=== PATIENT | male | born 1960 | race Caucasian/White ===

== ENCOUNTER 2017-04-18 13:24 | Emergency (ER) | payer MEDICAID ==
[2017-04-18 13:35] VITALS: RESP 18; TEMP 98.4
--- NOTE | 2017-04-18 14:50 | EDPHY ---
H & P Stated Complaint: trouble eating, wants pain medication, wants housing Time Seen by Provider: 04/18/17 14:26 HPI/ROS: CHIEF COMPLAINT: Difficulty eating HISTORY OF PRESENT ILLNESS: The patient is a 56-year-old homeless alcoholic man with hepatitis C who is typically seen in [place]. He states that he was at an business services assistant live in [facility] when he got in an argument with another patient and charged with assault. He was kicked out again to halfway for 2 weeks. After halfway he was taken to the hospital admitted for C diff. He states that since that time food has tasted gland and he does not have an appetite. After getting out of the hospital on March 19 he states that his awning hanger was trying to get him back into another assisted living center but told him yesterday they would not be able to. He states that the caser shoe parts told him to take a cab to [place]. He denies fevers. He denies pain. He does have significant ascites as well as large abdominal incisional hernia and lower extremity edema. He denies shortness of breath. REVIEW OF SYSTEMS: Constitutional: denies: chills, fever, recent illness, recent injury EENTM: denies: blurred vision, double vision, nose congestion Respiratory: denies: cough, shortness of breath Cardiac: denies: chest pain, irregular heart rate, lightheadedness, palpitations Gastrointestinal/Abdominal: denies: abdominal pain, diarrhea, nausea, vomiting, blood streaked stools Genitourinary: denies: dysuria, frequency, hematuria, pain Musculoskeletal: denies: joint pain, muscle pain Skin: denies: lesions, rash, jaundice, bruising Neurological: denies: headache, numbness, paresthesia, tingling, dizziness, weakness Hematologic/Lymphatic: denies: blood clots, easy bleeding, easy bruising Immunologic/allergic: denies: HIV/AIDS, transplant EXAM: GENERAL: Well-appearing, well-nourished and in no acute distress. HEAD: Atraumatic, normocephalic. EYES: Pupils equal round and reactive to light, extraocular movements intact, sclera anicteric, conjunctiva are normal. ENT: TMs normal, nares patent, oropharynx clear without exudates. Moist mucous membranes. NECK: Normal range of motion, supple without lymphadenopathy or JVD. LUNGS: Breath sounds clear to auscultation bilaterally and equal. No wheezes rales or rhonchi. HEART: Regular rate and rhythm without murmurs, rubs or gallops. ABDOMEN: Distended, ascites, large nontender incisional hernia BACK: No CVA tenderness, no spinal tenderness, step-offs or deformities EXTREMITIES: Lower extremity edema NEUROLOGICAL: Cranial nerves II through XII grossly intact. Normal speech, normal gait. 5/5 strength, normal movement in all extremities, normal sensation PSYCH: Normal mood, normal affect. SKIN: Warm, dry, normal turgor, no visible rashes or lesions. Source: Patient Exam Limitations: No limitations - Personal History Current Tetanus/Diphtheria Vaccine: Unsure Current Tetanus Diphtheria and Acellular Pertussis (TDAP): Unsure - Medical/Surgical History Hx Asthma: No Hx Chronic Respiratory Disease: No Hx Diabetes: No Hx Cardiac Disease: No Hx Renal Disease: No Hx Cirrhosis: No Hx Alcoholism: No Hx HIV/AIDS: No Hx Splenectomy or Spleen Trauma: No Other PMH: Alcoholism, hepatitis-C, nephrectomy, chronic back pain, trouble eating. - Social History Smoking Status: Light smoker Constitutional: Initial Vital Signs Temperature (C) 36.9 C 04/18/17 13:33 Heart Rate 120 H 04/18/17 13:33 Respiratory Rate 18 04/18/17 13:33 Blood Pressure 115/92 H 04/18/17 13:33 O2 Sat (%) 98 04/18/17 13:33 O2 Delivery Mode Room Air Allergies/Adverse Reactions: No Known Allergies Allergy (Verified 04/18/17 13:36) Medical Decision Making ED Course/Re-evaluation: The patient has symptoms of cirrhosis. He does not have medical care here [facility]. I will initiate lab work. He may benefit from paracentesis. No sign of spontaneous bacterial peritonitis. No sign of pulmonary edema. 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 4:30 p.m. the patient is sleeping comfortably. He is not in any distress. He remains slightly tachycardic. He states he is not withdrawing his last drink was in February. I will treat him with some IV fluids and obtain an EKG. I discussed this case with Dr. ogden. We both agree that the patient does not require acute inpatient hospitalization and that his symptoms are more appropriately managed in the outpatient setting. Case management is involved. We will try to arrange follow-up for him at the primary is office as well as with Gastroenterology and possibly suggest paracentesis by IR. 6:00 p.m. the patient is resting comfortably. His tachycardia resolved with hydration. He still has borderline tachycardia but this is his baseline. Case management has been working on his case for a few hours now. The verdict has ultimately but to put him in a cab back to [place]. His case management team there will resume their search for placement. His doctor's and follow-up will be scheduled there. Differential Diagnosis: Partial list of the Differential diagnosis considered include but were not limited to; ascites, cirrhosis, depression, malingering and although unlikely based on the history and physical exam, I also considered spontaneous bacterial peritonitis, hyperbilirubinemia, hepatic encephalopathy, edema, withdrawal. I discussed these differential diagnoses and the plan with the patient as well as the usual and expected course. The patient understands that the diagnosis is provisional and that in medicine we are not always correct and that further workup is often warranted. Usual and customary warnings were given. All of the patient's questions were answered. The patient was instructed to return to the emergency department should the symptoms at all worsen or return, otherwise to followup with the physician as we discussed. - Data Points Laboratory Results: Laboratory Results 04/18/17 15:00 04/18/17 15:00 04/18/17 04/18/17 04/18/17 15:00 15:00 15:00 WBC 5.18 10^3/uL 10^3/uL (3.80-9.50) RBC 2.79 10^6/uL L 10^6/uL (4.40-6.38) Hgb 10.0 g/dL L g/dL (13.7-17.5) Hct 28.8 % L % (40.0-51.0) MCV 103.2 fL H fL (81.5-99.8) MCH 35.8 pg H pg (27.9-34.1) MCHC 34.7 g/dL g/dL (32.4-36.7) RDW 31.4 % H % (11.5-15.2) Plt Count 268 10^3/uL 10^3/uL (150-400) MPV 8.7 fL fL (8.7-11.7) Neut % (Auto) 43.4 % % (39.3-74.2) Lymph % (Auto) 40.0 % % (15.0-45.0) [place] % (Auto) 14.3 % H % (4.5-13.0) Eos % (Auto) 0.2 % L % (0.6-7.6) Baso % (Auto) 0.2 % L % (0.3-1.7) Nucleat RBC Rel Count 0.0 % % (0.0-0.2) Absolute Neuts (auto) 2.25 10^3/uL 10^3/uL (1.70-6.50) Absolute Lymphs (auto) 2.07 10^3/uL 10^3/uL (1.00-3.00) Absolute Monos (auto) 0.74 10^3/uL 10^3/uL (0.30-0.80) Absolute Eos (auto) 0.01 10^3/uL L 10^3/uL (0.03-0.40) Absolute Basos (auto) 0.01 10^3/uL L 10^3/uL (0.02-0.10) Absolute Nucleated RBC 0.00 10^3/uL 10^3/uL (0-0.01) Immature Gran % 1.9 % H % (0.0-1.1) Immature Gran # 0.10 10^3/uL 10^3/uL (0.00-0.10) Platelet Estimate ADEQUATE (ADEQ) Polychromasia 1+ H Hypochromasia 1+ H Microcytic Cells 1+ H Spherocytes 1+ H Target Cells 1+ H Oval Macrocytes 1+ H Acanthocytes (Spur) 1+ H PT 19.9 SEC H SEC (12.0-15.0) INR 1.68 H (0.83-1.16) APTT 34.1 SEC SEC (23.0-38.0) Sodium 139 mEq/L mEq/L (135-145) Potassium 3.9 mEq/L mEq/L (3.5-5.2) Chloride 101 mEq/L mEq/L (97-110) Carbon Dioxide 28 mEq/l mEq/l (22-31) Anion Gap 10 mEq/L mEq/L (8-16) BUN 9 mg/dL mg/dL (7-23) Creatinine 0.8 mg/dL mg/dL (0.7-1.3) Estimated GFR > 60 Glucose 98 mg/dL mg/dL (70-100) Calcium 7.9 mg/dL L mg/dL (8.5-10.4) Total Bilirubin 1.5 mg/dL H mg/dL (0.1-1.4) Conjugated Bilirubin 0.8 mg/dL H mg/dL (0.0-0.5) Unconjugated Bilirubin 0.7 mg/dL mg/dL (0.0-1.1) AST 38 IU/L IU/L (17-59) ALT 39 IU/L IU/L (21-72) Alkaline Phosphatase 159 IU/L H IU/L (38-126) Total Protein 6.6 g/dL g/dL (6.3-8.2) Albumin 2.4 g/dL L g/dL (3.5-5.0) Lipase 29 IU/L IU/L (23-300) Medications Given: Discontinued Medications Sodium Chloride (Ns) 1,000 mls @ 0 mls/hr IV EDNOW ONE; Wide Open PRN Reason: Protocol Stop: 04/18/17 16:31 Last Admin: 04/18/17 16:36 Dose: 1,000 mls Departure - Departure Disposition: Home, Routine, Self-Care Clinical Impression: Cirrhosis Qualifiers: Hepatic cirrhosis type: unspecified hepatic cirrhosis Ascites presence: with ascites Qualified Code(s): K74.60 - Unspecified cirrhosis of liver Ascites Qualifiers: Ascites type: due to alcoholic cirrhosis Qualified Code(s): K70.31 - Alcoholic cirrhosis of liver with ascites Condition: Fair Instructions: Cirrhosis (ED), Ascites (ED) Referrals: NONE *PRIMARY CARE P,. [Primary Care Provider] - As per Instructions [facility],. [Clinic] - As per Instructions
[2017-04-18 15:11] LABS: PLATELET COUNT 268 10^3/uL (150-400)
[2017-04-18 15:17] LABS: INR 1.68 (0.83-1.16); PROTIME(PATIENT) 19.9 SEC (12.0-15.0)
[2017-04-18] MEDS ORDERED: NS 1,000 ML IV ONE (16:30)
--- NOTE | 2017-04-18 16:46 | CPEKG ---
Heart Rate: 111 RR Interval: 541 P-R Interval: 144 QRSD Interval: 72 QT Interval: 332 QTC Interval: 451 P [place]: 71 QRS [place]: 79 T Wave [place]: -31 EKG Severity - BORDERLINE ECG - EKG Impression: SINUS TACHYCARDIA WITH IRREGULAR RATE 67-115 EKG Impression: BORDERLINE T ABNORMALITIES, LATERAL LEADS Electronically Signed By: Eric Abraham 18-Apr-2017 16:50:03
[2017-04-18 18:41] VITALS: BP 119/77; PULSE 99; O2SAT 93
--- NOTE | 2017-04-18 19:32 | ASMTCMCOM ---
CM Note CM Note Notes: Pt presented to the ED for trouble eating/keeping food down. Pt had arrived to [place] earlier today after taking a cab from [facility] where he has lived for more than 5 years. Patient states his "field nurse case manager told me to take a cab to [place]." Patient states he was receiving case management and [facility] services. Spoke with patient's field nurse case manager at [facility], Nikki Kaufman ([phone]) and she said they have been providing a motel for the patient for the last couple weeks while pt's case finishing machine adjuster, Kristina Peterson ([phone]) through [facility] looks for LTC placement. Nikki says they are no longer able to provide emergency [facility] (motel); & that they have reached their max and that the patient was told "to look at any and all other options" and that he will have to figure it out himself. Patient states he was told all of this last night and then told to take a cab to [place]. Nikki denies that she told patient to take a cab to [place]. Patient said he arranged for a Medicaid cab but then "the local driver took every hermelindo from my debit account." Spoke with Kristina Peterson at [facility] LTC placement services and she says they have been looking for a LTC Medicaid LEvel 2 bed for the patient for the past 3 weeks with no success, either due to no beds available or facilities are not willing to accept patient due to his past behaviors and arrest/warrant records. Patient has a history of personality disorder, schizoaffective d/o and other behavioral incidents that render him a difficult placement for LTC. We discussed options in the [place] area. Provided Kristina with information for [facility], [place], [facility] ([place]) and [facility] ([place] Spoke with Delia at [facility] and she says they do have LTC Medicaid Level 2 beds available and would be willing to review a referral. Kristina says she spoke with her OBRA coordinator and it sounds like the patient could be [facility] but would eventually need the facility to re-do all the PASSR and ULTC paperwork [facility] that [facility]. Kristina says she will pursue these options. Kristina also says she and [facility] case management have a Care Conference to discuss pt's situation tomorrow or . Patient ready for discharge. After much discussion with Kristina Washington, and CM Spray Operator Sia Isidro, it was determined that the best discharge plan would be for patient to return to [facility] so Kristina can follow up with him tomorrow. Patient provided a cab to [facility] in [facility] ([phone]); spoke with Martha at the [facility] and she confirmed that patient is allowed there (he had a suspension from lunch services that was lifted a couple of days ago). Patient just needs to be able to make his own bed, and pass an alcohol breathalyzer. Pt states he has not drank alcohol since 02/11/18 when he was kicked out of his Assisted Living at [place] in [place]. Patient has difficulty standing up but is able to ambulate well with a walker, and can make his own bed. Pt is happy to hear [facility] agreed to accept him and is agreeable to this plan. Left a voicemail with Kristina notifying her that patient was provided a cab to [facility]. Patient provided Kristina's # and aware she will be looking to follow up tomorrow. CM available for further assistance if needed. Date Signed: 04/18/2017 07:32 PM Electronically Signed By:Cathryn Huddleston RN
--- NOTE | 2017-04-18 19:35 | ASDISCHSUM ---
Discharge Information Plan Status:Homeless/Group Home Medically Cleared to Leave: Discharge Date:04/18/2017 06:40 PM CM D/C Disposition:Streets (Homeless) ADT D/C Disposition:Home, Routine, Self-Care Projected Discharge Date:04/18/2017 06:40 PM Transportation at D/C:Cab Voucher Discharge Delay Reason: Follow-Up Date:04/18/2017 06:40 PM Discharge Slot: Final Diagnosis: Placement Information Patient Contact Information Contact Name:SONAL Relationship: Address: Home Phone: Work Phone: City: Alternate Phone: State/Zip Code: Email: Financial Information Financial Class: Primary Plan Desc:MEDICAID HEALTH FIRST RAG BALER Primary Plan Number:[id number] Secondary Plan Desc: Secondary Plan Number: Assessment Information [facility] CM Progress Note CM Note CM Note Notes: Pt presented to the ED for trouble eating/keeping food down. Pt had arrived to [place] earlier today after taking a cab from [facility] where he has lived for more than 5 years. Patient states his "manager case management told me to take a cab to [place]." Patient states he was receiving case management and emergency intermediate through [facility] services. Spoke with patient's manager case management at [facility], Nikki Kaufman ([phone]) and she said they have been providing a motel for the patient for the last couple weeks while pt's manager case management, Kristina Peterson ([phone]) through [facility] looks for LTC placement. Nikki says they are no longer able to provide emergency intermediate (motel); & that they have reached their max and that the patient was told "to look at any and all other options" and that he will have to figure it out himself. Patient states he was told all of this last night and then told to take a cab to [place]. Nikki denies that she told patient to take a cab to [place]. Patient said he arranged for a Medicaid cab but then "the clamp truck driver took every hermelindo from my debit account." Spoke with Kristina Peterson at [facility] and she says they have been looking for a LTC Medicaid LEvel 2 bed for the patient for the past 3 weeks with no success, either due to no beds available or facilities are not willing to accept patient due to his past behaviors and arrest/warrant records. Patient has a history of personality disorder, schizoaffective d/o and other behavioral incidents that render him a difficult placement for LTC. We discussed options in the [place] area. Provided Kristina with information for [facility], [facility], [facility] ([place]) and [facility] ([place] Spoke with Delia at [facility] and she says they do have LTC Medicaid Level 2 beds available and would be willing to review a referral. Kristina says she spoke with her OBRA coordinator and it sounds like the patient could be placed in LTC [facility] a [facility] but would eventually need the facility to re-do all the PASSR and ULTC paperwork for that county. Kristina says she will pursue these options. Kristina also says she and [facility] case management have a Care Conference to discuss pt's situation tomorrow or . Patient ready for discharge. After much discussion with Kristina Washington, and CM Aligner Barrel And Receiver Sia Isidro, it was determined that the best discharge plan would be for patient to return to [facility] so Kristina can follow up with him tomorrow. Patient provided a cab to [facility] in [facility] ([phone]); spoke with Martha at the intermediate and she confirmed that patient is allowed there (he had a suspension from lunch services that was lifted a couple of days ago). Patient just needs to be able to make his own bed, and pass an alcohol breathalyzer. Pt states he has not drank alcohol since 02/11/18 when he was kicked out of his Assisted Living at [place] in [facility]. Patient has difficulty standing up but is able to ambulate well with a walker, and can make his own bed. Pt is happy to hear [facility] agreed to accept him and is agreeable to this plan. Left a voicemail with Kristina notifying her that patient was provided a cab to [email or web address]. Patient provided Kristina's # and aware she will be looking to follow up tomorrow. CM available for further assistance if needed. Date Signed: 04/18/2017 07:32 PM Electronically Signed By:Cathryn Huddleston RN Intervention Information Intervention Type:Post Acute Provider Date of Service:04/18/2017 07:33 PM Communication Patient Type:Emergency Room Staff Member:DANIELE Huddleston, Cathryn Hours:1.5 Discipline:Director Of Revenue Cycle Management Severity: Comment:
== END 2017-04-18 18:40 | disposition home or self-care (01) ==
DX: K70.31 Alcoholic cirrhosis of liver with ascites (principal); F17.200 Nicotine dependence, unspecified, uncomplicated; E86.9 Volume depletion, unspecified

== ENCOUNTER 2017-05-02 10:23 | Inpatient (IN) | payer MEDICAID ==
--- NOTE | 2017-05-02 10:27 | EDPHY ---
HPI/HX/ROS/PE/MDM Narrative: CHIEF COMPLAINT: Legs are "useless" HISTORY OF PRESENT ILLNESS: The patient is a homeless 56 y/o male with a complex history complaining of weakness in his legs. He has chronic back pain, hypertension, hepatitis C, asthma, liver failure, and abdominal wall hernia. He was admitted to [facility] recently, discharged 6 days ago, for hypoxemia, respiratory distress, and was discharged after a paracentesis. He went to the [facility]. On Monday he fell while going to [facility]. He wasn 't found for a couple hours. He denies loss of consciousness or other trauma. Monday he noticed weakness in his legs. He denies pain, fever, or any other associated symptoms. He denies recent alcohol abuse and would like a test showing he doesn't have TB. REVIEW OF SYSTEMS: Aside from elements discussed in the HPI, a comprehensive 10-point review of systems was reviewed and is negative. PAST MEDICAL HISTORY: Chronic back pain, hypertension, hepatitis C, asthma, liver failure, spigelian hernia, alcohol abuse, nephrectomy SOCIAL HISTORY: Homeless, alcohol abuse (last drink February), smoker VITAL SIGNS: Reviewed by me GENERAL: Unkempt, obstreperous. HEENT: Atraumatic. Eyes: No icterus, no injection. Mouth: slightly dry mucous membranes. No erythema or lesions. Neck: supple with no adenopathy. LUNGS: Breath sounds diminished bilaterally, no wheezes, rhonchi or rales. CARDIAC: Tachycardic, no rubs, murmurs or gallops. ABDOMEN: Abdomen protuberant. Large paramedian hernia, nontender. Positive fluid wave. BACK: No CVA tenderness. EXTREMITIES: 2+ to 3+ pitting edema to the knees. No trauma. Range of motion is normal throughout. NEURO: Alert and oriented, grossly nonfocal. SKIN: Warm and dry, no rash. Multiple excoriations from scabies. PSYCHIATRIC: Normal mentation, no agitation. ED Course: The patient is well known to the ED case management staff and presents with leg weakness. He denies pain or any other symptoms. He has diminished breath sounds , and is tachycardic. Patient had extensive evaluation by case management several weeks ago. Evidently, he is a long-time resident in [place] who was recently transferred to the [place] area for somewhat unclear reasons. He has recently been admitted to [facility] and then to [facility]. Patient does require assisted living type of care facility or long-term care facility but has been quite difficult to place. Plan for labs, chest X-ray, and EKG. Patient's laboratory evaluation demonstrates no significant acute abnormalities. I ordered the patient a dose of spironolactone which he declined. 1:19 PM- I have spoken to case management regarding this patient. He is in a difficult position. Please see the case managment notes; patient is homeless and uses a walker. He has not been compliant with his spironolactone and is in need of diuresis. At this point I feel the safest disposition is to admit him to the hospital. 12-LEAD EKG: Please see the full report in [facility]. My interpretation: Sinus tachycardia MDM: Differential diagnosis of the patient's weakness was considered including but not limited to electrolyte abnormality, anemia, cardiac ischemia, CVA, spinal cord abnormality, and infectious causes. - Data Points Imaging Results: Imaging Impressions Chest X-Ray 05/02/17 10:50 Impression: 1. Hypoventilatory chest with interstitial prominence that could be related to mild fluid overload or bronchitis, with right upper lobe atelectasis without definite evidence of pneumonia. 2. Age-indeterminate mild compression fracture at L1, new since 2006. 3. Additional findings as above. Findings discussed with Giuliana Thayer MD, on 05/02/2017 at 12:35. Laboratory Results: Laboratory Results 05/02/17 10:56 05/02/17 10:56 05/02/17 05/02/17 05/02/17 13:49 10:56 10:56 WBC RBC Hgb Hct MCV MCH MCHC RDW Plt Count MPV Neut % (Auto) Lymph % (Auto) [place] % (Auto) Eos % (Auto) Baso % (Auto) Nucleat RBC Rel Count Absolute Neuts (auto) Absolute Lymphs (auto) Absolute Monos (auto) Absolute Eos (auto) Absolute Basos (auto) Absolute Nucleated RBC Immature Gran % Immature Gran # PT Pending INR Pending Sodium 135 mEq/L mEq/L (135-145) Potassium 4.5 mEq/L mEq/L (3.5-5.2) Chloride 102 mEq/L mEq/L (97-110) Carbon Dioxide 25 mEq/l mEq/l (22-31) Anion Gap 8 mEq/L mEq/L (8-16) BUN 14 mg/dL mg/dL (7-23) Creatinine 0.6 mg/dL L mg/dL (0.7-1.3) Estimated GFR > 60 Glucose 100 mg/dL mg/dL (70-100) Calcium 8.9 mg/dL mg/dL (8.5-10.4) Total Bilirubin 1.1 mg/dL mg/dL (0.1-1.4) Conjugated Bilirubin 0.7 mg/dL H mg/dL (0.0-0.5) Unconjugated Bilirubin 0.4 mg/dL mg/dL (0.0-1.1) AST 47 IU/L IU/L (17-59) ALT 47 IU/L IU/L (21-72) Alkaline Phosphatase 135 IU/L H IU/L (38-126) Troponin I < 0.012 ng/mL ng/mL (0.000-0.034) Total Protein 6.3 g/dL g/dL (6.3-8.2) Albumin 2.7 g/dL L g/dL (3.5-5.0) Lipase 211 IU/L IU/L (23-300) 05/02/17 10:56 WBC 5.41 10^3/uL 10^3/uL (3.80-9.50) RBC 2.65 10^6/uL L 10^6/uL (4.40-6.38) Hgb 9.7 g/dL L g/dL (13.7-17.5) Hct 28.0 % L % (40.0-51.0) MCV 105.7 fL H fL (81.5-99.8) MCH 36.6 pg H pg (27.9-34.1) MCHC 34.6 g/dL g/dL (32.4-36.7) RDW TNP Plt Count 198 10^3/uL 10^3/uL (150-400) MPV 9.4 fL fL (8.7-11.7) Neut % (Auto) 59.6 % % (39.3-74.2) Lymph % (Auto) 20.0 % % (15.0-45.0) [place] % (Auto) 15.9 % H % (4.5-13.0) Eos % (Auto) 0.9 % % (0.6-7.6) Baso % (Auto) 0.6 % % (0.3-1.7) Nucleat RBC Rel Count 0.4 % H % (0.0-0.2) Absolute Neuts (auto) 3.23 10^3/uL 10^3/uL (1.70-6.50) Absolute Lymphs (auto) 1.08 10^3/uL 10^3/uL (1.00-3.00) Absolute Monos (auto) 0.86 10^3/uL H 10^3/uL (0.30-0.80) Absolute Eos (auto) 0.05 10^3/uL 10^3/uL (0.03-0.40) Absolute Basos (auto) 0.03 10^3/uL 10^3/uL (0.02-0.10) Absolute Nucleated RBC 0.02 10^3/uL H 10^3/uL (0-0.01) Immature Gran % 3.0 % H % (0.0-1.1) Immature Gran # 0.16 10^3/uL H 10^3/uL (0.00-0.10) PT INR Sodium Potassium Chloride Carbon Dioxide Anion Gap BUN Creatinine Estimated GFR Glucose Calcium Total Bilirubin Conjugated Bilirubin Unconjugated Bilirubin AST ALT Alkaline Phosphatase Troponin I Total Protein Albumin Lipase Medications Given: Discontinued Medications Gabapentin (Neurontin) 200 mg PO EDNOW ONE Stop: 05/02/17 11:26 Last Admin: 05/02/17 11:34 Dose: 200 mg Sodium Chloride (Ns) 1,000 mls @ 0 mls/hr IV EDNOW ONE; Wide Open PRN Reason: Protocol Stop: 05/02/17 10:51 Last Admin: 05/02/17 10:55 Dose: 1,000 mls Spironolactone (Aldactone) 25 mg PO EDNOW ONE Stop: 05/02/17 12:33 Last Admin: 05/02/17 12:40 Dose: Not Given General Initial Vital Signs: Initial Vital Signs Temperature (C) 36.9 C 05/02/17 10:27 Heart Rate 110 H 05/02/17 10:27 Respiratory Rate 18 05/02/17 10:27 Blood Pressure 110/80 05/02/17 10:27 O2 Sat (%) 99 05/02/17 10:27 O2 Delivery Mode Room Air Allergies/Adverse Reactions: No Known Allergies Allergy (Verified 04/18/17 13:36) Home Medications: Medication Instructions Recorded Gabapentin [Neurontin 300 MG (*)] 300 mg PO TID 05/02/17 Omeprazole 40 mg PO DAILY 05/02/17 Spironolactone [Aldactone 25 MG 25 mg PO DAILY #30 tab 05/02/17 (*)] Departure - Departure Disposition: Home, Routine, Self-Care Clinical Impression: Generalized weakness Hepatitis C Qualifiers: Viral hepatitis chronicity: chronic Hepatic coma status: without hepatic coma Qualified Code(s): B18.2 - Chronic viral hepatitis C Ascites Qualifiers: Ascites type: due to alcoholic hepatitis Qualified Code(s): K70.11 - Alcoholic hepatitis with ascites Liver failure Qualifiers: Liver failure chronicity: chronic Hepatic coma status: without hepatic coma Qualified Code(s): K72.10 - Chronic hepatic failure without coma Condition: Fair Report Scribed for: Giuliana Thayer Report Scribed by: Linda Cunningham Date of Report: 05/02/17 Time of Report: 10:26 Physician Review and Approval Statement: Portions of this note were transcribed by a medical assistant prn. I personally performed a history, physical exam, medical decision making, and confirmed accuracy of information the transcribed note.
[2017-05-02] MEDS ORDERED: NS 1,000 ML IV ONE (10:50)
--- NOTE | 2017-05-02 11:04 | CPEKG ---
Heart Rate: 115 RR Interval: 522 P-R Interval: 117 QRSD Interval: 96 QT Interval: 332 QTC Interval: 460 P [place]: 75 QRS [place]: 88 T Wave [place]: 71 EKG Severity - OTHERWISE NORMAL ECG - EKG Impression: SINUS TACHYCARDIA EKG Impression: artifact Electronically Signed By: Zach Odonnell 04-May-2017 07:19:19
[2017-05-02 11:22] LABS: PLATELET COUNT 198 10^3/uL (150-400)
[2017-05-02] MEDS ORDERED: GABAPENTIN 100 MG CAP PO ONE (11:25)
[2017-05-02] MEDS ORDERED: SPIRONOLACTONE 25 MG TAB PO ONE (12:32)
[2017-05-02] MEDS ORDERED: ONDANSETRON 4 MG/2 ML VIAL IVP PRN (14:52)
[2017-05-02] MEDS ORDERED: ONDANSETRON DISINTEGRATING 4 MG TAB PO PRN (14:52)
[2017-05-02] MEDS ORDERED: ACETAMINOPHEN 325 MG TAB PO PRN (14:52)
[2017-05-02] MEDS ORDERED: NICOTINE POLACRILEX 2 MG GUM B PRN (14:52)
[2017-05-02 14:56] LABS: INR 1.45 (0.83-1.16); PROTIME(PATIENT) 17.8 SEC (12.0-15.0)
[2017-05-02] MEDS ORDERED: TUBERCULIN (PPD) 5 TU/0.1 ML SYRINGE ID ONE (14:59)
--- NOTE | 2017-05-02 15:02 | PDGENHP ---
History and Physical - Chief Complaint Acute weakness - History of Present Illness Primary care provider: None HPI: 56-year-old male presenting with acute weakness located in his bilateral lower extremities characterized as inability to get off of the toilet seat, with associated recent mechanical fall resulting in the patient being down for a couple hours before he was able to receive assistance. The onset of his current symptoms was on the morning of this presentation, when the patient was at the local [facility] receiving a free lunch, and he was unable to stand up from a toilet seat. The duration was persistent thereafter, the patient reports that he continues to experience this weakness while he is lying in the emergency department bed. He does report some associated chronic bilateral lower extremity edema as well as sore throat, but he is unable to express when the patient began experiencing a sore throat or whether it is associated with any recent shortness of breath. He reports that he intermittently has nonbloody diarrhea, but he is unable to quantify his number of bowel movements. He reports that he is not on diuretics because he does not like to urinate on himself, and he is homeless so finding a bathroom can be challenging. The patient otherwise denies any fevers chills nausea vomiting or cough. Of note, the patient presented to [facility] on 04/18/2017 with reports of low oral intake and the complaint of homelessness in the for continuity. He had been brought by taxi from [address] [place] [address] [facility]. Patient did not have an indication for hospitalization at that time and he was discharged from the emergency department. He subsequently went to the [facility] in [place], and was triaged to [facility], where he received care, and they were unable to secure long- term care placement. After the patient was discharged, he was admitted at a [facility], where he had a 6 day hospitalization and reported abdominal paracentesis. He was discharged 4 days ago. History Information - Allergies/Home Medication List Allergies/Adverse Reactions: No Known Allergies Allergy (Verified 04/18/17 13:36) I have personally reviewed and updated: family history, medical history, social history, surgical history - Past Medical History Additional medical history: Cirrhosis and end-stage liver disease in the setting of hepatitis C virus and chronic alcoholism. Reported personality disorder and schizoaffective disorder. Hypertension. Chronic lower back pain - Surgical History Additional surgical history: Large abdominal surgery with kidney removal, unclear indication, resulting ventral hernia - Family History Additional family history: No venous thromboembolism, no 1st degree relatives with malignancy - Social History Smoking Status: Heavy smoker Alcohol Use: Sober (Since February 2017) Drug Use: None Additional social history: Homeless, patient is well established in [place] , he has a welfare case worker in that locale Review of Systems Review of Systems: ROS: 10pt was reviewed & negative except for what was stated in HPI & below Cardiac: Reports: edema (Bilateral lower extremity) Gastrointestinal: Reports: abdominal distention (Ascites), diarrhea Neurological: Reports: weakness Physical Exam Physical Exam: Temp Pulse Resp BP Pulse Ox 36.9 C 108 H 18 95/67 L 98 05/02/17 10:27 05/02/17 12:41 05/02/17 12:41 05/02/17 12:41 05/02/17 12:41 Constitutional: no apparent distress, not in pain, chronically ill appearing, unkempt, No uncomfortable Eyes: PERRL, anicteric sclera, EOMI Ears, Nose, Mouth, Throat: moist mucous membranes, hearing normal, ears appear normal, no oral mucosal ulcers Cardiovascular: tachycardia, edema (1+ bilateral lower extremities), No systolic murmur, No irregularly irregular Respiratory: no respiratory distress, no rales or rhonchi, clear to auscultation Gastrointestinal: normoactive bowel sounds, ascites, distension (Moderate with moderate size ventral hernia, reducible, minimal tenderness over the right inferior aspect), No guarding Skin: other (Scattered scratches on his bilateral lower extremities without any confluent erythema, the patient does have blanchable erythema along the distal toes on the left lower extremity without any necrosis) Neurologic: AAOx3, sensation intact bilaterally, weakness (Motor strength is 4/ 5 in the bilateral lower extremities, 5/5 grubber strength) Psychiatric: not anxious, flat affect, poor insight, other (Lethargic but arousable), No agitated Lab Data & Imaging Review 05/02/17 10:56 05/02/17 10:56 WBC 5.41 10^3/uL (3.80-9.50) 05/02/17 10:56 RBC 2.65 10^6/uL (4.40-6.38) L 05/02/17 10:56 Hgb 9.7 g/dL (13.7-17.5) L 05/02/17 10:56 Hct 28.0 % (40.0-51.0) L 05/02/17 10:56 MCV 105.7 fL (81.5-99.8) H 05/02/17 10:56 MCH 36.6 pg (27.9-34.1) H 05/02/17 10:56 MCHC 34.6 g/dL (32.4-36.7) 05/02/17 10:56 RDW TNP 05/02/17 10:56 Plt Count 198 10^3/uL (150-400) 05/02/17 10:56 MPV 9.4 fL (8.7-11.7) 05/02/17 10:56 Neut % (Auto) 59.6 % (39.3-74.2) 05/02/17 10:56 Lymph % (Auto) 20.0 % (15.0-45.0) 05/02/17 10:56 [place] % (Auto) 15.9 % (4.5-13.0) H 05/02/17 10:56 Eos % (Auto) 0.9 % (0.6-7.6) 05/02/17 10:56 Baso % (Auto) 0.6 % (0.3-1.7) 05/02/17 10:56 Nucleat RBC Rel Count 0.4 % (0.0-0.2) H 05/02/17 10:56 Absolute Neuts (auto) 3.23 10^3/uL (1.70-6.50) 05/02/17 10:56 Absolute Lymphs (auto) 1.08 10^3/uL (1.00-3.00) 05/02/17 10:56 Absolute Monos (auto) 0.86 10^3/uL (0.30-0.80) H 05/02/17 10:56 Absolute Eos (auto) 0.05 10^3/uL (0.03-0.40) 05/02/17 10:56 Absolute Basos (auto) 0.03 10^3/uL (0.02-0.10) 05/02/17 10:56 Absolute Nucleated RBC 0.02 10^3/uL (0-0.01) H 05/02/17 10:56 Immature Gran % 3.0 % (0.0-1.1) H 05/02/17 10:56 Immature Gran # 0.16 10^3/uL (0.00-0.10) H 05/02/17 10:56 PT 17.8 SEC (12.0-15.0) H 05/02/17 13:49 INR 1.45 (0.83-1.16) H 05/02/17 13:49 Sodium 135 mEq/L (135-145) 05/02/17 10:56 Potassium 4.5 mEq/L (3.5-5.2) 05/02/17 10:56 Chloride 102 mEq/L (97-110) 05/02/17 10:56 Carbon Dioxide 25 mEq/l (22-31) 05/02/17 10:56 Anion Gap 8 mEq/L (8-16) 05/02/17 10:56 BUN 14 mg/dL (7-23) 05/02/17 10:56 Creatinine 0.6 mg/dL (0.7-1.3) L 05/02/17 10:56 Estimated GFR > 60 05/02/17 10:56 Glucose 100 mg/dL (70-100) 05/02/17 10:56 Calcium 8.9 mg/dL (8.5-10.4) 05/02/17 10:56 Total Bilirubin 1.1 mg/dL (0.1-1.4) 05/02/17 10:56 Conjugated Bilirubin 0.7 mg/dL (0.0-0.5) H 05/02/17 10:56 Unconjugated Bilirubin 0.4 mg/dL (0.0-1.1) 05/02/17 10:56 AST 47 IU/L (17-59) 05/02/17 10:56 ALT 47 IU/L (21-72) 05/02/17 10:56 Alkaline Phosphatase 135 IU/L (38-126) H 05/02/17 10:56 Troponin I < 0.012 ng/mL (0.000-0.034) 05/02/17 10:56 Total Protein 6.3 g/dL (6.3-8.2) 05/02/17 10:56 Albumin 2.7 g/dL (3.5-5.0) L 05/02/17 10:56 Lipase 211 IU/L (23-300) 05/02/17 10:56 Visualized and Interpreted Chest x-ray results: Yes Chest X-Ray results: other (Interstitial infiltrates, right upper lobe atelectasis) Visualized and Interpreted EKG results: Yes EKG Interpretation: Positive for: other (Sinus tachycardia) Assessment & Plan Assessment: 56-year-old male presenting with acute bilateral lower extremity paresis as well as edema in the setting of cirrhosis and end-stage liver disease Plan: 1. Paresis. Acute, new problem this provider, further workup indicated. Bilateral lower extremities, either secondary to untreated edematous lower extremities verses viral syndrome versus PE -get D-dimer -get respiratory viral panel, check procalcitonin given his risk of spontaneous bacterial peritonitis -treat lower extremity edema after the above have been fully evaluated -work with physical and occupational therapy to gauge whether he would benefit from correction facility with rehab services -get U tox, alcohol level 2. End-stage liver disease with cirrhosis. Chronic, secondary to a combination of hepatitis C virus as well as chronic alcoholism, current AST and ALT both within normal limits, bilirubin level marginally elevated, platelets normal, visible ascites on exam -order outside records from [facility] to determine the extent of recent services rendered -recommend initiating oral diuretics including Lasix and Aldactone given the patient appears to have 3rd spacing and both lower extremity edema and ascites, he may be more amenable to receiving diuretics when he is in a correction facility given that he will have the challenge of locating a restroom -the patient may be appropriate for long-term care, but this should most likely be preceded by an attempt to rehabilitate him a correction facility -discussed with Dr. 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 Schizoaffective disorder. Chronic, patient is currently not medicated, the patient reports he does not want to be medicated -she does not currently appear to be decompensated although it is to be determined whether the patient can adequately care for self -get cog eval -hold on psych eval until we have obtained the aforementioned information 4. Anemia. Most likely secondary to chronic inflammatory disease as well as end -stage liver disease, continue monitor Diet. Regular Prophylaxis. High risk patient, Lovenox 40 Code. Full per patient, [facility] [place] [facility]. Anticipated discharge uncertain this time, anticipated length stay is greater than 48 hr for reasonable medical necessity including acute paresis rendering patient unsafe to ambulate safely in the setting of possibly undiagnosed infection requiring further workup in the setting of high risk comorbid end-stage liver disease with cirrhosis.
[2017-05-02 16:19] LABS: HIV TYPE 1 AND 2 NEGATIVE (NEGATIVE)
[2017-05-02] MEDS: NICOTINE 21 MG/24 HR PATCH TD SCH (16:48)
[2017-05-02] MEDS ORDERED: IBUPROFEN 600 MG TAB PO PRN (18:04)
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
[2017-05-02] MEDS ORDERED: GABAPENTIN 300 MG CAP PO SCH (21:00)
[2017-05-02] MEDS: GABAPENTIN 300 MG CAP PO SCH (22:16)
[2017-05-03 05:01] LABS: INR 1.66 (0.83-1.16); PROTIME(PATIENT) 19.7 SEC (12.0-15.0)
[2017-05-03 05:42] LABS: PLATELET COUNT 208 10^3/uL (150-400)
[2017-05-03] MEDS: GABAPENTIN 300 MG CAP PO SCH ×3 (08:20→22:05)
[2017-05-03] MEDS: PANTOPRAZOLE SODIUM 40 MG TAB PO SCH (08:20)
[2017-05-03] MEDS: NICOTINE 21 MG/24 HR PATCH TD SCH (08:21)
[2017-05-03] MEDS ORDERED: IOPAMIDOL (ISOVUE 370) 100 ML BTL IV ONE (08:58)
[2017-05-03] MEDS ORDERED: ENOXAPARIN 40 MG/0.4 ML SYR SC SCH ×3 (09:00→21:00)
[2017-05-03] MEDS ORDERED: NON-FORMULARY NEW DRUG (Omeprazole [Omeprazole] 40 MG) PO SCH (09:00)
[2017-05-03] MEDS ORDERED: ENOXAPARIN 30 MG/0.3 ML SYR SC ONE (11:40)
[2017-05-03] MEDS ORDERED: FUROSEMIDE 40 MG/4 ML VIAL IVP ONE (12:00)
--- NOTE | 2017-05-03 14:13 | PDMN ---
Medical Necessity Medical necessity: Pt meets IP criteria per MD; est los >2 mn for eval/tx of acute BLE paresis & edema rendering pt unsafe to ambulate & possible undiagnosed infection in the setting of cirrhosis & end stage liver disease; admit for further workup/monitoring, med management, therapies & dc planning; hx htn, schizoaffective disorder requiring cog eval, alcoholism; per H&P & order 05/02/17.
[2017-05-03] MEDS: METHOCARBAMOL 750 MG TAB PO PRN ×2 (14:15→22:08)
[2017-05-03] MEDS ORDERED: WARFARIN SODIUM 4 MG TAB PO SCH (16:00)
--- NOTE | 2017-05-03 18:08 | HOSPPROG ---
Hospitalist Progress Note Assessment/Plan: Assessment: 56-year-old male presenting with acute bilateral lower extremity paresis as well as edema in the setting of cirrhosis and end-stage liver disease c/b acute subsegmental PE Plan: 1. Paresis. Acute, multifactorial, 2/2 ESLD + PEs + back pain/thoracic fractures + chronic debility -cont to work w/ PT/OT -will likely benefit from SNF at discharge, then possibly LTC 2. End-stage liver disease with cirrhosis. Chronic, secondary to a combination of hepatitis C virus as well as chronic alcoholism, most recent therapeutic paracentesis w/in past week at [facility] -counseled patient that diuretics are the only method of reducing edema in legs (he asked if we could, "put a needle in them"), but he is resistant to outpatient diuretics b/c he does not want to have polyuria, as this is particularly challenging when homeless w/ poor mobility -agreeable to placing condom-cath and starting PO lasix 40mg bid, rec adding aldactone after we gauge whether he can tolerate -rec therapeutic para prior to DC after establishing reasonable PO diuretic regimen 3. Schizoaffective disorder. Chronic, patient is currently not medicated, the patient reports he does not want to be medicated -cognitively more engaging today, does not appear gravely disabled at this time -patient has extensive hx of attempts at placement by his case liner in [facility]; our case mgmt dept working on options 4. Anemia. Most likely secondary to chronic inflammatory disease as well as end -stage liver disease, declining today and, in setting of weakness, will transfuse if < 8 -give 1u PRBC now, 40mg IV lasix after -monitor daily Hgb, no e/o active bleed 5. Subsegmental pulmonary embolism. Acute, POA, new problem to this provider, further w/u indicated. Elevated dimer and sinus tachycardia (on EKG, personally interpreted), will initiate tx -prefer coumadin given underlying coagulopathy from ESLD and ability to base dosing on INR -start 4mg now, w/ lovenox 70 bid bridging -daily INR -get LE US to eval clot burden, likely cause 6. Thoracic compression fractures. Unclear chronicity, patient reports long hx of back pain w/ hx of continuous opiate dependency (was on fentanyl patch until 02/26, and ms contin prior to that) -given patient's inability to effectively recall where he has had prior diagnostic imaging, will get thoracic MRI now to gauge degree of injury which will dictate recs -get brace -place lidoderm patch -PRN robaxin/tylenol -cautious use of reintroducing opiates, as I suspect patient will become dependent yet again -heat pad -get Vit D level 7. Rib fractures. Unknown chronicity, pulm hygiene Diet. Regular Prophylaxis. High risk patient, lovenox bridge Code. Full per patient, Clair Finch in [place] is his MDPOA Disposition. Anticipated discharge uncertain this time, remains clinically unresolved, medically complex w/ high risk worsening morbidity. Subjective: ongoing back pain, requesting for something stronger than tylenol Objective: Vital Signs Temp Pulse Resp BP Pulse Ox 36.8 C 100 18 113/78 96 05/03/17 17:33 05/03/17 17:33 05/03/17 17:33 05/03/17 17:33 05/03/17 17:33 Microbiology 05/02/17 17:00 Respiratory Panel (PCR) - Final Nasal, Sinus - Swab No Organism Detected Laboratory Results 05/03/17 04:17 05/03/17 04:17 05/02/17 05/03/17 05/04/17 05:59 05:59 05:59 Intake Total 630 300 Output Total 150 300 Balance 480 0 PT 19.7 SEC (12.0-15.0) H 05/03/17 04:17 INR 1.66 (0.83-1.16) H 05/03/17 04:17 - Physical Exam Constitutional: no apparent distress, chronically ill appearing, uncomfortable, unkempt, No not in pain (moderate) Cardiovascular: tachycardia, edema (1+ bilat LE), No systolic murmur, No irregularly irregular Respiratory: reduced air movement (bilat bases), No expiratory wheeze, No inspiratory crackles, No bronchial breath sounds Gastrointestinal: normoactive bowel sounds, ascites, distension (moderate w/ ventral hernia), No tenderness, No guarding Skin: other (scratches bilat LE) Neurologic: AAOx3, sensation intact bilaterally, No weakness (motor 5/5 bilat LE ) Psychiatric: interacting appropriately, not anxious, not encephalopathic, thought process linear ICD10 Worksheet Patient Problems: Problems Problem Status Onset Generalized weakness Acute Hepatitis C Acute Ascites Acute Liver failure Acute
[2017-05-03] MEDS: ENOXAPARIN 80 MG/0.8 ML SYR SC SCH (22:05)
[2017-05-03] MEDS: LIDOCAINE 4%/MENTHOL 1% PATCH TD SCH (22:06)
[2017-05-03] MEDS: PATCH REMOVAL 1 EA PATCH TD SCH (22:06)
[2017-05-04 05:44] LABS: INR 1.57 (0.83-1.16); PROTIME(PATIENT) 18.9 SEC (12.0-15.0)
[2017-05-04] MEDS: METHOCARBAMOL 750 MG TAB PO PRN ×3 (08:18→22:33)
[2017-05-04] MEDS: GABAPENTIN 300 MG CAP PO SCH ×3 (08:18→20:01)
[2017-05-04] MEDS: FUROSEMIDE 40 MG TAB PO SCH ×2 (08:18→16:48)
[2017-05-04] MEDS: PANTOPRAZOLE SODIUM 40 MG TAB PO SCH (08:18)
[2017-05-04] MEDS: NICOTINE 21 MG/24 HR PATCH TD SCH (08:19)
[2017-05-04] MEDS: LIDOCAINE 4%/MENTHOL 1% PATCH TD SCH (08:20)
[2017-05-04] MEDS: ENOXAPARIN 80 MG/0.8 ML SYR SC SCH ×2 (08:20→20:02)
[2017-05-04] MEDS ORDERED: MAGNESIUM SULF 2 GM/WATER 50 ML IV ONE (12:13)
--- NOTE | 2017-05-04 12:20 | HOSPPROG ---
Hospitalist Progress Note Assessment/Plan: 56-year-old male presenting with acute bilateral lower extremity paresis as well as edema in the setting of cirrhosis and end-stage liver disease c/b acute subsegmental PE Plan: 1. Paresis. Acute, multifactorial, 2/2 ESLD + PEs + back pain/thoracic fractures + chronic debility -cont to work w/ PT/OT -will likely benefit from SNF at discharge, then possibly LTC 2. End-stage liver disease with cirrhosis. Chronic, secondary to a combination of hepatitis C virus as well as chronic alcoholism, most recent therapeutic paracentesis w/in past week at [facility] -counseled patient that diuretics are the only method of reducing edema in legs (he asked if we could, "put a needle in them"), but he is resistant to outpatient diuretics b/c he does not want to have polyuria, as this is particularly challenging when homeless w/ poor mobility -Has tolerated Lasix 40mg PO BID well, will cont. Hold off on Aldactone for now. 3. Schizoaffective disorder. Chronic, patient is currently not medicated, the patient reports he does not want to be medicated -cognitively more engaging today, does not appear gravely disabled at this time -patient has extensive hx of attempts at placement by his case finisher in [facility]; our case mgmt dept working on options 4. Anemia. Most likely secondary to chronic inflammatory disease as well as end -stage liver disease, declining today and, in setting of weakness, will transfuse if < 8 -s/p 1 unit PRBC on 05/03 -monitor daily Hgb, no e/o active bleed 5. Subsegmental pulmonary embolism. Acute, POA, new problem to this provider, further w/u indicated. Elevated dimer and sinus tachycardia (on EKG, personally interpreted), will initiate tx -prefer coumadin given underlying coagulopathy from ESLD and ability to base dosing on INR -Lovenox bridge, Warfarin per Pharm -Bilateral LE non occlusive Femoral vein DVT. No indication for IVC filter 6. Thoracic compression fractures. Unclear chronicity, patient reports long hx of back pain w/ hx of continuous opiate dependency (was on fentanyl patch until 02/26, and ms contin prior to that) -MRI c/w chronic fracture. no additional intervention planned -get brace -place lidoderm patch -PRN robaxin/tylenol -cautious use of reintroducing opiates, as I suspect patient will become dependent yet again -heat pad -get Vit D level 7. Rib fractures. Unknown chronicity, pulm hygiene 9. vitamin D deficiency -will replace Diet. Regular Prophylaxis. High risk patient, lovenox bridge Code. Full per patient, Clair Finch in [place] is his MDPOA Disposition. Anticipated discharge uncertain this time, remains clinically unresolved, medically complex w/ high risk worsening morbidity. Plan: -Per above -No changes to diuretics -Will work with PT today, goal is to walk -Cont Lovenox/Coumadin per Pharmacy -Decrease Tylenol dose due to liver disease Subjective: pain is well controlled. Wants to work with PT Objective: Vital Signs Temp Pulse Resp BP Pulse Ox 36.7 C 115 H 16 94/77 L 93 05/04/17 11:41 05/04/17 11:41 05/04/17 11:41 05/04/17 11:41 05/04/17 11:41 Laboratory Results 05/03/17 04:17 05/04/17 04:38 05/03/17 05/04/17 05/05/17 05:59 05:59 05:59 Intake Total 630 1200 Output Total 150 2300 Balance 480 -1100 PT 18.9 SEC (12.0-15.0) H 05/04/17 04:38 INR 1.57 (0.83-1.16) H 05/04/17 04:38 - Physical Exam Constitutional: no apparent distress, appears nourished Eyes: PERRL, EOMI Ears, Nose, Mouth, Throat: moist mucous membranes, hearing normal Cardiovascular: regular rate and rhythym, No edema Respiratory: no respiratory distress, clear to auscultation Gastrointestinal: normoactive bowel sounds, distension (mild) Genitourinary: no bladder fullness Skin: warm Musculoskeletal: generalized weakness Neurologic: AAOx3 Psychiatric: interacting appropriately, not anxious, not encephalopathic Lymph, Heme, Immunologic: No petechiae ICD10 Worksheet Patient Problems: Problems Problem Status Onset Ascites Acute Generalized weakness Acute Hepatitis C Acute Liver failure Acute
[2017-05-04] MEDS: CHOLECALCIFEROL VIT D3 2,000 UNITS TAB/CAP PO SCH (13:28)
[2017-05-04] MEDS ORDERED: WARFARIN SODIUM 5 MG TAB PO ONE (16:00)
--- NOTE | 2017-05-04 16:10 | ASMTCMCOM ---
CM Note CM Note Notes: 05/04/2017 Case Management Note Met w/pt to discuss d/c poc. PT is recommending SNF. Pt is agreeable to 30 day stay. Completed [facility]TC 100 application and notified [employer] of need for Nursing Home Medicaid ida. Notified [facility] of [facility]TC 100 application. [place] protective services case worker to assess within 2 business days and then [facility] protective services case worker has an additional 2 days to complete the report and notify [facility] protective services case worker of status of application. Faxed referrals to all [facility] in [facility]. Case Management d/c poc: to SNF pending acceptance and completion of [facility]TC 100 process. Pt requested Case Management help in contacting [facility] for info on pt belongings misplaced prior to admission to [facility]. Case Management provided the phone number for [facility] and encouraged pt contact [facility] directly with any questions. Case Management to follow. Date Signed: 05/04/2017 04:10 PM Electronically Signed By:Brenda Bello RN
[2017-05-04] MEDS: PATCH REMOVAL 1 EA PATCH TD SCH (20:02)
[2017-05-05] MEDS: oxyCODONE IR 5 MG TAB PO PRN ×3 (03:14→21:18)
[2017-05-05 05:35] LABS: PLATELET COUNT 182 10^3/uL (150-400)
[2017-05-05 06:03] LABS: INR 1.54 (0.83-1.16); PROTIME(PATIENT) 18.6 SEC (12.0-15.0)
[2017-05-05] MEDS: FUROSEMIDE 40 MG TAB PO SCH ×2 (09:55→16:36)
[2017-05-05] MEDS: CHOLECALCIFEROL VIT D3 2,000 UNITS TAB/CAP PO SCH (09:56)
[2017-05-05] MEDS: GABAPENTIN 300 MG CAP PO SCH ×3 (09:58→21:19)
[2017-05-05] MEDS: PANTOPRAZOLE SODIUM 40 MG TAB PO SCH (09:58)
[2017-05-05] MEDS: LIDOCAINE 4%/MENTHOL 1% PATCH TD SCH (09:59)
[2017-05-05] MEDS: NICOTINE 21 MG/24 HR PATCH TD SCH (10:00)
[2017-05-05] MEDS: ENOXAPARIN 80 MG/0.8 ML SYR SC SCH ×2 (10:03→21:23)
[2017-05-05] MEDS: METHOCARBAMOL 750 MG TAB PO PRN (10:13)
--- NOTE | 2017-05-05 10:42 | ASMTCMCOM ---
CM Note CM Note Notes: 05/05/2017 CM Referrals sent. Most still pending, disposition will depend upon acceptance to [facility]. Awaiting responses. CM to follow 05/04/2017 Case Management Note Met w/pt to discuss d/c poc. PT is recommending SNF. Pt is agreeable to 30 day stay. Completed [facility]TC 100 application and notified [employer] of need for [facility] Medicaid ida. Notified [facility] of [facility]TC 100 application. [facility] human services case manager to assess within 2 business days and then [facility] human services case manager has an additional 2 days to complete the report and notify [facility] human services case manager of status of application. Faxed referrals to all [facility] in [facility]. Case Management d/c poc: to SNF pending acceptance and completion of [facility]TC 100 process. Pt requested Case Management help in contacting [facility] for info on pt belongings misplaced prior to admission to [facility]. Case Management provided the phone number for [facility] and encouraged pt contact [facility] directly with any questions. Case Management to follow. Date Signed: 05/05/2017 10:41 AM Electronically Signed By:Lynne Chen RN
[2017-05-05] MEDS ORDERED: WARFARIN SODIUM 5 MG TAB PO ONE (16:45)
--- NOTE | 2017-05-05 16:51 | HOSPPROG ---
Hospitalist Progress Note Assessment/Plan: 56-year-old male presenting with acute bilateral lower extremity paresis as well as edema in the setting of cirrhosis and end-stage liver disease c/b acute subsegmental PE Plan: 1. Paresis. Acute, multifactorial, 2/2 ESLD + PEs + back pain/thoracic fractures + chronic debility -cont to work w/ PT/OT -will likely benefit from SNF at discharge, then possibly LTC 2. End-stage liver disease with cirrhosis. Chronic, secondary to a combination of hepatitis C virus as well as chronic alcoholism, most recent therapeutic paracentesis w/in past week at [facility] -counseled patient that diuretics are the only method of reducing edema in legs (he asked if we could, "put a needle in them"), but he is resistant to outpatient diuretics b/c he does not want to have polyuria, as this is particularly challenging when homeless w/ poor mobility 3. Schizoaffective disorder. Chronic, patient is currently not medicated, the patient reports he does not want to be medicated -cognitively more engaging today, does not appear gravely disabled at this time -patient has extensive hx of attempts at placement by his outsole caser in [facility]; our case mgmt dept working on options 4. Anemia. Most likely secondary to chronic inflammatory disease as well as end -stage liver disease, declining today and, in setting of weakness, will transfuse if < 8 -s/p 1 unit PRBC on 05/03 -monitor daily Hgb, no e/o active bleed 5. Subsegmental pulmonary embolism. Acute, POA, new problem to this provider, further w/u indicated. Elevated dimer and sinus tachycardia (on EKG, personally interpreted), will initiate tx -prefer coumadin given underlying coagulopathy from ESLD and ability to base dosing on INR -Lovenox bridge, Warfarin per Pharm -Bilateral LE non occlusive Femoral vein DVT. No indication for IVC filter 6. Thoracic compression fractures. Unclear chronicity, patient reports long hx of back pain w/ hx of continuous opiate dependency (was on fentanyl patch until 02/26, and ms contin prior to that) -MRI c/w chronic fracture. no additional intervention planned -get brace -place lidoderm patch -PRN robaxin/tylenol -cautious use of reintroducing opiates, as I suspect patient will become dependent yet again -heat pad -get Vit D level 7. Rib fractures. Unknown chronicity, pulm hygiene 9. vitamin D deficiency -will replace Diet. Regular Prophylaxis. High risk patient, lovenox bridge Code. Full per patient, Clair Finch in [place] is his MDPOA Disposition. Anticipated discharge uncertain this time, remains clinically unresolved, medically complex w/ high risk worsening morbidity. Plan: -give Lasix today. Starting tomorrow add Aldactone -Cont condom cath -cont AC, will ask pharmacy to dose -will need placement Subjective: abd more distended. no pain. breathing well. Objective: Vital Signs Temp Pulse Resp BP Pulse Ox 37.1 C 112 H 17 93/58 L 94 05/05/17 16:00 05/05/17 16:00 05/05/17 16:00 05/05/17 16:00 05/05/17 16:00 Laboratory Results 05/05/17 04:32 05/05/17 04:32 05/04/17 05/05/17 05/06/17 05:59 05:59 05:59 Intake Total 1200 Output Total 2300 2600 Balance -1100 -2600 PT 18.6 SEC (12.0-15.0) H 05/05/17 04:32 INR 1.54 (0.83-1.16) H 05/05/17 04:32 - Physical Exam Constitutional: no apparent distress Eyes: PERRL, EOMI Ears, Nose, Mouth, Throat: moist mucous membranes, hearing normal Cardiovascular: regular rate and rhythym Respiratory: no respiratory distress Gastrointestinal: distension Genitourinary: no bladder fullness Skin: warm Neurologic: AAOx3 Psychiatric: interacting appropriately, not anxious, not encephalopathic Lymph, Heme, Immunologic: No petechiae ICD10 Worksheet Patient Problems: Problems Problem Status Onset Ascites Acute Generalized weakness Acute Hepatitis C Acute Liver failure Acute
[2017-05-05] MEDS ORDERED: SPIRONOLACTONE 50 MG TAB PO SCH (21:00)
[2017-05-05] MEDS ORDERED: SPIRONOLACTONE 25 MG TAB PO SCH (21:00)
[2017-05-06] MEDS: PATCH REMOVAL 1 EA PATCH TD SCH ×2 (01:44→22:28)
[2017-05-06 05:09] LABS: INR 1.76 (0.83-1.16); PROTIME(PATIENT) 20.6 SEC (12.0-15.0)
[2017-05-06] MEDS: oxyCODONE IR 5 MG TAB PO PRN ×4 (06:14→21:15)
[2017-05-06] MEDS: ENOXAPARIN 80 MG/0.8 ML SYR SC SCH ×2 (09:08→21:15)
[2017-05-06] MEDS: NICOTINE 21 MG/24 HR PATCH TD SCH (09:08)
[2017-05-06] MEDS: LIDOCAINE 4%/MENTHOL 1% PATCH TD SCH (09:08)
[2017-05-06] MEDS: GABAPENTIN 300 MG CAP PO SCH ×3 (09:09→21:15)
[2017-05-06] MEDS: CHOLECALCIFEROL VIT D3 2,000 UNITS TAB/CAP PO SCH (09:09)
[2017-05-06] MEDS: PANTOPRAZOLE SODIUM 40 MG TAB PO SCH (09:09)
[2017-05-06] MEDS: SPIRONOLACTONE 25 MG TAB PO SCH ×2 (09:09→21:15)
[2017-05-06] MEDS: FUROSEMIDE 40 MG TAB PO SCH (09:09)
--- NOTE | 2017-05-06 11:22 | ASMTCMCOM ---
CM Note CM Note Notes: Made f/u calls to some of the referrals to inquire status, denied by several. Spoke with Yesenia at who will evaluate patient. CM to follow. Date Signed: 05/05/2017 02:28 PM Electronically Signed By:Lynne Chen RN
--- NOTE | 2017-05-06 12:52 | HOSPPROG ---
Hospitalist Progress Note Assessment/Plan: 56-year-old male presenting with acute bilateral lower extremity paresis as well as edema in the setting of cirrhosis and end-stage liver disease c/b acute subsegmental PE Plan: 1. Paresis. Acute, multifactorial, 2/2 ESLD + PEs + back pain/thoracic fractures + chronic debility -cont to work w/ PT/OT -will likely benefit from SNF at discharge, then possibly LTC 2. End-stage liver disease with cirrhosis. Chronic, secondary to a combination of hepatitis C virus as well as chronic alcoholism, most recent therapeutic paracentesis w/in past week at [facility] -counseled patient that diuretics are the only method of reducing edema in legs (he asked if we could, "put a needle in them"), but he is resistant to outpatient diuretics b/c he does not want to have polyuria, as this is particularly challenging when homeless w/ poor mobility 3. Schizoaffective disorder. Chronic, patient is currently not medicated, the patient reports he does not want to be medicated -cognitively more engaging today, does not appear gravely disabled at this time -patient has extensive hx of attempts at placement by his binder caser in [facility]; our case mgmt dept working on options 4. Anemia. Most likely secondary to chronic inflammatory disease as well as end -stage liver disease, declining today and, in setting of weakness, will transfuse if < 8 -s/p 1 unit PRBC on 05/03 -monitor daily Hgb, no e/o active bleed 5. Subsegmental pulmonary embolism. Acute, POA, new problem to this provider, further w/u indicated. Elevated dimer and sinus tachycardia (on EKG, personally interpreted), will initiate tx -prefer coumadin given underlying coagulopathy from ESLD and ability to base dosing on INR -Lovenox bridge, Warfarin per Pharm -Bilateral LE non occlusive Femoral vein DVT. No indication for IVC filter 6. Thoracic compression fractures. Unclear chronicity, patient reports long hx of back pain w/ hx of continuous opiate dependency (was on fentanyl patch until 02/26, and ms contin prior to that) -MRI c/w chronic fracture. no additional intervention planned -get brace -place lidoderm patch -PRN robaxin/tylenol -cautious use of reintroducing opiates, as I suspect patient will become dependent yet again -heat pad -get Vit D level 7. Rib fractures. Unknown chronicity, pulm hygiene 9. vitamin D deficiency -will replace Diet. Regular Prophylaxis. High risk patient, lovenox bridge Code. Full per patient, Clair Finch in [place] is his MDPOA Disposition. Anticipated discharge uncertain this time, remains clinically unresolved, medically complex w/ high risk worsening morbidity. Plan: -cont Lasix/Aldactone -d/c condom cath -cont AC, pharmacy dosing coumadin, bridge still needed -will need placement, awaiting, clinically ready soon Subjective: good urine output. Belly is not as distended as yesterday. no cp or SOB Objective: Vital Signs Temp Pulse Resp BP Pulse Ox 36.8 C 111 H 16 103/59 L 95 05/06/17 08:00 05/06/17 08:00 05/06/17 08:00 05/06/17 08:00 05/06/17 08:00 Laboratory Results 05/05/17 04:32 05/06/17 04:24 05/05/17 05/06/17 05/07/17 05:59 05:59 05:59 Intake Total 1200 Output Total 2600 2550 Balance -2600 -1350 PT 20.6 SEC (12.0-15.0) H 05/06/17 04:24 INR 1.76 (0.83-1.16) H 05/06/17 04:24 - Physical Exam Constitutional: no apparent distress Eyes: PERRL Ears, Nose, Mouth, Throat: moist mucous membranes, hearing normal Cardiovascular: regular rate and rhythym, No edema Respiratory: no respiratory distress Gastrointestinal: distension Genitourinary: no bladder fullness Skin: warm Musculoskeletal: generalized weakness Neurologic: AAOx3 Psychiatric: interacting appropriately, not anxious, not encephalopathic Lymph, Heme, Immunologic: No petechiae ICD10 Worksheet Patient Problems: Problems Problem Status Onset Ascites Acute Generalized weakness Acute Hepatitis C Acute Liver failure Acute
[2017-05-06] MEDS: ACETAMINOPHEN 325 MG TAB PO PRN (15:06)
[2017-05-06] MEDS ORDERED: WARFARIN SODIUM 5 MG TAB PO ONE (16:00)
[2017-05-07] MEDS: METHOCARBAMOL 750 MG TAB PO PRN ×2 (03:29→16:38)
[2017-05-07] MEDS: ACETAMINOPHEN 325 MG TAB PO PRN ×2 (03:29→16:37)
[2017-05-07] MEDS: oxyCODONE IR 5 MG TAB PO PRN ×3 (03:30→20:34)
[2017-05-07 05:25] LABS: INR 1.98 (0.83-1.16); PROTIME(PATIENT) 22.6 SEC (12.0-15.0)
[2017-05-07] MEDS: PANTOPRAZOLE SODIUM 40 MG TAB PO SCH (08:48)
[2017-05-07] MEDS: GABAPENTIN 300 MG CAP PO SCH ×3 (08:48→20:35)
[2017-05-07] MEDS: ENOXAPARIN 80 MG/0.8 ML SYR SC SCH ×2 (08:49→20:35)
[2017-05-07] MEDS: CHOLECALCIFEROL VIT D3 2,000 UNITS TAB/CAP PO SCH (08:49)
[2017-05-07] MEDS: FUROSEMIDE 40 MG TAB PO SCH (08:49)
[2017-05-07] MEDS: SPIRONOLACTONE 25 MG TAB PO SCH ×2 (08:49→20:34)
[2017-05-07] MEDS: NICOTINE 21 MG/24 HR PATCH TD SCH (08:50)
[2017-05-07] MEDS: LIDOCAINE 4%/MENTHOL 1% PATCH TD SCH (08:50)
--- NOTE | 2017-05-07 12:43 | HOSPPROG ---
Hospitalist Progress Note Assessment/Plan: 56-year-old male presenting with acute bilateral lower extremity paresis as well as edema in the setting of cirrhosis and end-stage liver disease c/b acute subsegmental PE Plan: 1. Paresis. Acute, multifactorial, 2/2 ESLD + PEs + back pain/thoracic fractures + chronic debility -cont to work w/ PT/OT -will likely benefit from SNF at discharge, then possibly LTC 2. End-stage liver disease with cirrhosis. Chronic, secondary to a combination of hepatitis C virus as well as chronic alcoholism, most recent therapeutic paracentesis w/in past week at [facility] 3. Schizoaffective disorder. Chronic, patient is currently not medicated, the patient reports he does not want to be medicated -cognitively more engaging today, does not appear gravely disabled at this time -patient has extensive hx of attempts at placement by his case work aide in [facility]; our case mgmt dept working on options 4. Anemia. Most likely secondary to chronic inflammatory disease as well as end -stage liver disease, declining today and, in setting of weakness, will transfuse if < 8 -s/p 1 unit PRBC on 05/03 - no e/o active bleed 5. Subsegmental pulmonary embolism. Acute, POA, new problem to this provider, further w/u indicated. Elevated dimer and sinus tachycardia (on EKG, personally interpreted), will initiate tx -prefer coumadin given underlying coagulopathy from ESLD and ability to base dosing on INR -Lovenox bridge, Warfarin per Pharm -Bilateral LE non occlusive Femoral vein DVT. No indication for IVC filter 6. Thoracic compression fractures. Unclear chronicity, patient reports long hx of back pain w/ hx of continuous opiate dependency (was on fentanyl patch until 02/26, and ms hayden prior to that) -MRI c/w chronic fracture. no additional intervention planned -get brace -place lidoderm patch -PRN robaxin/tylenol -cautious use of reintroducing opiates, as I suspect patient will become dependent yet again -heat pad -get Vit D level 7. Rib fractures. Unknown chronicity, pulm hygiene 9. vitamin D deficiency -will replace Diet. Regular Prophylaxis. High risk patient, lovenox bridge Code. Full per patient, Clair Finch in [place] is his [facility] Disposition. Anticipated discharge uncertain this time, remains clinically unresolved, medically complex w/ high risk worsening morbidity. Plan: -Increase Lasix -Cont Aldactone -Doing well w/o the condom cath -Con AC. Can stop Lovenox tomorrow -Pending placement -Medically stable Subjective: additional distention to his abdomen. otherwise cont to improve from a strength perspective Objective: Vital Signs Temp Pulse Resp BP Pulse Ox 36.8 C 96 18 102/74 93 05/07/17 07:39 05/07/17 07:39 05/07/17 07:39 05/07/17 07:39 05/07/17 07:39 Laboratory Results 05/05/17 04:32 05/06/17 04:24 05/06/17 05/07/17 05/08/17 05:59 05:59 05:59 Intake Total 1200 480 Output Total 2550 1225 600 Balance -1350 -1225 -120 PT 22.6 SEC (12.0-15.0) H 05/07/17 04:30 INR 1.98 (0.83-1.16) H 05/07/17 04:30 - Physical Exam Constitutional: no apparent distress Eyes: PERRL, EOMI Ears, Nose, Mouth, Throat: moist mucous membranes, hearing normal Cardiovascular: No edema Respiratory: no respiratory distress, no rales or rhonchi Gastrointestinal: distension Skin: warm Neurologic: AAOx3 Psychiatric: interacting appropriately, not anxious, not encephalopathic Lymph, Heme, Immunologic: No petechiae ICD10 Worksheet Patient Problems: Problems Problem Status Onset Ascites Acute Generalized weakness Acute Hepatitis C Acute Liver failure Acute
--- NOTE | 2017-05-07 15:42 | ASMTCMCOM ---
CM Note CM Note Notes: No replies from referrals today. Still not medically cleared for discharge at this point. CM to follow. Plan SNF when medically stable and bed available. CM to follow Date Signed: 05/07/2017 03:41 PM Electronically Signed By:Lynne Chen RN
[2017-05-07] MEDS ORDERED: WARFARIN SODIUM 5 MG TAB PO ONE (16:00)
[2017-05-07] MEDS: FUROSEMIDE 20 MG TAB PO SCH (18:52)
[2017-05-07] MEDS: PATCH REMOVAL 1 EA PATCH TD SCH (20:35)
[2017-05-08] MEDS: oxyCODONE IR 5 MG TAB PO PRN ×4 (03:20→23:35)
[2017-05-08 05:08] LABS: INR 2.44 (0.83-1.16); PROTIME(PATIENT) 26.5 SEC (12.0-15.0)
[2017-05-08 05:22] LABS: PLATELET COUNT 229 10^3/uL (150-400)
[2017-05-08] MEDS: ACETAMINOPHEN 325 MG TAB PO PRN ×2 (08:32→20:19)
[2017-05-08] MEDS: CHOLECALCIFEROL VIT D3 2,000 UNITS TAB/CAP PO SCH (08:33)
[2017-05-08] MEDS: GABAPENTIN 300 MG CAP PO SCH ×3 (08:34→20:20)
[2017-05-08] MEDS: FUROSEMIDE 40 MG TAB PO SCH (08:34)
[2017-05-08] MEDS: SPIRONOLACTONE 25 MG TAB PO SCH ×2 (08:34→20:19)
[2017-05-08] MEDS: FUROSEMIDE 20 MG TAB PO SCH (08:34)
[2017-05-08] MEDS: PANTOPRAZOLE SODIUM 40 MG TAB PO SCH (08:34)
[2017-05-08] MEDS: NICOTINE 21 MG/24 HR PATCH TD SCH (08:35)
[2017-05-08] MEDS: LIDOCAINE 4%/MENTHOL 1% PATCH TD SCH (08:35)
--- NOTE | 2017-05-08 13:59 | HOSPPROG ---
Hospitalist Progress Note Assessment/Plan: 56-year-old male presenting with acute bilateral lower extremity paresis as well as edema in the setting of cirrhosis and end-stage liver disease c/b acute subsegmental PE. First encounter, chart reviewed. Plan: 1. Paresis. Acute, multifactorial, 2/2 ESLD + PEs + back pain/thoracic fractures + chronic debility -cont to work w/ PT/OT -will likely benefit from SNF at discharge, then possibly LTC 2. End-stage liver disease with cirrhosis. Chronic, secondary to a combination of hepatitis C virus as well as chronic alcoholism, most recent therapeutic paracentesis w/in past week at [facility] 3. Schizoaffective disorder. Chronic, patient is currently not medicated, the patient reports he does not want to be medicated -does not appear gravely disabled at this time -patient has extensive hx of attempts at placement by his bilingual patient support caseworker in [facility]; our case mgmt dept working on options 4. Anemia. Most likely secondary to chronic inflammatory disease as well as end-stage liver disease, declining today and, in setting of weakness, will transfuse if < 8 -s/p 1 unit PRBC on 05/03 - no e/o active bleed 5. Subsegmental pulmonary embolism. Acute, Elevated dimer and sinus tachycardia will initiate tx -prefer coumadin given underlying coagulopathy from ESLD and ability to base dosing on INR -Lovenox bridge, Warfarin per Pharm -Bilateral LE non occlusive Femoral vein DVT. No indication for IVC filter 6. Thoracic compression fractures. Unclear chronicity, patient reports long hx of back pain w/ hx of continuous opiate dependency (was on fentanyl patch until 02/26, and ms contin prior to that) -MRI c/w chronic fracture. no additional intervention planned -get brace -place lidoderm patch -PRN robaxin/tylenol -cautious use of reintroducing opiates, as I suspect patient will become dependent yet again -heat pad -low Vit D level 7. Rib fractures. Unknown chronicity, pulm hygiene 9. vitamin D deficiency -will replace Diet. Regular Prophylaxis. High risk patient, lovenox bridge Code. Full per patient, Clair Finch in [place] is his MDPOA Disposition. Anticipated discharge uncertain this time, remains clinically unresolved, medically complex w/ high risk worsening morbidity. -Cont lasix -Cont Aldactone -Doing well w/o the condom cath -Con AC, stop Lovenox today -Pending placement -Medically stable Subjective: Very tired today. Back to bed. No specific issues. Objective: Vital Signs Temp Pulse Resp BP Pulse Ox 36.8 C 100 16 114/76 90 L 05/08/17 07:27 05/08/17 07:27 05/08/17 07:27 05/08/17 07:27 05/08/17 07:27 Laboratory Results 05/08/17 04:19 05/08/17 04:19 05/07/17 05/08/17 05/09/17 05:59 05:59 05:59 Intake Total 1080 150 Output Total 1225 3300 1300 Balance -1225 -2220 -1150 PT 26.5 SEC (12.0-15.0) H 05/08/17 04:19 INR 2.44 (0.83-1.16) H 05/08/17 04:19 - Physical Exam Constitutional: chronically ill appearing, uncomfortable, cachectic Eyes: PERRL, anicteric sclera, EOMI Ears, Nose, Mouth, Throat: moist mucous membranes, hearing normal, ears appear normal Cardiovascular: tachycardia, No regular rate and rhythym, No JVD, No edema Respiratory: no respiratory distress, no rales or rhonchi, reduced air movement Gastrointestinal: normoactive bowel sounds, tenderness, No ascites Skin: warm, normal color, No erythema Musculoskeletal: normal joint ROM, no joint effusions, generalized weakness Neurologic: AAOx3 Psychiatric: not anxious, not encephalopathic, poor insight, poor judgement ICD10 Worksheet Patient Problems: Problems Problem Status Onset Generalized weakness Acute Hepatitis C Acute Ascites Acute Liver failure Acute
--- NOTE | 2017-05-08 14:15 | WOCRNPDOC ---
WOCRN Advanced Assessment Note - Skin Integrity Problem, Advanced Assess Coccyx Pressure Injury Dressing Type: Allevyn Life Dressing Description: Clean/Dry, Intact Exudate Amount: Scant Exudate Color: Brown Exudate Characteristic(s): Serosanguinous Integumentary Issue Intervention: Visualized Under Dressing Blanca Wound Tissue: Erythema, Non-blanching, Denuded Blanca Wound Swelling: None Wound Bed Color: Red Wound Bed Constitution: Red/[place] - Non Granular Tissue Wound Edges: Attached Site Measurement - Head-to-Toe Length X Width X Depth (cm): 0.3x0.2x0.1 (stage 2 ), non-blanching stage 1 surrounding the wound 5x1, entire area of erythema 8x1 Pressure Injury Stage: Stage 2 Pressure Injury Present on Admit: Yes Skin Integrity Problem Comment: Linear area of erythema from coccyx to superior sacrum, various stages of blanching and non-blanching erythema with 2 small partial thickness openings. Offloading measures in place, including mattress pump and TAPS. Wound care will round again next week. Teresita RN in room.
--- NOTE | 2017-05-08 14:54 | ASMTCMCOM ---
JARETH Note CM Note Notes: Spoke with Sima at [facility] [phone]. She is working on pt's ULTC 100/PASRR. Also spoke with pt who is willing to commit to a 30 day Medicaid SNF stay. He is interested in returning to [place] to pursue housing and school in the future. Most SNF referrals have denied pt - sent a few more out today with a focus on [place]. CM will continue to follow for his d/c plan. Date Signed: 05/08/2017 02:53 PM Electronically Signed By:JAMIA Boyce
[2017-05-08] MEDS ORDERED: WARFARIN SODIUM 3 MG TAB PO ONE (16:00)
[2017-05-08] MEDS: PATCH REMOVAL 1 EA PATCH TD SCH (20:20)
[2017-05-09 05:07] LABS: INR 2.49 (0.83-1.16); PROTIME(PATIENT) 26.9 SEC (12.0-15.0)
[2017-05-09] MEDS: oxyCODONE IR 5 MG TAB PO PRN ×4 (06:30→22:03)
[2017-05-09] MEDS: CHOLECALCIFEROL VIT D3 2,000 UNITS TAB/CAP PO SCH (08:23)
[2017-05-09] MEDS: SPIRONOLACTONE 25 MG TAB PO SCH ×2 (08:23→22:03)
[2017-05-09] MEDS: GABAPENTIN 300 MG CAP PO SCH ×3 (08:23→22:03)
[2017-05-09] MEDS: LIDOCAINE 4%/MENTHOL 1% PATCH TD SCH (08:24)
[2017-05-09] MEDS: PANTOPRAZOLE SODIUM 40 MG TAB PO SCH (08:24)
[2017-05-09] MEDS: FUROSEMIDE 40 MG TAB PO SCH (08:24)
[2017-05-09] MEDS: FUROSEMIDE 20 MG TAB PO SCH (08:24)
[2017-05-09] MEDS: NICOTINE 21 MG/24 HR PATCH TD SCH (08:24)
[2017-05-09] MEDS: ACETAMINOPHEN 325 MG TAB PO PRN ×2 (13:06→22:04)
--- NOTE | 2017-05-09 13:12 | HOSPPROG ---
Hospitalist Progress Note Assessment/Plan: 56-year-old male presenting with acute bilateral lower extremity paresis as well as edema in the setting of cirrhosis and end-stage liver disease c/b acute subsegmental PE. First encounter, chart reviewed. *. Paresis with significant weakness Acute, multifactorial, 2/2 ESLD + PEs + back pain/thoracic fractures + chronic debility -cont to work w/ PT/OT -will likely benefit from SNF at discharge, then possibly LTC *. End-stage liver disease with cirrhosis. -Chronic, secondary to a combination of hepatitis C virus as well as chronic alcoholism, -had a therapeutic paracentesis at [facility] -on Aldactone and Lasix *Hyponatremia -repeat labs in a.m. *. Schizoaffective disorder. -Chronic, patient is currently not medicated, the patient reports he does not want to be medicated -calm and cooperative -patient has extensive hx of attempts at placement by his immigration case worker in [facility]; our case mgmt dept working on options *. Anemia, macrocytic -multifactorial -ESLD, chronic inflammatory disease, alcohol use -s/p 1 unit PRBC on 05/03 -recheck labs in a.m. *. Subsegmental pulmonary embolism, reviewed CTA (small volume) -on Coumadin given underlying coagulopathy from ESLD and ability to base dosing on INR -Lovenox bridge completed, INR is >2 x 2 days -Bilateral LE non occlusive Femoral vein DVT. No indication for IVC filter *. Thoracic compression fractures (noted in CTA) -not c/o back pain -unclear if he has a brace (will ask PT) -avoid opiates with hx of dependency -prn Robaxin/ Tylenol -MRI c/w chronic fracture. no additional intervention planned *. Rib fractures. Unknown chronicity, pulm hygiene *. vitamin D deficiency -replacement Code. [facility] [place] [facility] Anticipated discharge uncertain this time. Will need a SNF. Subjective: Sander said he's weak and can't walk. No c/o pain. Objective: Vital Signs Temp Pulse Resp BP Pulse Ox 36.6 C 78 16 124/83 H 95 05/09/17 08:00 05/09/17 08:00 05/09/17 08:00 05/09/17 08:00 05/09/17 08:00 Laboratory Results 05/08/17 04:19 05/08/17 04:19 05/08/17 05/09/17 05/10/17 05:59 05:59 05:59 Intake Total 1080 1650 240 Output Total 3300 3200 1550 Balance -2220 -1550 -1310 PT 26.9 SEC (12.0-15.0) H 05/09/17 04:40 INR 2.49 (0.83-1.16) H 05/09/17 04:40 - Physical Exam Constitutional: not in pain, chronically ill appearing Eyes: PERRL Ears, Nose, Mouth, Throat: hearing normal Cardiovascular: regular rate and rhythym Respiratory: no respiratory distress Gastrointestinal: normoactive bowel sounds, ascites Skin: warm, No normal color (pale) Psychiatric: interacting appropriately, poor insight, poor judgement, poor memory ICD10 Worksheet Patient Problems: Problems Problem Status Onset Ascites Acute Generalized weakness Acute Hepatitis C Acute Liver failure Acute
--- NOTE | 2017-05-09 16:29 | ASMTCMCOM ---
CM Note CM Note Notes: Left a message in admissions with [facility]. They responded to referral as interested but needing more information. Awaiting return call. Made several calls to facilities in [place] including [facility] and [facility]. Left messages to call us back on complex care line [phone]. CM will continue to search for placement for d/c. Date Signed: 05/09/2017 04:29 PM Electronically Signed By:Yvonne Nelson LCSW
[2017-05-09] MEDS ORDERED: WARFARIN SODIUM 4 MG TAB PO ONE (16:30)
[2017-05-09] MEDS ORDERED: NS 250 ML IV ONE (17:00)
[2017-05-09] MEDS: METHOCARBAMOL 750 MG TAB PO PRN (22:04)
[2017-05-09] MEDS: PATCH REMOVAL 1 EA PATCH TD SCH (22:09)
[2017-05-10] MEDS: oxyCODONE IR 5 MG TAB PO PRN ×3 (03:20→18:39)
[2017-05-10 05:25] LABS: INR 2.54 (0.83-1.16); PROTIME(PATIENT) 27.3 SEC (12.0-15.0)
[2017-05-10 05:33] LABS: PLATELET COUNT 210 10^3/uL (150-400)
[2017-05-10] MEDS: ACETAMINOPHEN 325 MG TAB PO PRN (06:43)
[2017-05-10] MEDS: CHOLECALCIFEROL VIT D3 2,000 UNITS TAB/CAP PO SCH (09:24)
[2017-05-10] MEDS: NICOTINE 21 MG/24 HR PATCH TD SCH (09:24)
[2017-05-10] MEDS: LIDOCAINE 4%/MENTHOL 1% PATCH TD SCH (09:24)
[2017-05-10] MEDS: PANTOPRAZOLE SODIUM 40 MG TAB PO SCH (09:26)
[2017-05-10] MEDS: SPIRONOLACTONE 25 MG TAB PO SCH ×2 (09:26→21:26)
[2017-05-10] MEDS: FUROSEMIDE 20 MG TAB PO SCH (09:26)
[2017-05-10] MEDS: FUROSEMIDE 40 MG TAB PO SCH (09:26)
[2017-05-10] MEDS: GABAPENTIN 300 MG CAP PO SCH ×3 (09:27→21:25)
--- NOTE | 2017-05-10 14:58 | HOSPPROG ---
Hospitalist Progress Note Assessment/Plan: 56-year-old male presenting with acute bilateral lower extremity paresis as well as edema in the setting of cirrhosis and end-stage liver disease c/b acute subsegmental PE. *. Paresis with significant weakness Acute, multifactorial, 2/2 ESLD + PEs + back pain/thoracic fractures + chronic debility -cont to work w/ PT/OT -will likely benefit from SNF at discharge, then possibly LTC *. End-stage liver disease with cirrhosis. -Chronic, secondary to a combination of hepatitis C virus as well as chronic alcoholism, -had a therapeutic paracentesis at [facility] -on Aldactone and Lasix -reviewed LFT's , stable *tachycardia -intermittent -checked hgb, hct yesterday and today, overall stable *Hyponatremia -Na is 132 *. Schizoaffective disorder. -Chronic, patient is currently not medicated, the patient reports he does not want to be medicated -calm and cooperative -patient has extensive hx of attempts at placement by his family caseworker in [facility]; our case mgmt dept working on options *. Anemia, macrocytic -multifactorial -ESLD, chronic inflammatory disease, alcohol use -s/p 1 unit PRBC on 05/03 *. Subsegmental pulmonary embolism, reviewed CTA (small volume) -on Coumadin given underlying coagulopathy from ESLD and ability to base dosing on INR -Lovenox bridge completed, INR is therapeutic -Bilateral LE non occlusive Femoral vein DVT. No indication for IVC filter *. Thoracic compression fractures (noted in CTA) -brace -avoid opiates with hx of dependency -MRI c/w chronic fracture. no additional intervention planned -patient requesting more narcotics, trial of Voltaren cream, cont Robaxin and Tylenol, and prn oxy *. Rib fractures. Unknown chronicity, pulm hygiene *. vitamin D deficiency -replacement Code. Full. Clair Finch in [place] is his MDPOA Disposition. Anticipated discharge uncertain this time. Will need a SNF. Subjective: Sander said his back is hurting and requesting his oxy dose be increased. Objective: Vital Signs Temp Pulse Resp BP Pulse Ox 36.8 C 96 18 110/72 94 05/10/17 07:24 05/10/17 07:24 05/10/17 07:24 05/10/17 07:24 05/10/17 07:24 Laboratory Results 05/10/17 04:33 05/10/17 04:33 05/09/17 05/10/17 05/11/17 05:59 05:59 05:59 Intake Total 1650 490 630 Output Total 3200 1850 1400 Balance -1550 -1360 -770 PT 27.3 SEC (12.0-15.0) H 05/10/17 04:33 INR 2.54 (0.83-1.16) H 05/10/17 04:33 - Physical Exam Constitutional: chronically ill appearing, uncomfortable Eyes: PERRL Ears, Nose, Mouth, Throat: hearing normal Cardiovascular: regular rate and rhythym, tachycardia Respiratory: no respiratory distress, reduced air movement Skin: warm Musculoskeletal: generalized weakness Psychiatric: interacting appropriately, poor insight, poor memory ICD10 Worksheet Patient Problems: Problems Problem Status Onset Ascites Acute Generalized weakness Acute Hepatitis C Acute Liver failure Acute
[2017-05-10] MEDS ORDERED: WARFARIN SODIUM 4 MG TAB PO SCH (16:00)
--- NOTE | 2017-05-10 16:38 | ASMTCMCOM ---
CM Note CM Note Notes: Denisha ([phone]) with [facility] completed on-site assessment with pt today for Level ll PASRR which was triggered. Level l PASRR is in chart. Date Signed: 05/10/2017 04:38 PM Electronically Signed By:JAMIA Levin
[2017-05-10] MEDS: MELATONIN 3 MG TAB PO SCH (21:26)
[2017-05-10] MEDS: DICLOFENAC SODIUM 1% 100 GM GEL TP SCH (21:29)
[2017-05-11] MEDS: oxyCODONE IR 5 MG TAB PO PRN ×5 (03:25→20:30)
[2017-05-11 04:37] LABS: INR 2.75 (0.83-1.16)
[2017-05-11] MEDS: DICLOFENAC SODIUM 1% 100 GM GEL TP SCH ×4 (06:44→23:56)
[2017-05-11] MEDS: SPIRONOLACTONE 25 MG TAB PO SCH ×2 (09:52→20:26)
[2017-05-11] MEDS: CHOLECALCIFEROL VIT D3 2,000 UNITS TAB/CAP PO SCH (09:52)
[2017-05-11] MEDS: GABAPENTIN 300 MG CAP PO SCH ×3 (09:52→20:26)
[2017-05-11] MEDS: FUROSEMIDE 20 MG TAB PO SCH (09:52)
[2017-05-11] MEDS: NICOTINE 21 MG/24 HR PATCH TD SCH (09:53)
[2017-05-11] MEDS: FUROSEMIDE 40 MG TAB PO SCH (09:53)
[2017-05-11] MEDS: PANTOPRAZOLE SODIUM 40 MG TAB PO SCH (09:53)
--- NOTE | 2017-05-11 15:15 | ASMTCMCOM ---
CM Note CM Note Notes: Pts case discussed in morning rounds. CM spoke w/ Denisha (P#:[phone]) at [facility]. Denisha submitted her recommendations to the critical access hospital and CM will wait to hear back. Additional referrals made to [facility] and [facility]. CM left a msg w/ both facilities and requested a call back. Denisha is diagnosing him with Major Depressive Disorder and ETOH with a rule out of personality disorder. Denisha is recommending that pt is put on an anti-depressant and have something for sleep. CM communicated this to Dr. Shah. JARETH spoke w/ manager urology regarding this case. CM to follow. Plan: TBD Date Signed: 05/11/2017 03:14 PM Electronically Signed By:DIGNA Espinosa
--- NOTE | 2017-05-11 15:45 | HOSPPROG ---
Hospitalist Progress Note Assessment/Plan: 56-year-old male presenting with acute bilateral lower extremity paresis as well as edema in the setting of cirrhosis and end-stage liver disease c/b acute subsegmental PE. Paresis with significant weakness Acute, multifactorial, 2/2 ESLD + PEs + back pain/thoracic fractures + chronic debility cont to work w/ PT/OT will likely benefit from SNF at discharge, then possibly LTC End-stage liver disease with cirrhosis. Chronic, secondary to a combination of hepatitis C virus as well as chronic alcoholism, had a therapeutic paracentesis at [facility] on Aldactone and Lasix reviewed LFT's , stable tachycardia intermittent checked hgb, hct yesterday and today, overall stable Hyponatremia Na is 132 Schizoaffective disorder. Chronic, patient is currently not medicated, the patient reports he does not want to be medicated calm and cooperative patient has extensive hx of attempts at placement by his family service caseworker in [facility]; our case mgmt dept working on options do not think starting antidepressant is appropriate without plan for psych follow up Anemia, macrocytic multifactorial ESLD, chronic inflammatory disease, alcohol use s/p 1 unit PRBC on 05/03 Subsegmental pulmonary embolism, reviewed CTA (small volume) on Coumadin given underlying coagulopathy from ESLD and ability to base dosing on INR Lovenox bridge completed, INR is therapeutic Bilateral LE non occlusive Femoral vein DVT. No indication for IVC filter Thoracic compression fractures (noted in CTA) brace avoid opiates with hx of dependency MRI c/w chronic fracture. no additional intervention planned patient requesting more narcotics, trial of Voltaren cream, cont Robaxin and Tylenol, and prn oxy Rib fractures. Unknown chronicity, pulm hygiene vitamin D deficiency replacement Code. Full. Clair Finch in [place] is his MDPOA Disposition. . Will need a SNF. Subjective: no complaints. [facility] rec antidepressant Objective: Vital Signs Temp Pulse Resp BP Pulse Ox 37.5 C 104 H 22 H 99/64 L 91 L 05/11/17 08:00 05/11/17 08:00 05/11/17 08:00 05/11/17 08:00 05/11/17 08:00 Laboratory Results 05/10/17 04:33 05/10/17 04:33 05/10/17 05/11/17 05/12/17 05:59 05:59 05:59 Intake Total 490 1980 400 Output Total 7926 0664 975 Balance -5255 -570 -575 PT 29.0 SEC (12.0-15.0) H 05/11/17 03:08 INR 2.75 (0.83-1.16) H 05/11/17 03:08 - Physical Exam Constitutional: appears nourished, unkempt Eyes: PERRL, anicteric sclera Ears, Nose, Mouth, Throat: moist mucous membranes, hearing normal Cardiovascular: regular rate and rhythym, no murmur, rub, or gallop Respiratory: no respiratory distress, no rales or rhonchi Gastrointestinal: normoactive bowel sounds, soft, non-tender abdomen Genitourinary: No fuentes in urethra Skin: warm, normal color Musculoskeletal: full muscle strength Neurologic: AAOx3 Psychiatric: interacting appropriately Lymph, Heme, Immunologic: no cervical LAD ICD10 Worksheet Patient Problems: Problems Problem Status Onset Ascites Acute Generalized weakness Acute Hepatitis C Acute Liver failure Acute
[2017-05-11] MEDS: WARFARIN SODIUM 4 MG TAB PO SCH (16:15)
[2017-05-11] MEDS: MELATONIN 3 MG TAB PO SCH (20:26)
[2017-05-11] MEDS: METHOCARBAMOL 750 MG TAB PO PRN (20:27)
[2017-05-12] MEDS: oxyCODONE IR 5 MG TAB PO PRN ×5 (03:17→22:10)
[2017-05-12 04:35] LABS: INR 2.7 (0.83-1.16); PROTIME(PATIENT) 28.6 SEC (12.0-15.0)
[2017-05-12] MEDS: FUROSEMIDE 40 MG TAB PO SCH (09:30)
[2017-05-12] MEDS: SPIRONOLACTONE 25 MG TAB PO SCH ×2 (09:31→20:15)
[2017-05-12] MEDS: CHOLECALCIFEROL VIT D3 2,000 UNITS TAB/CAP PO SCH (09:32)
[2017-05-12] MEDS: GABAPENTIN 300 MG CAP PO SCH ×3 (09:32→20:15)
[2017-05-12] MEDS: PANTOPRAZOLE SODIUM 40 MG TAB PO SCH (09:33)
[2017-05-12] MEDS: NICOTINE 21 MG/24 HR PATCH TD SCH (09:34)
[2017-05-12] MEDS: DICLOFENAC SODIUM 1% 100 GM GEL TP SCH ×4 (10:19→22:12)
--- NOTE | 2017-05-12 15:28 | HOSPPROG ---
Hospitalist Progress Note Assessment/Plan: 56-year-old male presenting with acute bilateral lower extremity paresis as well as edema in the setting of cirrhosis and end-stage liver disease c/b acute subsegmental PE. Paresis with significant weakness Acute, multifactorial, 2/2 ESLD + PEs + back pain/thoracic fractures + chronic debility cont to work w/ PT/OT will likely benefit from SNF at discharge, then possibly LTC End-stage liver disease with cirrhosis. Chronic, secondary to a combination of hepatitis C virus as well as chronic alcoholism, had a therapeutic paracentesis at [facility] on Aldactone and Lasix reviewed LFT's , stable tachycardia intermittent checked hgb, hct yesterday and today, overall stable Hyponatremia Na is 132 Schizoaffective disorder. Chronic, patient is currently not medicated, the patient reports he does not want to be medicated calm and cooperative patient has extensive hx of attempts at placement by his case management specialist in [facility]; our case mgmt dept working on options do not think starting antidepressant is appropriate without plan for psych follow up Anemia, macrocytic multifactorial ESLD, chronic inflammatory disease, alcohol use s/p 1 unit PRBC on 05/03 Subsegmental pulmonary embolism, reviewed CTA (small volume) on Coumadin given underlying coagulopathy from ESLD and ability to base dosing on INR Lovenox bridge completed, INR is therapeutic Bilateral LE non occlusive Femoral vein DVT. No indication for IVC filter Thoracic compression fractures (noted in CTA) brace avoid opiates with hx of dependency MRI c/w chronic fracture. no additional intervention planned patient requesting more narcotics, trial of Voltaren cream, cont Robaxin and Tylenol, and prn oxy Rib fractures. Unknown chronicity, pulm hygiene vitamin D deficiency replacement Code. Full. Clair Finch in [place] is his MDPOA Disposition. . Will need a SNF. Subjective: no complaints Objective: Vital Signs Temp Pulse Resp BP Pulse Ox 36.8 C 104 H 15 100/83 H 93 05/12/17 15:13 05/12/17 15:13 05/12/17 15:13 05/12/17 15:13 05/12/17 15:13 Laboratory Results 05/10/17 04:33 05/10/17 04:33 05/11/17 05/12/17 05/13/17 05:59 05:59 05:59 Intake Total 1980 650 Output Total 2550 1750 650 Balance -570 -1100 -650 PT 28.6 SEC (12.0-15.0) H 05/12/17 03:07 INR 2.70 (0.83-1.16) H 05/12/17 03:07 - Physical Exam Constitutional: no apparent distress, appears nourished Eyes: PERRL, anicteric sclera Ears, Nose, Mouth, Throat: moist mucous membranes, hearing normal Cardiovascular: regular rate and rhythym, no murmur, rub, or gallop Respiratory: no respiratory distress, no rales or rhonchi Gastrointestinal: normoactive bowel sounds, soft, non-tender abdomen Genitourinary: no bladder fullness, No fuentes in urethra Skin: warm, normal color Musculoskeletal: full muscle strength Neurologic: AAOx3 ICD10 Worksheet Patient Problems: Problems Problem Status Onset Ascites Acute Generalized weakness Acute Hepatitis C Acute Liver failure Acute
[2017-05-12] MEDS: WARFARIN SODIUM 4 MG TAB PO SCH (16:11)
--- NOTE | 2017-05-12 16:33 | ASMTCMCOM ---
CM Note CM Note Notes: CM spoke w/ Sheila (P#: [phone]) at [facility] and provided updates. Eiseanv would like updates if/when pt is being [facility]. CM left a msg for Josephine, June Yanez and Simi. CM will continue to look for placement. Still awaiting approval for 30 day Medicaid stay. CM to follow. Plan: SNF Date Signed: 05/12/2017 04:32 PM Electronically Signed By:DIGNA Espinosa
[2017-05-12] MEDS: MELATONIN 3 MG TAB PO SCH (20:16)
[2017-05-13] MEDS: oxyCODONE IR 5 MG TAB PO PRN ×5 (03:11→20:34)
[2017-05-13] MEDS: DICLOFENAC SODIUM 1% 100 GM GEL TP SCH ×4 (04:28→22:52)
[2017-05-13 04:49] LABS: INR 2.52 (0.83-1.16); PROTIME(PATIENT) 27.1 SEC (12.0-15.0)
[2017-05-13] MEDS: FUROSEMIDE 40 MG TAB PO SCH (09:37)
[2017-05-13] MEDS: SPIRONOLACTONE 25 MG TAB PO SCH ×2 (09:37→20:34)
[2017-05-13] MEDS: CHOLECALCIFEROL VIT D3 2,000 UNITS TAB/CAP PO SCH (09:37)
[2017-05-13] MEDS: GABAPENTIN 300 MG CAP PO SCH ×3 (09:38→20:34)
[2017-05-13] MEDS: PANTOPRAZOLE SODIUM 40 MG TAB PO SCH (09:38)
[2017-05-13] MEDS: NICOTINE 21 MG/24 HR PATCH TD SCH (09:42)
[2017-05-13] MEDS: WARFARIN SODIUM 4 MG TAB PO SCH (15:29)
--- NOTE | 2017-05-13 16:09 | HOSPPROG ---
Hospitalist Progress Note Assessment/Plan: * PE/DVT -therapeutic on warfarin * Etoh/hep C cirrhosis -Aldactone/Lasix -recent paracentesis as [facility] * Schizoaffective disorder * Thoracic compression fracture - old -brace * Weakness -await SNF placement Subjective: NO complaints. Objective: Vital Signs Temp Pulse Resp BP Pulse Ox 36.6 C 98 12 94/74 L 91 L 05/13/17 15:14 05/13/17 15:14 05/13/17 15:14 05/13/17 15:14 05/13/17 15:14 Laboratory Results 05/10/17 04:33 05/10/17 04:33 05/12/17 05/13/17 05/14/17 05:59 05:59 05:59 Intake Total 650 1220 Output Total 1750 1850 Balance -1100 -630 PT 27.1 SEC (12.0-15.0) H 05/13/17 03:20 INR 2.52 (0.83-1.16) H 05/13/17 03:20 CXR viewed, my personal interpretation is - negative Thoracic MRI - old compression fractures - Physical Exam Constitutional: no apparent distress, appears nourished, not in pain Cardiovascular: regular rate and rhythym, no murmur, rub, or gallop Respiratory: no respiratory distress, no rales or rhonchi, clear to auscultation Gastrointestinal: normoactive bowel sounds, soft, non-tender abdomen, no palpable masses Skin: no rashes or abrasions, no fluctuance, no induration Neurologic: AAOx3, sensation intact bilaterally Psychiatric: interacting appropriately, not anxious, not encephalopathic, thought process linear ICD10 Worksheet Patient Problems: Problems Problem Status Onset Ascites Acute Generalized weakness Acute Hepatitis C Acute Liver failure Acute
[2017-05-13] MEDS: ACETAMINOPHEN 325 MG TAB PO PRN (19:24)
[2017-05-13] MEDS: MELATONIN 3 MG TAB PO SCH (20:37)
[2017-05-14] MEDS: oxyCODONE IR 5 MG TAB PO PRN ×5 (01:43→19:37)
[2017-05-14 04:33] LABS: PLATELET COUNT 370 10^3/uL (150-400)
[2017-05-14 04:42] LABS: INR 2.74 (0.83-1.16); PROTIME(PATIENT) 28.9 SEC (12.0-15.0)
[2017-05-14] MEDS: DICLOFENAC SODIUM 1% 100 GM GEL TP SCH ×4 (05:17→21:45)
[2017-05-14] MEDS: SPIRONOLACTONE 25 MG TAB PO SCH ×2 (09:42→21:44)
[2017-05-14] MEDS: GABAPENTIN 300 MG CAP PO SCH ×3 (09:43→21:44)
[2017-05-14] MEDS: FUROSEMIDE 40 MG TAB PO SCH (09:43)
[2017-05-14] MEDS: PANTOPRAZOLE SODIUM 40 MG TAB PO SCH (09:43)
[2017-05-14] MEDS: CHOLECALCIFEROL VIT D3 2,000 UNITS TAB/CAP PO SCH (09:43)
[2017-05-14] MEDS: NICOTINE 21 MG/24 HR PATCH TD SCH (09:51)
--- NOTE | 2017-05-14 14:52 | HOSPPROG ---
Hospitalist Progress Note Assessment/Plan: * PE/DVT -therapeutic on warfarin * Etoh/hep C cirrhosis -Aldactone/Lasix -recent paracentesis as [facility] * Schizoaffective disorder * Thoracic compression fracture - old -brace * Weakness -await SNF placement Subjective: no new complaints. Objective: Vital Signs Temp Pulse Resp BP Pulse Ox 36.7 C 95 16 92/61 L 90 L 05/14/17 08:00 05/14/17 08:00 05/14/17 08:00 05/14/17 08:00 05/14/17 08:00 Laboratory Results 05/14/17 03:23 05/14/17 03:23 05/13/17 05/14/17 05/15/17 05:59 05:59 05:59 Intake Total 1220 1420 Output Total 1850 1350 Balance -630 70 PT 28.9 SEC (12.0-15.0) H 05/14/17 03:23 INR 2.74 (0.83-1.16) H 05/14/17 03:23 - Physical Exam Constitutional: no apparent distress, appears nourished, not in pain Cardiovascular: regular rate and rhythym, no murmur, rub, or gallop Respiratory: no respiratory distress, no rales or rhonchi, clear to auscultation Gastrointestinal: normoactive bowel sounds, soft, non-tender abdomen, no palpable masses Skin: no rashes or abrasions, no fluctuance, no induration Neurologic: AAOx3, sensation intact bilaterally Psychiatric: anxious, agitated, poor insight, poor judgement ICD10 Worksheet Patient Problems: Problems Problem Status Onset Ascites Acute Generalized weakness Acute Hepatitis C Acute Liver failure Acute
[2017-05-14] MEDS: WARFARIN SODIUM 4 MG TAB PO SCH (15:00)
[2017-05-14] MEDS: MELATONIN 3 MG TAB PO SCH (21:44)
[2017-05-15] MEDS: oxyCODONE IR 5 MG TAB PO PRN ×5 (00:03→20:39)
[2017-05-15 05:04] LABS: INR 2.79 (0.83-1.16); PROTIME(PATIENT) 29.3 SEC (12.0-15.0)
[2017-05-15] MEDS: DICLOFENAC SODIUM 1% 100 GM GEL TP SCH ×4 (06:04→23:36)
[2017-05-15] MEDS: SPIRONOLACTONE 25 MG TAB PO SCH ×2 (08:31→20:38)
[2017-05-15] MEDS: GABAPENTIN 300 MG CAP PO SCH ×3 (08:31→20:39)
[2017-05-15] MEDS: PANTOPRAZOLE SODIUM 40 MG TAB PO SCH (08:32)
[2017-05-15] MEDS: CHOLECALCIFEROL VIT D3 2,000 UNITS TAB/CAP PO SCH (08:32)
[2017-05-15] MEDS: FUROSEMIDE 40 MG TAB PO SCH (08:33)
[2017-05-15] MEDS: NICOTINE 21 MG/24 HR PATCH TD SCH (08:34)
[2017-05-15] MEDS: ACETAMINOPHEN 325 MG TAB PO PRN (08:36)
--- NOTE | 2017-05-15 12:33 | ASMTCMCOM ---
CM Note CM Note Notes: Confirmed with Cathryn Chin, patient's Level II PASRR has been submitted to the state. We are currently awaiting their approval. Presently we do not have any acceptances for patient due to his Medicaid pending, his disability pending and his past history with ETOH. Emailed the state at to determine where the Pasrr is in their approval process. CM will follow. Date Signed: 05/15/2017 12:33 PM Electronically Signed By:Yvonne Nelson LCSW
[2017-05-15] MEDS: WARFARIN SODIUM 4 MG TAB PO SCH (16:03)
--- NOTE | 2017-05-15 16:49 | ASMTCMCOM ---
CM Note CM Note Notes: Met with patient today about where we are in the process with the d/c plan. Patient was informed we are waiting for state approval while we are sending out referrals. Patient was asking for us to call [facility] again to locate his leather jacket, shoes with special arches, and his wallet. Patient has been given their number but states noone is calling him back. Encouraged him to ask for a person who was a counselor there or a staff member. Simona from patient rep services called to say patient has been calling administration and complaining and he is escalating. Part of the meeting was to give patient more information and help him understand the d/c process. Patient appeared calm by the end of our discussion and made comments during our conversation about the great care he was getting. Informed patient I would check in with him tomorrow with any updates. CM will follow. Date Signed: 05/15/2017 04:49 PM Electronically Signed By:Yvonne Nelson LCSW
--- NOTE | 2017-05-15 18:12 | HOSPPROG ---
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 Lying bed all day, not getting OOB, not wearing brace when he does, taking oxycodone around the clock, watching TV comfortably Objective: Vital Signs Temp Pulse Resp BP Pulse Ox 36.8 C 99 18 95/67 L 93 05/15/17 15:44 05/15/17 15:44 05/15/17 15:44 05/15/17 15:44 05/15/17 15:44 Laboratory Results 05/14/17 03:23 05/14/17 03:23 05/14/17 05/15/17 05/16/17 05:59 05:59 05:59 Intake Total 1420 1070 500 Output Total 1350 1975 300 Balance 70 -905 200 PT 29.3 SEC (12.0-15.0) H 05/15/17 04:19 INR 2.79 (0.83-1.16) H 05/15/17 04:19 - Physical Exam Constitutional: no apparent distress, appears nourished, not in pain Cardiovascular: regular rate and rhythym, no murmur, rub, or gallop Respiratory: no respiratory distress, no rales or rhonchi, clear to auscultation Gastrointestinal: normoactive bowel sounds, soft, non-tender abdomen, no palpable masses Skin: no rashes or abrasions, no fluctuance, no induration Neurologic: AAOx3, sensation intact bilaterally ICD10 Worksheet Patient Problems: Problems Problem Status Onset Ascites Acute Generalized weakness Acute Hepatitis C Acute Liver failure Acute
[2017-05-15] MEDS: LIDOCAINE 4%/MENTHOL 1% PATCH TD SCH (18:22)
[2017-05-15] MEDS: MELATONIN 3 MG TAB PO SCH (20:38)
[2017-05-15] MEDS: ACETAMINOPHEN 500 MG TAB PO PRN (23:20)
[2017-05-15] MEDS: PATCH REMOVAL 1 EA PATCH TD SCH (23:38)
[2017-05-16] MEDS: DICLOFENAC SODIUM 1% 100 GM GEL TP SCH ×4 (05:24→21:45)
[2017-05-16 05:52] LABS: INR 3.13 (0.83-1.16)
[2017-05-16] MEDS: oxyCODONE IR 5 MG TAB PO PRN ×3 (06:06→18:41)
[2017-05-16] MEDS: LIDOCAINE 4%/MENTHOL 1% PATCH TD SCH (08:28)
[2017-05-16] MEDS: FUROSEMIDE 40 MG TAB PO SCH (08:29)
[2017-05-16] MEDS: PANTOPRAZOLE SODIUM 40 MG TAB PO SCH (08:29)
[2017-05-16] MEDS: CHOLECALCIFEROL VIT D3 2,000 UNITS TAB/CAP PO SCH (08:30)
[2017-05-16] MEDS: GABAPENTIN 300 MG CAP PO SCH ×3 (08:31→21:39)
[2017-05-16] MEDS: SPIRONOLACTONE 25 MG TAB PO SCH ×2 (08:31→21:39)
--- NOTE | 2017-05-16 08:41 | HOSPPROG ---
Hospitalist Progress Note Assessment/Plan: 56-year-old male presenting with acute bilateral lower extremity paresis as well as edema in the setting of cirrhosis and end-stage liver disease c/b acute subsegmental PE. * PE/DVT -therapeutic on warfarin * Etoh/hep C cirrhosis -Aldactone/Lasix -recent paracentesis as avista * Schizoaffective disorder * Thoracic compression fracture - old -brace for comfort - given chronic fracture I don't think essential * Chronic back pain with previous narcotic dependency -was off narcs on presentation -d/w patient - given chronic nature of his pain shelter narcotics not indicated -wean narcotics to off, will decrease the frequency * Weakness -PT/OT -attempting SNF - so far no success -increase ambulation schedule here, he was ambulating w OT and doing well *. Paresis with significant weakness -ambulating today well with assist Code. [facility] [place] [facility]. Anticipated discharge uncertain this time. Will need a SNF. Subjective: Sander has no c/o pain, more motivated to get OOB. Objective: Vital Signs Temp Pulse Resp BP Pulse Ox 36.8 C 87 16 112/74 91 L 05/16/17 07:49 05/16/17 07:49 05/16/17 07:49 05/16/17 07:49 05/16/17 07:49 Laboratory Results 05/14/17 03:23 05/14/17 03:23 05/15/17 05/16/17 05/17/17 05:59 05:59 05:59 Intake Total 1070 650 Output Total 1975 800 Balance -905 -150 PT 32.0 SEC (12.0-15.0) H 05/16/17 05:14 INR 3.13 (0.83-1.16) H 05/16/17 05:14 - Physical Exam Constitutional: chronically ill appearing Eyes: PERRL Ears, Nose, Mouth, Throat: hearing normal Cardiovascular: regular rate and rhythym Respiratory: no respiratory distress Skin: warm Musculoskeletal: generalized weakness Neurologic: AAOx3 Psychiatric: interacting appropriately ICD10 Worksheet Patient Problems: Problems Problem Status Onset Generalized weakness Acute Hepatitis C Acute Ascites Acute Liver failure Acute
[2017-05-16] MEDS: ACETAMINOPHEN 500 MG TAB PO PRN ×2 (10:00→21:40)
[2017-05-16] MEDS: NICOTINE 21 MG/24 HR PATCH TD SCH (10:05)
--- NOTE | 2017-05-16 11:48 | ASMTCMCOM ---
CM Note CM Note Notes: The state responded to my email and told me patient's PASRR is on hold but did not elaborate. I have requested more information and am awaiting their reply. CM will follow. Date Signed: 05/16/2017 11:48 AM Electronically Signed By:Yvonne Nelson LCSW
[2017-05-16] MEDS ORDERED: WARFARIN SODIUM 3 MG TAB PO ONE (16:00)
--- NOTE | 2017-05-16 16:21 | ASMTCMCOM ---
CM Note CM Note Notes: The state did approve patient's PASRR but we need to notify them when we have found an accepting facility. Deepti called [facility] regarding patient's jacket, wallet and special shoes with arches. They have not called her back so Deepti will continue to call back. Informed patient of our efforts regarding his personal belongings and gave him an update on the SNF search.CM will follow. Date Signed: 05/16/2017 04:21 PM Electronically Signed By:Yvonne Nelson LCSW
--- NOTE | 2017-05-16 17:30 | ASMTCMCOM ---
CM Note CM Note Notes: Patient has improved and is ambulating with the assist of his cane. Patient may no longer be eligible for SNF placement. 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 D/C plan is changing and it makes sense to get patient back to [facility] where he is already getting some services. CM will follow. Date Signed: 05/16/2017 05:29 PM Electronically Signed By:Yvonne Nelson LCSW
[2017-05-16] MEDS: MELATONIN 3 MG TAB PO SCH (21:40)
[2017-05-16] MEDS: PATCH REMOVAL 1 EA PATCH TD SCH (22:31)
[2017-05-17] MEDS: oxyCODONE IR 5 MG TAB PO PRN ×3 (05:57→18:44)
[2017-05-17] MEDS: DICLOFENAC SODIUM 1% 100 GM GEL TP SCH ×4 (05:58→20:25)
[2017-05-17 06:10] LABS: INR 3.01 (0.83-1.16); PROTIME(PATIENT) 31.1 SEC (12.0-15.0)
[2017-05-17] MEDS: NICOTINE 21 MG/24 HR PATCH TD SCH ×2 (08:33→13:29)
[2017-05-17] MEDS: SPIRONOLACTONE 25 MG TAB PO SCH ×2 (08:34→20:36)
[2017-05-17] MEDS: PANTOPRAZOLE SODIUM 40 MG TAB PO SCH (08:34)
[2017-05-17] MEDS: FUROSEMIDE 40 MG TAB PO SCH (08:34)
[2017-05-17] MEDS: GABAPENTIN 300 MG CAP PO SCH ×4 (08:34→20:36)
[2017-05-17] MEDS: CHOLECALCIFEROL VIT D3 2,000 UNITS TAB/CAP PO SCH (08:35)
[2017-05-17] MEDS: LIDOCAINE 4%/MENTHOL 1% PATCH TD SCH (08:35)
[2017-05-17] MEDS: traMADol 50 MG TAB PO PRN ×3 (09:20→22:19)
--- NOTE | 2017-05-17 10:11 | HOSPPROG ---
Hospitalist Progress Note Assessment/Plan: 56-year-old male presenting with acute bilateral lower extremity paresis as well as edema in the setting of cirrhosis and end-stage liver disease c/b acute subsegmental PE. * PE/DVT -therapeutic on warfarin * Etoh/hep C cirrhosis -Aldactone/Lasix -recent paracentesis as avista * Schizoaffective disorder * Thoracic compression fracture - old -brace for comfort - given chronic fracture I don't think essential * Chronic back pain with previous narcotic dependency -was off narcs on presentation -d/w patient - given chronic nature of his pain senior living narcotics not indicated -wean narcotics to off, will decrease the frequency * Weakness -PT/OT -attempting SNF - so far no success -increase ambulation schedule here, he was ambulating w OT and doing well *. Paresis with significant weakness -ambulating today well with assist Code. Full. Clair Finch in [place] is his [facility] Disposition. Patient states he will never return to [facility], wants to stay in the [place] area/ update CM on this. Subjective: Sander has no c/o pain. Objective: Vital Signs Temp Pulse Resp BP Pulse Ox 36.3 C 98 18 102/75 93 05/17/17 08:00 05/17/17 08:00 05/17/17 08:00 05/17/17 08:00 05/17/17 08:00 Laboratory Results 05/14/17 03:23 05/14/17 03:23 05/16/17 05/17/17 05/18/17 05:59 05:59 05:59 Intake Total 650 150 Output Total 800 1200 Balance -150 -1050 PT 31.1 SEC (12.0-15.0) H 05/17/17 05:40 INR 3.01 (0.83-1.16) H 05/17/17 05:40 - Physical Exam Constitutional: chronically ill appearing, unkempt Eyes: PERRL Ears, Nose, Mouth, Throat: hearing normal Cardiovascular: regular rate and rhythym Respiratory: no respiratory distress Skin: warm Musculoskeletal: generalized weakness Neurologic: AAOx3 Psychiatric: interacting appropriately ICD10 Worksheet Patient Problems: Problems Problem Status Onset Ascites Acute Generalized weakness Acute Hepatitis C Acute Liver failure Acute
[2017-05-17] MEDS ORDERED: WARFARIN SODIUM 2 MG TAB PO ONE (16:00)
[2017-05-17] MEDS: MELATONIN 3 MG TAB PO SCH (20:36)
[2017-05-17] MEDS: PATCH REMOVAL 1 EA PATCH TD SCH (22:08)
[2017-05-18] MEDS: oxyCODONE IR 5 MG TAB PO PRN ×4 (00:36→20:16)
[2017-05-18 05:47] LABS: INR 2.84 (0.83-1.16); PROTIME(PATIENT) 29.7 SEC (12.0-15.0)
[2017-05-18] MEDS: DICLOFENAC SODIUM 1% 100 GM GEL TP SCH ×4 (06:56→20:03)
[2017-05-18] MEDS: FUROSEMIDE 40 MG TAB PO SCH (09:04)
[2017-05-18] MEDS: GABAPENTIN 300 MG CAP PO SCH ×4 (09:04→20:16)
[2017-05-18] MEDS: SPIRONOLACTONE 25 MG TAB PO SCH ×2 (09:05→20:16)
[2017-05-18] MEDS: CHOLECALCIFEROL VIT D3 2,000 UNITS TAB/CAP PO SCH (09:05)
[2017-05-18] MEDS: PANTOPRAZOLE SODIUM 40 MG TAB PO SCH (09:06)
[2017-05-18] MEDS: NICOTINE 21 MG/24 HR PATCH TD SCH (09:07)
[2017-05-18] MEDS: LIDOCAINE 4%/MENTHOL 1% PATCH TD SCH (09:07)
--- NOTE | 2017-05-18 09:34 | HOSPPROG ---
Hospitalist Progress Note Assessment/Plan: 56-year-old male presenting with acute bilateral lower extremity paresis as well as edema in the setting of cirrhosis and end-stage liver disease c/b acute subsegmental PE. * PE/DVT -therapeutic on warfarin * Etoh/hep C cirrhosis -Aldactone/Lasix -recent paracentesis as avista * Schizoaffective disorder * Thoracic compression fracture - old -brace for comfort - given chronic fracture I don't think essential * Chronic back pain with previous narcotic dependency -was off narcs on presentation -d/w patient - given chronic nature of his pain longterm narcotics not indicated -wean narcotics to off, will decrease the frequency (he's tolerating this well)/will cut dose in half * Weakness -PT/OT -attempting SNF - so far no success -increase ambulation schedule here, he was ambulating w OT and doing well *. Paresis with significant weakness -ambulating today well with assist -reviewed PT's notes; recommendation is a SNF Code. Full. Clair Finch in [place] [facility]. Patient states he will never return to [facility], wants to stay in the [place] area/ update CM on this. Subjective: Scout is feeling well, no complaints. Objective: Vital Signs Temp Pulse Resp BP Pulse Ox 36.7 C 92 18 98/79 L 91 L 05/18/17 08:00 05/18/17 08:00 05/18/17 08:00 05/18/17 08:00 05/18/17 08:00 Laboratory Results 05/14/17 03:23 05/14/17 03:23 05/17/17 05/18/17 05/19/17 05:59 05:59 05:59 Intake Total 150 2327 Output Total 1200 1350 Balance -1050 977 PT 29.7 SEC (12.0-15.0) H 05/18/17 04:28 INR 2.84 (0.83-1.16) H 05/18/17 04:28 - Physical Exam Constitutional: not in pain, chronically ill appearing, unkempt Eyes: PERRL Ears, Nose, Mouth, Throat: hearing normal Respiratory: no respiratory distress Gastrointestinal: normoactive bowel sounds Skin: warm Musculoskeletal: generalized weakness Neurologic: AAOx3 Psychiatric: interacting appropriately ICD10 Worksheet Patient Problems: Problems Problem Status Onset Ascites Acute Generalized weakness Acute Hepatitis C Acute Liver failure Acute
[2017-05-18] MEDS ORDERED: WARFARIN SODIUM 4 MG TAB PO ONE (16:00)
[2017-05-18] MEDS: traMADol 50 MG TAB PO PRN (16:51)
--- NOTE | 2017-05-18 17:21 | ASMTCMCOM ---
CM Note CM Note Notes: Today SWer spent some time re-calling SNFs that had previously declined Pt. Left msg for Ry at [facility], sent new referral to Yesenia with [facility], and called Lakeisha at the [facility]. Yesenia and Lakeisha agreed to review Pt. Ry did not call back. Hospitalist not comfortable with d/c to fpc system at this time due Pt's PEs and cumadin need. Antonia Gonzalez from [facility] states she still awaits Level II PASRR completion from Cathryn Peralta. Antonia to follow up. PT and OT still recommending SNF. SW/CM to follow. Date Signed: 05/18/2017 05:20 PM Electronically Signed By:Cathryn Durant LCSW
[2017-05-18] MEDS: MELATONIN 3 MG TAB PO SCH (20:17)
[2017-05-18] MEDS: PATCH REMOVAL 1 EA PATCH TD SCH (21:08)
[2017-05-19] MEDS: ACETAMINOPHEN 500 MG TAB PO PRN ×2 (00:30→11:40)
[2017-05-19 05:28] LABS: INR 2.39 (0.83-1.16); PROTIME(PATIENT) 26.1 SEC (12.0-15.0)
[2017-05-19] MEDS: DICLOFENAC SODIUM 1% 100 GM GEL TP SCH ×4 (06:17→20:02)
[2017-05-19] MEDS: oxyCODONE IR 5 MG TAB PO PRN ×3 (07:46→23:59)
[2017-05-19] MEDS: SPIRONOLACTONE 25 MG TAB PO SCH ×2 (09:54→20:00)
[2017-05-19] MEDS: PANTOPRAZOLE SODIUM 40 MG TAB PO SCH (09:55)
[2017-05-19] MEDS: FUROSEMIDE 40 MG TAB PO SCH (09:55)
[2017-05-19] MEDS: NICOTINE 21 MG/24 HR PATCH TD SCH (09:56)
[2017-05-19] MEDS: CHOLECALCIFEROL VIT D3 2,000 UNITS TAB/CAP PO SCH (09:56)
[2017-05-19] MEDS: LIDOCAINE 4%/MENTHOL 1% PATCH TD SCH (09:56)
[2017-05-19] MEDS: GABAPENTIN 300 MG CAP PO SCH ×3 (09:56→20:00)
[2017-05-19] MEDS: traMADol 50 MG TAB PO PRN ×2 (11:40→20:00)
--- NOTE | 2017-05-19 15:43 | HOSPPROG ---
Hospitalist Progress Note Assessment/Plan: 56-year-old male presenting with acute bilateral lower extremity paresis as well as edema in the setting of cirrhosis and end-stage liver disease c/b acute subsegmental PE. * PE/DVT -therapeutic on warfarin * Etoh/hep C cirrhosis -Aldactone/Lasix -recent paracentesis as avista * Schizoaffective disorder * Thoracic compression fracture - old -brace for comfort - given chronic fracture I don't think essential * Chronic back pain with previous narcotic dependency -was off narcs on presentation -d/w patient - given chronic nature of his pain retirement narcotics not indicated -wean narcotics to off, will decrease the frequency (he's tolerating this well) * Weakness -PT/OT -attempting SNF - so far no success -increase ambulation schedule here, he was ambulating w OT and doing well *. Paresis with significant weakness -ambulating today well with assist -reviewed PT's notes; recommendation is a SNF Code. Full. Clair Fin[facility] in [place] [facility] pending, case management actively trying to find placement/ talked w Scout about the difficulty of finding him a place to stay. He is aware and concerned about being on the street. Subjective: Sander is upset that we have weaned the narcotics. Pain is overall well managed and he is able to get OOB better. Objective: Vital Signs Temp Pulse Resp BP Pulse Ox 36.9 C 100 18 112/74 93 05/19/17 15:00 05/19/17 15:00 05/19/17 15:00 05/19/17 15:00 05/19/17 15:00 Laboratory Results 05/14/17 03:23 05/14/17 03:23 05/18/17 05/19/17 05/20/17 05:59 05:59 05:59 Intake Total 2327 575 Output Total 1350 1325 450 Balance 977 -750 -450 PT 26.1 SEC (12.0-15.0) H 05/19/17 04:15 INR 2.39 (0.83-1.16) H 05/19/17 04:15 - Physical Exam Constitutional: chronically ill appearing Eyes: PERRL Ears, Nose, Mouth, Throat: hearing normal Respiratory: no respiratory distress Gastrointestinal: normoactive bowel sounds Skin: warm Musculoskeletal: generalized weakness Neurologic: AAOx3 Psychiatric: interacting appropriately ICD10 Worksheet Patient Problems: Problems Problem Status Onset Ascites Acute Generalized weakness Acute Hepatitis C Acute Liver failure Acute
[2017-05-19] MEDS ORDERED: WARFARIN SODIUM 2 MG TAB PO ONE (16:00)
[2017-05-19] MEDS: MELATONIN 3 MG TAB PO SCH (20:00)
[2017-05-19] MEDS: PATCH REMOVAL 1 EA PATCH TD SCH (20:02)
[2017-05-20] MEDS: ACETAMINOPHEN 500 MG TAB PO PRN ×2 (04:12→22:40)
[2017-05-20 05:24] LABS: PLATELET COUNT 496 10^3/uL (150-400)
[2017-05-20 05:39] LABS: INR 2.63 (0.83-1.16)
[2017-05-20] MEDS: DICLOFENAC SODIUM 1% 100 GM GEL TP SCH ×4 (05:50→21:36)
--- NOTE | 2017-05-20 09:18 | ASMTCMCOM ---
CM Note CM Note Notes: This is per the last note from the [facility] CM: SNFs have been recalled, that have previously declined. CM left message for Ry at , sent new referral to Yesenia with [facility], and called Lakeisha at the [facility]. Yesenia and Lakeisha agreed to review and Ry has not called back. Hospitalist not comfortablewith dc to fpc at this time due to pt's PE's and need for coumadin. Antonia Gonzalez from [facility] states she still awaits level II PASRR completion from Antonia Guo to follow up. PT/OT still recommending SNF, SW to follow. DC Plan: SNF Date Signed: 05/20/2017 09:17 AM Electronically Signed By:Cynthia Samaniego RN
[2017-05-20] MEDS: LIDOCAINE 4%/MENTHOL 1% PATCH TD SCH (10:03)
[2017-05-20] MEDS: NICOTINE 21 MG/24 HR PATCH TD SCH (10:03)
[2017-05-20] MEDS: CHOLECALCIFEROL VIT D3 2,000 UNITS TAB/CAP PO SCH (10:03)
[2017-05-20] MEDS: SPIRONOLACTONE 25 MG TAB PO SCH ×2 (10:04→21:33)
[2017-05-20] MEDS: FUROSEMIDE 40 MG TAB PO SCH (10:04)
[2017-05-20] MEDS: PANTOPRAZOLE SODIUM 40 MG TAB PO SCH (10:04)
[2017-05-20] MEDS: oxyCODONE IR 5 MG TAB PO PRN ×2 (10:04→18:15)
[2017-05-20] MEDS: GABAPENTIN 300 MG CAP PO SCH ×4 (10:04→21:34)
--- NOTE | 2017-05-20 14:54 | HOSPPROG ---
Hospitalist Progress Note Assessment/Plan: 56-year-old male presenting with acute bilateral lower extremity paresis as well as edema in the setting of cirrhosis and end-stage liver disease c/b acute subsegmental PE. * PE/DVT -therapeutic on warfarin * Etoh/hep C cirrhosis -Aldactone/Lasix -recent paracentesis as avista * Schizoaffective disorder * Thoracic compression fracture - old -brace for comfort - given chronic fracture I don't think essential * Chronic back pain with previous narcotic dependency -was off narcs on presentation -d/w patient - given chronic nature of his pain detention narcotics not indicated -wean narcotics to off, will decrease the frequency (he's tolerating this well) * Weakness -PT/OT -attempting SNF - so far no success -increase ambulation schedule here, he was ambulating w OT and doing well *. Paresis with significant weakness -ambulating today well with assist -reviewed PT's notes; recommendation is a SNF Code. Full. Clair Finch in [place] [facility]. pending, case management actively trying to find placement. No changes from the above. Patient is hoping for placement. Subjective: Scout has no complaints except for some back pain when getting OOB. Objective: Vital Signs Temp Pulse Resp BP Pulse Ox 36.6 C 98 16 104/84 H 93 05/20/17 07:38 05/20/17 07:38 05/20/17 07:38 05/20/17 07:38 05/20/17 07:38 Laboratory Results 05/20/17 04:19 05/20/17 04:19 05/19/17 05/20/17 05/21/17 05:59 05:59 06:59 Intake Total 575 800 Output Total 1325 1650 Balance -750 -850 PT 28.0 SEC (12.0-15.0) H 05/20/17 04:19 INR 2.63 (0.83-1.16) H 05/20/17 04:19 - Physical Exam Constitutional: no apparent distress, chronically ill appearing Eyes: PERRL Ears, Nose, Mouth, Throat: hearing normal Respiratory: no respiratory distress Skin: warm Musculoskeletal: generalized weakness Neurologic: AAOx3 Psychiatric: interacting appropriately ICD10 Worksheet Patient Problems: Problems Problem Status Onset Ascites Acute Generalized weakness Acute Hepatitis C Acute Liver failure Acute
[2017-05-20] MEDS: traMADol 50 MG TAB PO PRN (15:36)
[2017-05-20] MEDS ORDERED: WARFARIN SODIUM 3 MG TAB PO SCH (16:00)
[2017-05-20] MEDS: MELATONIN 3 MG TAB PO SCH (21:34)
[2017-05-20] MEDS: PATCH REMOVAL 1 EA PATCH TD SCH (21:34)
[2017-05-21 04:57] LABS: INR 2.46 (0.83-1.16); PROTIME(PATIENT) 26.6 SEC (12.0-15.0)
[2017-05-21] MEDS: DICLOFENAC SODIUM 1% 100 GM GEL TP SCH ×4 (06:36→21:28)
[2017-05-21] MEDS: oxyCODONE IR 5 MG TAB PO PRN ×3 (07:16→22:27)
[2017-05-21] MEDS: NICOTINE 21 MG/24 HR PATCH TD SCH (08:21)
[2017-05-21] MEDS: LIDOCAINE 4%/MENTHOL 1% PATCH TD SCH (08:22)
[2017-05-21] MEDS: CHOLECALCIFEROL VIT D3 2,000 UNITS TAB/CAP PO SCH (08:25)
[2017-05-21] MEDS: SPIRONOLACTONE 25 MG TAB PO SCH ×2 (08:25→21:33)
[2017-05-21] MEDS: GABAPENTIN 300 MG CAP PO SCH ×3 (08:25→21:33)
[2017-05-21] MEDS: FUROSEMIDE 40 MG TAB PO SCH (08:27)
[2017-05-21] MEDS: PANTOPRAZOLE SODIUM 40 MG TAB PO SCH (08:27)
--- NOTE | 2017-05-21 11:33 | HOSPPROG ---
Hospitalist Progress Note Assessment/Plan: 56-year-old male presenting with acute bilateral lower extremity paresis as well as edema in the setting of cirrhosis and end-stage liver disease c/b acute subsegmental PE. * PE/DVT -therapeutic on warfarin * Etoh/hep C cirrhosis -Aldactone/Lasix -recent paracentesis as avista * Schizoaffective disorder * Thoracic compression fracture - old -brace for comfort - given chronic fracture I don't think essential * Chronic back pain with previous narcotic dependency -was off narcs on presentation -d/w patient - given chronic nature of his pain fdc narcotics not indicated -wean narcotics to off, will decrease the frequency (he's tolerating this well) * Weakness -PT/OT -attempting SNF - so far no success -increase ambulation schedule here, he was ambulating w OT and doing well *. Paresis with significant weakness -ambulating today well with assist -reviewed PT's notes; recommendation is a SNF Code. Full. [facility] [place] [facility]. pending, case management actively trying to find placement. No changes from the above. Patient is hoping for placement. Subjective: Sander has no complaints. Objective: Vital Signs Temp Pulse Resp BP Pulse Ox 36.8 C 101 H 14 113/85 H 92 05/21/17 07:39 05/21/17 07:39 05/21/17 07:39 05/21/17 07:39 05/21/17 07:39 Laboratory Results 05/20/17 04:19 05/20/17 04:19 05/20/17 05/21/17 05/22/17 04:59 05:59 05:59 Intake Total Output Total 50 Balance -50 PT 26.6 SEC (12.0-15.0) H 05/21/17 04:16 INR 2.46 (0.83-1.16) H 05/21/17 04:16 - Physical Exam Constitutional: not in pain, chronically ill appearing Eyes: PERRL Ears, Nose, Mouth, Throat: hearing normal Respiratory: no respiratory distress Skin: warm Musculoskeletal: generalized weakness Neurologic: AAOx3 Psychiatric: interacting appropriately ICD10 Worksheet Patient Problems: Problems Problem Status Onset Ascites Acute Generalized weakness Acute Hepatitis C Acute Liver failure Acute
[2017-05-21] MEDS: traMADol 50 MG TAB PO PRN ×2 (13:12→20:42)
[2017-05-21] MEDS ORDERED: WARFARIN SODIUM 3 MG TAB PO SCH (16:00)
[2017-05-21] MEDS: MELATONIN 3 MG TAB PO SCH (21:33)
[2017-05-21] MEDS: PATCH REMOVAL 1 EA PATCH TD SCH (21:34)
[2017-05-22] MEDS: oxyCODONE IR 5 MG TAB PO PRN ×3 (04:38→14:52)
[2017-05-22] MEDS: DICLOFENAC SODIUM 1% 100 GM GEL TP SCH ×5 (05:25→20:37)
[2017-05-22 05:57] LABS: INR 2.31 (0.83-1.16); PROTIME(PATIENT) 25.4 SEC (12.0-15.0)
[2017-05-22] MEDS: LIDOCAINE 4%/MENTHOL 1% PATCH TD SCH (08:55)
[2017-05-22] MEDS: PANTOPRAZOLE SODIUM 40 MG TAB PO SCH (08:55)
[2017-05-22] MEDS: NICOTINE 21 MG/24 HR PATCH TD SCH (08:55)
[2017-05-22] MEDS: CHOLECALCIFEROL VIT D3 2,000 UNITS TAB/CAP PO SCH (08:55)
[2017-05-22] MEDS: SPIRONOLACTONE 25 MG TAB PO SCH ×2 (08:55→20:34)
[2017-05-22] MEDS: GABAPENTIN 300 MG CAP PO SCH ×3 (08:56→20:33)
[2017-05-22] MEDS: FUROSEMIDE 40 MG TAB PO SCH (08:56)
--- NOTE | 2017-05-22 11:47 | HOSPPROG ---
Hospitalist Progress Note Assessment/Plan: 56-year-old male presenting with acute bilateral lower extremity paresis as well as edema in the setting of cirrhosis and end-stage liver disease c/b acute subsegmental PE. * PE/DVT -therapeutic on warfarin * Etoh/hep C cirrhosis -Aldactone/Lasix -recent paracentesis at [facility] * Schizoaffective disorder * Thoracic compression fracture - old -brace for comfort - given chronic fracture I don't think essential * Chronic back pain with previous narcotic dependency -was off narcs on presentation -given chronic nature of his pain intermediate narcotics not indicated -wean narcotics to off, still on oxy 5mg q6 * Weakness -PT/OT -attempting SNF - so far no success -increase ambulation schedule here, he was ambulating w OT and doing well *. Paresis with significant weakness -ambulating today well with assist -reviewed PT's notes; recommendation is a SNF Code. Full. Clair Fin[facility] in [place] [facility]. pending, case management actively trying to find placement. No changes from the above. Patient is hoping for placement. D/W CM and patient. Subjective: Feeling well. Having pain when walking. No other issues. Objective: Vital Signs Temp Pulse Resp BP Pulse Ox 36.9 C 108 H 16 107/73 92 05/22/17 07:46 05/22/17 07:46 05/22/17 07:46 05/22/17 07:46 05/22/17 07:46 Laboratory Results 05/20/17 04:19 05/20/17 04:19 05/21/17 05/22/17 05/23/17 05:59 05:59 05:59 Intake Total 1400 Output Total 1500 250 Balance -100 -250 PT 25.4 SEC (12.0-15.0) H 05/22/17 04:47 INR 2.31 (0.83-1.16) H 05/22/17 04:47 - Physical Exam Constitutional: appears nourished, not in pain, chronically ill appearing Eyes: PERRL, anicteric sclera, EOMI Ears, Nose, Mouth, Throat: moist mucous membranes, hearing normal, ears appear normal Cardiovascular: No JVD, No tachycardia, No edema Respiratory: no respiratory distress, no rales or rhonchi, reduced air movement Gastrointestinal: normoactive bowel sounds, No tenderness, No ascites Skin: warm, normal color, No mottled Musculoskeletal: normal joint ROM, no joint effusions, pain with ROM, generalized weakness Neurologic: AAOx3 Psychiatric: interacting appropriately, not anxious, not encephalopathic, thought process linear ICD10 Worksheet Patient Problems: Problems Problem Status Onset Generalized weakness Acute Hepatitis C Acute Ascites Acute Liver failure Acute
[2017-05-22] MEDS: traMADol 50 MG TAB PO PRN ×2 (12:11→20:34)
--- NOTE | 2017-05-22 14:13 | ASMTCMCOM ---
CM Note CM Note Notes: Spoke with Ry at [facility] early today and he states [facility] cannot take patient. They are at their quota with patients who have psych diagnosis. Spoke with Misty Reyna and they also have said no they cannot accomodate this patient's needs. Yesenia said she would call us back if she thinks of a sister facility that might consider patient. Left a message for Lakeisha with [facility] also early this morning and she has not called back. CM will follow. Date Signed: 05/22/2017 02:12 PM Electronically Signed By:Yvonne Nelson LCSW
[2017-05-22] MEDS ORDERED: WARFARIN SODIUM 4 MG TAB PO SCH (16:00)
[2017-05-22] MEDS: MELATONIN 3 MG TAB PO SCH (20:33)
[2017-05-22] MEDS: PATCH REMOVAL 1 EA PATCH TD SCH (20:37)
[2017-05-23] MEDS: oxyCODONE IR 5 MG TAB PO PRN ×2 (01:47→07:28)
[2017-05-23] MEDS: DICLOFENAC SODIUM 1% 100 GM GEL TP SCH ×2 (05:11→12:24)
[2017-05-23] MEDS: LIDOCAINE 4%/MENTHOL 1% PATCH TD SCH (09:28)
[2017-05-23] MEDS: NICOTINE 21 MG/24 HR PATCH TD SCH (09:29)
[2017-05-23] MEDS: FUROSEMIDE 40 MG TAB PO SCH (09:29)
[2017-05-23] MEDS: CHOLECALCIFEROL VIT D3 2,000 UNITS TAB/CAP PO SCH (09:29)
[2017-05-23] MEDS: SPIRONOLACTONE 25 MG TAB PO SCH (09:30)
[2017-05-23] MEDS: GABAPENTIN 300 MG CAP PO SCH (09:30)
[2017-05-23] MEDS: PANTOPRAZOLE SODIUM 40 MG TAB PO SCH (09:30)
[2017-05-23] MEDS: traMADol 50 MG TAB PO PRN (11:14)
[2017-05-23] MEDS ORDERED: oxyCODONE IR 5 MG TAB PO PRN (11:30)
--- NOTE | 2017-05-23 11:50 | ASMTCMCOM ---
CM Note CM Note Notes: Spoke with Tommy with [facility] and asked him to reconsider patient. Sent updated referral to Tommy per his request and he will get back to us. Dena with [facility] is also assisting with this case. She called to say she looked into patient's Medicaid and it has been suspended because he did not complete paperwork he was given in February. Apparently it ended the last day of April. However, she is going to check into LTC Medicaid status. I shared the email correspondence [facility] with her regarding his LTC Medicaid pending until we got an accepting facility. Dena is going to pursue getting answers about patient's Medicaid status. CM will follow. Date Signed: 05/23/2017 11:49 AM Electronically Signed By:Yvonne Nelson LCSW
--- NOTE | 2017-05-23 12:55 | HOSPPROG ---
Hospitalist Progress Note Assessment/Plan: 56-year-old male presenting with acute bilateral lower extremity paresis as well as edema in the setting of cirrhosis and end-stage liver disease c/b acute subsegmental PE. * PE/DVT -therapeutic on warfarin * Etoh/hep C cirrhosis -Aldactone/Lasix -[facility]acentesis [facility] * Schizoaffective disorder * Thoracic compression fracture - old -brace for comfort - given chronic fracture I don't think essential * Chronic back pain with previous narcotic dependency -was off narcs on presentation -given chronic nature of his pain detention narcotics not indicated -wean narcotics to off, still on oxy 5mg q6 * Weakness -PT/OT -attempting SNF - so far no success -increase ambulation schedule here, he was ambulating w OT and doing well *. Paresis with significant weakness -ambulating today well with assist -reviewed PT's notes; recommendation is a SNF Code. Full. Clair Finch in [place] [facility]. pending, case management actively trying to find placement. No changes from the above. Patient is hoping for placement. D/W CM and patient. Subjective: Feels fine. No issues. Objective: Vital Signs Temp Pulse Resp BP Pulse Ox 36.6 C 97 16 120/84 H 94 05/23/17 07:34 05/23/17 07:34 05/23/17 07:34 05/23/17 07:34 05/23/17 07:34 Laboratory Results 05/20/17 04:19 05/20/17 04:19 05/22/17 05/23/17 05/24/17 05:59 05:59 05:59 Intake Total 1400 500 Output Total 1500 450 Balance -100 50 PT 25.4 SEC (12.0-15.0) H 05/22/17 04:47 INR 2.31 (0.83-1.16) H 05/22/17 04:47 - Physical Exam Constitutional: appears nourished, chronically ill appearing Eyes: PERRL, anicteric sclera Ears, Nose, Mouth, Throat: moist mucous membranes, hearing normal Cardiovascular: No JVD, No edema Respiratory: no respiratory distress, reduced air movement Gastrointestinal: No tenderness, No ascites Skin: warm, normal color Musculoskeletal: joint tenderness, generalized weakness Neurologic: AAOx3 Psychiatric: not anxious, not encephalopathic, poor insight ICD10 Worksheet Patient Problems: Problems Problem Status Onset Generalized weakness Acute Hepatitis C Acute Ascites Acute Liver failure Acute
[2017-05-23 14:48] VITALS: BP 98/75; PULSE 103; RESP 18; TEMP 98.9; O2SAT 93
[2017-05-23] MEDS ORDERED: WARFARIN SODIUM 3 MG TAB PO SCH (16:00)
--- NOTE | 2017-05-23 16:14 | ASMTCMCOM ---
CM Note CM Note Notes: Dena did confirm patient has let his Medicaid lapse. Joanne was contacted and will apply in patient's behalf for emergency Medicaid. We will not restart the LTM process at this point. Patient will be [facility]. He has been provided clothes, a bus pass, medications, and we made a follow up appointment for patient with Dr. Wall, [facility] on 05-26-17 at 12:45 PM. Dena Nettles, JEAN PIERREN, RN with [facility] is going to follow up with patient through [facility] and assist with getting his Medicaid reinstated. She will also follow to provide him with services he might need through her program. Patient chose to stay in [place] and did not want to return to [facility]. CM available if further needs arise. Date Signed: 05/23/2017 04:14 PM Electronically Signed By:Yvonne Nelson LCSW
--- NOTE | 2017-05-23 16:28 | ASMTCMCOM ---
CM Note CM Note Notes: Patient will [facility] tax[facility] to [facility]. Patient requested a bus pass and we gave that to him as well. CM available if further needs arise. Date Signed: 05/23/2017 04:27 PM Electronically Signed By:Yvonne Nelson LCSW
--- NOTE | 2017-05-23 17:52 | GDS ---
[f rep st] DISCHARGE SUMMARY DISCHARGE DIAGNOSES: 1. Pulmonary embolism/deep venous thrombosis. 2. Hepatitis C cirrhosis. 3. History of alcohol abuse. 4. Schizoaffective disorder. 5. Thoracic compression fracture. 6. Chronic back pain. 7. Weakness. HOSPITAL COURSE: The patient is a 56-year-old gentleman presents to the emergency room with complain ts of bilateral lower extremity weakness. He was evaluated and diagnosed with: 1. DVT/PE. He has been initiated on Coumadin. He is therapeutic on his Coumadin dosing. He will c ontinue this in the outpatient setting with followup INR with Dr. Mary Wall on 05/26/2017, at 12:4 5; the appointment has been arranged for him prior to disposition. 2. History of hepatitis C, cirrhosis, as well as chronic alcohol use. Prescriptions for aldactone a nd Lasix have been provided to the patient at the time of disposition. He has required therapeutic p aracentesis in the past and may require this again in the future, especially if he is noncompliant wi th his medication regimen. 3. Schizoaffective disorder. This is stable at the time of disposition. 4. Thoracic compression fracture. This is old. The patient is not being discharged on any narcotic pain medication. A brace has been provided for him. 5. Weakness. This is improving. The patient worked with physical therapy as well as occupational t herapy during this hospital course. Rehabilitation was recommended, however, facility was unable to be located due to the patient's history and complications. We have arranged as much outpatient follo wup as possible. Please refer to Case Management note. 6. Disposition. The patient will be discharged from the hospital to facility chosen by Case Managebhumi ent. Please refer to Case Management notes. He has also been arranged for a followup with Tip mary RN in the outpatient setting to assist with reinstating his Medicaid. Prescriptions have been provided for the patient at the time of disposition; they will be filled by Case Management and the pharmacy, and he will have medications in hand prior to disposition. Lengthy discharge plan has been arranged for the patient at the time of disposition. DISCHARGE MEDICATIONS: Please refer to EMR form. The patient has been provided prescriptions for Ne urontin, tramadol, Coumadin, spironolactone, Lasix. FOLLOWUP: Again, will be with Dr. Mary Wall for INR evaluation on 05/26/2017, at 12:45. I have spent greater than 35 minutes in the care, coordination, and management of this patient's disp osition. /[id number]/MODL
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
--- NOTE | 2017-05-26 16:33 | PQFORM ---
PHYSICIAN QUERY FORM Needs Your Response This query form is being sent to you to assure this patient record is coded properly. Please respond to the question below: RETIREMENT PLAN COUNSELOR QUESTION: Dear BE Hull, In reviewing this patients medical record, it is noted in the Wound Care Assessment Note dated 05/08 that the patient had the diagnosis of Coccyx pressure injury stage 2 not present on admission. After study, should the diagnosis of "Coccyx pressure injury stage 2 not present on admission" be included in the Discharge Summary? ___x__ Yes No Unable to determine Other more appropriate diagnosis Thank you Khalida Solomon, [facility] HIM/Coding Dept. [phone] INSTRUCTIONS FOR RESPONSE: Answer question by clicking on the "Edit Document" button. Move cursor to area below the stars. When complete, hit "Save." Click on the "Sign" button, then click "Sign" again. Type in your PIN and hit "Enter." MTDD
--- NOTE | 2017-06-08 10:00 | ASMTLACE ---
ANIKAE Length of stay for Answers: 14 days or more current admission Acuity / Level of Answers: Yes Care: Did the patient have an inpatient admission? Comorbidities - select Answers: History of falls all that apply Moderate or severe liver or renal disease Opioid dependence / Chronic pain Peripheral vascular disease # of Emergency department Answers: 1-2 visits in the last 6 months Social determinants Answers: History of substance abuse (ETOH, street drugs, prescription drugs, etc.) Homelessness (street, custodial) Mental health diagnosis (anxiety, depression, pers onality disorders, etc.) Lack of community resources and/or lack of social support (no pcp, lives alone, transportation, markos d) Score: 36 Date Signed: 06/08/2017 09:59 AM Electronically Signed By:Santa Carrera RN
== END 2017-05-23 18:36 | disposition home or self-care (01) | DRG 91 ==
LOC: EDUNIT# → OBSVTOIN 14:57 → F1N 15:05 → F3N 05-04 18:35 → F2W 05-10 17:55 → F3E 05-14 17:17
PROVIDERS: ADMIT Internal Medicine; ATTEND Internal Medicine
PROC: 30233N1 Transfusion of Nonautologous Red Blood Cells into Peripheral Vein, Percutaneous Approach (ICD-10-PCS; principal; 2017-05-03)
DX: G83.9 Paralytic syndrome, unspecified (principal); I26.99 Other pulmonary embolism without acute cor pulmonale; M84.48XA Pathological fracture, other site, initial encounter for fracture; L89.152 Pressure ulcer of sacral region, stage 2; K74.60 Unspecified cirrhosis of liver; B18.2 Chronic viral hepatitis C; F25.9 Schizoaffective disorder, unspecified; G89.29 Other chronic pain; F10.20 Alcohol dependence, uncomplicated; D63.8 Anemia in other chronic diseases classified elsewhere; E55.9 Vitamin D deficiency, unspecified; Z59.0 Homelessness
CPT/HCPCS: 80307; 92523-GN; 97116-GP; 97162-GP; 97166-GO; 97530-GO; 97530-GP; 97535-GO; G0480; J1650; J1940; J3475; P9016; Q9967

== ENCOUNTER 2017-05-25 16:44 | Emergency (ER) | payer MEDICAID ==
--- NOTE | 2017-05-25 17:03 | EDPHY ---
H & P Stated Complaint: weakness, SI - Personal History Current Tetanus/Diphtheria Vaccine: Unsure Current Tetanus Diphtheria and Acellular Pertussis (TDAP): Unsure - Medical/Surgical History Hx Asthma: No Hx Chronic Respiratory Disease: No Hx Diabetes: No Hx Cardiac Disease: No Hx Renal Disease: No Hx Cirrhosis: No Hx Alcoholism: Yes Hx HIV/AIDS: No Hx Splenectomy or Spleen Trauma: No Other PMH: Alcoholism, hepatitis-C, nephrectomy, chronic back pain, trouble eating. - Social History Smoking Status: Heavy smoker Time Seen by Provider: 05/25/17 17:03 Constitutional: Initial Vital Signs Temperature (C) 36.3 C 05/25/17 16:53 Heart Rate 123 H 05/25/17 16:53 Respiratory Rate 18 05/25/17 16:53 Blood Pressure 164/119 H 05/25/17 16:53 O2 Sat (%) 95 05/25/17 16:53 O2 Delivery Mode Room Air O2 (L/minute) 95 Allergies/Adverse Reactions: No Known Allergies Allergy (Verified 05/25/17 16:53) Home Medications: Medication Instructions Recorded Omeprazole 40 mg PO DAILY 05/02/17 Acetaminophen [Tylenol ES 500 mg 500 mg PO Q6 PRN tab 05/23/17 (*)] Cholecalciferol Vit D3 [Vitamin D3 5,000 units PO DAILY each 05/23/17 2000 units tab (OTC)] Furosemide [Lasix 40 MG (*)] 60 mg PO DAILY #60 tab 05/23/17 Gabapentin [Neurontin 300 MG (*)] 300 mg PO DAILY #14 cap 05/23/17 Gabapentin [Neurontin 300 MG (*)] 300 mg PO DAILY16 #14 cap 05/23/17 Gabapentin [Neurontin 300 MG (*)] 600 mg PO HS #20 cap 05/23/17 Spironolactone [Aldactone 25 MG 50 mg PO BID #20 tab 05/23/17 (*)] Warfarin Sodium [Coumadin 3MG (*)] 3 mg PO SuTuThSa@1600 #20 tab 05/23/17 Warfarin Sodium [Coumadin 4MG (*)] 4 mg PO MoWeFr@1600 #12 tab 05/23/17 traMADol [Ultram 50 mg (*)] 50 mg PO Q6HRS PRN #10 tab 05/23/17 Medical Decision Making ED Course/Re-evaluation: CHIEF COMPLAINT: Suicidal and homeless and not eating well HISTORY OF PRESENT ILLNESS: 56-year-old gentleman with a significant psychiatric history. He was recently admitted psychiatrically and then discharged on Monday. [place] on [address] and he states that he can eat can 't drink and now he feels suicidal. He denies any plan he denies any suicide attempts. He has not had any in the past according to him. He is not especially forthcoming with information REVIEW OF SYSTEMS: A 10 point review of systems was performed and is negative with the exception of the elements mentioned in the history of present illness. PHYSICAL EXAM: General Appearance: Disheveled, smelly, worn clothes, dirty, Alert, and nontoxic appearing. Head: Atraumatic without scalp tenderness or obvious injury Eyes: Pupils equal, round, reactive to light and accommodation, EOMI, no trauma , no injection. Ears: Clear bilaterally, no perforation, normal landmarks Nose: Atraumatic, no rhinorrhea, clear. Throat: There is no erythema or exudates, no lesions, normal tonsils, mucus membranes moist. Neck: Supple, 2+ carotid upstroke, nontender, no lymphadenopathy. Respiratory: No retractions, no distress, no wheezes, and no accessory muscle use. Lungs are clear to auscultation bilaterally. Cardiovascular: Regular rate and rhythm, no murmurs, rubs, or gallops. Bilateral carotid, radial, dorsalis pedis, and posterior tibial pulses intact. Good capillary refill all extremities. Gastrointestinal: Abdomen is soft, nontender, non-distended, no masses, no rebound, no guarding, no peritoneal signs. Musculoskeletal: Normal active ROM of all extremities, atraumatic. Neurological: Alert, appropriate, and interactive. The patient has normal DTRs and non-focal cranial nerves, motor, sensory, and cerebellar exam. Skin: No rashes, good turgor, no nodules on palpation. Past medical history: Psychiatric disease, liver disease, hepatitis-C Past surgical history: Noncontributory Family history: Noncontributory Social history: Single, homeless, not employed, does not abuse tobacco drugs or alcohol DIFFERENTIAL DIAGNOSIS: The differential diagnosis for the patient's depression included but was not limited to functional and major depression, situational depression, medication side effect, drugs, and alcohol abuse. MEDICAL DECISION MAKING: Patient is in no acute distress and is hemodynamically stable. We are awaiting psychiatric team's evaluation. Patient has known history of psychiatric disorders and is here for evaluation. Medical screening has been performed. I spoke with the psychiatric team. This patient does not meet admission from a psychiatric standpoint. He states that his suicidality would not be present if he had a place to live in stay and heat etc. This patient has had numerous attempts to get placed. I have reviewed many of his notes from case management. We will keep him here overnight since it is not safe to discharge him to the street. He has pulmonary emboli, liver disease, and he is on Coumadin. He is also not eating drinking appropriately. This patient might have a better opportunity for placement because his Medicaid may have been re- initiated. He needs case management assessment in the morning we will keep him here this evening. (Shaan Andrew) 7 a.m.-I assumed care of this patient at shift change. He presented with suicidal ideation and has been cleared by EPS for outpatient treatment of depression. Concern for malingering behavior. He spent the night here in order to see case management this morning. 11am-this patient was seen by case management. He complains of ongoing suicidal ideation and states that he will jump in front of a train if we discharge him home. EPS was consulted to re-evaluate the patient. 3pm-signed over to Dr. Moore at shift change. benito pending. (Nina Roland) 1500: Patient is signed out to me at change of shift. Patient is awaiting placement. 2300: The patient is signed out to Dr. Moore at change of shift. Patient is stable. Patient is awaiting placement. (Sharon Zamora) 2305: Patient was signed over at 11:00 p.m. Shift change to Dr. Jones. Patient pending inpatient psychiatric hospitalization. He is now on M1 hold. Suicidal. They are doing a bed search. 0615AM: 05/28/17: No acute events overnight. Patient has been sleeping. Patient pending inpatient psychiatric hospitalization. Restarted on Coumadin. 0637: 05/29/17: Patient has been sleeping. No events overnight. Patient be re- evaluated this morning. Still pending placement. Signed over at 7:00 a.m. Shift change to Dr. Jones (Joaquim Moore) Other Provider: Patient signed out to me by Kamran, signed out to Robert at 2300 with plan for case management to see in AM. (Isidoro Guzman) 05/25/17 2300 care assumed by me from Dr. Guzman pending case management evaluation in the morning. 05/26/17 0700 patient signed out to Dr. Roland pending case management evaluation. Patient has been sleeping overnight. No issues during my care. 05/26/17 2300 care assumed by me from Dr. Moore pending placement. 05/27/17 0700 patient signed out to Dr. Parsons pending placement. No issues during my care this patient overnight. (Joao Jones) I assumed care of this patient at [address] Jones. Evaluation by me shows the patient to be sleeping and resting comfortable. Mental health is looking for placement. Patient has remained stable throughout my shift. Looking for placement. Care to Dr. Thayer at 3:00 p.m. (Clay Parsons) I assumed care of this patient at 3:[address] Clay Parsons. It is noted that the patient takes warfarin and has not been given his home medications during his time in the emergency department. INR was ordered. Is 1.88, subtherapeutic. Patient takes 3 mg of warfarin 4 times a week and 4 mg of warfarin 3 times a week. I asked pharmacy did perform a med reconciliation. Patient will be started on his typical home medications. Patient was given 5 mg of warfarin this evening. He will resume his typical dose is tomorrow afternoon. Repeat INR should be drawn sometime tomorrow. Patient was seen again by [facility] approximately 5:00 p.m.. Psychiatry on- call does not recommend dropping the patient's hold as he continues to remain suicidal. We continue to search for placement. Patient's care was assumed by Dr. Joaquim Moore at midnight. (Giuliana Thayer) - Data Points Laboratory Results: Laboratory Results 05/25/17 17:16 05/25/17 17:16 Medications Given: Discontinued Medications Acetaminophen (Tylenol) 1,000 mg PO EDNOW ONE Stop: 05/26/17 20:01 Last Admin: 05/26/17 20:00 Dose: 1,000 mg Acetaminophen (Tylenol) 1,000 mg PO EDNOW ONE Stop: 05/27/17 09:22 Last Admin: 05/27/17 09:42 Dose: 1,000 mg Acetaminophen (Tylenol) 1,000 mg PO EDNOW ONE Stop: 05/27/17 22:10 Last Admin: 05/27/17 22:11 Dose: 1,000 mg Acetaminophen (Tylenol) 1,000 mg PO EDNOW ONE Stop: 05/28/17 22:01 Last Admin: 05/28/17 12:45 Dose: 1,000 mg Gabapentin (Neurontin) 600 mg PO EDNOW ONE Stop: 05/27/17 23:53 Last Admin: 05/28/17 00:01 Dose: 600 mg Gabapentin (Neurontin) 300 mg PO EDNOW ONE Stop: 05/28/17 06:58 Last Admin: 05/28/17 07:10 Dose: 300 mg Gabapentin (Neurontin) 600 mg PO EDNOW ONE Stop: 05/28/17 22:16 Last Admin: 05/28/17 22:41 Dose: 600 mg Sodium Chloride (Ns) 1,000 mls @ 0 mls/hr IV EDNOW ONE; Wide Open PRN Reason: Protocol Stop: 05/27/17 15:16 Last Admin: 05/27/17 15:22 Dose: Not Given Miscellaneous Medication (Icy Hot Lidocaine/Menthol 4%/1% Patch) 1 patch TD EDNOW ONE Stop: 05/28/17 22:01 Last Admin: 05/28/17 14:00 Dose: 1 patch Pantoprazole Sodium (Protonix) 40 mg PO EDNOW ONE Stop: 05/27/17 23:55 Last Admin: 05/28/17 00:02 Dose: 40 mg Warfarin Sodium (Warfarin Pharmacy To Dose) 1 each MISC EDNOW ONE PRN Reason: Protocol Stop: 05/27/17 23:40 Last Admin: 05/28/17 00:04 Dose: 1 each Warfarin Sodium (Coumadin) 5 mg PO EDNOW ONE Stop: 05/27/17 23:52 Last Admin: 05/28/17 00:02 Dose: 5 mg Warfarin Sodium (Coumadin) 5 mg PO EDNOW ONE Stop: 05/28/17 06:17 Last Admin: 05/28/17 06:57 Dose: 5 mg Warfarin Sodium (Coumadin) 5 mg PO EDNOW ONE Stop: 05/28/17 22:16 Last Admin: 05/28/17 22:41 Dose: 5 mg Departure - Departure Clinical Impression: Suicidal ideation Condition: Good Instructions: Suicide Prevention for Adults (ED) Additional Instructions: Follow-up with mental health as suggested. Referrals: [facility] [Clinic] - As per Instructions
[2017-05-25 18:21] LABS: PLATELET COUNT 519 10^3/uL (150-400)
[2017-05-26] MEDS ORDERED: ACETAMINOPHEN 500 MG TAB ONE (19:33)
[2017-05-26] MEDS ORDERED: ACETAMINOPHEN 500 MG TAB PO ONE (20:00)
[2017-05-27] MEDS ORDERED: ACETAMINOPHEN 500 MG TAB PO ONE ×2 (09:21→22:09)
--- NOTE | 2017-05-27 14:10 | ASMTCMCOM ---
CM Note CM Note Notes: Patient has been in the ER over 40 hours and is currently on an M1 hold awaiting EPS evaluation. Chart reviewed and discussed with AIDEN Britton with [facility]. Patient was just discharged from this facility after a 21 day stay (please see CM notes re details related to d/c planning). [facility]17 with a follow up appointment scheduled with Dr. Whelan at 12:45 PM on 05/26/17. had also provided patient with a bus pass, MAPPED medications, and clothing at the time of D/C. Patient presented to this ER again on 05/25/17. I have called [facility] case management and spoke with Trey Ambrocio who will LM re patient's ER return with CM. Currently there are not any CM's available. I received a call back from Dickson ([facility]) at 1400. Dickson confirms that patient is enrolled in the program and is welcome to return to the [facility] alf location upon discharge from the hospital. I discussed details of CM efforts to provide patient with resources prior to discharge on 05/23/17 with Dickson and we will continue to work with [facility] in attempt to coordinate resources for this patient. Reba WOLFE updated and will discuss further with EPS Date Signed: 05/27/2017 02:09 PM Electronically Signed By:Julianne Smith RN
[2017-05-27] MEDS ORDERED: NS 1,000 ML IV ONE (15:15)
[2017-05-27 18:29] LABS: INR 1.88 (0.83-1.16); PROTIME(PATIENT) 21.7 SEC (12.0-15.0)
[2017-05-27] MEDS ORDERED: WARFARIN SODIUM 5 MG TAB PO ONE (23:51)
[2017-05-27] MEDS ORDERED: GABAPENTIN 300 MG CAP PO ONE (23:52)
[2017-05-27] MEDS ORDERED: PANTOPRAZOLE SODIUM 40 MG TAB PO ONE (23:54)
[2017-05-28 05:25] LABS: INR 1.78 (0.83-1.16); PROTIME(PATIENT) 20.8 SEC (12.0-15.0)
[2017-05-28] MEDS ORDERED: WARFARIN SODIUM 5 MG TAB PO ONE ×2 (06:16→22:15)
[2017-05-28] MEDS ORDERED: GABAPENTIN 300 MG CAP PO ONE (06:57)
[2017-05-28] MEDS ORDERED: ACETAMINOPHEN 500 MG TAB ONE (12:01)
[2017-05-28] MEDS ORDERED: LIDOCAINE 4%/MENTHOL 1% PATCH TD ONE ×2 (14:44→22:00)
[2017-05-28] MEDS ORDERED: ACETAMINOPHEN 500 MG TAB PO ONE (22:00)
[2017-05-28] MEDS ORDERED: GABAPENTIN 100 MG CAP PO ONE (22:15)
[2017-05-29 09:59] VITALS: RESP 16
[2017-05-29] MEDS ORDERED: WARFARIN SODIUM 4 MG TAB PO SCH (16:00)
[2017-05-29] MEDS ORDERED: FUROSEMIDE 20 MG TAB ONE (16:48)
[2017-05-29] MEDS ORDERED: FUROSEMIDE 40 MG TAB ONE (16:48)
[2017-05-29] MEDS ORDERED: GABAPENTIN 300 MG CAP ONE (16:48)
[2017-05-29] MEDS: FUROSEMIDE 40 MG TAB PO SCH ×2 (16:52→16:54)
[2017-05-29] MEDS: GABAPENTIN 300 MG CAP PO SCH ×2 (16:53→16:54)
[2017-05-29 18:07] VITALS: O2SAT 97
[2017-05-29 18:09] VITALS: BP 116/87; PULSE 97; TEMP 98.4
--- NOTE | 2017-05-29 20:09 | ASMTCMCOM ---
CM Note CM Note Notes: Requested to assist patient with safe discharge option after pt has been medically cleared for discharge and doesn't meet admission criteria for either medical or psychiatric inpatient hospitalization. Pt denies SI/HI and ED MD Dr Jones dropped M1 hold. IMPORTANT Please read Behavioral Health RN Cynthia Rubio's extensive consult notes from 05/29/17 (it can be found under Notes section). *Also, for additional background information and previous care plans, please refer to past CM Progress Notes under Reports during patient's previous admission 05/02/17-05/23/17 and also his ED visit 04/18/17. After spending the entire day extensively discussing and developing a safe discharge plan for the patient, it was determined that patient will be sent via cab to [facility] to stay in one of [facility] reserved beds tonight and to follow up with [facility] at the [facility] tomorrow for another possible respite re-evaluation. Pt is agreeable to this plan. This CM had spoken with Lucy Jaquez and Marcy at [facility] and they didn't have respite beds available tonight but recommended patient follow up tomorrow. Marcy also requested additional notes from this ED visit that document patient's ability to perform ADLs independently and documentation from our Behavioral Health RN and Dr Hunt be faxed to their center at [phone]. This CM faxed Cynthia Rubio's note, ED RN notes, and this CM note. Even though patient has completed Coordinated Entry and is referred into the [facility] (his manager case management is Dickson), he is allowed to stay at [facility] reserved beds at the care home. Spoke with April at [facility] and reserved one of the [facility] beds for patient; April was provided pts name and ; April confirmed patient would be allowed to stay there tonight. This CM arranged for a cab and assisted with getting patient into cab. This CM called and confirmed patient made it to the care home and was accepted into the care home for tonight. Patient also strongly recommended to follow up with [facility], we discussed the specific location at the [facility] where [facility] and [facility] ([facility] is located together. Patient states he plans on following up at the [facility]. This CM was going to contact RN manager managed care at the [facility] ([facility]), Arminda ([phone]) but it was after hours. This CM was also going to contact [facility] RN with [facility] but it was after hours ([phone]). Please consider contacting them re: ensuring patient follow up at [facility]'s [facility] for his medical conditions and medication refills. Pt also provided various homeless resources such as community table dinners, other free meal or food bank options, [facility], Social Security office, etc. Patient provided a bus pass to use in the morning in order to get to [facility] and follow up re:respite eval. Pt provided [facility] address, contact info., and understands that it is still not a guarantee he will be eligible for respite. Patient aware he may be referred to the [facility] care home and we discussed that it "doesn't mean its the end of the world," per patient. Patient also provided location and contact information for [facility] Navigation Center ([phone]) and strongly recommended to still maintain follow-up with his manager case management Dickson ([facility] Case Mgmt/Insurance Specialist # [phone]); even if he is provided respite through [facility]. We discussed that [facility] and [facility] can possible coordinate further care, services, resources for him. Pt states he needs to get to [facility] in order to obtain his wallet, ID, other clothing, etc. and that he also needs to get to the Social Security office in [place]. We discussed that potentially [facility] case mgmt or P can assist him with completing these tasks, such as by providing bus passes to get the locations. This CM was able to have patient sign a Release of Information for [facility]. This CM received records from [facility] and provided them to Cynthia Rubio who is collecting other ROIs and records from patient's past hospitalizations ([facility], [facility]), residence ([facility] in [place]), [facility] Medicaid, etc. Cynthia Rubio states she will then compile and develop a recommended care plan for the patient if he returns to the ED for SI related to homelessness, which will be reviewed by veneer taper Abbe Mauro RN. CM available for further assistance if needed. Date Signed: 05/29/2017 08:09 PM Electronically Signed By:Cathryn Huddleston RN
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
[2017-05-29] MEDS ORDERED: SPIRONOLACTONE 25 MG TAB PO SCH (21:00)
[2017-05-29] MEDS ORDERED: PATCH REMOVAL 1 EA PATCH TD SCH (21:00)
[2017-05-29] MEDS ORDERED: GABAPENTIN 300 MG CAP PO SCH (21:00)
[2017-05-30] MEDS ORDERED: CHOLECALCIFEROL VIT D3 2,000 UNITS TAB/CAP PO SCH (09:00)
[2017-05-30] MEDS ORDERED: WARFARIN SODIUM 3 MG TAB PO SCH (16:00)
== END 2017-05-29 18:24 | disposition home or self-care (01) ==
LOC: UNDOADMIN 05-28 16:43
DX: R45.851 Suicidal ideations (principal); F17.200 Nicotine dependence, unspecified, uncomplicated; Z79.01 Long term (current) use of anticoagulants
CPT/HCPCS: 80305; G0480

== ENCOUNTER 2017-06-12 14:02 | Emergency (ER) | payer MEDICAID ==
[2017-06-12] MEDS ORDERED: ACETAMINOPHEN 325 MG TAB PO ONE (14:49)
[2017-06-12] MEDS ORDERED: LIDOCAINE 4%/MENTHOL 1% PATCH TD ONE (14:54)
--- NOTE | 2017-06-12 14:57 | EDPHY ---
H & P Time Seen by Provider: 06/12/17 14:30 HPI/ROS: CHIEF COMPLAINT: Low back pain HISTORY OF PRESENT ILLNESS: 56-year-old male with chronic LBP presents with low back pain. Worsened LBP recently, without clear aggravating factor. The pain is moderate and increases with ambulation and position change. Having difficulty walking. No associated sx and no recent trauma. He denies numbness or weakness in his legs. No bowel or bladder problems. He is not taking medication for the back pain. REVIEW OF SYSTEMS: Constitutional: No fever, no chills Eyes: No visual changes ENT: No sore throat Respiratory: No cough, no shortness of breath Cardiac: No chest pain Gastrointestinal: No nausea, no vomiting, no abdominal pain Genitourinary: No hematuria, no dysuria Musculoskeletal: No leg pain or swelling Skin: No rash Neurological: No headache, no numbness, no weakness Psychiatric: No depression Past Medical/Surgical History: Back pain Social History: Homeless Denies alcohol use Smoking Status: Heavy smoker Physical Exam: General Appearance: Alert, cooperative Eyes: Pupils equal and round, no conjunctival pallor or injection ENT, Mouth: Mucous membranes moist Neck: Normal inspection Respiratory: Lungs are clear to auscultation Cardiovascular: Regular rate and rhythm Gastrointestinal: Abdomen is soft and nontender Back: Normal inspection, tenderness over the upper lumbar paraspinous musculature Neurological: A&O, motor 5/5, sensory intact to light touch Skin: Warm and dry, no rash Extremities: 1+ pedal edema Psychiatric: Mood and affect normal Constitutional: Initial Vital Signs Temperature (C) 36.9 C 06/12/17 14:04 Heart Rate 107 H 06/12/17 14:04 Respiratory Rate 18 06/12/17 14:04 Blood Pressure 111/71 06/12/17 14:04 O2 Sat (%) 93 06/12/17 14:04 O2 Delivery Mode Room Air Allergies/Adverse Reactions: No Known Allergies Allergy (Verified 06/13/17 18:16) Home Medications: Medication Instructions Recorded Warfarin Sodium [Coumadin 3MG (*)] 3 mg PO SuTuThSa@1600 #20 tab 05/23/17 Warfarin Sodium [Coumadin 4MG (*)] 4 mg PO MoWeFr@1600 #12 tab 05/23/17 Gabapentin [Neurontin 300 MG (*)] 600 mg PO QID PRN 06/13/17 Medical Decision Making ED Course/Re-evaluation: This pt presents with LBP. He is moving without apparent pain on the gurney. Tylenol and lidocaine patch given. Pt able to walk with a steady gait. Imaging not indicated in this pt. After my initial assessment, it became clear that he was actually looking for a place to stay. The foster care case manager was involved in his care and he was transported to a safe place. - Data Points Medications Given: Discontinued Medications Acetaminophen (Tylenol) 650 mg PO EDNOW ONE Stop: 06/12/17 14:50 Last Admin: 06/12/17 15:01 Dose: 650 mg Gabapentin (Neurontin) 300 mg PO EDNOW ONE Stop: 06/12/17 16:16 Last Admin: 06/12/17 16:30 Dose: 300 mg Miscellaneous Medication (Icy Hot Lidocaine/Menthol 4%/1% Patch) 1 patch TD EDNOW ONE Stop: 06/12/17 14:55 Last Admin: 06/12/17 15:02 Dose: 1 patch Departure - Departure Disposition: Home, Routine, Self-Care Clinical Impression: Back pain Qualifiers: Back pain location: low back pain Chronicity: chronic Back pain laterality: bilateral Sciatica presence: without sciatica Qualified Code(s): M54.5 - Low back pain; G89.29 - Other chronic pain; G89.29 - Other chronic pain Condition: Good Instructions: Low Back Strain (ED) Additional Instructions: The [facility] has walk-in appointments for the homeless at the following days/locations. No appointment is needed. Monday 8-10 am @ [facility] 11 AM-1 PM @ [facility] Monday 8-10:30 AM @ [facility] Monday 8-10 AM @ [facility] 2-4 PM @ [facility] Monday 8-10 AM @ [facility] Referrals: Ray Blount MD [Medical Doctor] - 2-3 days without fail
[2017-06-12] MEDS ORDERED: GABAPENTIN 300 MG CAP PO ONE (16:15)
[2017-06-12 16:31] VITALS: BP 102/74
--- NOTE | 2017-06-12 19:05 | ASMTCMCOM ---
CM Note CM Note Notes: Pt presented to the ED for chronic back pain. Spoke with patient and he states he has been staying at the [facility] and that his case assembler there is Basil, not Dickson, but that "he ain't done much, nobody has. And I don't have time." We discussed that it is his best option for alf and to remain current in their system in order to get into transitional housing,etc. This CM called [facility] Case Mgmt front desk team member ([phone]) and left a voicemail but have not heard back. Asked if patient ever followed up with [facility] or [facility]. Pt stated he has an appt tomorrow. This CM called [facility] ([phone]), spoke with Delia Tovar who says patient has an app[facility] tomorrow at 9a.m. with an RN. Pt was seen by an MD at the [facility] on 06/06/17 and prescribed Zyprexa, Tramadol (21 tabs, enough to last 1 week), and Warfarin. Pt's normal Gabapentin Rxn is listed as inactive on their list. Delia Tovar will make a note that patient was here today for chronic pain and received Tylenol, Gabapentin and a Lidocaine patch. Pt was medically cleared, able to ambulate with his 4-point cane, and was discharged. Per ED RN patient left and refused the information [facility]. CM available for further assistance. CM to follow up with [facility], [facility] and [facility] tomorrow. Please review previous CM Assessments under Reports and Cynthia Rubio, Behavioral Health RN's Note from 05/29/17 visit Date Signed: 06/12/2017 07:05 PM Electronically Signed By:Cathryn Huddleston RN
--- NOTE | 2017-06-12 19:06 | ASDISCHSUM ---
Discharge Information Plan Status:Homeless/Long Term Medically Cleared to Leave: Discharge Date:06/12/2017 04:36 PM D/C Disposition:Streets (Homeless) ADT D/C Disposition:Home, Routine, Self-Care Projected Discharge Date:06/12/2017 04:36 PM Transportation at D/C:None or Unknown Discharge Delay Reason: Follow-Up Date:06/12/2017 04:36 PM Discharge Slot: Final Diagnosis: Placement Information Patient Contact Information Contact Name:KENDRICKAlexis Relationship: Address: Home Phone: Work Phone: City: Alternate Phone: State/Zip Code: Email: Financial Information Financial Class:Medicaid Primary Plan Desc:MEDICAID HEALTH FIRST PSYCHIATRIC LPN Primary Plan Number:[id number] Secondary Plan Desc: Secondary Plan Number: Assessment Information [facility] Progress Note CM Note CM Note Notes: Pt presented to the ED for chronic back pain. Spoke with patient and he states he has been staying at the [facility] and that his correctional case manager there is Basil, not Dickson, but that "he ain't done much, nobody has. And I don't have time." We discussed that it is his best option for fdc and to remain current in their system in order to get into transitional housing,etc. This CM called [facility] Case Mgmt assistant front end manager ([phone]) and left a voicemail but have not heard back. Asked if patient ever followed up with [facility] or [facility]. Pt stated he has an appt tomorrow. This CM called [facility] ([phone]), spoke with Delia Tovar who says patient has an appt at their [facility] the [facility] tomorrow at 9a.m. with an RN. Pt was seen by an MD at the [facility] on 06/06/17 and prescribed Zyprexa, Tramadol (21 tabs, enough to last 1 week), and Warfarin. Pt's normal Gabapentin Rxn is listed as inactive on their list. Delia Tovar will make a note that patient was here today for chronic pain and received Tylenol, Gabapentin and a Lidocaine patch. Pt was medically cleared, able to ambulate with his 4-point cane, and was discharged. Per ED RN patient left and refused the information regarding the location of [facility]dc through [facility]. CM available for further assistance. CM to follow up with [facility], [facility] and [facility] tomorrow. Please review previous CM Assessments under Reports and Cynthia Rubio, Behavioral Health RN's Note from 05/29/17 visit Date Signed: 06/12/2017 07:05 PM Electronically Signed By:Cathryn Huddleston RN Intervention Information Intervention Type:Health Clinic Date of Service:06/12/2017 07:05 PM Patient Type:Emergency Room Staff Member:DANIELE Huddleston, Cathryn Hours:0.5 Discipline:Claims Customer Service Representative Severity: Comment:
[2017-06-12] MEDS ORDERED: PATCH REMOVAL 1 EA PATCH TD SCH (21:00)
== END 2017-06-12 16:36 | disposition home or self-care (01) ==
LOC: EDUNIT#
DX: M54.5 Low back pain (principal); G89.29 Other chronic pain; F17.200 Nicotine dependence, unspecified, uncomplicated; Z79.01 Long term (current) use of anticoagulants; Z59.0 Homelessness

== ENCOUNTER 2017-06-13 16:16 | Inpatient (IN) | payer MEDICAID ==
[2017-06-13] MEDS ORDERED: NS 1,000 ML IV ONE ×2 (16:27)
[2017-06-13] MEDS ORDERED: PANTOPRAZOLE SODIUM 40 MG VIAL IVP ONE (16:27)
[2017-06-13] MEDS ORDERED: ONDANSETRON 4 MG/2 ML VIAL IVP ONE (16:27)
--- NOTE | 2017-06-13 16:30 | EDPHY ---
H & P Time Seen by Provider: 06/13/17 16:20 HPI/ROS: CHIEF COMPLAINT: Vomiting blood HISTORY OF PRESENT ILLNESS: History from patient and EMS as well as discharge summary dated 05/23/2017 personally reviewed. History of pulmonary embolism and DVT on warfarin, last dose on Monday. Also has a history of cirrhosis from hepatitis-C and last alcohol was March 04 of last year. He was brought in by EMS after copious vomiting blood at the [facility]. Patient says he has nausea. He has some abdominal and back pain. Nausea is severe and he does not have chest pain shortness of breath or lightheadedness. Did not pass out. Symptoms not better worse with anything. REVIEW OF SYSTEMS: Eye: no change in vision ENT: no sore throat Cardiac: no chest pain or syncope Pulmonary: no cough or SOB Abdomen: HPI Musculoskeletal: Chronic back pain worse today Skin: no rash Neuro: no headache Constitutional: no fever : no urinary symptoms A comprehensive 10 point review of systems is otherwise negative aside from elements mentioned in the history of present illness. PAST MEDICAL HISTORY: Includes PE and DVT on warfarin, hepatitis-C, cirrhosis, last alcohol March 04 of last year, schizoaffective, thoracic compression fracture and chronic back pain. Abdominal surgery with nephrectomy. Social history: Last alcohol in February of last year. General Appearance: Alert and conversant, cooperative. Eyes: No scleral icterus. ENT, Mouth: Patient does have dry blood in his oropharynx. Respiratory: Normal respiratory effort, breath sounds equal, lungs are clear to auscultation. Cardiovascular: Regular rate and rhythm. Tachycardic. Gastrointestinal: Abdomen is soft and non tender. Healed midline incision. Neurological: Alert, face symmetric, normal motor and sensory in extremities. Skin: Warm and dry, no rashes. Musculoskeletal: No peripheral edema. Psychiatric: Not agitated. Emergency Department course/MDM: IV Protonix, 4 mg IV Zofran, octreotide drip. Type and screen. 2nd IV and normal saline 2 L. 1713: INR 1.67, FFP ordered. HR 140's after 2l IV NS. 2nd hematocrit 27, down from 40. PRBC ordered. At this time the patient vomited another L of blood and we have started the mass transfusion protocol with starting a unit of packed red blood cells in the emergency department. IV TXA. Gastroenterology Dr. Woods consulted. Dr. Nunez hospitalist saw the patient in the ED. Smoking Status: Heavy smoker Constitutional: Initial Vital Signs Temperature (C) 36.8 C 06/13/17 17:16 Heart Rate 148 H 06/13/17 17:16 Respiratory Rate 18 06/13/17 17:16 Blood Pressure 106/72 06/13/17 17:16 O2 Sat (%) 95 06/13/17 17:16 O2 Delivery Mode Nasal Cannula O2 (L/minute) 2 Allergies/Adverse Reactions: No Known Allergies Allergy (Verified 06/13/17 18:16) Home Medications: Medication Instructions Recorded Warfarin Sodium [Coumadin 3MG (*)] 3 mg PO SuTuThSa@1600 #20 tab 05/23/17 Warfarin Sodium [Coumadin 4MG (*)] 4 mg PO MoWeFr@1600 #12 tab 05/23/17 Gabapentin [Neurontin 300 MG (*)] 600 mg PO QID PRN 06/13/17 Medical Decision Making Consult/Admit Bed Type: Mayra 0632, Chuck 1552 Critical Care Time: Critical care time spent by me, Dr. Maradiaga, exclusively with the care of this patient was 60 minutes, exclusive of PA or [employer] time and exclusive of separate procedures. The organ system at risk was GI and hematologic and I ordered IV ppi, packed red blood cells, TXA, fresh frozen plasma, consultation with GI and hospitalist, IV fluids, antiemetics and ICU admission to stabilize the patient and prevent worsening of the patient's condition. - Data Points Laboratory Results: Laboratory Results 06/13/17 16:17 06/13/17 16:17 06/13/17 06/13/17 06/13/17 17:15 16:34 16:30 WBC RBC Hgb POC Hgb 9.2 gm/dL L gm/dL 13.6 gm/dL L gm/dL (13.7-17.5) (13.7-17.5) Hct POC Hct 27 % L % 40 % % (40-51) (40-51) MCV MCH MCHC RDW Plt Count MPV Neut % (Auto) Lymph % (Auto) [place] % (Auto) Eos % (Auto) Baso % (Auto) Nucleat RBC Rel Count Absolute Neuts (auto) Absolute Lymphs (auto) Absolute Monos (auto) Absolute Eos (auto) Absolute Basos (auto) Absolute Nucleated RBC Immature Gran % Immature Gran # PT INR APTT POC Sodium 144 mEq/L mEq/L 140 mEq/L mEq/L (135-145) (135-145) Sodium POC Potassium 2.8 mEq/L L mEq/L 3.2 mEq/L L mEq/L (3.3-5.0) (3.3-5.0) Potassium POC Chloride 104 mEq/L mEq/L 95 mEq/L L mEq/L (97-110) (97-110) Chloride Carbon Dioxide Anion Gap POC BUN 14 mg/dL mg/dL 18 mg/dL mg/dL (7-23) (7-23) BUN Creatinine POC Creatinine 0.6 mg/dL L mg/dL 0.8 mg/dL mg/dL (0.7-1.3) (0.7-1.3) Estimated GFR Glucose POC Glucose 95 mg/dL mg/dL 123 mg/dL H mg/dL (70-100) (70-100) Calcium Total Bilirubin Conjugated Bilirubin Unconjugated Bilirubin AST ALT Alkaline Phosphatase Total Protein Albumin Patient ABO/Rh O POSITIVE Antibody Screen NEGATIVE Crossmatch IS Only See Detail Platelet Orders Status READY 06/13/17 06/13/17 06/13/17 16:17 16:17 16:17 WBC 10.05 10^3/uL H 10^3/uL (3.80-9.50) RBC 4.05 10^6/uL L 10^6/uL (4.40-6.38) Hgb 14.1 g/dL g/dL (13.7-17.5) POC Hgb Hct 41.9 % % (40.0-51.0) POC Hct MCV 103.5 fL H fL (81.5-99.8) MCH 34.8 pg H pg (27.9-34.1) MCHC 33.7 g/dL g/dL (32.4-36.7) RDW 17.8 % H % (11.5-15.2) Plt Count 354 10^3/uL 10^3/uL (150-400) MPV 8.8 fL fL (8.7-11.7) Neut % (Auto) 75.1 % H % (39.3-74.2) Lymph % (Auto) 14.3 % L % (15.0-45.0) [place] % (Auto) 9.8 % % (4.5-13.0) Eos % (Auto) 0.0 % L % (0.6-7.6) Baso % (Auto) 0.3 % % (0.3-1.7) Nucleat RBC Rel Count 0.0 % % (0.0-0.2) Absolute Neuts (auto) 7.55 10^3/uL H 10^3/uL (1.70-6.50) Absolute Lymphs (auto) 1.44 10^3/uL 10^3/uL (1.00-3.00) Absolute Monos (auto) 0.98 10^3/uL H 10^3/uL (0.30-0.80) Absolute Eos (auto) 0.00 10^3/uL L 10^3/uL (0.03-0.40) Absolute Basos (auto) 0.03 10^3/uL 10^3/uL (0.02-0.10) Absolute Nucleated RBC 0.00 10^3/uL 10^3/uL (0-0.01) Immature Gran % 0.5 % % (0.0-1.1) Immature Gran # 0.05 10^3/uL 10^3/uL (0.00-0.10) PT 19.8 SEC H SEC (12.0-15.0) INR 1.67 H (0.83-1.16) APTT 32.6 SEC SEC (23.0-38.0) POC Sodium Sodium 139 mEq/L mEq/L (135-145) POC Potassium Potassium 4.0 mEq/L mEq/L (3.5-5.2) POC Chloride Chloride 92 mEq/L L mEq/L (97-110) Carbon Dioxide 33 mEq/l H mEq/l (22-31) Anion Gap 14 mEq/L mEq/L (8-16) POC BUN BUN 20 mg/dL mg/dL (7-23) Creatinine 0.9 mg/dL mg/dL (0.7-1.3) POC Creatinine Estimated GFR > 60 Glucose 121 mg/dL H mg/dL (70-100) POC Glucose Calcium 9.9 mg/dL mg/dL (8.5-10.4) Total Bilirubin 1.2 mg/dL mg/dL (0.1-1.4) Conjugated Bilirubin 0.7 mg/dL H mg/dL (0.0-0.5) Unconjugated Bilirubin 0.5 mg/dL mg/dL (0.0-1.1) AST 36 IU/L IU/L (17-59) ALT 44 IU/L IU/L (21-72) Alkaline Phosphatase 112 IU/L IU/L (38-126) Total Protein 7.4 g/dL g/dL (6.3-8.2) Albumin 3.4 g/dL L g/dL (3.5-5.0) Patient ABO/Rh Antibody Screen Crossmatch IS Only Platelet Orders Status Medications Given: Tranexamic Acid 1,000 mg/ (Sodium Chloride) 510 mls @ 63.75 mls/hr IV ONCE ONE Stop: 06/14/17 01:24 Last Admin: 06/13/17 18:58 Dose: 510 mls Sodium Chloride (Ns) 1,000 mls @ 125 mls/hr IV CONT LAKSHMI Stop: 12/10/17 17:44 Last Admin: 06/13/17 19:07 Dose: 1,000 mls Ceftriaxone Sodium/Dextrose (Rocephin 1 Gm (Premix)) 50 mls @ 100 mls/hr IV DAILY LAKSHMI PRN Reason: Protocol Stop: 07/13/17 18:29 Last Admin: 06/13/17 18:58 Dose: 50 mls Discontinued Medications Epinephrine HCl (Epinephrine) 1.5 mg SUBMUCOSAL .STK-MED ONE Stop: 06/13/17 20:31 Last Admin: 06/13/17 20:30 Dose: 1.5 mg Sodium Chloride (Ns) 1,000 mls @ 0 mls/hr IV EDNOW ONE; Wide Open PRN Reason: Protocol Stop: 06/13/17 16:28 Last Admin: 06/13/17 16:48 Dose: 1,000 mls Sodium Chloride (Ns) 1,000 mls @ 0 mls/hr IV EDNOW ONE; Wide Open PRN Reason: Protocol Stop: 06/13/17 16:28 Last Admin: 06/13/17 16:52 Dose: 1,000 mls Octreotide Acetate 500 mcg/ (Sodium Chloride) 51 mls @ 5 mls/hr IV CONT LAKSHMI Stop: 12/10/17 16:29 Last Admin: 06/13/17 19:27 Dose: 51 mls Tranexamic Acid 1,000 mg/ (Sodium Chloride) 110 mls @ 660 mls/hr IV ONCE ONE Stop: 06/13/17 17:34 Last Admin: 06/13/17 18:57 Dose: 110 mls Phytonadione 5 mg/ Sodium (Chloride) 50.5 mls @ 200 mls/hr IV ONCE ONE Stop: 06/13/17 18:12 Last Admin: 06/13/17 18:58 Dose: 50.5 mls Ondansetron HCl (Zofran) 4 mg IVP EDNOW ONE Stop: 06/13/17 16:28 Last Admin: 06/13/17 16:50 Dose: 4 mg Pantoprazole Sodium (Protonix) 80 mg IVP EDNOW ONE Stop: 06/13/17 16:28 Last Admin: 06/13/17 16:49 Dose: 80 mg Point of Care Test Results: 06/13/17 06/13/17 16:34 17:15 POC Sodium 140 144 POC Potassium 3.2 L 2.8 L POC Chloride 95 L 104 POC BUN 18 14 POC Creatinine 0.8 0.6 L POC Glucose 123 H 95 Departure - Departure Disposition: [facility] Inpatient Acute Clinical Impression: Upper GI bleeding Condition: Critical
[2017-06-13 16:33] LABS: PLATELET COUNT 354 10^3/uL (150-400)
[2017-06-13] MEDS: OCTREOTIDE ACETATE 500 MCG in NS 50 ML IV SCH ×2 (17:00→19:27)
--- NOTE | 2017-06-13 17:04 | CPEKG ---
Heart Rate: 144 RR Interval: 417 P-R Interval: 184 QRSD Interval: 78 QT Interval: 288 QTC Interval: 446 P [place]: 80 QRS [place]: 89 T Wave [place]: -40 EKG Severity - ABNORMAL ECG - EKG Impression: SINUS TACHYCARDIA EKG Impression: MULTIFORM VENTRICULAR PREMATURE COMPLEXES Electronically Signed By: Refugio Maradiaga 13-Jun-2017 18:08:04
[2017-06-13 17:10] LABS: INR 1.67 (0.83-1.16); PROTIME(PATIENT) 19.8 SEC (12.0-15.0)
[2017-06-13] MEDS ORDERED: TRANEXAMIC ACID 1,000 MG in NS 500 ML IV ONE (17:25)
[2017-06-13] MEDS ORDERED: TRANEXAMIC ACID 1,000 MG in NS 100 ML IV ONE (17:25)
[2017-06-13] MEDS ORDERED: ONDANSETRON 4 MG/2 ML VIAL IVP PRN (17:32)
[2017-06-13] MEDS ORDERED: PHYTONADIONE IV ONE (17:57)
[2017-06-13] MEDS ORDERED: NS IV ONE (17:57)
[2017-06-13 17:59] LABS: PLATELET COUNT 231 10^3/uL (150-400)
[2017-06-13] MEDS ORDERED: EPINEPHrine 1 MG/10 ML SYR IVP ONE ×2 (18:32→20:20)
--- NOTE | 2017-06-13 18:36 | ASMTCMCOM ---
CM Note CM Note Notes: Pt presented to the ED via EMS for vomiting blood. Pt admitted for upper GI bleed. Pt was at his appointment at [facility] with DANIELE Hilliard [employer] In[employer] ([phone]), when he started vomiting copious amounts of blood. Pt was seen in the ED yesterday 06/12/17 for chronic back pain but was medically stable and discharged to follow up with [facility]. Spoke with patient and he states he had been taking the Warfarin up until Monday. He states he had ran out of his Tramadol that PC had prescribed him on 06/06/17 and so he took some of his friend's Ibuprofen for his chronic back pain. Pt also states he stopped taking the prescribed Zyprexa that PC provided. Pt is still current with the [facility] and his case monitor is Basil. This CM had called [employer] front end software developer ([phone]) yesterday afternoon and left a voicemail but still have not heard back. Pt states he has also been seen at [facility] and when asked if they have been exploring housing options with him he said, "I guess." Exact DC needs unknown, CM to follow. Please refer to previous CM Assessment Report 05/29/17 for additional background information Date Signed: 06/13/2017 06:36 PM Electronically Signed By:Cathryn Huddleston RN
[2017-06-13 18:37] LABS: INR 2.15 (0.83-1.16)
--- NOTE | 2017-06-13 18:58 | GHP ---
[f rep st] HISTORY AND PHYSICAL DATE OF ADMISSION: 06/13/2017 CHIEF COMPLAINT: Hematemesis. HISTORY OF PRESENT ILLNESS: The patient is a 56-year-old male with a history of alcohol abuse, hepatitis C, cirrhosis with ascites, and schizoaffective disorder who presents to the emergency department with active hematemesis. He was recently admitted to the hospital in April of 2017 and found to have bilateral DVT and small-volume subsegmental pulmonary embolism. He was anticoagulated and discharged to the street on Coumadin. He states he has been intermittently compliant with his Coumadin. His INR on presentation is 1.67. His last drink of alcohol was February of 2017. This afternoon he developed nausea and mild epigastric discomfort. He then began vomiting bright red blood. Upon arrival to the emergency department, he had 2 emesis bags full of bright red blood and he went on to vomit into an emesis basin approximately another unit of blood. Over the course of 90 minutes in the emergency department, he dropped his hemoglobin from 14 on arrival to 9.4. Massive transfusion protocol was initiated. He is receiving packed red blood cells, fresh frozen plasma, tranexamic acid, as well as IV octreotide and Protonix. He was tachycardic on arrival to the 140s, though his heart rate has improved to the one-teens. He has had no hypotension. He denies hematochezia or melenic stool. He states he has not had a bowel movement for several days, but he thinks his last bowel movement was normal. He denies fevers or chills. He denies worsening abdominal distention. He has a history of ascites and has been prescribed Lasix and spironolactone. He has required paracentesis in the past. He denies chest pain or shortness of breath. Gastroenterology is consulted from the emergency department. The patient will be transferred to the intensive care unit, and then go to the endoscopy suite for intubation and upper endoscopy per GI. PAST MEDICAL HISTORY: 1. History of alcohol abuse. Last drink February 2017. 2. Hepatitis C. 3. End-stage liver disease. 4. Cirrhosis with ascites. 5. Schizoaffective disorder. 6. Hypertension. 7. Chronic low back pain. 8. Bilateral DVT and small-volume subsegmental PE, anticoagulated on Coumadin. PAST SURGICAL HISTORY: History of abdominal surgery with nephrectomy for unclear reasons. FAMILY HISTORY: Reviewed and noncontributory. SOCIAL HISTORY: Patient is homeless. He has previously been established in [place]. He is a heavy smoker. He continues to state he has been sober since February 2017. He denies drug use. REVIEW OF SYSTEMS: A 10-point review of systems was performed and is negative as per HPI. OBJECTIVE: VITAL SIGNS: Temperature is 36.7, blood pressure 111/89, heart rate 119, respiratory rate 16. He is 100% oxygen on 3 L by nasal cannula. GENERAL: The patient is awake, alert, and oriented, in no acute distress. HEENT: Head is atraumatic, normocephalic. Pupils equal, round, and reactive to light. Extraocular movements intact. Oropharynx is clear. He has dried blood around his mouth. NECK: Supple. There is no JVD. HEART: Regular rate and rhythm. LUNGS: Clear to auscultation bilaterally. ABDOMEN: Soft. Mild distention. No significant tenderness to palpation. No fluid wave. His exam is not consistent with tense ascites. EXTREMITIES: Without cyanosis, clubbing , or edema. NEUROLOGIC: Grossly nonfocal. LABORATORY DATA: CBC reveals a normal white blood cell count. Hemoglobin has dropped from 14.1 to 9.4. Platelets were 354 on arrival, currently 231. INR is 1.67. ABG is pending. Complete metabolic panel shows normal sodium, potassium 4.0, chloride 92, CO2 33 , BUN 20, creatinine 0.9, blood glucose is 121. LFTs are normal, with a slightly elevated conjugated bilirubin of 0.7, total bilirubin 1.2. Albumin is 3.4. Serum alcohol level is pending. EKG performed in the emergency department shows sinus tachycardia with PVCs. ASSESSMENT AND PLAN: The patient is a 56-year-old male with history of alcohol abuse, hepatitis C, and end-stage liver disease with cirrhosis and ascites, who presents to the emergency department with active hematemesis. 1. Upper gastrointestinal bleed. Active hematemesis and alcohol / cirrhosis history is concerning for a potential variceal bleed. He has dropped his hemoglobin from 14 to 9.4, and has vomited several liters of blood in the emergency department. Massive transfusion protocol is initiated. He is receiving packed red blood cells, fresh frozen plasma, Vitamin K and tranexamic acid. Will initiate octreotide drip and continue intravenous Protonix. In addition, will give intravenous ceftriaxone and draw blood cultures due to his increased risk of bacteremia in the setting of an upper gastrointestinal bleed with cirrhosis and ascites. He will be admitted to the ICU. I discussed the case with Dr. Woods, gastroenterology, who is coming to the hospital as this patient will require emergent endoscopy as well as intubation, given his active hematemesis. Will continue to trend his H and H with ongoing blood transfusions as indicated. 2. Bilateral deep venous thromboses and pulmonary embolism. His pulmonary embolism is small-volume subsegmental. This was diagnosed in April 2017. We are obviously reversing his Coumadin at this time due to his life- threatening upper gastrointestinal bleed. Full attention will be directed to his active bleeding at this time. However, I will order bilateral lower extremity ultrasound to reassess the status of his bilateral deep venous thromboses. If these are persistent and he now has a contraindication for anticoagulation, would plan for IVC filter placement in am if he is stable from bleeding standpoint. Patient will remain nothing by mouth. 3. Cirrhosis with history of ascites secondary to alcohol and hepatitis C. His LFTs are normal today. His abdominal exam is not concerning for spontaneous bacterial peritonitis. However, given his active bleeding, I am covering him with ceftriaxone and blood cultures were drawn. Will hold his Lasix and spironolactone due to his active bleeding issues, and these can be resumed as clinically indicated. 4. Schizoaffective disorder. 5. Chronic compression fractures. 6. Deep venous thrombosis prophylaxis. Pharmacologic treatment is contraindicated. Will place sequential compression devices. CODE STATUS: Patient is full code. DISPOSITION: Patient is admitted to inpatient status in the intensive care unit. He will require greater than 48 hours hospitalization for ongoing management of his life-threatening upper GI bleed. 45 minutes of critical care time was spent on this admission. /[id number]/MODL MTDD
[2017-06-13] MEDS: NS 1,000 ML IV SCH (19:07)
[2017-06-13] MEDS ORDERED: METOCLOPRAMIDE 10 MG/2 ML VIAL IVP ONE (19:40)
[2017-06-13] MEDS ORDERED: PROPOFOL 200 MG/20 ML VIAL ONE (19:50)
[2017-06-13] MEDS ORDERED: PHENYLEPHRINE HCL 100 MCG/ML SYR ONE (19:53)
[2017-06-13] MEDS ORDERED: ROCURONIUM 50 MG/5 ML VIAL ONE (19:53)
[2017-06-13] MEDS ORDERED: MIDAZOLAM 2 MG/2 ML VIAL ONE ×3 (20:09→23:54)
--- NOTE | 2017-06-13 20:13 | PDANEPAE ---
ANE Past Medical History - Cardiovascular History Hx Hypertension: Yes - Pulmonary History Hx Oxygen in Use at Home: No Hx Sleep Apnea: Yes - Endocrine History Hx Diabetes: No - Neurological & Psychiatric Hx Hx Neurological and Psychiatric Disorders: Yes ANE Review of Systems Review of Systems: ANE Patient History - Allergies Allergies/Adverse Reactions: No Known Allergies Allergy (Verified 06/13/17 18:16) - Home Medications Home Medications: Gabapentin [Neurontin 300 MG (*)] 600 mg PO QID PRN 06/13/17 [Last Taken ] - Smoking Hx Smoking Status: Heavy smoker ANE Labs/Vital Signs - Labs Result Diagrams: 06/13/17 17:47 06/13/17 16:17 - Vital Signs Blood Pressure: 109/78 Heart Rate: 112 Respiratory Rate: 19 O2 Sat (%): 100 Height: 167.64 cm Weight: 63.503 kg ANE Physical Exam - Airway Mallampati Score: Class 2 Mouth exam: dentures, arriola - ASA Status ASA Status: III, E ANE Anesthesia Plan Anesthesia Plan: general endotracheal anesthesia Urgent/Emergent Case: Owen oliver completed preop but documented later for safe timely pt care
[2017-06-13] MEDS ORDERED: fentaNYL 100 MCG/2 ML INJ ONE ×2 (20:30→23:05)
[2017-06-13] MEDS ORDERED: PANTOPRAZOLE SODIUM 40 MG VIAL IVP SCH (21:00)
--- NOTE | 2017-06-13 21:15 | GIREPORT ---
[facility] Surgical Services - Endoscopy Department Patient Name: Sander Orantes Procedure Date: 06/13/2017 6:55 PM Patient Type: Inpatient Attending MD/ ER Physician: Devan Hawley Procedure: Upper GI endoscopy Indications: Hematemesis Providers: Nahum Woods MD Medicines: General Anesthesia Complications: No immediate complications. Description of Procedure: After obtaining informed consent, the endoscope was passed under direct vision. Throughout the procedure, the patient's blood pressure, pulse, and oxygen saturations were monitored continuously. The Endoscope was intro duced through the mouth, and advanced to the third part of duodenum. The Endo scope was introduced through the and advanced to the. The upper GI endoscopy was technically difficult and complex due to excessive bleeding. The patien t tolerated the procedure. Findings: LA Grade C (one or more mucosal breaks continuous between tops of 2 or more mucosal folds, less than 75% circumference) esophagitis with no bleedin g was found in the lower third of the esophagus. Diffuse inflammation characterized by erythema, friability and granular ity was found in the stomach. One spurting cratered duodenal ulcer with adherent clot was found in th e duodenal bulb. The lesion was 19 mm in largest dimension. Area was unsuccessfully injected with 19 mL of a 1:10,000 solution of epinephrin e for hemostasis. Coagulation for hemostasis using heater probe was unsuccess ful. For hemostasis, three hemostatic clips were successful and two hemostat ic clips were unsuccessfully placed. Still bleeding albeit less. Estimated blood loss: 250 mL. The exam was otherwise without abnormality. Estimated Blood Loss: Estimated blood loss: 250 mL. Post Op Diagnosis: - LA Grade C reflux esophagitis. Rule out Ramachandran's esophagus. - Gastritis. - One spurting duodenal ulcer with adherent clot. Treatment not success ful. Treatment not successful. Treated with a heater probe. Clips were place d. - The examination was otherwise normal. - No specimens collected. Recommendation: - Refer to an interventional radiologist today. The IR team is on their way in - Give Protonix (pantoprazole): 8 mg/hr IV - Two more units PRBC - One more unit FFP - Return patient to ICU for ongoing care. - Thank you for allowing me to help in your patient's care. Do not hesi kerns to call with any questions. Attending Participation: I personally performed the entire procedure. Chuck Sidhu M.D Nahum Woods MD 06/13/2017 9:14:55 PM This report has been signed electronicallyMathew MD Chuck Number of Addenda: 0 Note Initiated On: 06/13/2017 6:55 PM [email or web address]
[2017-06-13] MEDS ORDERED: NALOXONE HCL 0.4 MG/ML INJ IVP PRN (21:34)
[2017-06-13] MEDS ORDERED: PHENYLEPHRINE HCL 100 MCG/ML SYR IVP PRN (21:34)
[2017-06-13] MEDS ORDERED: fentaNYL 100 MCG/2 ML INJ IVP PRN (21:34)
[2017-06-13] MEDS ORDERED: epHEDrine SULFATE 10 MG/ML SYR IVP PRN (21:34)
[2017-06-13] MEDS ORDERED: NS 500 ML IV PRN (21:34)
--- NOTE | 2017-06-13 21:39 | POSTANESTH ---
Post Anesthetic Evaluation Cardiovascular Status: Similar to Pre-Op Cond, Tx Hyper/Hypo-tension Respiratory Status: Requires Airway Assist Level of Consciousness/Mental Status: Unconscious Pain Control: Adequate, Prn Tx Ordered Nausea/Vomiting Control: Adequate, Prn Tx Ordered (Patient returned to ICU intubated on monitors. He will require IR for treatment later tonight. Plave on vent TV600, R10, AqY333%.) Complications Possibly Related to Anesthesia: None Noted
--- NOTE | 2017-06-13 21:42 | SOAPPROG ---
[facility] Progress Note Assessment/Plan: Assessment:Plan: full consult dictated urgent EGD with large DU s/p epi 20cc, clipx3 and bicap 10 urdu probe and still oozing/bleeding called IR to perform angiography and embolization 06/13/17 21:37 Objective: Vital Signs Temp Pulse Resp BP Pulse Ox 38 C 112 H 19 109/78 100 06/13/17 19:00 06/13/17 20:13 06/13/17 20:13 06/13/17 20:13 06/13/17 20:13 Laboratory Results 06/13/17 17:47 06/12/17 06/13/17 06/14/17 05:59 05:59 05:59 Intake Total 2843 Output Total 500 Balance 2343 PT 24.0 SEC (12.0-15.0) H 06/13/17 17:47 INR 2.15 (0.83-1.16) H 06/13/17 17:47 ICD10 Worksheet Patient Problems: Problems Problem Status Onset Upper GI bleeding Acute Ascites Acute Generalized weakness Acute Hepatitis C Acute Liver failure Acute Suicidal ideation Acute
--- NOTE | 2017-06-13 22:49 | GCON ---
[f rep st] CONSULTATION DATE OF CONSULTATION: 06/13/2017 REFERRING PHYSICIAN: Josie Nunez MD REASON FOR CONSULTATION: Hematemesis, massive upper GI bleed. CHIEF COMPLAINT: Hematemesis, massive upper GI bleed. HISTORY OF PRESENT ILLNESS: The patient is a 56-year-old male, with a history of alcohol abuse, hepatitis C, who was cirrhosis and ascites and schizoaffective disorder, who was recently admitted to [facility] in April and found to have bilateral DVT and small volume pulmonary emboli. He was placed on Coumadin and discharged. He states that he is intermittently compliant with his Coumadin. He is homeless and he is living at a number of different churches. He said he acutely developed nausea and epigastric discomfort this afternoon and then began vomiting. By my history, he says he was vomiting first and then had blood. By another history, he says he just vomited blood. He was noted to have significant emesis in the ambulance , as well as in the emergency room. He underwent massive transfusion protocol, where he received packed red blood cells as well as fresh frozen plasma and tranexamic acid, as well as IV octreotide and Protonix. He was admitted to the intensive care unit and I am called to help and evaluate his upper GI bleed. PAST MEDICAL/SURGICAL HISTORY: 1. Hepatitis C. 2. History of alcohol abuse. He states his last drink was in February of last year. 3. He has cirrhosis with ascites and portal hypertension. There is no known varices. 4. He has a schizoaffective disorder. 5. Hypertension. 6. Chronic low back pain. 7. Recent bilateral DVT and small-volume subsegmental PE. 8. He has a history of nephrectomy, says it was atrophied and causing pain and his symptoms improved after it was removed. FAMILY HISTORY: He states no colon cancer, colon polyps to his knowledge. SOCIAL HISTORY: He is homeless. He is an alcoholic who has been sober since February 2017. He smokes as many cigarettes as he can, recently limited to about 5 a day. MEDICATIONS: In hospital include: 1. Ceftriaxone. 2. Octreotide drip. 3. Protonix was given 40 mg IV twice daily. 4. Tranexamic acid 60.75 mL an hour. Out of the hospital, he was using Coumadin and Neurontin, unclear how compliant he was. ALLERGIES: No known drug allergies. REVIEW OF SYSTEMS: A complete review of systems was performed and was negative other than the HPI. Pertinent negatives include no chest pain, palpitations, cough, shortness of breath. PHYSICAL EXAM: GENERAL: Chronically ill-appearing male, lying in his ICU bed comfortably, somewhat disheveled. VITAL SIGNS: Blood pressure 109/78, pulse 112, respirations 19. He is 100% on 1 L nasal cannula. Temperature 38 degrees Celsius. EYES: Anicteric. PERRL, EOMI. MOUTH: No lesions. NECK: Supple. Full range of motion. No JVD. BACK: No spine tenderness, although he has low back pain. No CVA tenderness. LUNGS: Clear to auscultation. CARDIAC: S1, S2. I do not appreciate any murmurs, rubs, or gallops. ABDOMEN: Bowel sounds normal in pitch and frequency. Abdomen soft with epigastric tenderness. No rebound. No guarding. I do not appreciate any hepatomegaly. EXTREMITIES: No cyanosis, clubbing, or edema. NEUROLOGIC: Cranial nerves intact, nonfocal. SKIN: No rashes. LABORATORY DATA: On admission, sodium 139, potassium 4.0, chloride 92, bicarb 33, BUN 20, creatinine 0.9, glucose 129. Calcium 9.9, total bilirubin 1.2. AST 36, ALT 44, alkaline phosphatase 112. Hemoglobin at admission was 14.1. It quickly decreased to 9.2 and repeat was 9.4. At 5:47, hemoglobin 9.4, hematocrit 20.2, WBC 8.12, platelet count 231. ProTime was 19.8 on admission with an INR 1.67. ETOH is pending. ASSESSMENT: 1. Massive upper gastrointestinal bleed in patient with known cirrhosis but no known varices, who has portal hypertension with ascites, although his platelet count is well over 200 which would make it less likely to have varices. 2. Posthemorrhagic anemia. 3. Alcohol abuse. 4. Cirrhosis. 5. Ascites. 6. Anticoagulation for pulmonary emboli. RECOMMENDATIONS: 1. Urgent EGD for evaluation of massive upper GI bleed. 2. Hemoglobin and hematocrit, transfuse as appropriate pending results of EGD. 3. Agree with ceftriaxone given cirrhosis and ascites and upper GI bleed. This should be continued for at least 3 if not 5-7 days. 4. Consider abdominal ultrasound for evaluation of ascites. I do not appreciate any fluid wave on exam. If he has significant ascites, consideration for diuretics, although he is homeless and this may not be a reasonable therapy. 5. Schizoaffective disorder, as per hospitalist, on chronic compression factors , as per hospitalist. 6. Given the patient's multiple medical issues, massive upper GI bleed with hematemesis noted in the ambulance, as well as in the emergency room, I will ask Anesthesia to be present probable for intubation to make the procedure safer. Thank you for allowing me to participate in the patient's healthcare. Do not hesitate to call me with any questions. /[id number]/MODL MTDD
[2017-06-13] MEDS: PANTOPRAZOLE SODIUM 40 MG VIAL IVP SCH (23:41)
[2017-06-14] MEDS ORDERED: MIDAZOLAM 2 MG/2 ML VIAL IVP PRN (00:24)
[2017-06-14] MEDS ORDERED: FLUMAZENIL 0.5 MG/5 ML MDV IVP PRN (00:24)
[2017-06-14] MEDS ORDERED: NALOXONE HCL 0.4 MG/ML INJ IVP PRN (00:24)
[2017-06-14] MEDS ORDERED: fentaNYL 100 MCG/2 ML INJ IVP PRN (00:24)
[2017-06-14] MEDS ORDERED: MEPERIDINE 25 MG/ML SYR IVP PRN (00:24)
[2017-06-14] MEDS ORDERED: NS 1,000 ML IV SCH (00:30)
--- NOTE | 2017-06-14 00:40 | PDRADPN ---
Radiology Procedure Note Date of Procedure: 06/14/17 Radiologist: Eve Galvez Anesthesia: IV Sedation Pre-op Diagnosis: UGIB Post-op Diagnosis: SAME Indication: CLIPPED, BUT STILL BLEEDING Procedure: VISCERAL ANGIOGRAM Finding(s): NO ACTIVE BLEEDING; NO ABNORMAL VESSELS/PSEUDOANEURYSM/TRUNCATION. CLIP IN VICINITY OF MAIN GDA. AFTER DISCUSSION WITH DR. VELARDE, DECIDED TO NOT COIL GDA AT THIS POINT, WHICH RIGHT NOW IS OF UNKNOWN BENEFIT, AND WOULD BLOCK FUTURE ACCESS IF PATIENT REBLEEDS. Inf/Abcess present in the surg proc area at time of surgery?: No Complications: NONE
[2017-06-14] MEDS ORDERED: fentanYL/NACL/100 ML BAG IV ONE (01:32)
[2017-06-14] MEDS ORDERED: PROPOFOL/EMULSION 1,000 MG/100 ML BOTTLE IV ONE (01:33)
[2017-06-14] MEDS: OCTREOTIDE ACETATE 500 MCG in NS 50 ML IV SCH ×3 (02:14→22:26)
[2017-06-14] MEDS ORDERED: PROPOFOL/EMULSION 100 ML IV SCH (04:54)
[2017-06-14] MEDS ORDERED: fentaNYL/NACL 100 ML IV SCH (04:54)
[2017-06-14 06:28] LABS: INR 1.47 (0.83-1.16)
[2017-06-14] MEDS: PANTOPRAZOLE SODIUM 40 MG VIAL IVP SCH ×4 (08:05→21:41)
[2017-06-14] MEDS ORDERED: PROTOCOL POTASSIUM 1 DOSE MISC PRN (08:49)
[2017-06-14] MEDS ORDERED: POTASSIUM Cl (KCl) 100 ML IV SCH (09:59)
--- NOTE | 2017-06-14 10:44 | PDMN ---
Medical Necessity Medical necessity: est los>2mn for UGIB w/active hematemesis of several liters in ED, w/concern for variceal bleed r/t etoh/cirrhosis hx; admit to ICU for massive transfusion protocol, octreotide gtt, and IV PPI, IV abx, intubation, and emergent endoscopy; comorbid hep C, ESLD, cirrhosis w/ascites, htn, recent dx bilat DVT/PE; per order and H&P 06/13/17
[2017-06-14] MEDS: POTASSIUM Cl (KCl) 10 MEQ in NS 100 ML IV SCH ×2 (11:02→12:10)
--- NOTE | 2017-06-14 11:18 | SOAPPROG ---
[facility] Progress Note Assessment/Plan: Assessment:Plan: full consult dictated urgent EGD with large DU s/p epi 20cc, clipx3 and bicap 10 belarusian probe and still oozing/bleeding called IR to perform angiography and embolization 06/13/17 21:37 06/14/17 11:16 1) DU - s/p BICAP, EPI and clips and IR didn't see any active bleeding, seems to have stopped at lest for now. IV PPI, check h pylori ab 2) anemia - secondary to large DU, now stable s/p transfusion 3) DVT/PE - hold anticoagulation for now, compression stockings. consider repeat EGD to assess ulcer healing and risk stratify for re-anticoagulation if needed. 4) esophagitis - will need jail PPI and repeat EGD at some point to bx, prob bailey's 5) pulm - prob extubation today as per ICU MD 6) ID - ceftriaxone on board 7) ascites - hx of , unclear if present now, when more stable abdo sonogram to evaluate will follow Subjective: cc- UGI bleed pt intubated and sedated no more overt blood loss Objective: Vital Signs Temp Pulse Resp BP Pulse Ox 36.5 C 88 17 104/77 100 06/14/17 07:38 06/14/17 10:00 06/14/17 10:00 06/14/17 10:00 06/14/17 10:00 Laboratory Results 06/14/17 10:04 06/14/17 06:00 06/13/17 06/14/17 06/15/17 05:59 05:59 05:59 Intake Total 5611 Output Total 1300 Balance 4311 PT 18.0 SEC (12.0-15.0) H 06/14/17 06:00 INR 1.47 (0.83-1.16) H 06/14/17 06:00 intubated sedated clear anteriorly S1S2 +BS, soft epi tenderness Laboratory Tests 06/13/17 06/13/17 06/13/17 16:17 17:47 22:20 Hgb 9.4 L 8.7 L Hct 28.2 L D 25.8 L BUN 20 Creatinine 0.9 06/14/17 06/14/17 06/14/17 04:00 06:00 06:00 Hgb 8.9 L 9.4 L Hct 25.9 L 28.0 L BUN 17 Creatinine 0.7 06/14/17 10:04 Hgb 9.9 L Hct 29.0 L BUN Creatinine ICD10 Worksheet Patient Problems: Problems Problem Status Onset Upper GI bleeding Acute Ascites Acute Generalized weakness Acute Hepatitis C Acute Liver failure Acute Suicidal ideation Acute
[2017-06-14] MEDS ORDERED: PROTOCOL K PHOSPHATE 1 DOSE IV PRN (12:26)
[2017-06-14] MEDS ORDERED: PROTOCOL MAGNESIUM 1 DOSE IV PRN (12:26)
[2017-06-14] MEDS ORDERED: MAGNESIUM SULF 1 GM/DEXTROSE 100 ML IV ONE (13:03)
[2017-06-14] MEDS: POTASSIUM Cl (KCl) 10 MEQ in D5W 50 ML IV SCH ×2 (13:17→13:35)
--- NOTE | 2017-06-14 13:34 | HOSPPROG ---
Hospitalist Progress Note Assessment/Plan: #Acute duodenal ulcer -s/p 3 clips and epi. Concern for persistent oozing. Dr. Galvez did angiogram; no active bleeding -transfused 2 units RBCs, platelets and FFP -IV PPI, Ceftriaxone #Acute blood loss anemia: due to above #Acute hypoxemic resp failure: intubated for airway protection. May extubate today #h/o DVT/PE: repeat U/S yesterday shows unchanged BL common femoral DVTs from 2017. Hold anticoagulation #Compensated cirrhosis #Hepatitis C: not current treatment candidate #Hypokalemia: replete #Diet: NPO #DVT ppx: no AC with acute bleed. SCDs #Disp: cont inpatient admission for serial H/H, Octreotide Subjective: intubated Objective: Vital Signs Temp Pulse Resp BP Pulse Ox 36.9 C 97 15 117/70 100 06/14/17 12:00 06/14/17 12:00 06/14/17 12:00 06/14/17 12:00 06/14/17 12:00 Laboratory Results 06/14/17 10:04 06/14/17 06:00 06/13/17 06/14/17 06/15/17 05:59 05:59 05:59 Intake Total 5611 Output Total 1300 Balance 4311 PT 18.0 SEC (12.0-15.0) H 06/14/17 06:00 INR 1.47 (0.83-1.16) H 06/14/17 06:00 - Time Spent With Patient Time Spent with Patient: greater than 35 minutes Time Spent with Patient: Greater than 35 minutes spent on this patients care, greater than 50% of time spent counseling, educating, and coordinating care regarding the above mentioned plan. ICD10 Worksheet Patient Problems: Problems Problem Status Onset Generalized weakness Acute Hepatitis C Acute Ascites Acute Liver failure Acute Suicidal ideation Acute Upper GI bleeding Acute
[2017-06-14] MEDS: POTASSIUM Cl (KCl) 10 MEQ in D5W 100 ML IV SCH ×3 (13:35→15:21)
--- NOTE | 2017-06-14 13:38 | GCON ---
[f rep st] CONSULTATION PULMONARY CRITICAL CARE CONSULTATION DATE OF CONSULTATION: 06/14/2017 REASON FOR CONSULTATION: Massive GI bleed, acute respiratory failure. HISTORY: The patient is a 56-year-old gentleman with a history of chronic alcoholism, cirrhosis, hep atitis C, tobacco abuse, etc. He presented to the emergency department yesterday vomiting bright red blood. Hematocrit on admission was 43, but dropped acutely to as low as 25. The mass transfusion p rotocol was activated. He received 2 units of packed red blood cells, 2 units of platelets, and 3 un its of fresh frozen plasma. He was taken urgently to the endoscopy laboratory by Gastroenterology. A large bleeding duodenal ulcer was found. This was clipped in several places, and epinephrine was i njected locally. He was subsequently sent to Interventional Radiology for the possibility of needing further blood pressure control by embolization. However, this was not required. He was intubated f or the procedure, returned to the ICU on the ventilator, and has been on this overnight. He does hav e a history of ongoing tobacco abuse and likely has a component of COPD. He has other medical proble ms as outlined below. This morning in the intensive care unit, he is awake and alert but is somnolent secondary to sedative s. He has had periods of apnea on CPAP but is now tolerating CPAP as sedation has been weaned. He h as no significant secretions. He is on 40%. PAST MEDICAL HISTORY: Remarkable for DVT and pulmonary embolism. He is off anticoagulation secondar y to his homeless lifestyle. He does not follow up with physicians. He has been on gabapentin in past as well. He has a history of heavy alcohol abuse in the past but has not drunk since February 2017 by report. There was a history of cirrhosis, hepatitis C, ascites, schizoaffective disorder, s ystemic hypertension, chronic low back pain, and nephrectomy. DRUG ALLERGIES: No known drug allergies. SOCIAL HISTORY: The patient is homeless. He smokes cigarettes, is no longer drinking. Drug use is denied. FAMILY HISTORY: Noncontributory. REVIEW OF SYSTEMS: Unobtainable at this time. PHYSICAL EXAMINATION: GENERAL: Thin gentleman who is arousable and responsive, on the ventilator. He appears comfortable. He will respond appropriately to questions. VITAL SIGNS: Blood pressure is 104/77, heart rate 88 with sinus rhythm on the monitor. Respiratory rate on the ventilator is 17. O n CPAP on 40%, saturations are 100%. He is afebrile. HEENT: Remarkable for the oral endotracheal t ube being in place. There is no NG tube or OG tube. Pupils are equal. LUNGS: Clear anteriorly. B reath sounds are diminished at the bases. There are no rhonchi, no rales, and no significant wheezes . Expiratory phase is possibly mildly prolonged. HEART: Regular in rate and rhythm, with a soft sy stolic murmur, no gallop. ABDOMEN: Soft, nontender. No masses are appreciated. Liver edge is palp able. GENITOURINARY: A Gruber catheter is in place. There is good urine output. However, input is greater than output by about 4 L since admission. EXTREMITIES: Remarkable for trace plus edema. NE UROLOGIC: Examination is grossly nonfocal. He moves all extremities equally. Cognition appears to be intact. IMAGING: X-ray shows some vague interstitial infiltrates, possibly related to volume. Lines and tub es are in good position. There are no focal infiltrates or evidence of pneumonia. LABORATORY: Arterial blood gas on CPAP shows a pH of 7.42, pCO2 of 45, and pO2 of 78. White blood c ell count is 6800, hematocrit 29 and stable. Platelets are 251,000. INR is 1.47. Sodium is 141, po tassium 3.1, BUN 17 with a creatinine of 0.7. Glucose 106, calcium 7.7, bilirubin 1.7. AST and ALT are normal. Albumin is 2.4. Blood alcohol on admission was negative. ASSESSMENT: 1. Acute large upper gastrointestinal bleed secondary to a duodenal ulcer. Status post endoscopic c ontrol. He has no evidence of ongoing active bleeding currently, and hematocrit is stable. If he re bleeds, he would require interventional radiology assessment and possible embolization. Gastroentero logy is following. He is on an octreotide drip and is receiving PPIs. Hematocrit is being followed. 2. Acute respiratory failure secondary to his large volume gastrointestinal bleed, and this is assoc iated with some volume overload related to initial aggressive fluid and blood product resuscitation. He likely has a component of underlying chronic obstructive pulmonary disease. He is doing well on the ventilator, without evidence of pneumonia or aspiration. CPAP weans are being tolerated. He rochelle l be extubated and follow closely. Bronchodilator therapy will be initiated post extubation. A sput um culture will be obtained prior to pulling the tube. 3. History of cirrhosis, previous alcohol abuse, hepatitis C, etc. 4. Acute blood loss anemia. Hematocrit 29. Being followed q.6 hours for now. 5. Gastrointestinal prophylaxis, on pantoprazole. 6. Deep venous thrombosis prophylaxis. None currently secondary to his bleed, other than SCDs. 7. History of deep venous thrombosis and small volume pulmonary embolism. He has been off anticoagu lation. A venous Doppler lower extremity bilateral ultrasound has been obtained. There is evidence of chronic, but not acute, clot bilaterally. Anticoagulation is currently contraindicated. 8. Metabolic. Hypokalemia. Replacement protocols will be ordered. RECOMMENDATIONS: The patient will be kept in the intensive care unit following his extubation this m sol. H and H will be followed. Potassium will be replaced. Intravenous fluids will be decreased . Further plans and recommendations will be made based on his progress over the next 12-24 hours. /[id number]/MODL
--- NOTE | 2017-06-14 15:27 | ASMTCMCOM ---
CM Note CM Note Notes: Patient is intubated and was transfused 2 units RBC's, platelets, and FFP. OT/PT/COIL TAPER have been ordered. Patient's d/c plan will be difficult since he was with us in May and was turned down by numerous SNF facilities (35-40) due to several reasons including he had let his Medicaid lapse. Spoke to Basil, patient's disease case manager with [facility].([phone]) Basil states patient does not qualify for many of their programs as they are work based and patient has too many health problems to participate. Replaced By [facility] states patient is more appropriate for the fdc, however, he is aware he was "kicked out" and doesn't know if this is temporary or permanent. Patient can apply directly with [facility] for section 8 vouchers. He can also sign up with [facility] for assistance. Basil confirmed he has gone over these options with patient but Mr. Orantes has not followed through. They have computers available for people to assist with this.Likely the patient will have to be d/c'ed again to outpatient support services. Replaced By [facility] states patient is aware of the 12:00 -2:00 time slot for completing applications and getting guidance but he has yet to show up for this. Replaced By [facility] states they will check with the [facility] to see if and when the patient might be able to return there.CM will follow. Date Signed: 06/14/2017 03:26 PM Electronically Signed By:Yvonne Nelson LCSW
[2017-06-14] MEDS: IPRATROPIUM/ALBUTEROL 3 ML DEYVIAL IH SCH ×2 (16:25→20:27)
[2017-06-15] MEDS: IPRATROPIUM/ALBUTEROL 3 ML DEYVIAL IH SCH ×4 (05:55→20:26)
[2017-06-15] MEDS: NS 1,000 ML IV SCH (05:57)
[2017-06-15] MEDS: PANTOPRAZOLE SODIUM 40 MG VIAL IVP SCH ×2 (06:01→11:38)
[2017-06-15 06:35] LABS: PLATELET COUNT 231 10^3/uL (150-400)
[2017-06-15] MEDS: OCTREOTIDE ACETATE 500 MCG in NS 50 ML IV SCH (06:44)
[2017-06-15] MEDS ORDERED: POTASSIUM CL 10 MEQ TAB PO ONE (08:05)
--- NOTE | 2017-06-15 08:22 | HOSPPROG ---
Hospitalist Progress Note Assessment/Plan: #Acute duodenal ulcer -s/p 3 clips and epi. Concern for persistent oozing. Dr. Galvez did angiogram; no active bleeding -transfused 2 units RBCs, platelets and FFP -IV PPI, Ceftriaxone, Octreotide #Acute blood loss anemia: due to above. Repeat H/H this evening #Acute hypoxemic resp failure: edema on CXR today. Will gently diurese once BP stable #h/o DVT/PE: repeat U/S yesterday shows unchanged BL common femoral DVTs from 2017. Hold anticoagulation #Compensated cirrhosis: not on diuretics outpatient #Deconditioning: PT. Has not been accepted to many SNFs in past due to medical noncompliance, etc. CM assisting. Inpatient rehab consult #Hepatitis C: not current treatment candidate #Constipation: bowel regimen #Hypokalemia: replete #Diet: clears #DVT ppx: no AC with acute bleed. SCDs #Disp: cont inpatient admission for serial H/H, Octreotide Subjective: "weak" Objective: Vital Signs Temp Pulse Resp BP Pulse Ox 37.3 C 104 H 20 102/66 94 06/15/17 00:00 06/15/17 06:00 06/15/17 06:00 06/15/17 06:00 06/15/17 06:00 Microbiology 06/14/17 11:39 - Final Sputum, Induced/Suctioned Laboratory Results 06/15/17 06:20 06/15/17 06:20 06/14/17 06/15/17 06/16/17 05:59 05:59 05:59 Intake Total 5611 3110 Output Total 1300 650 Balance 4311 2460 PT 18.0 SEC (12.0-15.0) H 06/14/17 06:00 INR 1.47 (0.83-1.16) H 06/14/17 06:00 - Physical Exam Constitutional: unkempt, cachectic Eyes: other (dried blood on lips) Ears, Nose, Mouth, Throat: moist mucous membranes Cardiovascular: regular rate and rhythym, no murmur, rub, or gallop, No edema Respiratory: other (few crackles at bases) Gastrointestinal: normoactive bowel sounds Genitourinary: no bladder fullness Skin: warm Musculoskeletal: generalized weakness Neurologic: AAOx3, CN II-XII Intact Psychiatric: interacting appropriately ICD10 Worksheet Patient Problems: Problems Problem Status Onset Upper GI bleeding Acute Ascites Acute Generalized weakness Acute Hepatitis C Acute Liver failure Acute Suicidal ideation Acute
[2017-06-15] MEDS ORDERED: LACTULOSE 20 GM/30 ML UDCUP PO PRN (12:31)
[2017-06-15] MEDS ORDERED: MAGNESIUM HYDROXIDE 30 ML UDCUP PO PRN (12:31)
[2017-06-15] MEDS ORDERED: BISACODYL 10 MG SUPP PR PRN (12:31)
[2017-06-15] MEDS ORDERED: POLYETHYLENE GLYCOL 3350 17 GM PKT PO PRN (12:31)
--- NOTE | 2017-06-15 13:07 | SOAPPROG ---
[facility] Progress Note Assessment/Plan: Assessment:Plan: full consult dictated urgent EGD with large DU s/p epi 20cc, clipx3 and bicap 10 kinyarwanda probe and still oozing/bleeding called IR to perform angiography and embolization 06/13/17 21:37 06/14/17 11:16 1) DU - s/p BICAP, EPI and clips and IR didn't see any active bleeding, seems to have stopped at lest for now. IV PPI, check h pylori ab 2) anemia - secondary to large DU, now stable s/p transfusion 3) DVT/PE - hold anticoagulation for now, compression stockings. consider repeat EGD to assess ulcer healing and risk stratify for re-anticoagulation if needed. 4) esophagitis - will need [facility] PPI and repeat EGD at some point to bx, prob Ramachandran's 5) pulm - prob extubation today as per ICU MD 6) ID - ceftriaxone on board 7) ascites - hx of , unclear if present now, when more stable abdo sonogram to evaluate will follow 06/15/17 13:03 as above 1) DU - seems that endoscopic therapy has prevented rebleeding. will change to PO PPI BID, stop Octreotide 2) anemia - from large DU bleed, stable s/p PRBC, HB/HCT stable BUN/Cr ratio decreasing c/w no more UGI blood loss 3) DVT/PE - off anticoagulation for now. 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, reassess at repeat egd 5) ID - ceftriaxone for prophylaxis 6) ascites - will order portable sonogram of abdo will follow Subjective: cc- massive UGI bleed form large DU s/p endoscopic tx with EPI, bicap and clips pt says feels OK, wants to go back to bed no c/o n/v or melena Objective: Vital Signs Temp Pulse Resp BP Pulse Ox 37.1 C 98 18 99/67 L 93 06/15/17 08:00 06/15/17 10:05 06/15/17 10:00 06/15/17 10:05 06/15/17 10:05 Microbiology 06/14/17 11:39 - Final Sputum, Induced/Suctioned Laboratory Results 06/15/17 06:20 06/15/17 06:20 06/14/17 06/15/17 06/16/17 05:59 05:59 05:59 Intake Total 5611 3110 Output Total 1300 650 Balance 4311 2460 PT 18.0 SEC (12.0-15.0) H 06/14/17 06:00 INR 1.47 (0.83-1.16) H 06/14/17 06:00 A+Ox3 CTA S1S2 +BS, soft mild epi tenderness no r/g Laboratory Tests 06/13/17 06/13/17 06/14/17 16:17 22:20 04:00 Hgb 8.7 L 8.9 L PT INR BUN 20 06/14/17 06/14/17 06/14/17 06:00 06:00 06:00 Hgb 9.4 L PT 18.0 H INR 1.47 H BUN 17 06/14/17 06/14/17 06/15/17 10:04 16:40 06:20 Hgb 9.9 L 9.6 L PT INR BUN 14 06/15/17 06:20 Hgb 9.3 L PT INR BUN ICD10 Worksheet Patient Problems: Problems Problem Status Onset Upper GI bleeding Acute Ascites Acute Generalized weakness Acute Hepatitis C Acute Liver failure Acute Suicidal ideation Acute
[2017-06-15] MEDS ORDERED: FUROSEMIDE 20 MG TAB PO SCH ×2 (14:45→15:00)
--- NOTE | 2017-06-15 16:42 | PDINTPN ---
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 Controlled endoscopically. No evidence of further bleeding at this time. Hematocrit stable at approximately 28. On twice daily pantoprazole. Off octreotide. Acute blood-loss anemia secondary to the above. Volume overload/congestive heart failure. Primarily by x-ray. Clinically seems to be doing fairly well. Diuresis indicated as significant volume was initially given with the mass transfusion protocol. Will give Lasix.. COPD, without evidence of exacerbation. History of DVT, small volume pulmonary embolism in the past. Off anticoagulation secondary to 1. On SCDs. Metabolic: Hypokalemic, hypomagnesemic. On replacement protocols. Homelessness, history of medical noncompliance. Disposition issues will be difficult and were discussed. Plan: Continue care in the intensive care unit as step-down status. Follow laboratory, hemoglobin and hematocrit. Lasix diuresis. Chest x-ray will be followed. Continue current medications. Began to mobilize. Advanced diet as tolerated. Began to look towards discharge and needs at that time. Based on his behaviors in the past he apparently will likely not be a candidate for either inpatient rehabilitation or SNF? 30 min of clinic time spent directly with the patient. Discussed with hospitalist, nursing, GI, geriatric social work professor, and the ICU multi disciplinary team. Subjective: Doing okay. No further bloody emesis. Some nausea. Denies shortness of breath. Objective: Vital Signs Temp Pulse Resp BP Pulse Ox 37.1 C 91 18 113/76 95 06/15/17 08:00 06/15/17 16:00 06/15/17 16:00 06/15/17 16:00 06/15/17 16:00 Microbiology 06/14/17 11:39 - Final Sputum, Induced/Suctioned Laboratory Results 06/15/17 06:20 06/15/17 06:20 06/14/17 06/15/17 06/16/17 05:59 05:59 05:59 Intake Total 5611 3110 Output Total 1300 650 Balance 4311 2460 PT 18.0 SEC (12.0-15.0) H 06/14/17 06:00 INR 1.47 (0.83-1.16) H 06/14/17 06:00 Laboratory Tests 06/15/17 06:20 Calcium 7.7 L Phosphorus 2.3 L Magnesium 1.9 AST 19 ALT 29 Albumin 2.2 L CXR: Marked increased pulmonary edema pattern, effusions. Abdominal ultrasound: Trace ascites Physical Exam - Physical Exam General Appearance: no apparent distress, thin, other (Sleeping, arousable) EENT: PERRL/EOMI, other (Nasal cannula 2 L, 95%) Neck: normal inspection (No obvious JVD) Respiratory: lungs clear (Anteriorly), decreased breath sounds (At bases), rales (Some rales at bases), No rhonchi, No wheezing Cardiac/Chest: regular rate, rhythm (High 90s) Abdomen: soft, No normal bowel sounds (Decreased, present), No non-tender ( Mildly tender diffusely) Male Genitalia: other (Catheter in place, decreased urine output.) Skin: warm/dry, pallor Extremities: pedal edema (Trace +) Neuro/Psych: no motor/sensory deficits (Moves all extremities, but globally weak ), No cognition abnormalities (Appears intact, at baseline) ICD10 Worksheet Patient Problems: Problems Problem Status Onset Generalized weakness Acute Hepatitis C Acute Ascites Acute Liver failure Acute Suicidal ideation Acute Upper GI bleeding Acute
[2017-06-15] MEDS ORDERED: FUROSEMIDE 40 MG/4 ML VIAL IVP ONE (17:02)
[2017-06-15] MEDS: PANTOPRAZOLE SODIUM 40 MG TAB PO SCH (20:29)
[2017-06-15] MEDS: CLARITHROMYCIN 500 MG TAB PO SCH (20:29)
[2017-06-15] MEDS: SENNOSIDES/DOCUSATE SODIUM TAB PO SCH (20:36)
[2017-06-16] MEDS: IPRATROPIUM/ALBUTEROL 3 ML DEYVIAL IH SCH (06:04)
[2017-06-16] MEDS ORDERED: MAGNESIUM SULF 1 GM/DEXTROSE 100 ML IV ONE (08:33)
[2017-06-16] MEDS ORDERED: IPRATROPIUM/ALBUTEROL 3 ML DEYVIAL IH PRN (09:26)
--- NOTE | 2017-06-16 09:36 | HOSPPROG ---
Hospitalist Progress Note Assessment/Plan: #Acute duodenal ulcer -s/p 3 clips and epi. No active bleeding on subsequent angio -Protonix BID #Acute blood loss anemia: due to above. H/H stable #H pylori: triple-therapy x 2 weeks (Day 2) #Acute hypoxemic resp failure: edema on x-ray. Cont Lasix #h/o DVT/PE: repeat U/S shows unchanged BL common femoral DVTs from 04/2017. Hold anticoagulation. #Compensated cirrhosis: not on diuretics outpatient #Deconditioning: PT. Has not been accepted to many SNFs in past due to medical noncompliance, etc. CM assisting. Inpatient rehab consult #Hepatitis C: not current treatment candidate #Constipation: bowel regimen #Hypokalemia: replete #Diet: clears #DVT ppx: no AC with acute bleed. SCDs #Disp: cont inpatient admission for serial H/H, Octreotide Subjective: no abd pain Objective: Vital Signs Temp Pulse Resp BP Pulse Ox 37.5 C 104 H 18 132/89 H 97 06/16/17 08:25 06/16/17 08:25 06/16/17 08:25 06/16/17 08:25 06/16/17 08:25 Microbiology 06/14/17 11:39 - Final Sputum, Induced/Suctioned Laboratory Results 06/16/17 05:24 06/16/17 05:24 06/15/17 06/16/17 06/17/17 05:59 05:59 05:59 Intake Total 3110 1348 Output Total 650 1235 Balance 2460 113 PT 18.0 SEC (12.0-15.0) H 06/14/17 06:00 INR 1.47 (0.83-1.16) H 06/14/17 06:00 - Time Spent With Patient Time Spent with Patient: greater than 35 minutes Time Spent with Patient: Greater than 35 minutes spent on this patients care, greater than 50% of time spent counseling, educating, and coordinating care regarding the above mentioned plan. - Physical Exam Constitutional: unkempt Eyes: PERRL Ears, Nose, Mouth, Throat: dry mucous membranes Cardiovascular: regular rate and rhythym, no murmur, rub, or gallop, No edema Respiratory: other (decreased breath sounds) Gastrointestinal: normoactive bowel sounds Genitourinary: no bladder fullness Skin: warm Musculoskeletal: full muscle strength Neurologic: AAOx3, CN II-XII Intact Psychiatric: interacting appropriately, flat affect ICD10 Worksheet Patient Problems: Problems Problem Status Onset Upper GI bleeding Acute Ascites Acute Back pain Acute Generalized weakness Acute Hepatitis C Acute Liver failure Acute Suicidal ideation Acute
[2017-06-16] MEDS: CLARITHROMYCIN 500 MG TAB PO SCH ×2 (10:27→22:17)
[2017-06-16] MEDS: PANTOPRAZOLE SODIUM 40 MG TAB PO SCH ×2 (10:27→22:17)
[2017-06-16] MEDS: SENNOSIDES/DOCUSATE SODIUM TAB PO SCH ×2 (10:28→20:28)
[2017-06-16] MEDS: FUROSEMIDE 20 MG/2 ML VIAL IVP SCH (11:25)
[2017-06-16] MEDS ORDERED: traMADol 50 MG TAB PO PRN (13:49)
--- NOTE | 2017-06-16 14:05 | PDINTPN ---
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 Controlled endoscopically. No evidence of further bleeding at this time. Hematocrit stable at approximately 29. On twice daily pantoprazole. Off octreotide. H pylori positive. On dual therapy. Acute blood-loss anemia secondary to the above. Volume overload/congestive heart failure. Primarily by x-ray. Clinically doing well. Diuresis indicated as significant volume was initially given with the mass transfusion protocol. On Lasix. COPD, without evidence of exacerbation. History of DVT, small volume pulmonary embolism in the past. Off anticoagulation secondary to 1. On SCDs. Metabolic: Hypokalemic, hypomagnesemic. On replacement protocols. Homelessness, history of medical noncompliance. Disposition issues will be difficult and were discussed. Plan: Continue care. Can transfer to a medical-surgical bed. Follow laboratory, hemoglobin and hematocrit. Continue Lasix diuresis. Chest x-ray will be followed intermittently. Continue PPI therapy and antibiotics for H pylori. Began to mobilize. Advanced diet as tolerated. Began to look towards discharge and needs at that time. Based on his behaviors in the past he apparently will likely not be a candidate for either inpatient rehabilitation or SNF? 25 min of CC time spent directly with the patient. Discussed with hospitalist, nursing, and the ICU multi disciplinary team. Subjective: Less abdominal pain, some still present. Denies shortness of breath, cough or mucus. Denies chest pain. Objective: Vital Signs Temp Pulse Resp BP Pulse Ox 36.9 C 102 H 18 147/89 H 87 L 06/16/17 13:59 06/16/17 13:59 06/16/17 13:59 06/16/17 13:59 06/16/17 13:59 Microbiology 06/14/17 11:39 - Final Sputum, Induced/Suctioned Sputum Culture - Final Laboratory Results 06/16/17 05:24 06/16/17 05:24 06/15/17 06/16/17 06/17/17 05:59 05:59 05:59 Intake Total 3110 1348 450 Output Total 650 1235 275 Balance 2460 113 175 PT 18.0 SEC (12.0-15.0) H 06/14/17 06:00 INR 1.47 (0.83-1.16) H 06/14/17 06:00 Laboratory Tests 06/15/17 06:20 H. pylori IgG Antibody POSITIVE H CXR: Bilateral infiltrates and effusions persist, consistent with volume overload/pulmonary edema. Physical Exam - Physical Exam General Appearance: thin, other (Sleeping, arousable, responsive) EENT: PERRL/EOMI, other (Nasal cannula in place at 2 L) Neck: normal inspection (No obvious JVD) Respiratory: lungs clear (Anteriorly), decreased breath sounds (. Dullness at bases. Few rales present above), rales (Few rales at bases to mid lower lungs, not impressive), No rhonchi (No consolidation), No wheezing Cardiac/Chest: regular rate, rhythm, systolic murmur (Soft, distant heart tones) Abdomen: soft, No normal bowel sounds (Decreased, present), No non-tender (Mild tenderness present) Skin: warm/dry, pallor Extremities: pedal edema (Trace) Neuro/Psych: no motor/sensory deficits (Moves all extremities equally), No cognition abnormalities ICD10 Worksheet Patient Problems: Problems Problem Status Onset Ascites Acute Back pain Acute Generalized weakness Acute Hepatitis C Acute Liver failure Acute Suicidal ideation Acute Upper GI bleeding Acute
--- NOTE | 2017-06-16 16:34 | ASMTCMCOM ---
CM Note CM Note Notes: Pt. is a 56-year-old disabled man who is homeless with multiple admissions to [facility]. Most recent d/c was to the [facility] in May,. Pt admitted due to vomiting blood. Has an acute duodenal ulcer. Pt. is deconditioned. PT and OT are recommending SNF, but haven't worked w/ Pt. recently due to Pt's refusal. Pt. moved from ICU to 3E floor this afternoon. RN on 3E today states that Pt. "seems depressed" - as evidenced by his pulling the shades closed and not engaging with staff. Pt. w/ hx. of Schizoaffective disorder. Please consider [facility] or [facility] referral if necessary. Today Mary Ann was able to confirm with Dena Nettles at the [facility] that Pt's Medicaid is now active - Medicaid #[id number]. Dena let Mary Ann know that her colleague Kari Alvarez is a social work case manager who works for the [facility] as a behavioral health specialist and may be able to help with creative mental health placement for Pt. - such as the [facility] mental health step down unit. CM should also apply on behalf of Pt. for [facility] program in [place]. Pt. likely to face barriers to LTC Medicaid admission, but ULTC 100 could be done as well. CM to follow for d/c POC. Date Signed: 06/16/2017 04:33 PM Electronically Signed By:Cathryn Durant LCSW
--- NOTE | 2017-06-16 16:52 | SOAPPROG ---
AARON Progress Note Assessment/Plan: Assessment:Plan: 1) DU - seems that endoscopic therapy has prevented rebleeding. will change to PO PPI BID, stop Octreotide 2) anemia - from large DU bleed, stable s/p PRBC, HB/HCT stable BUN/Cr ratio decreasing c/w no more UGI blood loss 3) DVT/PE - off anticoagulation for now. will consider repeat EGD in near future to risk stratify for anticoagulation 4) esophagitis - terminal makeup operator PPI, reassess at repeat egd 5) ID - ceftriaxone for prophylaxis 6) ascites - will order portable sonogram of abdo will follow 06/16/17 16:48 1) DU - no recurrent bleeding, PPI BID for 2 weeks, then daily fdc 2) anemia - stable 3) DVT/PE - he requires anticoagulation but cannot really take as he is homeless. IF you are going to restart we could consider EGD to risk stratify, but the further out he is form bleed then less likely he will bleed, and one can argue EGD not needed 4) esophagitis - I think prob Ramachandran's but even if not he needs fdc PPI for significant reflux 5) ID - off ceftriaxone and on h pylori abx 6) ascites - very little notes on sonogram, I would rec low sodium diet but no diuretics 7) pulm - fluid overload as per hospitalists I will sing off for now. If GI help needed over weekend contact Dr. Aniyah Dill to take over inpt service starting at 5pm today Subjective: cc- large bleed from DU pt feeling ok, wants the curtains closed no c/o CP, n/v overt blood loss Objective: Vital Signs Temp Pulse Resp BP Pulse Ox 36.9 C 102 H 18 147/89 H 87 L 06/16/17 13:59 06/16/17 13:59 06/16/17 13:59 06/16/17 13:59 06/16/17 13:59 Microbiology 06/14/17 11:39 - Final Sputum, Induced/Suctioned Sputum Culture - Final Laboratory Results 06/16/17 05:24 06/16/17 05:24 06/15/17 06/16/17 06/17/17 05:59 05:59 05:59 Intake Total 3110 1348 450 Output Total 650 1235 275 Balance 2460 113 175 PT 18.0 SEC (12.0-15.0) H 06/14/17 06:00 INR 1.47 (0.83-1.16) H 06/14/17 06:00 A+O S1S2 +BS, soft, epi tenderness no r/g decreased breath sounds ICD10 Worksheet Patient Problems: Problems Problem Status Onset Upper GI bleeding Acute Ascites Acute Back pain Acute Generalized weakness Acute Hepatitis C Acute Liver failure Acute Suicidal ideation Acute
[2017-06-16] MEDS: ACETAMINOPHEN 325 MG TAB PO PRN ×2 (17:14→22:17)
[2017-06-16] MEDS: POTASSIUM Cl (KCl) 10 MEQ in NS 100 ML IV SCH ×2 (20:21→22:17)
[2017-06-17] MEDS: ACETAMINOPHEN 325 MG TAB PO PRN (11:26)
[2017-06-17] MEDS: PANTOPRAZOLE SODIUM 40 MG TAB PO SCH ×2 (11:26→21:13)
[2017-06-17] MEDS: FUROSEMIDE 20 MG/2 ML VIAL IVP SCH (11:27)
[2017-06-17] MEDS: CLARITHROMYCIN 500 MG TAB PO SCH ×2 (13:07→21:13)
[2017-06-17] MEDS: SENNOSIDES/DOCUSATE SODIUM TAB PO SCH ×2 (13:09→21:15)
--- NOTE | 2017-06-17 14:47 | HOSPPROG ---
Hospitalist Progress Note Assessment/Plan: #Acute duodenal ulcer -s/p 3 clips and epi. No active bleeding on subsequent angio -Protonix BID #Acute blood loss anemia: due to above. H/H stable #H pylori: triple-therapy x 2 weeks (Day 3) #Schizoaffective d/o: CM working with his case packer and sealer for Mental step down unit #Acute hypoxemic resp failure: edema on x-ray. Improved. Change to oral Lasix #h/o DVT/PE: repeat U/S shows unchanged BL common femoral DVTs from 04/2017. Will need to restart AC once further out from bleed #Compensated cirrhosis: not on diuretics outpatient #Chronic pain: APAP. Will not start opioids #Deconditioning: PT. Has not been accepted to many SNFs in past due to medical noncompliance, etc. CM assisting. Inpatient rehab consult #Hepatitis C: not current treatment candidate #Constipation: bowel regimen #Hypokalemia: resolved #Diet: clears #DVT ppx: no AC with acute bleed. SCDs #Disp: cont inpatient admission for serial H/H, case management assisting with [place] [facility] program Subjective: no abd pain Objective: Vital Signs Temp Pulse Resp BP Pulse Ox 37.1 C 85 16 133/89 H 100 06/17/17 07:47 06/17/17 07:47 06/17/17 07:47 06/17/17 07:47 06/17/17 07:47 Microbiology 06/14/17 11:39 - Final Sputum, Induced/Suctioned Sputum Culture - Final Laboratory Results 06/17/17 04:52 06/17/17 04:52 06/16/17 06/17/17 06/18/17 05:59 05:59 05:59 Intake Total 1348 800 Output Total 1235 675 Balance 113 125 PT 18.0 SEC (12.0-15.0) H 06/14/17 06:00 INR 1.47 (0.83-1.16) H 06/14/17 06:00 - Physical Exam Constitutional: unkempt Eyes: PERRL Ears, Nose, Mouth, Throat: moist mucous membranes Cardiovascular: regular rate and rhythym Respiratory: no respiratory distress Gastrointestinal: normoactive bowel sounds, other (mild epigastric TTP) Genitourinary: no bladder fullness, No fuentes in urethra Skin: warm Musculoskeletal: full muscle strength Neurologic: CN II-XII Intact Psychiatric: depressed, flat affect, No suicidal ideation ICD10 Worksheet Patient Problems: Problems Problem Status Onset Upper GI bleeding Acute Ascites Acute Back pain Acute Generalized weakness Acute Hepatitis C Acute Liver failure Acute Suicidal ideation Acute
--- NOTE | 2017-06-17 16:06 | ASMTCMCOM ---
CM Note CM Note Notes: Today SWer coordinated w/ hospitalist. Will plan to pursue options listed in yesterday's SW note for d/c planning beginning on Monday. Also, hospitlist has entered an Inpatient Rehab consult order. Note: RN mentioned to Mary Ann today that Pt. told her "I'm not suicidal until someone says I'm being discharged". Please follow Pt's mental health stability and call [facility] should we need an urgent assessment. Date Signed: 06/17/2017 04:05 PM Electronically Signed By:Cathryn Durant LCSW
[2017-06-17] MEDS: ACETAMINOPHEN 500 MG TAB PO PRN (19:33)
[2017-06-17] MEDS ORDERED: POTASSIUM CL 10 MEQ TAB PO ONE (20:58)
[2017-06-18] MEDS: ACETAMINOPHEN 500 MG TAB PO PRN ×2 (05:10→17:00)
[2017-06-18] MEDS: CLARITHROMYCIN 500 MG TAB PO SCH ×2 (10:30→20:53)
[2017-06-18] MEDS: PANTOPRAZOLE SODIUM 40 MG TAB PO SCH ×2 (10:31→20:53)
[2017-06-18] MEDS: FUROSEMIDE 20 MG TAB PO SCH (10:31)
[2017-06-18] MEDS: SENNOSIDES/DOCUSATE SODIUM TAB PO SCH ×2 (10:35→21:24)
--- NOTE | 2017-06-18 13:13 | HOSPPROG ---
Hospitalist Progress Note Assessment/Plan: #Acute duodenal ulcer -s/p 3 clips and epi. No active bleeding on subsequent angio -Protonix BID #Acute blood loss anemia: due to above. H/H stable #H pylori: triple-therapy x 2 weeks (Day 06/24) #Schizoaffective d/o: CM working with his behavioral health case manager for Mental step down unit #Acute hypoxemic resp failure: due IV resuscitation. Stop diuretics #h/o DVT/PE: repeat U/S shows unchanged BL common femoral DVTs from 04/2017. Will need to restart AC once further out from bleed #Compensated cirrhosis: not on diuretics outpatient #Chronic pain: APAP. Will not start opioids #Deconditioning: PT. Has not been accepted to many SNFs in past due to medical noncompliance, etc. CM assisting. #Hepatitis C: not current treatment candidate #Constipation: bowel regimen #Hypokalemia: resolved #Diet: clears #DVT ppx: no AC with acute bleed. SCDs #Disp: cont inpatient admission for serial H/H, case management assisting with [place] [facility] program vs Mental Health Step-down unit Subjective: stomach upset after drinking smoothie. Stools still black Objective: Vital Signs Temp Pulse Resp BP Pulse Ox 36.9 C 87 16 127/88 H 97 06/18/17 07:45 06/18/17 07:45 06/18/17 07:45 06/18/17 07:45 06/18/17 07:45 Laboratory Results 06/17/17 04:52 06/18/17 07:56 06/17/17 06/18/17 06/19/17 05:59 05:59 05:59 Intake Total 800 750 Output Total 675 2100 300 Balance 125 -1350 -300 PT 18.0 SEC (12.0-15.0) H 06/14/17 06:00 INR 1.47 (0.83-1.16) H 06/14/17 06:00 - Physical Exam Constitutional: chronically ill appearing, unkempt Ears, Nose, Mouth, Throat: poor dentition Cardiovascular: regular rate and rhythym Respiratory: no respiratory distress Gastrointestinal: normoactive bowel sounds, tenderness (mild epigastric TTP ) Genitourinary: no bladder fullness Skin: warm Musculoskeletal: full muscle strength Neurologic: AAOx3, CN II-XII Intact Psychiatric: depressed, flat affect ICD10 Worksheet Patient Problems: Problems Problem Status Onset Upper GI bleeding Acute Ascites Acute Back pain Acute Generalized weakness Acute Hepatitis C Acute Liver failure Acute Suicidal ideation Acute
[2017-06-18] MEDS ORDERED: POTASSIUM CL 10 MEQ TAB PO ONE (19:26)
[2017-06-18] MEDS ORDERED: HYOSCYAMINE SULFATE 0.125 MG TAB PO ONE (22:00)
[2017-06-18] MEDS ORDERED: MAG HYDROX/AL HYDROX/SIMETH 30 ML UDCUP PO ONE (22:00)
[2017-06-18] MEDS ORDERED: LIDOCAINE 2% VISCOUS 15 ML UDCUP PO ONE (22:00)
[2017-06-19] MEDS: ACETAMINOPHEN 500 MG TAB PO PRN ×3 (00:25→18:52)
[2017-06-19] MEDS ORDERED: POTASSIUM CL 10 MEQ TAB PO ONE (07:25)
[2017-06-19] MEDS: CLARITHROMYCIN 500 MG TAB PO SCH ×2 (10:13→21:50)
[2017-06-19] MEDS: PANTOPRAZOLE SODIUM 40 MG TAB PO SCH ×2 (10:14→21:50)
[2017-06-19] MEDS: FUROSEMIDE 20 MG TAB PO SCH (10:14)
--- NOTE | 2017-06-19 10:30 | HOSPPROG ---
Hospitalist Progress Note Assessment/Plan: 56 yo M w cirrhosis and duodenal ulcer Acute duodenal ulcer s/p 3 clips and epi. No active bleeding on subsequent angio Protonix BID Acute blood loss anemia: due to above. H/H stable repeat today H pylori: triple-therapy x 2 weeks (Day 5) Schizoaffective d/o: CM working with his special education case manager for Mental step down unit Acute hypoxemic resp failure: due IV resuscitation. Stop diuretics on RA h/o DVT/PE: repeat U/S shows unchanged BL common femoral DVTs from 04/2017. Will need to restart AC once further out from bleed Compensated cirrhosis: not on diuretics outpatient lactulose Chronic pain: APAP. Will not start opioids Deconditioning: PT. Has not been accepted to many SNFs in past due to medical noncompliance, etc. CM assisting. Hepatitis C: not current treatment candidate Constipation: bowel regimen Hypokalemia: resolved Diet: clears DVT ppx: no AC with acute bleed. SCDs Disp: cont inpatient admission for serial H/H, [facility] Subjective: per pt, episode of vomiting this AM Objective: Vital Signs Temp Pulse Resp BP Pulse Ox 37.3 C 93 16 140/90 H 92 06/19/17 08:00 06/19/17 08:00 06/19/17 08:00 06/19/17 08:00 06/19/17 08:00 Laboratory Results 06/17/17 04:52 06/19/17 04:58 06/18/17 06/19/17 06/20/17 05:59 05:59 05:59 Intake Total 750 1840 Output Total 2100 1900 Balance -1350 -60 PT 18.0 SEC (12.0-15.0) H 06/14/17 06:00 INR 1.47 (0.83-1.16) H 06/14/17 06:00 - Physical Exam Constitutional: no apparent distress, appears nourished Eyes: PERRL, anicteric sclera Ears, Nose, Mouth, Throat: moist mucous membranes, hearing normal Cardiovascular: regular rate and rhythym, no murmur, rub, or gallop Respiratory: no respiratory distress, no rales or rhonchi Gastrointestinal: normoactive bowel sounds, soft, non-tender abdomen, no palpable masses, tenderness Genitourinary: no bladder fullness, No fuentes in urethra Skin: warm, normal color Musculoskeletal: full muscle strength, no muscle tenderness Neurologic: AAOx3 Psychiatric: interacting appropriately ICD10 Worksheet Patient Problems: Problems Problem Status Onset Upper GI bleeding Acute Ascites Acute Back pain Acute Generalized weakness Acute Hepatitis C Acute Liver failure Acute Suicidal ideation Acute
[2017-06-19] MEDS: SENNOSIDES/DOCUSATE SODIUM TAB PO SCH ×2 (11:55→22:00)
--- NOTE | 2017-06-19 16:40 | ASMTCMCOM ---
CM Note CM Note Notes: Spoke with PT who states patient is not willing to work with them at this time because he is in too much pain with his hips and spine. PT did say patient is using a quad cane to get around and his mobility is compromised. Patient is here for a GI bleed and the issues with hips and back are chronic. Patient's options are limited for any kind of rehab program. Pt is going to assess patient for wheelchair tomorrow to see if this is an option for help with mobility. Plan to meet with Dena tomorrow from [facility] to see what resources she has for a mental health placement. CM will follow. Date Signed: 06/19/2017 04:39 PM Electronically Signed By:Yvonne Nelson LCSW
[2017-06-20] MEDS: ACETAMINOPHEN 500 MG TAB PO PRN ×3 (03:14→19:42)
[2017-06-20] MEDS: SENNOSIDES/DOCUSATE SODIUM TAB PO SCH ×2 (10:37→20:06)
[2017-06-20] MEDS: PANTOPRAZOLE SODIUM 40 MG TAB PO SCH ×2 (10:37→19:58)
[2017-06-20] MEDS: CLARITHROMYCIN 500 MG TAB PO SCH ×2 (10:38→19:58)
--- NOTE | 2017-06-20 14:55 | HOSPPROG ---
Hospitalist Progress Note Assessment/Plan: 56 yo M w cirrhosis and duodenal ulcer Acute duodenal ulcer s/p 3 clips and epi. No active bleeding on subsequent angio Protonix BID Acute blood loss anemia: due to above. H/H stable has been relatively stable follow weekly H pylori: triple-therapy x 2 weeks (Day 07/24) Schizoaffective d/o: CM working with his foster care case manager for Mental step down unit Acute hypoxemic resp failure: due IV resuscitation. Stop diuretics on RA h/o DVT/PE: repeat U/S shows unchanged BL common femoral DVTs from 04/2017. clots have been stable and nonocclusive in this patient w cirrhosis, I recommend no further treatment of this DVT unless new sx Compensated cirrhosis: not on diuretics outpatient lactulose Chronic pain: APAP. Will not start opioids Deconditioning: PT. Has not been accepted to many SNFs in past due to medical noncompliance, etc. CM assisting. Hepatitis C: not current treatment candidate Constipation: bowel regimen Hypokalemia: resolved Diet: clears DVT ppx: no AC with acute bleed. SCDs Disp: cont inpatient admission for serial H/H, case management assisting with [place] Res[facility] program vs Mental Health Step-down unit Subjective: disposition plan in progress Objective: Vital Signs Temp Pulse Resp BP Pulse Ox 36.9 C 90 20 137/83 H 96 06/20/17 14:45 06/20/17 14:45 06/20/17 14:45 06/20/17 14:45 06/20/17 14:45 Laboratory Results 06/20/17 04:57 06/20/17 04:57 06/19/17 06/20/17 06/21/17 05:59 05:59 05:59 Intake Total 1840 1050 Output Total 1900 900 Balance -60 150 PT 18.0 SEC (12.0-15.0) H 06/14/17 06:00 INR 1.47 (0.83-1.16) H 06/14/17 06:00 - Physical Exam Constitutional: no apparent distress, appears nourished Eyes: PERRL, anicteric sclera Ears, Nose, Mouth, Throat: moist mucous membranes, hearing normal Cardiovascular: regular rate and rhythym, no murmur, rub, or gallop Respiratory: no respiratory distress, no rales or rhonchi Gastrointestinal: normoactive bowel sounds, soft, non-tender abdomen Genitourinary: no bladder fullness, No fuentes in urethra Skin: warm, normal color Musculoskeletal: full muscle strength Neurologic: AAOx3 ICD10 Worksheet Patient Problems: Problems Problem Status Onset Upper GI bleeding Acute Ascites Acute Back pain Acute Generalized weakness Acute Hepatitis C Acute Liver failure Acute Suicidal ideation Acute
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
[2017-06-21] MEDS: ACETAMINOPHEN 500 MG TAB PO PRN ×2 (04:30→12:40)
[2017-06-21] MEDS: CLARITHROMYCIN 500 MG TAB PO SCH ×2 (08:36→20:56)
[2017-06-21] MEDS: PANTOPRAZOLE SODIUM 40 MG TAB PO SCH ×2 (08:36→20:56)
--- NOTE | 2017-06-21 11:32 | HOSPPROG ---
Hospitalist Progress Note Assessment/Plan: 56 yo M w cirrhosis and duodenal ulcer Acute duodenal ulcer s/p 3 clips and epi. No active bleeding on subsequent angio Protonix BID Acute blood loss anemia: due to above. H/H stable has been relatively stable follow weekly H pylori: triple-therapy x 2 weeks (Day 09/23) Schizoaffective d/o: CM working with his vocational case manager for Mental step down unit Acute hypoxemic resp failure: due IV resuscitation. Stop diuretics on RA h/o DVT/PE: repeat U/S shows unchanged BL common femoral DVTs from 04/2017. clots have been stable and nonocclusive in this patient w cirrhosis, I recommend no further treatment of this DVT unless new sx Compensated cirrhosis: not on diuretics outpatient lactulose Chronic pain: APAP. Will not start opioids Deconditioning: PT. Has not been accepted to many SNFs in past due to medical noncompliance, etc. CM assisting. Hepatitis C: not current treatment candidate Constipation: bowel regimen Hypokalemia: resolved Diet: clears DVT ppx: no AC with acute bleed. SCDs Disp: cont inpatient admission for serial H/H, case management assisting with [facility] vs Mental Health Step-down unit Subjective: asking for neurontin Objective: Vital Signs Temp Pulse Resp BP Pulse Ox 36.8 C 92 16 132/94 H 95 06/20/17 23:14 06/20/17 23:14 06/20/17 23:14 06/20/17 23:14 06/20/17 23:14 Laboratory Results 06/20/17 04:57 06/20/17 04:57 06/20/17 06/21/17 06/22/17 05:59 05:59 05:59 Intake Total 1050 900 Output Total 900 653 Balance 150 247 PT 18.0 SEC (12.0-15.0) H 06/14/17 06:00 INR 1.47 (0.83-1.16) H 06/14/17 06:00 - Physical Exam Constitutional: no apparent distress, appears nourished, chronically ill appearing Eyes: PERRL, anicteric sclera Ears, Nose, Mouth, Throat: moist mucous membranes, hearing normal Cardiovascular: regular rate and rhythym, no murmur, rub, or gallop Respiratory: no respiratory distress, no rales or rhonchi Gastrointestinal: normoactive bowel sounds, soft, non-tender abdomen Genitourinary: no bladder fullness, No fuentes in urethra Skin: warm, normal color Musculoskeletal: full muscle strength Neurologic: AAOx3 Psychiatric: interacting appropriately Lymph, Heme, Immunologic: no cervical LAD ICD10 Worksheet Patient Problems: Problems Problem Status Onset Upper GI bleeding Acute Ascites Acute Back pain Acute Generalized weakness Acute Hepatitis C Acute Liver failure Acute Suicidal ideation Acute
[2017-06-21] MEDS: SENNOSIDES/DOCUSATE SODIUM TAB PO SCH ×2 (12:36→22:16)
[2017-06-21] MEDS: GABAPENTIN 300 MG CAP PO PRN ×2 (14:42→22:54)
--- NOTE | 2017-06-21 17:10 | ASMTCMCOM ---
CM Note CM Note Notes: Today Her[place]thr called many resources in the community for assistance in trying to place Pt. First, while patient is eligible to go to a mental health Crisis Stabilization Unit (CSU) per Anne at [facility], patient informed SWer today that he does not want to go to a mental health medication stabilization unit. Last possible placement possibility that will not take months that Pt. is willing to try is [facility]'s respite program. Herberthr called many people at [facility] and could not reach anyone with the [facility] respite program. Given numerous bad phone numbers by main line staff and CIS staff at [facility]. Called DANIELE Hilliard in the [facility] clinic who sees Pt. for his care. Arminda was able to find out that the soonest Pt. could get into [facility]'s respite program would be Monday06/24/17. Arminda and Mary Ann could not figure out how to bridge the days between a d/c this evening to the [facility] bed and entering [facility] on 06/24. Discussed with CM Sponge Buffer. PLAN: Tomorrow will try to make the plan happen for d/c to [facility] bed with plans to enter the [facility] respite program on 06/24. Note: Bedside RN states that Pt. making vague comments about suicidality based on what his d/c plan is. No imminent suicidality at this time. Date Signed: 06/21/2017 05:09 PM Electronically Signed By:Cathryn Durant LCSW
[2017-06-22] MEDS: ACETAMINOPHEN 500 MG TAB PO PRN ×2 (01:31→09:37)
[2017-06-22] MEDS: GABAPENTIN 300 MG CAP PO PRN ×3 (05:04→16:25)
[2017-06-22 07:50] VITALS: BP 134/85
[2017-06-22] MEDS: PANTOPRAZOLE SODIUM 40 MG TAB PO SCH (09:38)
[2017-06-22] MEDS: CLARITHROMYCIN 500 MG TAB PO SCH (09:39)
[2017-06-22] MEDS: SENNOSIDES/DOCUSATE SODIUM TAB PO SCH (09:44)
--- NOTE | 2017-06-22 14:36 | HOSPPROG ---
Hospitalist Progress Note Assessment/Plan: 56 yo M w cirrhosis and duodenal ulcer Acute duodenal ulcer s/p 3 clips and epi. No active bleeding on subsequent angio Protonix BID Acute blood loss anemia: due to above. H/H stable has been relatively stable follow weekly H pylori: triple-therapy x 2 weeks (Day 11/24) Schizoaffective d/o: CM working with his counseling case manager for Mental step down unit Acute hypoxemic resp failure: due IV resuscitation. Stop diuretics on RA h/o DVT/PE: repeat U/S shows unchanged BL common femoral DVTs from 04/2017. clots have been stable and nonocclusive in this patient w cirrhosis, I recommend no further treatment of this DVT unless new sx Compensated cirrhosis: not on diuretics outpatient lactulose Chronic pain: APAP. Will not start opioids Deconditioning: PT. Has not been accepted to many SNFs in past due to medical noncompliance, etc. CM assisting. Hepatitis C: not current treatment candidate Constipation: bowel regimen Hypokalemia: resolved Diet: clears DVT ppx: no AC with acute bleed. SCDs Disp: dc today > 30 minutes see dc summary Subjective: heroic effort from case management has failed to reveal a placement option beyond secured bed at [facility] Objective: Vital Signs Temp Pulse Resp BP Pulse Ox 37.1 C 101 H 20 134/85 H 92 06/21/17 22:22 06/22/17 07:49 06/22/17 07:49 06/22/17 07:49 06/22/17 07:49 Laboratory Results 06/20/17 04:57 06/20/17 04:57 06/21/17 06/22/17 06/23/17 05:59 05:59 05:59 Intake Total 900 500 Output Total 653 1150 400 Balance 247 -650 -400 PT 18.0 SEC (12.0-15.0) H 06/14/17 06:00 INR 1.47 (0.83-1.16) H 06/14/17 06:00 - Physical Exam Constitutional: no apparent distress, appears nourished Eyes: PERRL, anicteric sclera Ears, Nose, Mouth, Throat: moist mucous membranes, hearing normal Cardiovascular: regular rate and rhythym, no murmur, rub, or gallop Respiratory: no respiratory distress, no rales or rhonchi Gastrointestinal: normoactive bowel sounds Genitourinary: no bladder fullness, No fuentes in urethra Skin: warm, normal color Musculoskeletal: full muscle strength, no muscle tenderness Neurologic: AAOx3 ICD10 Worksheet Patient Problems: Problems Problem Status Onset Upper GI bleeding Acute Ascites Acute Back pain Acute Generalized weakness Acute Hepatitis C Acute Liver failure Acute Suicidal ideation Acute
--- NOTE | 2017-06-22 16:58 | GDS ---
[f rep st] DISCHARGE SUMMARY DISCHARGE DIAGNOSES: 1. Upper gastrointestinal bleed secondary to duodenal ulcer with active bleeding. 2. History of alcohol abuse with last drink apparently February 2017. 3. Hepatitis C. 4. Enteritis, liver disease and cirrhosis with ascites. 5. Schizoaffective disorder. 6. Chronic homelessness. HOSPITAL COURSE: Please see admission history and physical by Dr. Josie Nunez. Patient presented with hematemesis. He underwent EGD which demonstrated an ulcer. Local control was not possible but by the time he went to IR, there was no evidence of extravasation. He was positive for H pylori and was treated. The patient's hospital stay was prolonged by his homelessness. Apparently, he has had issues at [facility] in the past, and so none of them were able to accept him. Case Management and Discharge Planning put in a heroic effort trying to find placement, but unfortuna tely, nothing was able to be secured beyond 3 secure days at [facility], which was obta ined today. His discharge medications include Neurontin, clarithromycin, Augmentin, and proton pump inhibitor. T he patient had no evidence of ongoing bleeding. The patient has a history of a nonocclusive DVT on some prior admissions. Ultrasound showed that it was unchanged. Given his recent bleed and poor outpatient followup, he was felt to be unsafe for ant icoagulation. The initial timing of the DVT is unclear. /[id number]/MODL
--- NOTE | 2017-06-22 19:19 | ASMTCMCOM ---
CM Note CM Note Notes: Today Pt. d/c'ed to the [facility] bed. Transported in a cab voucher. SWer could not verify that [facility] would have a respite bed available for Pt. Not able to speak with any [facility] respite staff. As a result, made a plan with CM Talent Development Coordinator and Pt. to try to make progress for Pt. , RN, PT, and SWer met w/ Pt. in the room to confirm his d/c plan. Pt. amenable. 1) Pt. to d/c to [facility] bed - left a message for [facility] that Pt. would be coming and that he would be staying several nights with CM Talent Development Coordinator calling to reserve bed each night. Pt. will have a [facility] bed for night, Monday night, Monday night, and Monday night. 2) During this time, Pt. will attempt to go to [facility]'s Crisis Intake at [address] [place] [address] in [place] on Friday 06/23 and Monday 06/26 to try to get into the [facility] respite program. The [facility] respite program could help Pt. recuperate for two weeks or so. Cab vouchers given for transport. 3) Pt. has an appointment with Monty at [facility] for Monday 06/26 at 10:00 to begin the reinstatement process of his SSI benefit. With his active income benefit he will be eligible for more housing programs. 4) Pt. has an appointment with his PCP Harriet Martinez at the [facility] at [address] on Wednesday 07/05 at 9:05 am. Pt. given cab vouchers for transport to the above appointments - both to the appt. and the return. Pt. given some clothing donations. Pt. got d/c medications from [employer] delivered to his room. Pt. declined donated zach cane due to the awkwardness of using it. Date Signed: 06/22/2017 07:19 PM Electronically Signed By:Cathryn Durant LCSW
== END 2017-06-22 16:48 | disposition home or self-care (01) | DRG 241 ==
LOC: EDBD → EDUNIT# → F2N 18:36 → F3E 06-16 13:50
PROVIDERS: ADMIT Hospitalist; ATTEND Hospitalist
PROC: 30233R1 Transfusion of Nonautologous Platelets into Peripheral Vein, Percutaneous Approach (ICD-10-PCS; 2017-06-13)
PROC: 30233N1 Transfusion of Nonautologous Red Blood Cells into Peripheral Vein, Percutaneous Approach (ICD-10-PCS; 2017-06-13)
PROC: 30233L1 Transfusion of Nonautologous Fresh Plasma into Peripheral Vein, Percutaneous Approach (ICD-10-PCS; 2017-06-13)
PROC: 0W3P8ZZ Control Bleeding in Gastrointestinal Tract, Via Natural or Artificial Opening Endoscopic (ICD-10-PCS; principal; 2017-06-13 19:30)
PROC: 5A1935Z Respiratory Ventilation, Less than 24 Consecutive Hours (ICD-10-PCS; principal; 2017-06-13 19:30)
DX: K26.4 Chronic or unspecified duodenal ulcer with hemorrhage (principal); K74.60 Unspecified cirrhosis of liver; F25.9 Schizoaffective disorder, unspecified; D62 Acute posthemorrhagic anemia; B19.20 Unspecified viral hepatitis C without hepatic coma; K52.9 Noninfective gastroenteritis and colitis, unspecified; B96.81 Helicobacter pylori [H. pylori] as the cause of diseases classified elsewhere; K59.00 Constipation, unspecified; G89.29 Other chronic pain; Z59.0 Homelessness; Z86.711 Personal history of pulmonary embolism; Z86.718 Personal history of other venous thrombosis and embolism; Z72.0 Tobacco use
CPT/HCPCS: 82947-QW; 92610-GN; 96374; 97116-GP; 97162-GP; 97166-GO; 97530-GO; 97530-GP; 97535-GO; C1769; G0480; J0171; J0696; J1940; J2250; J2270; J2354; J2370; J2405; J2704; J3010; J3430; J3475; J3480; P9016; P9017; P9035

== ENCOUNTER 2017-06-24 08:57 | Emergency (ER) | payer MEDICAID ==
--- NOTE | 2017-06-24 09:17 | EDPHY ---
H & P Smoking Status: Heavy smoker Time Seen by Provider: 06/24/17 09:16 HPI/ROS: CHIEF COMPLAINT: "I am always in a lot of pain" HISTORY OF PRESENT ILLNESS: This 56-year-old man has schizoaffective disorder and chronic pain and was last admitted earlier in June for hematemesis. He presents today stating that he is in chronic pain and wants pain medication for his low back. He also says he has suicidal ideation but no plan and no recent action including no overdose or self injury. REVIEW OF SYSTEMS: Eye: no change in vision ENT: no sore throat Cardiac: no chest pain shortness of breath Pulmonary: No hemoptysis Abdomen: No vomiting or abdominal pain, no melena. Musculoskeletal: Chronic back pain, unchanged Skin: no rash Neuro: no headache the or weakness or numbness in extremities Constitutional: no fever : no urinary symptoms A comprehensive 10 point review of systems is otherwise negative aside from elements mentioned in the history of present illness. PAST MEDICAL HISTORY: History and physical dated 06/13/2017 personally reviewed includes alcoholism, hepatitis-C, cirrhosis, schizoaffective disorder, hypertension, chronic low back pain, venous thromboembolism. History of a nephrectomy. Social history: Last alcohol in February 2017 General Appearance: Alert and conversant, cooperative. Eyes: No scleral icterus. ENT, Mouth: Normal mucous membranes. Respiratory: Normal respiratory effort, breath sounds equal, lungs are clear to auscultation. Cardiovascular: Regular rate and rhythm. Gastrointestinal: Abdomen is soft and non tender. Neurological: Alert, face symmetric, normal motor and sensory in extremities. Ambulatory with a cane. Specifically has normal motor and sensory in both lower extremities, no clonus. Skin: Warm and dry, no rashes. Musculoskeletal: No peripheral edema. Psychiatric: Patient says he is suicidal but says he will not hurt himself. He says he did not overdose. Emergency Department course/MDM: Patient presents with demand for pain medication for a chronically painful condition, he will be referred for that. He does not have signs or symptoms of recurrent hematemesis. He has suicidal ideation without a plan will be evaluated by [facility]. 1442: Oral Tylenol 650 mg, pain medication requested by mental health morgue attendant. 1515: signed out to Naa with [facility] evaluation in progress. (Refugio Maradiaga) Constitutional: Initial Vital Signs Temperature (C) 36.8 C 06/24/17 09:06 Heart Rate 121 H 06/24/17 09:06 Respiratory Rate 16 06/24/17 09:06 Blood Pressure 116/85 H 06/24/17 09:06 O2 Sat (%) 92 06/24/17 09:06 O2 Delivery Mode Room Air Allergies/Adverse Reactions: No Known Allergies Allergy (Verified 06/24/17 09:04) Home Medications: Medication Instructions Recorded Amoxicillin Trihydrate [Amoxil] 1,000 mg PO BID #10 cap 06/22/17 Clarithromycin [Biaxin (*)] 500 mg PO BID #10 tab 06/22/17 Gabapentin [Neurontin 300 MG (*)] 600 mg PO QID PRN #120 cap 06/22/17 Pantoprazole Sodium [Protonix 40mg 40 mg PO BID #60 tab 06/22/17 (*)] Medical Decision Making ED Course/Re-evaluation: I took over care of this patient at 3:00 p.m.. This patient is currently being evaluated by [facility]. The patient has a history of schizoaffective disorder. Expected disposition is discharged to home. The patient currently is not on a psychiatric hold. 4:40 p.m., the patient has been evaluated by [facility]. They are very familiar with him. They have been working with him for some time now. They feel he is appropriate for discharge and does not warrant inpatient treatment. They provided him with necessary follow-up and resources. He feels comfortable being discharged from the emergency department. Customary return to emergency department precautions reviewed with him. He was discharged in good condition. (Mini Rodriguez) - Data Points Laboratory Results: Laboratory Results 06/24/17 09:30 06/24/17 09:30 06/24/17 06/24/17 06/24/17 11:30 09:30 09:30 WBC 7.77 10^3/uL 10^3/uL (3.80-9.50) RBC 3.40 10^6/uL L 10^6/uL (4.40-6.38) Hgb 11.5 g/dL L g/dL (13.7-17.5) Hct 34.8 % L % (40.0-51.0) MCV 102.4 fL H fL (81.5-99.8) MCH 33.8 pg pg (27.9-34.1) MCHC 33.0 g/dL g/dL (32.4-36.7) RDW 17.7 % H % (11.5-15.2) Plt Count 324 10^3/uL 10^3/uL (150-400) MPV 8.4 fL L fL (8.7-11.7) Neut % (Auto) 69.2 % % (39.3-74.2) Lymph % (Auto) 19.8 % % (15.0-45.0) [place] % (Auto) 7.3 % % (4.5-13.0) Eos % (Auto) 0.5 % L % (0.6-7.6) Baso % (Auto) 0.8 % % (0.3-1.7) Nucleat RBC Rel Count 0.0 % % (0.0-0.2) Absolute Neuts (auto) 5.37 10^3/uL 10^3/uL (1.70-6.50) Absolute Lymphs (auto) 1.54 10^3/uL 10^3/uL (1.00-3.00) Absolute Monos (auto) 0.57 10^3/uL 10^3/uL (0.30-0.80) Absolute Eos (auto) 0.04 10^3/uL 10^3/uL (0.03-0.40) Absolute Basos (auto) 0.06 10^3/uL 10^3/uL (0.02-0.10) Absolute Nucleated RBC 0.00 10^3/uL 10^3/uL (0-0.01) Immature Gran % 2.4 % H % (0.0-1.1) Immature Gran # 0.19 10^3/uL H 10^3/uL (0.00-0.10) Turbidity TNP Sodium 141 mEq/L mEq/L (135-145) Potassium 4.3 mEq/L mEq/L (3.5-5.2) Chloride 104 mEq/L mEq/L (97-110) Carbon Dioxide 26 mEq/l mEq/l (22-31) Anion Gap 11 mEq/L mEq/L (8-16) BUN 14 mg/dL mg/dL (7-23) Creatinine 0.7 mg/dL mg/dL (0.7-1.3) Estimated GFR > 60 Glucose 116 mg/dL H mg/dL (70-100) Calcium 9.4 mg/dL mg/dL (8.5-10.4) Icterus Index TNP Specimen Hemolysis TNP Salicylates < 1.0 mg/dL L mg/dL (2.0-20.0) Urine Opiates Screen NEGATIVE (NEGATIVE) Acetaminophen < 10 mcg/mL L mcg/mL (10-30) Urine Barbiturates NEGATIVE (NEGATIVE) Ur Phencyclidine Scrn NEGATIVE (NEGATIVE) Ur Amphetamine Screen NEGATIVE (NEGATIVE) U Benzodiazepines Scrn NEGATIVE (NEGATIVE) Urine Cocaine Screen NEGATIVE (NEGATIVE) U Marijuana (THC) Screen NEGATIVE (NEGATIVE) Ethyl Alcohol < 10 mg/dL mg/dL (0-10) Medications Given: Discontinued Medications Acetaminophen (Tylenol) 650 mg PO EDNOW ONE Stop: 06/24/17 14:42 Last Admin: 06/24/17 14:51 Dose: 650 mg Ibuprofen (Motrin) 600 mg PO EDNOW ONE Stop: 06/24/17 14:42 Last Admin: 06/24/17 14:53 Dose: Not Given Departure - Departure Disposition: Home, Routine, Self-Care Clinical Impression: Back pain Qualifiers: Back pain location: low back pain Chronicity: chronic Back pain laterality: bilateral Sciatica presence: without sciatica Qualified Code(s): M54.5 - Low back pain Schizoaffective disorder Qualifiers: Schizoaffective disorder type: unspecified Qualified Code(s): F25.9 - Schizoaffective disorder, unspecified Condition: Good Instructions: Schizoaffective Disorder (ED), Chronic Back Pain (ED) Additional Instructions: Read and follow provided instructions. Follow-up with your primary care physician early next week as well as [facility] for re-evaluation and further management. Take your medication as prescribed. Return to the emergency department for worsening symptoms or other serious concerns. Referrals: [facility],. [Clinic] - As per Instructions [facility] [[facility] - As per Instructions
[2017-06-24 09:39] LABS: PLATELET COUNT 324 10^3/uL (150-400)
[2017-06-24] MEDS ORDERED: ACETAMINOPHEN 325 MG TAB PO ONE (14:41)
[2017-06-24] MEDS ORDERED: IBUPROFEN 600 MG TAB PO ONE (14:41)
[2017-06-24 17:09] VITALS: BP 117/77
--- NOTE | 2017-06-24 17:40 | ASDISCHSUM ---
Discharge Information Plan Status:Homeless/Nursing Home Medically Cleared to Leave:06/24/2017 Discharge Date:06/24/2017 05:10 PM CM D/C Disposition:Streets (Homeless) ADT D/C Disposition:Home, Routine, Self-Care Projected Discharge Date:06/24/2017 05:10 PM Transportation at D/C:Bus Ticket Discharge Delay Reason: Follow-Up Date:06/24/2017 05:10 PM Discharge Slot:2 - 12:01 pm - 18:00 pm Final Diagnosis:Back pain Placement Information Patient Contact Information Contact Name:TATIANAROLAND Relationship: Address: Home Phone: Work Phone: City: Alternate Phone: State/Zip Code: Email: Financial Information Financial Class:Medicaid Primary Plan Desc:MEDICAID HEALTH FIRST BODY TRIMMER UPHOLSTERER Primary Plan Number:[id number] Secondary Plan Desc: Secondary Plan Number: Assessment Information [facility] CM Progress Note CM Note CM Note Notes: Asked to see pt by Dr. Maradiaga regarding homelessness and plan for discharge. Met with Lai, [facility] cafe worker here to see pt for evaluation of suicidal ideation. Per Lai, pt continues to have malingering thoughts of suicide related to his homelessness and pain. Lai attempted to place pt with [facility] ([facility]) respite program without success. Pt does not qualify for program, given his current difficulty ambulating, his inability to do stairs and his lack of desire to reintegrate back into the community (by working to improve his current situation). Per Lai, the current respite program is located on the second floor/story of the building. "There is no handicap access and there is not staff to assist the pt up and down the stairs." "There is also not staff to help the pt with his ADLs." "The pt has previously stayed at [facility] and it was unsuccessful." Per Lai, the pt does not qualify for mental health inpt hospitalization at this time, as his suicide thoughts are chronic in nature. Reviewed chart and CM notes regarding plan of care following discharge from the hospital on 06/22/17. Pt had a care conference prior to discharge - several points were outlined with the pt regarding the follow up plan. The pt was to stay about the [facility] 06/22- 06/25, in the hospital's respite bed. The pt reports staying at the Nursing Home . He says he fell out of bed in the middle of the night and the staff had to help him get up. On 06/23 when he returned to the Nursing Home, he was told he needed a current TB card and was turned away. He was provided a bus pass by the Nursing Home and was sent to the [facility] (where he is open and current for services). The pt presented to the Emergency Department today after being turned away at the [facility] respite program (where he was told there were no beds available). Calls placed to Sia Isidro, Watch Assembly Instructor of and Santa Carrera, Director of . Updates provided. Both in agreement pt should return to [facility] tonight and through the weekend. The pt should follow up with [facility] or the Nursing Home on Monday06/26/17 for a TB screening. Santa to contact [facility] management and the director of content and programming this weekend. CM will continue to look at resources for pt on Monday. Update provided to pt. Pt angry about having to stay at [facility] and refusing to follow up with [facility] on Monday. Pt demanding a walker and placement in a superintendent marine oil terminal care facility. Limitations explained, pt did not verbalize understanding. Bus pass provided. Discharge instructions and follow up appointment information provided (see below). CM available for any further issues or concerns. Pt has an appointment with Monty at [facility] for Monday 06/26 at 10:00 to begin the reinstatement process of his SSI benefit. With his active income benefit he will be eligible for more housing programs. Pt has an appointment with his PCP Harriet Martinez at the [facility] at [address] on Wednesday 07/05 at 9:05 am. Date Signed: 06/24/2017 05:36 PM Electronically Signed By:Romi Lee RN Intervention Information Intervention Type:Bus Pass Date of Service:06/24/2017 05:07 PM Patient Type:Emergency Room Staff Member:DANIELE Lee Taylor Hours:0.25 Discipline: Severity: Comment:Pt provided a bus pass [facility] transfer to [facility]. Intervention Type:Community Resources Date of Service:06/24/2017 05:07 PM Patient Type:Emergency Room Staff Member:DANIELE Lee Taylor Hours:0.25 Discipline: Severity: Comment:See CM note. Pt scheduled for several appointments next week for follow up. Intervention Type:Crisis Intervention Date of Service:06/24/2017 05:08 PM Patient Type:Emergency Room Staff Member:DANIELE Lee Taylor Hours:2.5 Discipline: Severity: Comment:[facility] and CM consulted to determine best discharge plan for pt.
== END 2017-06-24 17:10 | disposition home or self-care (01) ==
DX: M54.5 Low back pain (principal); F25.9 Schizoaffective disorder, unspecified; I10 Essential (primary) hypertension; F17.200 Nicotine dependence, unspecified, uncomplicated
CPT/HCPCS: 80305; G0480

== ENCOUNTER 2017-06-29 08:00 | Emergency (ER) | payer MEDICAID ==
[2017-06-29 08:15] VITALS: BP 125/85
[2017-06-29 09:02] LABS: PLATELET COUNT 391 10^3/uL (150-400)
--- NOTE | 2017-06-29 09:42 | EDPHY ---
H & P Stated Complaint: SUICIDAL IDEATION Time Seen by Provider: 06/29/17 09:14 HPI/ROS: CHIEF COMPLAINT: "Let me sleep" HISTORY OF PRESENT ILLNESS: 56-year-old male with history significant for hepatitis-C, schizoaffective disorder, chronic pain, chronic homelessness, took a names from the [facility] senior care complaining of suicidal ideation. When I interview him he states that he would like to sleep and that his plan for suicide is to jump in front of traffic. He denies attempted self-injurious behavior. The PRIMARY CARE PROVIDER: REVIEW OF SYSTEMS: A ten point review of systems was performed and is negative with the exception of the items mentioned in the HPI PAST MEDICAL & SURGICAL HISTORY: Schizoaffective disorder, hepatitis-C, cirrhosis, history of alcohol abuse, upper GI bleed, anemia SOCIAL HISTORY:Denies acute alcohol use. Homeless. PHYSICAL EXAM (Prior to examination, patient consented to physical exam, hands were washed and my usual and customary physical exam procedures followed) 1) GENERAL: Sleeping, easily woken, curses at me when I turn on the lights, alert and oriented. Appears to be in no acute distress. 2) HEAD: Normocephalic, atraumatic 3) HEENT: Pupils equal, round, reactive to light bilaterally. Sclera anicteric. 4) NECK: Full range of motion, no meningeal signs. 5) LUNGS: Clear auscultation bilaterally, no wheezes, no rhonchi, no retractions. 6) HEART: Regular rate and rhythm, no murmur, no heave, no gallop. 7) ABDOMEN: No guarding, no rebound, no focal tenderness, negative McBurney's, negative Leyva's, negative Rovsing's, negative peritoneal sign, 8) MUSCULOSKELETAL: No peripheral edema or discoloration. 9) BACK: No visual or palpable abnormality. 10) SKIN: No rash, no petechiae. 11) Psychiatric: Patient is oriented X 3, there is no agitation. DIFFERENTIAL DIAGNOSIS: In no particular order including but limited to malingering, suicidal ideation, homicidal ideation, depression - Medical/Surgical History Hx Asthma: No Hx Chronic Respiratory Disease: No Hx Diabetes: No Hx Cardiac Disease: No Hx Renal Disease: No Hx Cirrhosis: No Hx Alcoholism: Yes Hx HIV/AIDS: No Hx Splenectomy or Spleen Trauma: No Other PMH: Alcoholism, hepatitis-C, nephrectomy, chronic back pain, trouble eating. - Social History Smoking Status: Heavy smoker Constitutional: Initial Vital Signs Temperature (C) 37 C 06/29/17 08:12 Heart Rate 105 H 06/29/17 08:12 Respiratory Rate 16 06/29/17 08:12 Blood Pressure 125/85 H 06/29/17 08:12 O2 Sat (%) 96 06/29/17 08:12 O2 Delivery Mode Room Air Allergies/Adverse Reactions: No Known Allergies Allergy (Verified 06/24/17 09:04) Home Medications: Medication Instructions Recorded Amoxicillin Trihydrate [Amoxil] 1,000 mg PO BID #10 cap 06/22/17 Clarithromycin [Biaxin (*)] 500 mg PO BID #10 tab 06/22/17 Gabapentin [Neurontin 300 MG (*)] 600 mg PO QID PRN #120 cap 06/22/17 Pantoprazole Sodium [Protonix 40mg 40 mg PO BID #60 tab 06/22/17 (*)] Medical Decision Making ED Course/Re-evaluation: 9:41 a.m.: This patient was in the emergency department 4 days ago for similar complaints. Reviewed the ER records and the case management reports including consultation at [facility] at that time. Patient is in the ER voluntarily at this time and requests to sleep. He does endorse suicidal ideation. Will consult with mental health retail greeter and re-evaluate. Malingering behavior considered in this patient. Care of patient under supervision of secondary supervising physician Dr Rodriguez . 4:06 p.m.: Patient was seen by mental health retail greeter. At this time I was informed by mental health retail greeter that the patient has not meet criteria for an M1 hold. Suspect malingering behavior. He has been given resources in the community for follow-up. seed sales manager has arranged for a rolling walker. - Data Points Laboratory Results: Laboratory Results 06/29/17 08:50 06/29/17 08:50 06/29/17 06/29/17 06/29/17 12:10 08:50 08:50 WBC 5.12 10^3/uL 10^3/uL (3.80-9.50) RBC 3.11 10^6/uL L 10^6/uL (4.40-6.38) Hgb 10.6 g/dL L g/dL (13.7-17.5) Hct 31.3 % L % (40.0-51.0) MCV 100.6 fL H fL (81.5-99.8) MCH 34.1 pg pg (27.9-34.1) MCHC 33.9 g/dL g/dL (32.4-36.7) RDW 17.7 % H % (11.5-15.2) Plt Count 391 10^3/uL 10^3/uL (150-400) MPV 8.1 fL L fL (8.7-11.7) Neut % (Auto) 66.7 % % (39.3-74.2) Lymph % (Auto) 22.5 % % (15.0-45.0) Jennings % (Auto) 7.2 % % (4.5-13.0) Eos % (Auto) 1.2 % % (0.6-7.6) Baso % (Auto) 1.0 % % (0.3-1.7) Nucleat RBC Rel Count 0.0 % % (0.0-0.2) Absolute Neuts (auto) 3.42 10^3/uL 10^3/uL (1.70-6.50) Absolute Lymphs (auto) 1.15 10^3/uL 10^3/uL (1.00-3.00) Absolute Monos (auto) 0.37 10^3/uL 10^3/uL (0.30-0.80) Absolute Eos (auto) 0.06 10^3/uL 10^3/uL (0.03-0.40) Absolute Basos (auto) 0.05 10^3/uL 10^3/uL (0.02-0.10) Absolute Nucleated RBC 0.00 10^3/uL 10^3/uL (0-0.01) Immature Gran % 1.4 % H % (0.0-1.1) Immature Gran # 0.07 10^3/uL 10^3/uL (0.00-0.10) Sodium 138 mEq/L mEq/L (135-145) Potassium 4.0 mEq/L mEq/L (3.5-5.2) Chloride 107 mEq/L mEq/L (97-110) Carbon Dioxide 19 mEq/l L mEq/l (22-31) Anion Gap 12 mEq/L mEq/L (8-16) BUN 11 mg/dL mg/dL (7-23) Creatinine 0.6 mg/dL L mg/dL (0.7-1.3) Estimated GFR > 60 Glucose 76 mg/dL mg/dL (70-100) Calcium 8.4 mg/dL L mg/dL (8.5-10.4) Urine Opiates Screen NEGATIVE (NEGATIVE) Urine Barbiturates NEGATIVE (NEGATIVE) Ur Phencyclidine Scrn NEGATIVE (NEGATIVE) Ur Amphetamine Screen NEGATIVE (NEGATIVE) U Benzodiazepines Scrn NEGATIVE (NEGATIVE) Urine Cocaine Screen NEGATIVE (NEGATIVE) U Marijuana (THC) Screen NON-NEGATIVE H (NEGATIVE) Ethyl Alcohol < 10 mg/dL mg/dL (0-10) Departure - Departure Disposition: Home, Routine, Self-Care Clinical Impression: Depression Qualifiers: Depression Type: other depression Qualified Code(s): F32.89 - Other specified depressive episodes Condition: Good Instructions: Depression (ED) [facility]errals: [facility] [Clinic] - 1 day without fail
--- NOTE | 2017-06-29 18:31 | ASMTCMCOM ---
CM Note CM Note Notes: Pt presented to the Emergency Department with pain and suicidal ideation secondary to homelessness and pain. Pt well know to [facility]. See prior CM notes. Spoke with Nafisa RN, Santa Carrera, Director of CM and Sia Isidro, [employer] Developer of regarding discharge plan. Pt to return to [facility]. Pt provided with new shoes, socks, pants, and underwear. Pt also provided breakfast, lunch and dinner. During pt's prior visit on Monday06/24/17, pt requested a front wheel walker due to difficulty with ambulation. CM obtained a front wheel walker with seat and storage compartment for pt. Met with pt to discuss current situation. Pt states he did not follow up with Monty at the [facility] on Monday06/26/17 at 10:00 as previously arranged by CM. Pt also denies going to the [facility] or the [facility] for a TB screening as previously suggested. Pt states he doesn't "give a damn about the [facility] and won't go back." The pt says he will take care of the the SSI information with his counselor at the [facility]. Reminded pt of his appointment with his PCP, Harriet Martinez at the [facility] on [address], this coming week Monday07/05/17 at 9:05. Pt states he is aware and is planning to go. Spoke with La, administrator social welfare with [facility] (P). La contracted with pt on a plan for the next few days: Attend the [facility] for dinner this evening at [facility] - [address] [facility] Go to [facility] and [address] Pt to talk to case mgr and April Rosales at [facility] in the morning Monday06/30/17 Follow up appointment at [facility] Monday07/05/17 at 9:05 am Enroll for services with [facility] to get a psychiatrist Pt to get SSDI reinstated so that he has funding for housing. Pt to follow up according to a Safety Crisis Coping Plan - in an emergency, call 521. Call P for help or support at anytime . Call [facility] Line . Go to [facility] Crisis Walk-In clinic at anytime. Pt provided with cab vouchers for [facility] and [facility]. CM available for any further issues or concerns. Date Signed: 06/29/2017 06:30 PM Electronically Signed By:Romi Lee RN
== END 2017-06-29 17:33 | disposition home or self-care (01) ==
LOC: EDUNIT#
DX: F32.89 Other specified depressive episodes (principal); F17.200 Nicotine dependence, unspecified, uncomplicated
CPT/HCPCS: 80305; G0480

== ENCOUNTER 2017-07-03 10:33 | Inpatient (IN) | payer MEDICAID ==
[2017-07-03] MEDS ORDERED: ONDANSETRON 4 MG/2 ML VIAL IVP ONE (10:37)
[2017-07-03] MEDS ORDERED: NS 1,000 ML IV ONE ×3 (10:37→12:35)
--- NOTE | 2017-07-03 10:37 | EDPHY ---
H & P - Medical/Surgical History Hx Asthma: No Hx Chronic Respiratory Disease: No Hx Diabetes: No Hx Cardiac Disease: No Hx Renal Disease: No Hx Cirrhosis: No Hx Alcoholism: Yes Hx HIV/AIDS: No Hx Splenectomy or Spleen Trauma: No Other PMH: Alcoholism, hepatitis-C, nephrectomy, chronic back pain, trouble eating. - Social History Smoking Status: Heavy smoker Time Seen by Provider: 07/03/17 10:33 HPI/ROS: CHIEF COMPLAINT: Intractable vomiting, abdominal pain HISTORY OF PRESENT ILLNESS: [56-year-old homeless male arrives via ambulance from from a correction complaining of intractable vomiting for the past 3 days. Not described is grossly bloody. He is also complaining of intractable abdominal pain and diarrhea not described as hematochezia. No chest pain. No dyspnea. No back or flank pain. Patient has a history of cirrhosis from hepatitis C, has been sober from alcohol since February 2017. He was previously on warfarin for history of PE and DVT however this has stopped since 06/22/2017 at hospital discharge after ultrasound showed an unchanged nonocclusive DVT and he was felt to be unsafe for anticoagulation. REVIEW OF SYSTEMS: A ten point review of systems was performed and is negative with the exception of the items mentioned in the HPI PAST MEDICAL & SURGICAL HISTORY: Schizoaffective disorder. Upper GI bleed. Hepatitis-C. SOCIAL HISTORY: Sober from alcohol since February 2017. Homeless. PHYSICAL EXAM (Prior to examination, patient consented to physical exam, hands were washed and my usual and customary physical exam procedures followed) 1) GENERAL: poorly kept, tremulous 2) HEAD: Normocephalic, atraumatic 3) HEENT: Pupils equal, round, reactive to light bilaterally. Sclera anicteric. Nasopharynx, oropharynx, clear, dry mucous membranes. 4) NECK: Full range of motion, no meningeal signs. 5) LUNGS: Clear auscultation bilaterally, no wheezes, no rhonchi, no retractions. 6) HEART: Regular rate and rhythm, no murmur, no heave, no gallop. 7) ABDOMEN: No guarding, tender to palpation periumbilical region, surgical scars noted. 8) MUSCULOSKELETAL: Left hip pain with range of motion. No deformity no angulation no shortening. DP PT pulses present and brisk. Otherwise, no focal areas of tenderness, no obvious trauma. No peripheral edema or discoloration. 9) BACK: No CVA tenderness, no midline vertebral tenderness, no fluctuance, no step-off, no obvious trauma, no visual or palpable abnormality. 10) SKIN: No rash, no petechiae. 11) Psychiatric: Patient is oriented X 3, there is no agitation. 12) RECTAL: Brown stool on glove DIFFERENTIAL DIAGNOSIS: In no particular order including but not limited to upper GI bleed, lower GI bleed, MT, PE (Bennett,Lance Sophia) Constitutional: Initial Vital Signs Temperature (C) 36.8 C 07/03/17 10:37 Heart Rate 162 H 07/03/17 10:37 Respiratory Rate 16 07/03/17 10:37 Blood Pressure 104/76 07/03/17 10:37 O2 Sat (%) 93 07/03/17 10:37 O2 Delivery Mode Room Air O2 (L/minute) 3 Allergies/Adverse Reactions: No Known Allergies Allergy (Verified 06/24/17 09:04) Home Medications: Medication Instructions Recorded Acetaminophen [Tylenol 325mg (*)] 650 mg PO Q6 PRN 07/03/17 Gabapentin [Neurontin 400 MG (*)] 1,200 mg PO BID 07/04/17 Medical Decision Making - Diagnostics EKG Interpretation: An EKG obtained and was read and documented in trace view. Please see trace view for full reading and report. Atrial fibrillation rate of 170 (Eric Abraham) ED Course/Re-evaluation: 10:49 a.m.: Patient greeted on arrival by myself and nursing staff. Old medical records reviewed. Discussed case with Dr Abraham in ER. Patient is tachycardic in the 150s, complaining of abdominal pain. He has noted prior history of upper GI bleed, currently vomiting. No emesis at this time. Will plan on IV hydration, 2nd IV, rectal examination, Protonix, octreotide 11:00 a.m.: Hematocrit of 35 resulted. This is an improvement over prior values. 11:15 a.m.: Patient remains tachycardic. Stool occult blood negative. We discussed possible primary etiology of his tachycardia as AFib with RVR. Will administer diltiazem 10 mg and revaluate. He is complaining continued abdominal pain. Will obtain CT of abdomen for possible ischemic bowel in presence of a fib. 11:40 a.m.: Creatinine is normal 1.0. Does have an elevated BUN to creatinine ratio of 33 consistent with prerenal azotemia. He continues to receive IV hydration. 12:24 a.m.: Consultation with hospitalistPidead, admit to Dr. Jones PCU 12:35 p.m.: I spoke with radiologist regarding his CT abdominal results showing no acute intra-abdominal pathology. He was noted to have a left femoral neck fracture at T11 fracture which appear to be acute. I discussed this with the patient. He states that he has been experiencing left hip pain since June 11. Denies history of trauma. He has been ambulating with a walker ever since as recently as this morning. He does have reproducible left hip pain with range of motion. 12:40 p.m.: Consultation with on-call orthopedics, PA Yancy with Dr Hunt who will consult for orthopedics 12:42 p.m.: Hospitalist, Piedad, has been updated with the imaging findings including T11 fracture and left femoral neck fracture. (Lance Guajarod) I did evaluate the patient and directed critical care of the patient's IV fluids and medication drips. (Eric Abraham) Critical Care Time: Critical care time spent by me, Dr. Abraham exclusive with this patient was 35 minutes, exclusive of the PA time exclusive of procedures. The organ system that was at risk was cardiovascular and I gave medication adjustment, IV fluids and admission to prevent worsening of the patient's condition (Eric Abraham) - Data Points Laboratory Results: Laboratory Results 07/03/17 10:46 07/03/17 10:46 Medications Given: Acetaminophen (Tylenol) 650 mg PO Q4HRS PRN PRN Reason: Pain, Mild/Fever, Can Take PO Stop: 12/30/17 12:51 Last Admin: 07/03/17 19:42 Dose: 650 mg Diltiazem HCl (Cardizem Immediate Release) 30 mg PO Q6HRS LAKSHMI Stop: 12/31/17 08:14 Last Admin: 07/04/17 09:13 Dose: Not Given Sodium Chloride (Ns) 1,000 mls @ 125 mls/hr IV CONT LAKSHMI Stop: 12/30/17 15:44 Last Admin: 07/04/17 02:40 Dose: 1,000 mls Pantoprazole Sodium (Protonix) 40 mg PO BID LAKSHMI Stop: 12/30/17 20:59 Last Admin: 07/04/17 08:10 Dose: 40 mg Discontinued Medications Diltiazem HCl (Cardizem 25 Mg/5 Ml Vial) 10 mg IVP EDNOW ONE Stop: 07/03/17 11:16 Last Admin: 07/03/17 11:20 Dose: 10 mg Sodium Chloride (Ns) 1,000 mls @ 0 mls/hr IV EDNOW ONE; Wide Open PRN Reason: Protocol Stop: 07/03/17 10:38 Last Admin: 07/03/17 10:57 Dose: 1,000 mls Sodium Chloride (Ns) 1,000 mls @ 0 mls/hr IV ONCE ONE PRN Reason: Wide Open Stop: 07/03/17 10:44 Last Admin: 07/03/17 10:57 Dose: 1,000 mls Diltiazem HCl 125 mg/ Dextrose 125 mls @ 0 mls/hr IV EDNOW ONE; As Directed PRN Reason: Protocol Stop: 07/03/17 11:52 Last Admin: 07/03/17 12:10 Dose: 125 mls Sodium Chloride (Ns) 1,000 mls @ 0 mls/hr IV ONCE ONE PRN Reason: Wide Open Stop: 07/03/17 12:36 Last Admin: 07/03/17 12:42 Dose: 1,000 mls Amiodarone HCl (Amiodarone Hcl) 100 mls @ 600 mls/hr IV ONCE ONE Stop: 07/03/17 14:42 Last Admin: 07/03/17 16:06 Dose: Not Given Amiodarone HCl (Amiodarone Hcl) 200 mls @ 33.333 mls/hr IV ONCE ONE Stop: 07/03/17 20:59 Last Admin: 07/03/17 16:06 Dose: Not Given Amiodarone HCl 540 mg/ (Dextrose) 300 mls @ 16.667 mls/hr IV ONCE ONE Stop: 07/04/17 08:31 Last Admin: 07/03/17 16:13 Dose: Not Given Diltiazem HCl 125 mg/ Dextrose 125 mls @ 0 mls/hr IV CONT LAKSHMI; Per Protocol PRN Reason: Protocol Stop: 12/30/17 14:44 Last Admin: 07/04/17 04:37 Dose: 125 mls Ondansetron HCl (Zofran) 4 mg IVP EDNOW ONE Stop: 07/03/17 10:38 Last Admin: 07/03/17 11:15 Dose: 4 mg Pantoprazole Sodium (Protonix) 80 mg IVP EDNOW ONE Stop: 07/03/17 10:45 Last Admin: 07/03/17 11:15 Dose: 80 mg Potassium Chloride (Klor-Con) 40 meq PO ONCE ONE Stop: 07/03/17 15:42 Last Admin: 07/03/17 16:08 Dose: 40 meq Potassium Chloride (Klor-Con) 40 meq PO ONCE ONE Stop: 07/04/17 08:12 Last Admin: 07/04/17 09:11 Dose: Not Given Departure - Departure Disposition: [facility] Acute Clinical Impression: Atrial fibrillation, Hypotension Condition: Fair
[2017-07-03] MEDS ORDERED: PANTOPRAZOLE SODIUM 40 MG VIAL IVP ONE (10:44)
--- NOTE | 2017-07-03 10:48 | CPEKG ---
Heart Rate: 173 RR Interval: 347 QRSD Interval: 66 QT Interval: 276 QTC Interval: 469 QRS Hewitt: 89 T Wave Hewitt: -74 EKG Severity - ABNORMAL ECG - EKG Impression: ATRIAL FIBRILLATION WITH RAPID V-RATE EKG Impression: PAIRED VENTRICULAR PREMATURE COMPLEXES EKG Impression: REPOLARIZATION ABNORMALITY, PROB RATE RELATED Electronically Signed By: Eric Abraham 03-Jul-2017 11:14:01
[2017-07-03 10:55] LABS: PLATELET COUNT 410 10^3/uL (150-400)
[2017-07-03] MEDS ORDERED: OCTREOTIDE ACETATE 500 MCG in NS 50 ML IV SCH (11:00)
[2017-07-03] MEDS ORDERED: DILTIAZEM 25 MG/5 ML VIAL IVP ONE (11:15)
[2017-07-03] MEDS ORDERED: IOPAMIDOL (ISOVUE-300) 100 ML BTL ONE (11:47)
[2017-07-03] MEDS ORDERED: DILTIAZEM 125 MG in D5W 125 ML IV ONE (11:51)
[2017-07-03] MEDS ORDERED: ONDANSETRON 4 MG/2 ML VIAL IVP PRN (12:52)
[2017-07-03] MEDS ORDERED: ONDANSETRON DISINTEGRATING 4 MG TAB PO PRN (12:52)
[2017-07-03] MEDS ORDERED: AMIODARONE HCL 540 MG in D5W 300 ML IV ONE (14:32)
[2017-07-03] MEDS ORDERED: AMIODARONE HCL 100 ML IV ONE (14:33)
[2017-07-03] MEDS ORDERED: AMIODARONE HCL 200 ML IV ONE (15:00)
[2017-07-03] MEDS ORDERED: POTASSIUM CL 20 MEQ TAB PO ONE (15:41)
[2017-07-03] MEDS ORDERED: NS 1,000 ML IV SCH (15:45)
--- NOTE | 2017-07-03 16:15 | GHP ---
[f rep st] HISTORY AND PHYSICAL DATE OF ADMISSION: 07/03/2017 CHIEF COMPLAINT: Diarrhea, vomiting. HISTORY OF PRESENT ILLNESS: A 56-year-old homeless male, recently hospitalized through June 22 with a significant upper GI bleed secondary to duodenal ulcer, who is presenting with intractable vomiting and diarrhea for the past 3 days. He denies any blood or black stools. No hematemesis. Denies any fevers, chills , or sweats. No chest pain or shortness of breath. No pain with urination. He completed a course of triple therapy for H pylori. He had an EGD 06/13, showing grade C reflux and gastritis. He is currently homeless, living on the streets. He has not been eating or drinking very much. In the emergency room, patient was found to be in atrial fibrillation with RVR with heart rates in 170s. The patient denies palpitations or feeling his heart racing. No dizziness or lightheadedness. REVIEW OF SYSTEMS: I completed a 10-point review of systems, negative except as noted in HPI. PAST MEDICAL HISTORY: Alcohol abuse, hepatitis C, cirrhosis, chronic back pain , recent upper GI bleed secondary to duodenal ulcer, grade C reflux, history of PE and DVT but this was stopped 06/22/2017, after ultrasound showed unchanged nonocclusive DVT and is felt to be unsafe for anticoagulation, schizoaffective disorder, marijuana use. PAST SURGICAL HISTORY: Abdominal surgery, nephrectomy. FAMILY HISTORY: Noncontributory. HOME MEDICATIONS: Tylenol. ALLERGIES: None. PHYSICAL EXAM: VITAL SIGNS: Temperature 36.8, blood pressure 99/59, heart rate 120s here on the floor. Respirations 16. 100 on 2 L. GENERAL: He is unkempt, pale, but no acute distress. HEENT: PERRLA. Dry mucous membranes. CARDIOVASCULAR: Tachy, irregularly irregular. No murmurs, gallops, or rubs. No lower extremity edema. LUNGS: Clear anteriorly. ABDOMEN: Soft, nontender , nondistended. Positive bowel sounds. GENITOURINARY: No Gruber or suprapubic tenderness. MUSCULOSKELETAL: Moving all 4 extremities. NEUROLOGIC: 2 through 12 intact. PSYCHIATRIC: Alert and oriented x3. Flat affect. LABS: WBC 5, hemoglobin 12, hematocrit 35, platelets 410, MCV is 100. Sodium 146, potassium 3.3, chloride 93, carbon dioxide 38, anion gap 15, BUN is 33, creatinine is 1 (baseline 0.5), glucose 115, total bilirubin 1.4, conjugated is 1, alkaline phosphatase is 240. Troponin 0.027. Lipase is 43. IMAGING: Hip x-ray, acute subcapital left hip fracture. Abdominal CT: Query gastroenteritis. No perforated ulcer or obstruction. Normal appendix. Cirrhosis. No portal vein thrombosis or ascites. Nondisplaced acute/subacute left femoral neck fracture. Subacute TL compression fracture. Chest x-ray personally reviewed by me, hyperexpanded. No effusion or opacity. EKG is personally reviewed by me. Atrial fibrillation, heart rate 173. ASSESSMENT AND PLAN: 1. Atrial fibrillation with rapid ventricular response: Suspect this is secondary to dehydration with acute gastrointestinal illness. He was started on diltiazem drip. He is transferred to the Progressive Care Unit. We will continue this, as well as intravenous hydration. If this is persistent, will change to amiodarone drip. The patient is not a good anticoagulation candidate , given recent large duodenal ulcer, gastrointestinal bleed. 2. Vomiting/diarrhea. Suspect gastroenteritis. Has been on triple therapy for Helicobacter pylori, so will check a gastrointestinal panel to rule out Clostridium difficile and other infectious causes. 3. Hypokalemia. Replete. 4. Mild acute kidney injury secondary to dehydration and gastrointestinal losses. Will give intravenous fluids. 5. Recent gastrointestinal bleed. Continue proton pump inhibitor. 6. Compensated cirrhosis secondary to hepatitis C. No evidence of ascites or abdominal pain. 7. Schizoaffective disorder. He is not on any medications outpatient. 8. Macrocytic anemia. Hemoglobin and hematocrit are stable from prior. Denies any blood loss. Negative fecal occult blood. 9. Nondisplaced left femoral neck fracture. Dr. Hunt reviewed imaging, and this fracture appears to be chronic. No acute surgical intervention warranted. Recommend bedrest until Physical Therapy evaluates. Toe-touch weightbearing with crutches. Will need to follow up as an outpatient. 10. Subacute T1 compression fracture. Will discuss case with Neurosurgery. 11. Deep venous thrombosis prophylaxis. Sequential compression devices. 12. Diet. Regular. 13. Disposition. Patient warrants inpatient admission, given acute atrial fibrillation, intractable nausea and vomiting warranting intravenous fluids, antiemetics, and intravenous calcium channel alberto. Will monitor in the Progressive Care Unit. Critical care time spent: 50 min evaluating pt, reviewing lab/records and coordinating tx plan in PCU /[id number]/MODL GREGORIO
--- NOTE | 2017-07-03 16:37 | PDMN ---
Medical Necessity Medical necessity: est los>2mn for intractable vomiting and diarrhea x 3 days, and fib w/ RVR with HR 170's, likely r/t dehydration & acute GI illness, hypokalemia, and ARABELLA; admit for IVF, antiemetics, and IV calcium channel alberto , w/monitoring in PCU; comorbid hep C, schizoaffective disorder, etoh abuse, hx recent GIB, PE/DVT; per order and H&P 07/03/17
--- NOTE | 2017-07-03 17:45 | GCON ---
[f rep st] ORTHOPAEDIC CONSULTATION HPI: The patient is a 56-year-old homeless male who arrived via ambulance from a alf today to [facility] for intractable vomiting for the past [address] was ordered of his abdomen which showed a left femoral neck fracture and we have been consulted here today for this incidental finding. The patient is able to respond appropriately to questions and states that he has previously had left hip pain present for the past few months, however, he apparently noted to the ER provider that it has only been about 1 month. He has great difficulty providing reliable history. He denies any recent inciting injury. Per the ER physician who called us earlier, it appears that the last time he was present to the ER, he was given a walker. We are unable to see previous imaging or history related specifically to the left hip. The patient denies any abnormal worsening pain, numbness or tingling, change in heat or color of the extremity. Prior to this hospitalization, he states he has been attempting to ambulate with the use of walker, but does have significant pain while doing so. Pain in hips 8 out of 10. Patient does admit cough and congestion but denies any claudication. He has no history of workup for these symptoms. Of note, he has been on warfarin for a history of PE and DVT which was stopped on 06/22/2017 after an ultrasound showed an unchanged nonocclusive DVT. PAST MEDICAL HISTORY: H/o PE/DVT, schizoaffective disorder, alcoholism, GERD, h /o upper GI bleed 2/2 duodenal ulcer, cirrhosis and hepatitis C. PAST SURGICAL HISTORY: H/o abdominal surgery and kidney resection, though additional history unclear. MEDICATIONS: OTC APAP, amoxicillin, clarithromycin, gabapentin, and pantoprazole. Warfarin d/c'd on 06/22/17 after US. ALLERGIES: NKDA SOCIAL HISTORY: Sober from alcohol since February 2017, +marijuana, nonsmoker, homeless living on streets or in shelters. FAMILY HISTORY: He denies any known history. REVIEW OF SYSTEMS: A 10-point review of systems is negative for any other history, complaints or concerns. PHYSICAL EXAM: GENERAL: The patient able to respond to questions, though appears somewhat confused during exam. Mild to moderate distress. HEENT: Normocephalic, atraumatic. EOMs intact. PERRL. Moist buccal mucosa. Patent ears/nares. Oropharynx clear. NECK: Full range of motion, NTTP, no stepoffs, negative Lhermitte's/Spurlings. CV: Heart regular rate and rhythm. Nonlabored breathing. No diaphoresis. MUSCULOSKELETAL: Legs are of equal leg length without any significant rotational deformity. He lies with L hip in full extension. There is no erythema, edema, ecchymosis, or pallor. L hip flexion to 90 degrees with no significant pain, extension to 0. Negative logroll for pain at hip. SLR + for pain. However, he does have 5 out of 5 strength present from his knees distally bilaterally. Calves are soft, supple and nontender to palpation, negative Asuncion's, +pitting edema BLEs to proximal ortiz. Gross sensation intact bilaterally in his lower extremities with no focal motor or sensory deficits. DNVI bilaterally in his lower extremities. SKIN: No ecchymosis, erythema, calor or edema at L hip. No other rashes or lesions noted. NEURO: Non-focal, no deficits noted. C5-T1 and L2-S1 grossly intact. PSYCH: Appropriate mood and affect, though appears to have some AMS. Difficult historian and on exam for objectivity. XR/CT: left hip notable for a sub-acute to chronic transervical femoral neck fracture with sclerosis and callus formation at the fracture site. Minimally displaced and currently in an acceptable position, given history and exam findings. ASSESSMENT: Left hip femoral neck fracture, likely chronic in nature as patient denies any recent injury, limited pain on exam with relatively good ROM , as well as presence of callus on x-ray. PLAN: At this time, the patient's imaging was explained at length to him, and his case has been discussed with his admitting medical team, and we have recommended nonoperative treatment. Patient is to be on bedrest until seen by PT/OT, at which point he can transition to TDWB with the use of crutches. We will continue to follow him with you. Repeat XRs after he is up and ambulating with PT/OT. Avoid NSAIDs, continue no smoking. PO analgesics prn. Follow up in clinic with me 2 weeks following discharge from hospitalization. For questions or concerns, feel free to call our office at [phone]. The patient's history and exam were performed by AGUSTIN Ochoa and Dr. Hunt. /[id number]/MODL MTDD
[2017-07-03] MEDS: DILTIAZEM 125 MG in D5W 125 ML IV SCH (19:39)
[2017-07-03] MEDS: ACETAMINOPHEN 325 MG TAB PO PRN (19:42)
[2017-07-03] MEDS: PANTOPRAZOLE SODIUM 40 MG TAB PO SCH (19:42)
[2017-07-04] MEDS: DILTIAZEM 125 MG in D5W 125 ML IV SCH (04:37)
[2017-07-04] MEDS: PANTOPRAZOLE SODIUM 40 MG TAB PO SCH ×2 (08:10→20:00)
[2017-07-04] MEDS ORDERED: POTASSIUM CL 20 MEQ TAB PO ONE (08:11)
[2017-07-04] MEDS: DILTIAZEM 30 MG TAB PO SCH ×4 (09:11→23:27)
--- NOTE | 2017-07-04 10:07 | HOSPPROG ---
Hospitalist Progress Note Assessment/Plan: #Parox atrial fibrillation with RVR: now in NSR. Change to oral Dilt. Not an AC candidate with recent large duodenal ulcer/UGIB -triggered by dehydration #Diarrhea: recently completed 2 week abx/PPI for H pylori. Negative GI panel. Loperamide PRN #Recent UGIB from duodenal ulcer: treated for H pylori, BID PPI #Macrocytic anemia: H/H down today from IVFs. Denies bleeding. FOBT negative #Subacute T11 compression fracture: seen on MRI 05/03. Provided brace then, but sold it. He says he would not wear brace if reordered #Hypokalemia: repleted #Left femoral neck fracture: ortho evaluated; not acute so no surgical intervention. Toe-touch weight bearing with crutches. Repeat xrays when ambulating #Mild ARABELLA: resolved with fluids #Schizoaffective d/o: not on meds #Chronic pain: h/o opioid dependence. Will not restart these #Diet: regular #DVT ppx: SCDs #Social issues: Sander has had several hospitalizations recently. Working with CM to prevent further stays, especially since he has been reusing cares and not compliant with medications and treatment plans #Disp: cont inpatient admission for telemetry, Dilt, hydration Subjective: denies back pain, LE weakness. Objective: Vital Signs Temp Pulse Resp BP Pulse Ox 36.7 C 94 14 96/56 L 96 07/04/17 07:47 07/04/17 07:47 07/04/17 07:47 07/04/17 07:47 07/04/17 07:47 Laboratory Results 07/04/17 03:06 07/04/17 03:06 07/03/17 07/04/17 07/05/17 05:59 05:59 05:59 Intake Total 4783 Output Total 200 125 Balance 4583 -125 - Physical Exam Constitutional: unkempt Eyes: PERRL Ears, Nose, Mouth, Throat: moist mucous membranes Cardiovascular: regular rate and rhythym, No edema Respiratory: no respiratory distress Gastrointestinal: normoactive bowel sounds, soft, non-tender abdomen Genitourinary: no bladder fullness Skin: warm Musculoskeletal: full muscle strength, other (no TTP over thoracic spine) Neurologic: AAOx3, sensation intact bilaterally, CN II-XII Intact, No weakness, No numbness Psychiatric: interacting appropriately ICD10 Worksheet Patient Problems: Problems Problem Status Onset Ascites Acute Back pain Acute Generalized weakness Acute Hepatitis C Acute Liver failure Acute Suicidal ideation Acute Upper GI bleeding Acute
--- NOTE | 2017-07-04 14:43 | ASMTCMCOM ---
CM Note CM Note Notes: 07/04/2017 Case Management Note Met w/pt to discuss d/c options. Pt agreed to [facility] application stating he wants to live in a fpc "forever". Discussed challenges with placement in the past with pt. Pt reports sobriety since 02/2017. Faxed [facility]. Called [facility] for terminal supervisor care medicaid screening. Sent referrals to all custodial facilities within [address] of [address] [place] [address]. Completed CAGE. Phone call to Cynthia Rubio requesting care plan. Discussed case with ict project manager. Pt has not been able to make it to scheduled appointments arranged by case management previously. Case Management d/c poc: to be determined pending outcome of [facility] evaluation. Case Management to follow. Date Signed: 07/04/2017 02:43 PM Electronically Signed By:Brenda Bello RN
--- NOTE | 2017-07-04 15:01 | ASMTCAGE ---
CAGE Do you feel you ought to Answers: No cut down on your drinking or drug use? Do people annoy you by Answers: No criticizing your drinking or drug use? Do you feel guilty about Answers: No your drinking or drug use? Do you drink or use drugs Answers: No first thing in the morning (Eye Supervisor Finishing Room)? Additional Comments Pt reports sobriety since February 2017. Date Signed: 07/04/2017 03:00 PM Electronically Signed By:Brenda Bello RN
[2017-07-04] MEDS ORDERED: TUBERCULIN (PPD) 5 TU/0.1 ML SYRINGE ID ONE (15:18)
[2017-07-04] MEDS: GABAPENTIN 400 MG CAP PO SCH (19:59)
[2017-07-05] MEDS: ACETAMINOPHEN 325 MG TAB PO PRN ×4 (01:03→14:35)
[2017-07-05] MEDS: DILTIAZEM 30 MG TAB PO SCH ×3 (05:09→17:50)
[2017-07-05] MEDS: PANTOPRAZOLE SODIUM 40 MG TAB PO SCH ×2 (08:24→20:45)
[2017-07-05] MEDS: GABAPENTIN 400 MG CAP PO SCH ×2 (08:24→19:25)
--- NOTE | 2017-07-05 13:56 | HOSPPROG ---
Hospitalist Progress Note Assessment/Plan: #Parox atrial fibrillation with RVR: now NSR. PO Dilt. Not an AC candidate with recent large duodenal ulcer/UGIB #Diarrhea: recently completed 2 week abx/PPI for H pylori. Negative GI panel. Loperamide PRN #Recent UGIB from duodenal ulcer: treated for H pylori, BID PPI #Macrocytic anemia: H/H down from IVFs. Denies bleeding. FOBT negative #Subacute T11 compression fracture: seen on MRI 05/03. Provided brace then, but sold it. He says he would not wear brace if reordered #Hypokalemia: repleted #Left femoral neck fracture: ortho evaluated; not acute so no surgical intervention. Toe-touch weight bearing with crutches. -Repeat x-rays when ambulating -FU ortho in 2 weeks #Mild ARABELLA: resolved with fluids #Schizoaffective d/o: not on meds. Left message with Cynthia Rubio with P for outpatient tx plan #Chronic pain: h/o opioid dependence. Will not restart these #Diet: regular #DVT ppx: SCDs #Social issues: Sander has had several hospitalizations recently. Working with CM to prevent further stays, especially since he has been reusing cares and not compliant with medications and treatment plans. He is agreeable to SNF, but may be difficult to place with poor behaviors in past #Disp: cont inpatient admission for telemetry, Dilt, hydration Subjective: walked 6 ft on crutches with PT. No black/bloody stools Objective: Vital Signs Temp Pulse Resp BP Pulse Ox 36.8 C 102 H 18 95/58 L 96 07/05/17 11:49 07/05/17 11:49 07/05/17 11:49 07/05/17 11:49 07/05/17 11:49 Microbiology 07/04/17 08:58 Gastrointestinal Tract Panel (PCR) - Final Stool No Organism Detected Laboratory Results 07/05/17 03:36 07/04/17 03:06 07/04/17 07/05/17 07/06/17 05:59 05:59 05:59 Intake Total 4777 900 300 Output Total 200 425 90 Balance 4583 475 210 - Time Spent With Patient Time Spent with Patient: greater than 35 minutes Time Spent with Patient: Greater than 35 minutes spent on this patients care, greater than 50% of time spent counseling, educating, and coordinating care regarding the above mentioned plan. - Physical Exam Constitutional: unkempt Eyes: PERRL Ears, Nose, Mouth, Throat: moist mucous membranes Cardiovascular: regular rate and rhythym Respiratory: no respiratory distress, no rales or rhonchi Gastrointestinal: normoactive bowel sounds, other (abd hernia, no TTP, ) Genitourinary: no bladder fullness Skin: warm Musculoskeletal: generalized weakness Neurologic: AAOx3, CN II-XII Intact Psychiatric: depressed, flat affect ICD10 Worksheet Patient Problems: Problems Problem Status Onset Ascites Acute Back pain Acute Generalized weakness Acute Hepatitis C Acute Liver failure Acute Suicidal ideation Acute Upper GI bleeding Acute
[2017-07-05 14:48] LABS: INR 1.33 (0.83-1.16); PROTIME(PATIENT) 16.7 SEC (12.0-15.0)
--- NOTE | 2017-07-05 15:39 | ASMTCMCOM ---
CM Note CM Note Notes: Nine more referrals faxed, pt is now willing to go to SNF/AL, [facility] pending. DC Plan: SNF Date Signed: 07/05/2017 03:38 PM Electronically Signed By:Cynthia Samaniego RN
[2017-07-05] MEDS: traMADol 50 MG TAB PO PRN (22:07)
[2017-07-06] MEDS: ACETAMINOPHEN 325 MG TAB PO PRN ×2 (08:17→15:44)
[2017-07-06] MEDS: DILTIAZEM CD 120 MG CAP PO SCH (08:18)
[2017-07-06] MEDS: GABAPENTIN 400 MG CAP PO SCH ×3 (08:18→21:09)
[2017-07-06] MEDS: PANTOPRAZOLE SODIUM 40 MG TAB PO SCH ×2 (08:18→21:09)
[2017-07-06] MEDS ORDERED: NS 1,000 ML IV ONE (10:38)
--- NOTE | 2017-07-06 10:43 | HOSPPROG ---
Hospitalist Progress Note Assessment/Plan: # paroxysmal a-fib, now sinus tach - no AC given recent duodenal hemorrhage - cont dilt # sinus tach - will give 1L NS; consider recurrent PE # recent duodenal ulcer hemorrhage - s/p treatment for h. pylori - cont protonix bid # macrocytic anemia - stable x 48 hours, cont to follow # hypoNa - suspect hypovolemic; trial of 1L NS # chronic pain on continuous narcotics # T11 compression fx, subacute # L femoral neck fx - non-operative per ortho; TDWB # ARABELLA - resolved # schizoaffective d/o - not on meds # diarrhea - GI panel negative # dispo - possibly SNF Subjective: c/o back pain; lying in bed Objective: Vital Signs Temp Pulse Resp BP Pulse Ox 36.7 C 107 H 18 109/72 91 L 07/06/17 07:41 07/06/17 07:41 07/06/17 07:41 07/06/17 07:41 07/06/17 07:41 Laboratory Results 07/06/17 03:28 07/06/17 03:28 07/05/17 07/06/17 07/07/17 05:59 05:59 05:59 Intake Total 900 1130 300 Output Total 425 415 50 Balance 475 715 250 PT 16.7 SEC (12.0-15.0) H 07/05/17 14:30 INR 1.33 (0.83-1.16) H 07/05/17 14:30 chart reviewe tele reviewed ECG reviewed - Physical Exam Constitutional: unkempt Cardiovascular: regular rate and rhythym, no murmur, rub, or gallop Respiratory: no respiratory distress, no rales or rhonchi, clear to auscultation Gastrointestinal: normoactive bowel sounds, soft, non-tender abdomen, no palpable masses ICD10 Worksheet Patient Problems: Problems Problem Status Onset Generalized weakness Acute Hepatitis C Acute Ascites Acute Liver failure Acute Suicidal ideation Acute Back pain Acute Upper GI bleeding Acute
[2017-07-06] MEDS: traMADol 50 MG TAB PO PRN ×2 (11:31→22:51)
--- NOTE | 2017-07-06 16:43 | ASMTCMCOM ---
CM Note CM Note Notes: Pts case discussed in tx rounds and in complex case meeting. Nancy from [facility] will come out to assess pt. CM spoke w/ Charley from [facility] and she is awaiting approval from her DON. [facility], [facility] and [facility] are interested at this time. Pt receives about $750/month from [employer]. CM communicated this info to the SNFs. CM contacted [facility] to enroll w/ pt outpatient services. CM to follow. Plan: TBD Date Signed: 07/06/2017 04:43 PM Electronically Signed By:DIGNA Espinosa
[2017-07-06] MEDS ORDERED: NS 1,000 ML IV SCH (18:45)
[2017-07-07 03:39] LABS: PLATELET COUNT 158 10^3/uL (150-400)
[2017-07-07] MEDS: ACETAMINOPHEN 325 MG TAB PO PRN ×2 (06:28→12:42)
[2017-07-07] MEDS: traMADol 50 MG TAB PO PRN ×3 (08:17→20:57)
[2017-07-07] MEDS: GABAPENTIN 400 MG CAP PO SCH ×3 (08:18→20:57)
[2017-07-07] MEDS: DILTIAZEM CD 120 MG CAP PO SCH (08:18)
[2017-07-07] MEDS: PANTOPRAZOLE SODIUM 40 MG TAB PO SCH (08:18)
[2017-07-07] MEDS ORDERED: IOPAMIDOL (ISOVUE 370) 100 ML BTL IV ONE (08:42)
--- NOTE | 2017-07-07 10:26 | HOSPPROG ---
Hospitalist Progress Note Assessment/Plan: # paroxysmal a-fib, now sinus tach - no AC given recent duodenal hemorrhage (considering as below) - cont dilt # acute PE - all treatment options difficult - check LE US to see if has DVT (IVF filter may be an option, but has lack of follow up) - placed a call to Dr Edmond to discuss the degree of danger of AC # recent duodenal ulcer hemorrhage - s/p treatment for h. pylori - cont protonix bid # macrocytic anemia - stable x 48 hours, cont to follow # cirrhosis d/t HCV and etOH - has required paracentesis in the past # HCV # hypoNa - better with IVF # chronic pain on continuous narcotics # T11 compression fx, subacute # L femoral neck fx - non-operative per ortho; TDWB # ARABELLA - resolved # schizoaffective d/o - not on meds # diarrhea - GI panel negative # dispo - possibly SNF Subjective: worried about his future; discussed the results of his CTA Objective: Vital Signs Temp Pulse Resp BP Pulse Ox 37.3 C 110 H 24 H 101/66 94 07/07/17 07:41 07/07/17 07:41 07/07/17 07:41 07/07/17 07:41 07/07/17 07:41 Laboratory Results 07/07/17 03:10 07/07/17 03:10 07/06/17 07/07/17 07/08/17 05:59 05:59 05:59 Intake Total 1130 2550 Output Total 415 1200 Balance 715 1350 PT 16.7 SEC (12.0-15.0) H 07/05/17 14:30 INR 1.33 (0.83-1.16) H 07/05/17 14:30 high risk - Physical Exam Constitutional: no apparent distress, appears nourished Cardiovascular: regular rate and rhythym, no murmur, rub, or gallop, systolic murmur Respiratory: no respiratory distress, no rales or rhonchi, clear to auscultation Gastrointestinal: soft, non-tender abdomen, distension, other (midline scar; hernia which is easily reducible) ICD10 Worksheet Patient Problems: Problems Problem Status Onset Generalized weakness Acute Hepatitis C Acute Ascites Acute Liver failure Acute Suicidal ideation Acute Back pain Acute Upper GI bleeding Acute
[2017-07-07] MEDS ORDERED: HEPARIN 10,000 UNIT/10 ML MDV (1,000 UNIT/ML) IVP ONE (10:47)
[2017-07-07] MEDS ORDERED: HEPARIN 10,000 UNIT/10 ML MDV (1,000 UNIT/ML) IVP PRN (10:47)
[2017-07-07] MEDS ORDERED: PANTOPRAZOLE SODIUM 40 MG VIAL IVP ONE ×2 (11:00→12:00)
[2017-07-07] MEDS: HEPARIN/DEXTROSE 500 ML IV SCH (11:46)
[2017-07-07 12:09] LABS: INR 1.31 (0.83-1.16); PROTIME(PATIENT) 16.5 SEC (12.0-15.0)
--- NOTE | 2017-07-07 15:22 | ASMTCMCOM ---
CM Note CM Note Notes: Pts case discussed in tx rounds. Pt is currently on a heparin drip. Pt had an ultrasound this AM. CM left a msg w/ Kari from [facility] and provided her updates. Kari will f/u with pt and sign him up for outpatient services. Nancy came out yesterday and completed the PASRR and will submit it to the state. Pt will most likely be here for a couple more days. CM left messages for interested SNFs again and awaiting to hear back. CM to follow. Plan: TBD Date Signed: 07/07/2017 03:21 PM Electronically Signed By:DIGNA Espinosa
[2017-07-07] MEDS: PANTOPRAZOLE SODIUM 40 MG VIAL IVP SCH ×2 (17:51→22:31)
[2017-07-08] MEDS: ACETAMINOPHEN 325 MG TAB PO PRN ×3 (02:24→19:44)
[2017-07-08] MEDS: PANTOPRAZOLE SODIUM 40 MG VIAL IVP SCH ×4 (05:27→22:10)
[2017-07-08] MEDS: traMADol 50 MG TAB PO PRN ×3 (07:21→22:09)
[2017-07-08] MEDS: DILTIAZEM CD 120 MG CAP PO SCH (09:32)
[2017-07-08] MEDS: GABAPENTIN 400 MG CAP PO SCH ×3 (09:32→20:49)
[2017-07-08] MEDS: HEPARIN/DEXTROSE 500 ML IV SCH (11:42)
[2017-07-08] MEDS ORDERED: NS 500 ML IV ONE (12:08)
[2017-07-08] MEDS ORDERED: ALBUMIN 25% 50 ML IV ONE (12:14)
--- NOTE | 2017-07-08 12:16 | HOSPPROG ---
Hospitalist Progress Note Assessment/Plan: # paroxysmal a-fib, now sinus tach - cont dilt # acute PE, non-occlusive DVT - discussed with Dr Edmond - will give him a trial of AC; if rebleeds consider endoscopy vs surgical resection - heparin gtt # recent duodenal ulcer hemorrhage - s/p treatment for h. pylori - high dose protonix IV while starting AC - check h.pylori stool ag to confirm treatment # urinary retention - likely BPH - flomax # macrocytic anemia - stable x 48 hours, cont to follow # cirrhosis d/t HCV and etOH - has required paracentesis in the past # HCV # hypoNa - likely hypervolemic; small amount of albumin today # chronic pain on continuous narcotics # T11 compression fx, subacute # L femoral neck fx - non-operative per ortho; TDWB # ARABELLA - resolved # schizoaffective d/o - not on meds # diarrhea - GI panel negative # dispo - possibly SNF - CM working on options which are difficult Subjective: had some urinary retention last night Objective: Vital Signs Temp Pulse Resp BP Pulse Ox 36.8 C 103 H 18 109/73 94 07/08/17 11:21 07/08/17 11:21 07/08/17 11:21 07/08/17 11:21 07/08/17 11:21 Laboratory Results 07/08/17 03:17 07/08/17 03:17 07/07/17 07/08/17 07/09/17 05:59 05:59 05:59 Intake Total 2550 1522 Output Total 1200 1005 650 Balance 1350 517 -650 PT 16.5 SEC (12.0-15.0) H 07/07/17 11:45 INR 1.31 (0.83-1.16) H 07/07/17 11:45 - Physical Exam Constitutional: unkempt Cardiovascular: regular rate and rhythym, no murmur, rub, or gallop Respiratory: rhonchi (diffuse), No expiratory wheeze, No inspiratory crackles, No respiratory distress, No dullness to percussion Gastrointestinal: normoactive bowel sounds, soft, non-tender abdomen, no palpable masses, other (her) ICD10 Worksheet Patient Problems: Problems Problem Status Onset Generalized weakness Acute Hepatitis C Acute Ascites Acute Liver failure Acute Suicidal ideation Acute Back pain Acute Upper GI bleeding Acute
--- NOTE | 2017-07-08 13:02 | ECHO ---
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 No LV hypertrophy. Limited study. Overall LV systolic function is probably normal. Cannot rule out regional wall motion abnormalities. . Normal size right ventricle. No pericardial effusion. Technically difficult evaluation for pleural effusion. Unable to rule out by echo. Very technically limited study Valves are not well seen; no obvious valvular disease Measurements: Chambers Valvular Assessment AV/MV Valvular Assessment TV/PV Normal Normal Normal Name Value Range Name Value Range Name Value Range Visual EF: 55 % AV meanP mmHg ( - ) PV Vmax: 1.22 m/s (0.6 m/s-0.9 MV E Vmax: 0.68 m/s ( - ) m/s) MV A Vmax: 0.85 m/s ( - ) PV PGmax: 6 mmHg ( - ) MV E/A: 0.80 ( - ) MV PHT: 0.068 s ( - ) MVA (PHT): 3.2 s ( - ) Continued Measurements: Valvular Assessment AV/MV Name Value MV DecTime: 222 m/s MV E' Septal: 0.09 m/s MV E/E' Septal: 7.90 MV E/E' Lateral: 7.40 Patient: MANJIT ALONZO Study Date: 07/07/2017 Page 1 of 2 01:28 PM Findings: Left Ventricle: Normal size left ventricle. No LV hypertrophy. The ejection fraction is visually estimated to be 55 %. No regional wall motion abnormality. Limited study. Overall LV systolic function is probably normal. Cannot rule out regional wall motion abnormalities. . Right Ventricle: Normal size right ventricle. Left Atrium: The left atrium is normal in size. Right Atrium: The right atrium is normal in size. Mitral Valve: The mitral valve is normal in appearance and function. Technically difficult visualization of mitral valve. Limited evaluation of regurgitation. Aortic Valve: The aortic valve is normal in appearance and function. Technically difficult visualization of aortic valve. Unable to adequately assess regurgitation. Tricuspid Valve: The tricuspid valve is normal in appearance and function. Technically difficult visualization of tricuspid valve. Pulmonic Valve: The pulmonic valve is normal in appearance and function. Technically difficult visualization of pulmonic valve. Aorta: The aorta is normal. IVC: The IVC is normal sized. Pericardium: No pericardial effusion. Technically difficult evaluation for pleural effusion. Unable to rule out by echo. Exam Comments: Extremely difficult exam. Patient supine. No parasternal images. Apical images limited. Subcostal is best window. (No Signature Object) Patient: MANJIT ALONZO Study Date: 07/07/2017 Page 2 of 2 01:28 PM [id number]
[2017-07-08] MEDS: TAMSULOSIN HCL 0.4 MG CAP PO SCH (13:08)
--- NOTE | 2017-07-08 13:46 | ASMTCMCOM ---
CM Note CM Note Notes: Reviewed chart, spoke with DANIELE Forman and Dr. Newman regarding discharge plan of care, pt's progress. Pt with urinary retention, staff awaiting stool to run h. pylori, pt now in sinus tach, remains on Heparin drip. Per Dr. Newman pt will likely not be ready for discharge prior to Monday07/10/17. CM awaiting state review of PASRR. Two SNF responses received - [facility] is interested and currently reviewing pt's case; [facility] would like to schedule an on-site visit. Per Dr. Newman, pt continues to need to SNF placement at time of discharge. CM will continue to follow. Current Discharge Plan: SNF Date Signed: 07/08/2017 01:45 PM Electronically Signed By:Romi Lee RN
[2017-07-09] MEDS: ACETAMINOPHEN 325 MG TAB PO PRN ×2 (00:39→16:26)
[2017-07-09] MEDS: PANTOPRAZOLE SODIUM 40 MG VIAL IVP SCH ×3 (04:09→20:43)
[2017-07-09] MEDS: traMADol 50 MG TAB PO PRN ×3 (04:09→20:44)
--- NOTE | 2017-07-09 08:44 | HOSPPROG ---
Hospitalist Progress Note Assessment/Plan: 57M, homeless with 3rd admission this year (had PE/DVT, duodenal ulcer hemorrhage). Unable to find placement on previous admissions. Presents with gastroenteritis, found to be in rapid a-fib. Recurrent PE identified on this admission after search for cause of sinus tach. # paroxysmal a-fib (on initial presentation), now sinus tach - cont dilt # sinus tach - follow with treatment of PE # acute PE, non-occlusive DVT - discussed with Dr Edmond - will give him a trial of AC; if rebleeds consider endoscopy vs surgical resection - heparin gtt - transition to lovenox/warfarin today as he has been stable for 2 days # recent duodenal ulcer hemorrhage - s/p treatment for h. pylori after last admission - cont protonix iv bid today, likely ok for PO tomorrow if hgb stable - h.pylori stool ag pending - if positive would re-treat # anemia, macrocytic - stable x 48 hours, cont to follow # hypoNa - likely hypervolemic - follow with diuretics # cirrhosis d/t HCV and etOH - some volume overload today with ascites/pleural effusions - has required paracentesis in the past - i have started lasix and aldactone today given his mild volume overload # HCV # etOH abuse - has been sober for 4 months # urinary retention - likely BPH - flomax started here # chronic pain on continuous narcotics # T11 compression fx, subacute # L femoral neck fx - non-operative per ortho; TDWB # ARABELLA - resolved # schizoaffective d/o - not on meds - perez samuel had eval'd, she will continue # debility - mobilize today # dispo - will need SNF - CM working on options which are difficult Subjective: breathing feels ok today; spending most of his time in bed Objective: Vital Signs Temp Pulse Resp BP Pulse Ox 36.7 C 100 16 109/74 95 07/09/17 07:16 07/09/17 07:16 07/09/17 07:16 07/09/17 07:16 07/09/17 07:16 Laboratory Results 07/09/17 06:25 07/08/17 03:17 07/08/17 07/09/17 07/10/17 05:59 05:59 05:59 Intake Total 1522 1900 Output Total 1005 2750 Balance 517 -850 PT 16.5 SEC (12.0-15.0) H 07/07/17 11:45 INR 1.31 (0.83-1.16) H 07/07/17 11:45 - Time Spent With Patient Time Spent with Patient: greater than 35 minutes Time Spent with Patient: Greater than 35 minutes spent on this patients care, greater than 50% of time spent counseling, educating, and coordinating care regarding the above mentioned plan. - Physical Exam Constitutional: chronically ill appearing, unkempt Cardiovascular: regular rate and rhythym, systolic murmur, No irregularly irregular, No diastolic murmur Respiratory: no respiratory distress, rhonchi (diffusely), No bronchial breath sounds Gastrointestinal: soft, non-tender abdomen, no palpable masses, distension ( moderate), other (hernia) ICD10 Worksheet Patient Problems: Problems Problem Status Onset Generalized weakness Acute Hepatitis C Acute Ascites Acute Liver failure Acute Suicidal ideation Acute Back pain Acute Upper GI bleeding Acute
[2017-07-09] MEDS: SPIRONOLACTONE 25 MG TAB PO SCH (10:19)
[2017-07-09] MEDS: TAMSULOSIN HCL 0.4 MG CAP PO SCH (10:19)
[2017-07-09] MEDS: FUROSEMIDE 40 MG TAB PO SCH (10:19)
[2017-07-09] MEDS: DILTIAZEM CD 120 MG CAP PO SCH (10:19)
[2017-07-09] MEDS: ENOXAPARIN 60 MG/0.6 ML SYR SC SCH ×2 (10:20→20:43)
[2017-07-09] MEDS: GABAPENTIN 400 MG CAP PO SCH ×3 (10:20→20:43)
--- NOTE | 2017-07-09 14:33 | ASMTCMCOM ---
CM Note CM Note Notes: Patient eager to be placed does not want to go back to the streets. Spoke to Yesenia at [facility]. She has been out to visit with patient and has to f/u with their Financial Office on Monday to determine admit. She seems hopeful that they will be able to admit. She wonders which dx/s make him eligible for disability? Date Signed: 07/09/2017 02:32 PM Electronically Signed By:Omayra Singleton LCSW
[2017-07-09] MEDS: WARFARIN SODIUM 5 MG TAB PO SCH (16:26)
[2017-07-10] MEDS: ACETAMINOPHEN 325 MG TAB PO PRN (01:52)
[2017-07-10 04:38] LABS: INR 1.33 (0.83-1.16); PROTIME(PATIENT) 16.7 SEC (12.0-15.0)
[2017-07-10 04:48] LABS: PLATELET COUNT 179 10^3/uL (150-400)
[2017-07-10] MEDS: traMADol 50 MG TAB PO PRN ×3 (05:49→22:52)
[2017-07-10] MEDS: ENOXAPARIN 60 MG/0.6 ML SYR SC SCH ×2 (08:36→20:47)
[2017-07-10] MEDS: FUROSEMIDE 40 MG TAB PO SCH (08:36)
[2017-07-10] MEDS: SPIRONOLACTONE 25 MG TAB PO SCH (08:36)
[2017-07-10] MEDS: DILTIAZEM CD 120 MG CAP PO SCH ×2 (08:36→10:19)
[2017-07-10] MEDS: GABAPENTIN 400 MG CAP PO SCH ×3 (08:36→20:47)
[2017-07-10] MEDS: TAMSULOSIN HCL 0.4 MG CAP PO SCH (08:36)
[2017-07-10] MEDS: PANTOPRAZOLE SODIUM 40 MG VIAL IVP SCH (08:37)
[2017-07-10] MEDS: HYDROCODONE/APAP 5/325 TAB PO PRN ×2 (09:57→19:03)
--- NOTE | 2017-07-10 15:27 | ASMTCMCOM ---
CM Note CM Note Notes: 07/10/2017 Case Management Note Met w/pt to inform of progress with SNF placement. [facility] is a possiblity pending outcome of [facility] application. Pt was visited by Kari Alvarez from [facility] to assist with Medicaid Application process. She can be reached at [phone]. Case Management d/c poc: to SNF LTC pending acceptance. Case Management to follow. Date Signed: 07/10/2017 03:26 PM Electronically Signed By:Brenda Bello RN
[2017-07-10] MEDS: WARFARIN SODIUM 5 MG TAB PO SCH (16:41)
--- NOTE | 2017-07-10 19:33 | HOSPPROG ---
Hospitalist Progress Note Assessment/Plan: 57M, homeless with 3rd admission this year (had PE/DVT, duodenal ulcer hemorrhage). Unable to find placement on previous admissions. Presents with gastroenteritis, found to be in rapid a-fib. Recurrent PE identified on this admission after search for cause of sinus tach. # paroxysmal a-fib (on initial presentation),TELE (personally reviewed and interpreted) sinus rhythm - cont PO dilt # sinus tach - remains in the low 100- 110's intermittently follow with treatment of PE # acute PE, non-occlusive DVT- currently tolerating trial of AC-- INR 1.33 oxygen saturations 91% on RA - if rebleeds consider endoscopy vs surgical resection - cont lovenox/warfarin # recent duodenal ulcer hemorrhage - s/p treatment for h. pylori after last admission- - h.pylori stool ag negative - cont protonix iv bid today change to PO today # anemia, macrocytic - stable x 48 hours- hgb 9 this am # hypoNa - likely hypervolemic - resolved # cirrhosis d/t HCV and etOH - some volume overload today with ascites/pleural effusions - has required paracentesis in the past -cont lasix and aldactone - monitor BMP # HCV # etOH abuse - has been sober for 4 months # urinary retention - likely BPH - flomax started here # chronic pain on continuous narcotics # T11 compression fx, subacute # L femoral neck fx - non-operative per ortho; TDWB # ARABELLA - resolved # schizoaffective d/o - not on meds - perez samuel had eval'd, she will continue # debility - mobilize today # dispo - will need SNF - CM working on options which are difficult I have discussed the case with RN - need to encourage ambulation to improve candidacy for placement - establish he can engage in self care Subjective: sore back Objective: Vital Signs Temp Pulse Resp BP Pulse Ox 36.7 C 100 16 106/71 91 L 07/10/17 16:00 07/10/17 16:00 07/10/17 16:00 07/10/17 16:00 07/10/17 16:00 Laboratory Results 07/10/17 03:16 07/10/17 07:26 07/09/17 07/10/17 07/11/17 05:59 05:59 05:59 Intake Total 1900 1250 1100 Output Total 2750 6250 2200 Balance -850 -5000 -1100 PT 16.7 SEC (12.0-15.0) H 07/10/17 03:16 INR 1.33 (0.83-1.16) H 07/10/17 03:16 - Physical Exam Constitutional: no apparent distress, chronically ill appearing Eyes: anicteric sclera Ears, Nose, Mouth, Throat: moist mucous membranes Cardiovascular: regular rate and rhythym Respiratory: no respiratory distress Gastrointestinal: normoactive bowel sounds Genitourinary: no bladder fullness Skin: warm Musculoskeletal: No asymmetric calves Neurologic: AAOx3 Psychiatric: interacting appropriately Lymph, Heme, Immunologic: no cervical LAD ICD10 Worksheet Patient Problems: Problems Problem Status Onset Ascites Acute Back pain Acute Generalized weakness Acute Hepatitis C Acute Liver failure Acute Suicidal ideation Acute Upper GI bleeding Acute
[2017-07-10] MEDS: PANTOPRAZOLE SODIUM 40 MG TAB PO SCH (20:46)
[2017-07-11 04:34] LABS: INR 1.38 (0.83-1.16); PROTIME(PATIENT) 17.1 SEC (12.0-15.0)
[2017-07-11] MEDS: PANTOPRAZOLE SODIUM 40 MG TAB PO SCH ×2 (08:53→21:02)
[2017-07-11] MEDS: ENOXAPARIN 60 MG/0.6 ML SYR SC SCH ×2 (08:53→21:02)
[2017-07-11] MEDS: HYDROCODONE/APAP 5/325 TAB PO PRN ×3 (08:54→23:54)
[2017-07-11] MEDS: SPIRONOLACTONE 25 MG TAB PO SCH (08:54)
[2017-07-11] MEDS: TAMSULOSIN HCL 0.4 MG CAP PO SCH (08:54)
[2017-07-11] MEDS: DILTIAZEM CD 120 MG CAP PO SCH (08:54)
[2017-07-11] MEDS: FUROSEMIDE 40 MG TAB PO SCH (08:54)
[2017-07-11] MEDS: GABAPENTIN 400 MG CAP PO SCH ×3 (08:54→21:02)
[2017-07-11] MEDS: traMADol 50 MG TAB PO PRN (14:00)
--- NOTE | 2017-07-11 14:01 | ASMTCMCOM ---
CM Note CM Note Notes: 07/11/2017 Case Management Note Pt met with Shaan Larose from [facility] in [place] for assessment of LTC placement. Shaan to discuss with his upper management and get back to case management. Faxed updates to [facility] [place]. Left VM with Kari Alvarez at [facility] for update on LTC medicaid ida. Case Management d/c poc: to SNF pending acceptance. Case Management to follow. Date Signed: 07/11/2017 02:01 PM Electronically Signed By:Brenda Bello RN
[2017-07-11] MEDS: WARFARIN SODIUM 5 MG TAB PO SCH (15:16)
--- NOTE | 2017-07-11 16:20 | ASMTCMCOM ---
CM Note CM Note Notes: 07/11/2017 Case Management Note [facility] in [place] called accepting patient. Notified Antonia Gonzalez at [facility] of acceptance and requested that Level II PASRR be forwarded to [facility]. Shaan is anticipating transport before lunch once he has the Level II. Case Management to coordinate with [facility] and [facility] in the morning. Case Management d/c poc: to [facility] Case Management to follow. Date Signed: 07/11/2017 04:20 PM Electronically Signed By:Brenda Bello RN
--- NOTE | 2017-07-11 16:27 | HOSPPROG ---
Hospitalist Progress Note Assessment/Plan: 57M, homeless with 3rd admission this year (had PE/DVT, duodenal ulcer hemorrhage). Unable to find placement on previous admissions. Presents with gastroenteritis, found to be in rapid a-fib. Recurrent PE identified on this admission after search for cause of sinus tach. # paroxysmal a-fib (on initial presentation),TELE (personally reviewed and interpreted) sinus rhythm 100's - cont PO dilt # sinus tach - remains in the low 100- 110's intermittently follow with treatment of PE # acute PE, non-occlusive DVT- currently tolerating trial of AC-- INR 1.38 oxygen saturations 94% on RA - if rebleeds consider endoscopy vs surgical resection - cont lovenox/warfarin # recent duodenal ulcer hemorrhage - s/p treatment for h. pylori after last admission- - h.pylori stool ag negative - cont PO protonix # anemia, macrocytic - stable x 48 hours- hgb 9 this am # hypoNa - likely hypervolemic - resolved # cirrhosis d/t HCV and etOH - some volume overload today with ascites/pleural effusions - has required paracentesis in the past -cont lasix and aldactone - monitor BMP # HCV # etOH abuse - has been sober for 4 months # urinary retention - likely BPH - flomax started here # chronic pain on continuous narcotics # T11 compression fx, subacute # L femoral neck fx - non-operative per ortho; TDWB # ARABELLA - resolved # schizoaffective d/o - not on meds - perez samuel had eval'd, she will continue # debility - mobilize today # dispo - will need SNF - CM working on options which are difficult I have discussed the case with CM - we have an accepting facility for transfer tomorrow Subjective: tired Objective: Vital Signs Temp Pulse Resp BP Pulse Ox 36.9 C 100 20 109/77 95 07/11/17 11:09 07/11/17 11:09 07/11/17 11:09 07/11/17 11:09 07/11/17 11:09 Laboratory Results 07/11/17 03:02 07/11/17 03:02 07/10/17 07/11/17 07/12/17 05:59 05:59 05:59 Intake Total 1250 1700 610 Output Total 6250 3900 3700 Balance -5000 -2200 -3090 PT 17.1 SEC (12.0-15.0) H 07/11/17 03:02 INR 1.38 (0.83-1.16) H 07/11/17 03:02 - Physical Exam Constitutional: chronically ill appearing Eyes: anicteric sclera Ears, Nose, Mouth, Throat: moist mucous membranes Cardiovascular: regular rate and rhythym, tachycardia Respiratory: no respiratory distress Gastrointestinal: normoactive bowel sounds Genitourinary: no bladder fullness Skin: warm Musculoskeletal: No asymmetric calves Neurologic: AAOx3 Psychiatric: poor insight, poor judgement Lymph, Heme, Immunologic: no cervical LAD ICD10 Worksheet Patient Problems: Problems Problem Status Onset Ascites Acute Back pain Acute Generalized weakness Acute Hepatitis C Acute Liver failure Acute Suicidal ideation Acute Upper GI bleeding Acute
[2017-07-12 04:36] LABS: INR 1.63 (0.83-1.16); PROTIME(PATIENT) 19.5 SEC (12.0-15.0)
[2017-07-12] MEDS: traMADol 50 MG TAB PO PRN ×2 (04:46→17:40)
--- NOTE | 2017-07-12 08:22 | PDIAF ---
- Diagnosis Diagnosis: GIB and AFIB Code Status: Full Code - Medication Management Discharge Medications: Medications to Continue on Transfer Acetaminophen [Tylenol 325mg (*)] 650 mg PO Q6 PRN 07/03/17 [Last Taken Unknown] Gabapentin [Neurontin 400 MG (*)] 1,200 mg PO BID 07/04/17 [Last Taken Unknown] Diltiazem Cd [Cardizem ER 120 MG (*)] 120 mg PO DAILY cap 07/12/17 [Last Taken Unknown] Enoxaparin [Lovenox 60 MG (*)] 60 mg SC BID syr 07/12/17 [Last Taken Unknown] Furosemide [Lasix 40 MG (*)] 40 mg PO DAILY tab 07/12/17 [Last Taken Unknown] Pantoprazole Sodium [Protonix 40mg (*)] 40 mg PO BID tab 07/12/17 [Last Taken Unknown] Spironolactone [Aldactone 25 MG (*)] 25 mg PO DAILY tab 07/12/17 [Last Taken Unknown] Tamsulosin HCl [Flomax 0.4 MG (*)] 0.4 mg PO DAILY cap 07/12/17 [Last Taken Unknown] Warfarin Sodium [Coumadin 5MG (*)] 5 mg PO DAILY AT 4PM tab 07/12/17 [Last Taken Unknown] traMADol [Ultram 50 mg (*)] 50 mg PO Q6HRS PRN tab 07/12/17 [Last Taken Unknown ] Discharge Medications: Refer to the Discharge Home Medication list for PRN reason. - Orders Services needed: Registered Nurse, Physical Therapy, Occupational Therapy Diet Recommendation: no restrictions on diet Diet Texture: Regular Texture Diet Additional Instructions: please follow with PCP in the next 3-4 weeks for lab check and med titration for diuretics - Labs/Radiology PT/INR Date: 07/13/17 (check INR dialy until >2 for dc of lovenox) - Follow Up Care Current Providers and Referrals: Johnathon Hunt MD [Medical Doctor] - follow up in 2 weeks NONE *PRIMARY CARE P,. [Primary Care Provider] - As per Instructions
[2017-07-12] MEDS: DILTIAZEM CD 120 MG CAP PO SCH (08:34)
[2017-07-12] MEDS: PANTOPRAZOLE SODIUM 40 MG TAB PO SCH ×2 (08:34→21:05)
[2017-07-12] MEDS: TAMSULOSIN HCL 0.4 MG CAP PO SCH (08:34)
[2017-07-12] MEDS: SPIRONOLACTONE 25 MG TAB PO SCH (08:34)
[2017-07-12] MEDS: FUROSEMIDE 40 MG TAB PO SCH (08:34)
[2017-07-12] MEDS: HYDROCODONE/APAP 5/325 TAB PO PRN ×3 (08:34→21:06)
[2017-07-12] MEDS: ENOXAPARIN 60 MG/0.6 ML SYR SC SCH ×2 (08:34→21:05)
[2017-07-12] MEDS: GABAPENTIN 400 MG CAP PO SCH ×3 (08:34→21:05)
--- NOTE | 2017-07-12 14:05 | HOSPPROG ---
Hospitalist Progress Note Assessment/Plan: 57M, homeless with 3rd admission this year (had PE/DVT, duodenal ulcer hemorrhage). Unable to find placement on previous admissions. Presents with gastroenteritis, found to be in rapid a-fib. Recurrent PE identified on this admission after search for cause of sinus tach. # paroxysmal a-fib (on initial presentation),TELE (personally reviewed and interpreted) sinus rhythm 90-100's - cont PO dilt (cant up titrate 2/2 hypotension) # acute PE, non-occlusive DVT- currently tolerating trial of AC-- INR 1.6 oxygen saturations 90% on RA - if rebleeds consider endoscopy vs surgical resection - cont lovenox/warfarin # recent duodenal ulcer hemorrhage - s/p treatment for h. pylori after last admission- - h.pylori stool ag negative - cont PO protonix # anemia, macrocytic - remains hgb 9 this am # hypoNa - likely hypervolemic - resolved # cirrhosis d/t HCV and EtOH - some volume overload today with ascites/pleural effusions- has required paracentesis in the past - cont lasix and aldactone - monitor BMP # HCV # etOH abuse - has been sober for 4 months # urinary retention - likely BPH - flomax started here # chronic pain on continuous narcotics # T11 compression fx, subacute # L femoral neck fx - non-operative per ortho; TDWB # ARABELLA - resolved # schizoaffective d/o - not on meds - perez samuel had eval'd, she will continue # debility - mobilize today # dispo - will need SNF - CM working on options which are difficult I have discussed the case with CM - PASSR pending hopeful dc in the next 24-48 Subjective: walked around room today Objective: Vital Signs Temp Pulse Resp BP Pulse Ox 36.8 C 104 H 18 110/77 90 L 07/12/17 11:22 07/12/17 11:22 07/12/17 11:22 07/12/17 11:22 07/12/17 11:22 Laboratory Results 07/11/17 03:02 07/11/17 03:02 07/11/17 07/12/17 07/13/17 05:59 05:59 05:59 Intake Total 1700 1610 1440 Output Total 3900 5000 1800 Balance -2200 -3390 -360 PT 19.5 SEC (12.0-15.0) H 07/12/17 03:23 INR 1.63 (0.83-1.16) H 07/12/17 03:23 - Physical Exam Constitutional: chronically ill appearing Eyes: anicteric sclera Ears, Nose, Mouth, Throat: moist mucous membranes Cardiovascular: regular rate and rhythym, tachycardia Respiratory: no respiratory distress Gastrointestinal: normoactive bowel sounds Genitourinary: no bladder fullness Skin: warm Musculoskeletal: No asymmetric calves Neurologic: AAOx3 Psychiatric: interacting appropriately Lymph, Heme, Immunologic: no cervical LAD ICD10 Worksheet Patient Problems: Problems Problem Status Onset Ascites Acute Back pain Acute Generalized weakness Acute Hepatitis C Acute Liver failure Acute Suicidal ideation Acute Upper GI bleeding Acute
[2017-07-12] MEDS: WARFARIN SODIUM 5 MG TAB PO SCH (15:57)
[2017-07-13] MEDS: HYDROCODONE/APAP 5/325 TAB PO PRN ×2 (02:16→07:54)
[2017-07-13 04:36] LABS: INR 1.82 (0.83-1.16); PROTIME(PATIENT) 21.2 SEC (12.0-15.0)
[2017-07-13] MEDS: FUROSEMIDE 40 MG TAB PO SCH (07:52)
[2017-07-13] MEDS: GABAPENTIN 400 MG CAP PO SCH ×3 (07:52→20:53)
[2017-07-13] MEDS: TAMSULOSIN HCL 0.4 MG CAP PO SCH (07:53)
[2017-07-13] MEDS: SPIRONOLACTONE 25 MG TAB PO SCH (07:53)
[2017-07-13] MEDS: PANTOPRAZOLE SODIUM 40 MG TAB PO SCH ×2 (07:53→20:54)
[2017-07-13] MEDS: DILTIAZEM CD 120 MG CAP PO SCH (07:53)
[2017-07-13] MEDS: ENOXAPARIN 60 MG/0.6 ML SYR SC SCH ×2 (07:56→20:54)
--- NOTE | 2017-07-13 15:13 | ASMTCMCOM ---
CM Note CM Note Notes: Pts case discussed in tx rounds this AM. CM spoke w/ Antonia at [facility]. Antonia reports that she has notified the state of the accepting facility. We are still awaiting on the level 2 PASRR. CM to follow. Plan: [facility] 07/12/2017 Case Management Note Contacted Antonia Gonzalez at [facility] [phone] to notify of acceptance at [facility] in [facility]. Antonia notified State of [place] of accepting facility. D/C delayed as facilty needs Level 2 PASRR from [place] before accepting pt. Notified facilty. Facility willing to hold bed for patient. Jesi is the contact at [facility] and can be reached at [phone]. Cog eval completed today. Provided clothes for pt. Case Management d/c poc: [facility] in [facility] once state releases level 2 PASRR to facility. Case Management to follow. Date Signed: 07/13/2017 03:13 PM Electronically Signed By:DIGNA Espinosa
--- NOTE | 2017-07-13 15:28 | HOSPPROG ---
Hospitalist Progress Note Assessment/Plan: 57M, homeless with 3rd admission this year (had PE/DVT, duodenal ulcer hemorrhage). Unable to find placement on previous admissions. Presents with gastroenteritis, found to be in rapid a-fib. Recurrent PE identified on this admission after search for cause of sinus tach. # paroxysmal a-fib (on initial presentation),TELE (personally reviewed and interpreted) sinus rhythm 90-100's - cont PO dilt (cant up titrate 2/2 hypotension) # acute PE, non-occlusive DVT- currently tolerating trial of AC-- INR 1.82 oxygen saturations 91% on RA - if rebleeds consider endoscopy vs surgical resection - cont lovenox/warfarin # recent duodenal ulcer hemorrhage - s/p treatment for h. pylori after last admission- - h.pylori stool ag negative - cont PO protonix # anemia, macrocytic - remains hgb 9 this am # hypoNa - stable 133 today # cirrhosis d/t HCV and EtOH - some volume overload today with ascites/pleural effusions- has required paracentesis in the past - cont lasix and Aldactone - monitor BMP # HCV # EtOH abuse - has been sober for 4 months # urinary retention - likely BPH - Flomax started here # chronic pain on continuous narcotics # T11 compression fx, subacute # L femoral neck fx - non-operative per ortho; TDWB # ARABELLA - resolved # schizoaffective d/o - not on meds - perez samuel had eval'd, she will continue # debility - mobilize today # dispo - will need SNF - CM working on options which are difficult I have discussed the case with CM - PASSR pending hopeful dc in the next 24-48 Subjective: pain Objective: Vital Signs Temp Pulse Resp BP Pulse Ox 36.8 C 100 19 109/71 87 L 07/13/17 12:00 07/13/17 12:00 07/13/17 12:00 07/13/17 12:00 07/13/17 12:00 Laboratory Results 07/11/17 03:02 07/13/17 03:27 07/12/17 07/13/17 07/14/17 05:59 05:59 05:59 Intake Total 1610 2120 Output Total 5000 4300 400 Balance -3390 -2180 -400 PT 21.2 SEC (12.0-15.0) H 07/13/17 03:27 INR 1.82 (0.83-1.16) H 07/13/17 03:27 - Physical Exam Constitutional: chronically ill appearing Eyes: anicteric sclera Ears, Nose, Mouth, Throat: moist mucous membranes Cardiovascular: regular rate and rhythym Respiratory: no respiratory distress Gastrointestinal: normoactive bowel sounds Genitourinary: no bladder fullness Skin: warm Musculoskeletal: No asymmetric calves Neurologic: AAOx3 Psychiatric: agitated Lymph, Heme, Immunologic: no cervical LAD ICD10 Worksheet Patient Problems: Problems Problem Status Onset Ascites Acute Back pain Acute Generalized weakness Acute Hepatitis C Acute Liver failure Acute Suicidal ideation Acute Upper GI bleeding Acute
[2017-07-13] MEDS: ACETAMINOPHEN 325 MG TAB PO PRN ×2 (17:38→22:17)
[2017-07-13] MEDS: WARFARIN SODIUM 5 MG TAB PO SCH (17:38)
[2017-07-13] MEDS: traMADol 50 MG TAB PO PRN (20:53)
[2017-07-13] MEDS ORDERED: NS 1,000 ML IV ONE (22:52)
[2017-07-13 23:04] LABS: PLATELET COUNT 236 10^3/uL (150-400)
[2017-07-13] MEDS ORDERED: NS 1,900 ML IV ONE (23:31)
[2017-07-14] MEDS: CEFEPIME HCL 1 GM in STERILE WATER INJ 11.3 ML IV SCH ×3 (00:10→16:25)
[2017-07-14 00:22] LABS: INR 2.2 (0.83-1.16); PROTIME(PATIENT) 24.5 SEC (12.0-15.0)
[2017-07-14] MEDS: ACETAMINOPHEN 325 MG TAB PO PRN ×2 (04:25→20:26)
[2017-07-14] MEDS ORDERED: ALBUMIN 5% 500 ML IV ONE (04:35)
[2017-07-14] MEDS ORDERED: NS 1,000 ML IV ONE ×2 (07:25→20:45)
[2017-07-14] MEDS: ENOXAPARIN 60 MG/0.6 ML SYR SC SCH (07:50)
[2017-07-14] MEDS: TAMSULOSIN HCL 0.4 MG CAP PO SCH (07:51)
[2017-07-14] MEDS: PANTOPRAZOLE SODIUM 40 MG TAB PO SCH ×2 (07:51→20:26)
[2017-07-14] MEDS: GABAPENTIN 400 MG CAP PO SCH ×3 (08:00→20:26)
[2017-07-14] MEDS: traMADol 50 MG TAB PO PRN ×2 (11:09→17:08)
[2017-07-14] MEDS: DILTIAZEM CD 120 MG CAP PO SCH (11:20)
[2017-07-14] MEDS: SPIRONOLACTONE 25 MG TAB PO SCH (11:21)
[2017-07-14] MEDS: FUROSEMIDE 40 MG TAB PO SCH (11:21)
--- NOTE | 2017-07-14 12:29 | HOSPPROG ---
Hospitalist Progress Note Assessment/Plan: 57M, homeless with 3rd admission this year (had PE/DVT, duodenal ulcer hemorrhage). Unable to find placement on previous admissions. Presents with gastroenteritis, found to be in rapid a-fib. Recurrent PE identified on this admission after search for cause of sinus tach. # acute sepsis- overnight patient developed fever, tachycardia, hypotension and hypoxia- received IV fluid resuscitation and empiric antibiotics Blood cultures overnight + Klebsiella pneumoniae - continue cefepime until sensitivities available - continue IVF until pressures were stable # acute hypoxic respiratory failure- chest x-ray(personally reviewed and interpreted) shows multiple consolidations consistent with pneumonia Oxygen saturations 95% on 2 L - continue cefepime # healthcare associated pneumonia- blood cultures with Klebsiella continue to treat # paroxysmal a-fib (on initial presentation),TELE (personally reviewed and interpreted) sinus rhythm 90-100's - cont PO dilt (cant up titrate 2/2 hypotension) # acute PE, non-occlusive DVT- currently tolerating trial of AC-- INR 2.2 - if rebleeds consider endoscopy vs surgical resection - cont lovenox/warfarin # recent duodenal ulcer hemorrhage - s/p treatment for h. pylori after last admission- - h.pylori stool ag negative - cont PO protonix # anemia, macrocytic - remains hgb 9 this am # hypoNa - stable 133 # cirrhosis d/t HCV and EtOH - some volume overload today with ascites/pleural effusions- has required paracentesis in the past - cont lasix and Aldactone - monitor BMP # HCV # EtOH abuse - has been sober for 4 months # urinary retention - likely BPH - Flomax started here # chronic pain on continuous narcotics # T11 compression fx, subacute # L femoral neck fx - non-operative per ortho; TDWB # ARABELLA - resolved # schizoaffective d/o - not on meds # dispo - will need SNF - CM working on options which are difficult I have discussed the case with RN- holding diuretics and diltiazem currently until we establish blood pressures stabilization Subjective: Denies shortness of breath Objective: Vital Signs Temp Pulse Resp BP Pulse Ox 36.8 C 96 16 84/52 L 91 L 07/14/17 12:20 07/14/17 12:20 07/14/17 12:20 07/14/17 12:20 07/14/17 12:20 Microbiology 07/13/17 22:47 Blood Panel (PCR) - Final Blood Klebsiella Pneumoniae Laboratory Results 07/13/17 22:47 07/13/17 22:47 07/13/17 07/14/17 07/15/17 05:59 05:59 05:59 Intake Total 2120 5120 Output Total 4300 2175 Balance -2180 2945 PT 24.5 SEC (12.0-15.0) H 07/13/17 23:58 INR 2.20 (0.83-1.16) H 07/13/17 23:58 - Physical Exam Constitutional: chronically ill appearing Eyes: anicteric sclera Ears, Nose, Mouth, Throat: dry mucous membranes Cardiovascular: regular rate and rhythym Respiratory: no respiratory distress, No expiratory wheeze, No inspiratory crackles Gastrointestinal: normoactive bowel sounds Genitourinary: no bladder fullness Skin: warm Musculoskeletal: No asymmetric calves Neurologic: AAOx3 Psychiatric: flat affect Lymph, Heme, Immunologic: no cervical LAD ICD10 Worksheet Patient Problems: Problems Problem Status Onset Ascites Acute Back pain Acute Generalized weakness Acute Hepatitis C Acute Liver failure Acute Suicidal ideation Acute Upper GI bleeding Acute
[2017-07-14] MEDS ORDERED: NS 500 ML IV ONE (14:04)
[2017-07-14 14:38] LABS: INR 2.38 (0.83-1.16)
[2017-07-14] MEDS ORDERED: IOPAMIDOL (ISOVUE-300) 100 ML BTL ONE (15:35)
[2017-07-14] MEDS: WARFARIN SODIUM 5 MG TAB PO SCH (16:26)
[2017-07-15] MEDS: CEFEPIME HCL 1 GM in STERILE WATER INJ 11.3 ML IV SCH ×3 (00:23→15:43)
[2017-07-15] MEDS: traMADol 50 MG TAB PO PRN ×4 (02:01→19:16)
[2017-07-15 04:58] LABS: INR 2.56 (0.83-1.16); PROTIME(PATIENT) 27.5 SEC (12.0-15.0)
[2017-07-15] MEDS: ACETAMINOPHEN 325 MG TAB PO PRN ×2 (06:03→12:40)
--- NOTE | 2017-07-15 08:35 | CPEKG ---
Heart Rate: 108 RR Interval: 556 P-R Interval: 160 QRSD Interval: 78 QT Interval: 332 QTC Interval: 445 P [place]: 77 QRS [place]: 88 T Wave [place]: 60 EKG Severity - ABNORMAL ECG - EKG Impression: SINUS TACHYCARDIA EKG Impression: PAC Electronically Signed By: Zach Odonnell 15-Jul-2017 08:37:53
[2017-07-15] MEDS ORDERED: FUROSEMIDE 40 MG/4 ML VIAL IVP ONE (08:39)
[2017-07-15] MEDS ORDERED: IPRATROPIUM/ALBUTEROL 3 ML DEYVIAL IH PRN (08:41)
[2017-07-15] MEDS: GABAPENTIN 400 MG CAP PO SCH ×3 (08:43→21:42)
[2017-07-15] MEDS: DILTIAZEM CD 120 MG CAP PO SCH (08:44)
[2017-07-15] MEDS: PANTOPRAZOLE SODIUM 40 MG TAB PO SCH ×2 (08:44→21:42)
--- NOTE | 2017-07-15 09:10 | HOSPPROG ---
Hospitalist Progress Note Assessment/Plan: * Klebsiella septic shock -prolonged, persistent hypotension - eventually responded to IVF -IV cefepime -source - ? PNA - abd CT unremarkable * Acute respiratory failure - suspect pulm edema due to massive volume resuscitation -IV Lasix and monitor for response * Acute recurrent PE -therapeutic warfarin * Acute on chronic CHF due to DD -IV Lasix * PAF -PO diltiazem * DU with hemorrhage, s/p tx H pylori -Protonix BID * Cirrhosis due to HepC + Etoh (sober x 4 months) -holding lasix/aldactone * BPH with retention -Flomax * Chronic pain with continuous narcotic dependency * Left fem neck fx - non-operative -TD WB * Schizoaffective disorder * Subacute T11 compression fracture * Homeless - difficult dispo CC time- 45 minutes Subjective: Called to see patient urgently this am for acute onset SOB. O2 requirement increased to 8L and patient in respiratory distress. Got 4500 cc IVF NS yesterday on day shift and more IVF bolus overnight for low BP. BP now stable. Tachycardia new with respiratory distress. NO CP Objective: Vital Signs Temp Pulse Resp BP Pulse Ox 36.3 C 112 H 25 H 132/84 H 97 07/15/17 08:00 07/15/17 08:54 07/15/17 08:54 07/15/17 08:44 07/15/17 08:54 Microbiology 07/13/17 22:47 Blood Panel (PCR) - Final Blood Klebsiella Pneumoniae Laboratory Results 07/15/17 03:15 07/15/17 03:15 07/14/17 07/15/17 07/16/17 05:59 05:59 05:59 Intake Total 5120 6996 Output Total 2175 1125 Balance 2945 5871 PT 27.5 SEC (12.0-15.0) H 07/15/17 03:15 INR 2.56 (0.83-1.16) H 07/15/17 03:15 EKG viewed, my personal interpretation is - sinus tachy, no ST changes CXR viewed, my personal interpretation is - increased bilateral infiltrates, suspect CHF ABG viewed - reassuring - Physical Exam Constitutional: not in pain, chronically ill appearing, uncomfortable, other ( acute respiratory distress) Cardiovascular: regular rate and rhythym, no murmur, rub, or gallop, JVD Respiratory: expiratory wheeze, inspiratory crackles, respiratory distress, rhonchi Gastrointestinal: normoactive bowel sounds, soft, non-tender abdomen, no palpable masses Skin: no rashes or abrasions, no fluctuance, no induration Neurologic: AAOx3, sensation intact bilaterally Psychiatric: interacting appropriately, not anxious, not encephalopathic, thought process linear ICD10 Worksheet Patient Problems: Problems Problem Status Onset Ascites Acute Back pain Acute Generalized weakness Acute Hepatitis C Acute Liver failure Acute Suicidal ideation Acute Upper GI bleeding Acute
[2017-07-15] MEDS: IPRATROPIUM/ALBUTEROL 3 ML DEYVIAL IH SCH ×3 (11:31→20:58)
--- NOTE | 2017-07-15 14:54 | GCON ---
[f rep st] CONSULTATION INPATIENT INFECTIOUS DISEASE CONSULTATION. REFERRING PHYSICIAN: Jennifer Thomas MD REASON FOR REFERRAL: Gram-negative bacteremia. Unknown source. HISTORY OF PRESENT ILLNESS: The patient is a 57-year-old male, who was admitted to [facility] through the emergency department on 07/03/2017. The patient was admitted initially secondary to intractable vomiting and abdominal pain. The patient had a recent hospitalization at [facility] through June 22 due to a duodenal bleed. The intractable nausea and vomiting that bro ught him in for this visit was attributed to gastroenteritis. Patient was treated empirically with H 2 blockers and observed. He was also found to be in rapid atrial fibrillation and had a recurrent pu lmonary embolus after searching for cause of sinus tachycardia. The patient stabilized and was ready for discharge by July 11, but he became acutely septic on July 13. His white blood cell count which had been in the low normal range dropped to 1.28 on 07/13. This was accompanied by tachycardia and hypo tension. Blood cultures from that date are growing Klebsiella pneumoniae. We are consulted to help determine treatment and source for this bacteremia. PAST MEDICAL HISTORY: 1. History of alcohol abuse. 2. Hepatitis C. 3. Cirrhosis of the liver. 4. Chronic back pain. 5. Bleeding duodenal ulcer. 6. Gastroesophageal reflux disease. 7. History of pulmonary embolus and deep venous thrombosis. 8. Schizoaffective disorder. PAST SURGICAL HISTORY: 1. Status post unspecified abdominal surgery. 2. Status post nephrectomy. ANTIBIOTICS: Cefepime. ALLERGIES: The patient has no known drug allergies. SOCIAL HISTORY: The patient is intermittently homeless with a significant history of alcohol abuse. No known tobacco or drug use outside of marijuana. FAMILY HISTORY: Noncontributory. REVIEW OF SYSTEMS: Other than that detailed above in history of present illness, a comprehensive 10- system review is negative. PHYSICAL EXAMINATION: VITAL SIGNS: Temperature maximum 38.2, temperature current is 36.8, heart rat e is 97, respiratory rate is 20, blood pressure is 99/66. GENERAL: The patient is a well formed, we ll-nourished male in no acute distress. He is mildly toxic in appearance. He is alert and oriented x3. He is pleasant in demeanor. HEENT: Normocephalic. Atraumatic. No scleral icterus. No oral l esion. No drainage from the nares. EYES: Lids and conjunctivae are within normal limits. Pupils a re equal and round bilaterally. NECK: Supple. No meningismus. LUNGS: Clear to auscultation with decreased breath sounds in the bases bilaterally. Good effort. HEART: Regular rate bordering on ta chycardia. Occasional irregular rhythmic beats. No murmur, rub or gallop heard. Trace to 1+ pedal edema bilaterally. SKIN: Warm and dry to the touch. No rash or lesion noted. ABDOMEN: Soft. Ten elijah to deep palpation. More tending to the right upper quadrant. No mass noted. No rebound. MUSCU LOSKELETAL: No muscle tenderness is noted. No joint line effusion or arthritis is seen. NEURO: Cr anial nerves 2-12 seem to be intact. Peripheral sensation seems intact in extremities. LABORATORY DATA: Patient has a CBC dated 07/15/2017 shows a white blood cell count of 5.28, hemoglob in of 8.7, hematocrit of 27.5, and a platelet count of 259. Serum chemistries on 07/15/2017 show sod ium 139, potassium 4.1, chloride of 108, bicarbonate 21, BUN of 10, and creatinine of 0.5. Urinalysi s on 07/13/2017 is within normal limits. MICROBIOLOGIC DATA: Patient has blood cultures dated 07/13/2017 which are growing Klebsiella pneumon iae. Repeat blood cultures on 07/14/2017 are pending. RADIOLOGIC DATA: Patient has an abdominal CT dated 07/03/2017 which shows query gastroenteritis. No evidence of perforated ulcer obstruction which was normal at appendix, cirrhosis without portal vein thrombosis or ascites. Repeat abdominal CT scan on 07/14/2017 shows no discrete intraabdominal infe ction, bilateral small pleural effusions with lower lobe atelectasis, shows cirrhotic liver disease i s seen previously, unchanged ventral abdominal wall hernia containing nonobstructive small and large bowel. It is also noted to be nondilated gallbladder with a mild circumferential wall thickening. N o bile duct dilatation was noted. ASSESSMENT: Klebsiella pneumoniae bacteremia with unclear source. I do not after reviewing the imag es feel that this is likely from a bacterial pneumonia source. His abdominal complaints as well as h is presentation with nausea and vomiting lead me to consider the biliary tract as a possible source. The patient does have an elevated direct bilirubin and also has an elevated alkaline phosphatase. A t this point, will pursue an abdominal ultrasound of the biliary tract. If this is normal, we will t ry to pursue a HIDA scan tomorrow. In the meanwhile continue the cefepime. PLAN: 1. Continue cefepime at the present dose. 2. Follow repeat blood cultures. 3. Abdominal ultrasound with concentration of the right upper quadrant. 4. HIDA scan tomorrow if no pathology found on ultrasound. /[id number]/MODL
[2017-07-15] MEDS: FUROSEMIDE 20 MG/2 ML VIAL IVP SCH (15:09)
[2017-07-15] MEDS: WARFARIN SODIUM 5 MG TAB PO SCH (15:43)
[2017-07-16] MEDS: CEFEPIME HCL 1 GM in STERILE WATER INJ 11.3 ML IV SCH ×2 (00:16→08:25)
[2017-07-16] MEDS: traMADol 50 MG TAB PO PRN ×3 (00:16→21:18)
[2017-07-16] MEDS: ACETAMINOPHEN 325 MG TAB PO PRN ×2 (03:59→11:09)
[2017-07-16 04:31] LABS: PLATELET COUNT 284 10^3/uL (150-400)
[2017-07-16 04:36] LABS: INR 2.85 (0.83-1.16); PROTIME(PATIENT) 29.8 SEC (12.0-15.0)
[2017-07-16] MEDS: IPRATROPIUM/ALBUTEROL 3 ML DEYVIAL IH SCH ×3 (05:36→16:39)
[2017-07-16] MEDS ORDERED: LORazepam 2 MG/ML INJ IVP PRN (08:31)
[2017-07-16] MEDS: DILTIAZEM CD 120 MG CAP PO SCH (10:45)
[2017-07-16] MEDS: TAMSULOSIN HCL 0.4 MG CAP PO SCH (10:45)
[2017-07-16] MEDS: GABAPENTIN 400 MG CAP PO SCH ×3 (10:46→21:11)
[2017-07-16] MEDS: PANTOPRAZOLE SODIUM 40 MG TAB PO SCH ×2 (10:46→21:11)
[2017-07-16] MEDS: FUROSEMIDE 20 MG/2 ML VIAL IVP SCH ×2 (10:48→15:21)
[2017-07-16] MEDS: ERTAPENEM 1 GM VIAL IV SCH (10:48)
--- NOTE | 2017-07-16 11:54 | ASMTCMCOM ---
CM Note CM Note Notes: Patient reviewed with MD in medical rounds. He has positive blood cultures that require treatment prior to discharge.. Being seen by ID . Hyda scan and xray of fracture pending.Symptoms improving. Plan remains the same to dc to [facility] when medically cleared. CM to follow, Plan: To [facility] in [place] when medically stable. Date Signed: 07/16/2017 11:53 AM Electronically Signed By:Lynne Chen RN
--- NOTE | 2017-07-16 12:47 | PCMIDPN ---
Assessment/Plan: Assessment: Klebsiella pneumoniae bacteremia of unclear source. Patient had improved on cefepime with normalization of his white blood cell count from a leukopenic measurement during the worst of his hypotension and septic shock. Interestingly his Klebsiella is extended spectrum beta lactamase and not in vitro sensitive to cefepime although the cefepime clearly improved him clinically. Will switch to ertapenem. Abdominal ultrasound did not reveal any biliary tract disease. Awaiting HIDA scan results from today. Plan: 1. Continue ertapenem. 2. Follow up on repeat blood cultures. 3. Follow up on HIDA scan results. 07/16/17 12:46 07/16/17 12:47 Subjective: Patient is resting in his hospital bed. He denies any new complaint. Tired from the testing and HIDA scan. No fevers or chills. Objective: Ertapenem # 1 Vital Signs Temp Pulse Resp BP Pulse Ox 36.8 C 98 12 105/67 95 07/16/17 11:17 07/16/17 11:17 07/16/17 11:17 07/16/17 11:17 07/16/17 11:17 Microbiology 07/13/17 22:47 Blood Culture - Final Blood Klebsiella Pneumoniae Esbl Blood Panel (PCR) - Final Klebsiella Pneumoniae Laboratory Results 07/16/17 03:51 07/16/17 03:51 07/15/17 07/16/17 07/17/17 05:59 05:59 05:59 Intake Total 6996 960 Output Total 1125 4000 625 Balance 5871 -3040 -625 - Physical Exam General Appearance: WD/WN, alert, no apparent distress, non-toxic Respiratory: lungs clear, normal breath sounds, No respiratory distress Cardiac/Chest: regular rate, rhythm, No tachycardia Extremities: non-tender, normal inspection Abdomen: non-tender, soft, No distended, No mass Skin: normal color, warm/dry, No rash Neuro/Psych: alert, normal mood/affect, oriented x 3 ICD10 Worksheet Patient Problems: Problems Problem Status Onset Ascites Acute Back pain Acute Generalized weakness Acute Hepatitis C Acute Liver failure Acute Suicidal ideation Acute Upper GI bleeding Acute
--- NOTE | 2017-07-16 15:19 | HOSPPROG ---
Hospitalist Progress Note Assessment/Plan: * Klebsiella septic shock -prolonged, persistent hypotension - eventually responded to IVF -IV Invanz - ESBL -source - ? PNA - HIDA negative for GB as source * Acute respiratory failure - suspect pulm edema due to massive volume resuscitation -IV Lasix and monitor for response - improved * Acute recurrent PE -therapeutic warfarin * Acute on chronic CHF due to DD -s/p IV Lasix * PAF -PO diltiazem * DU with hemorrhage, s/p tx H pylori -Protonix BID * Cirrhosis due to HepC + Etoh (sober x 4 months) -PO lasix/aldactone * BPH with retention -Flomax * Chronic pain with continuous narcotic dependency * Left fem neck fx - non-operative -TD WB -repeat Xray pending * Schizoaffective disorder * Subacute T11 compression fracture * Homeless - dispo to SNF once level II PASRR complete Subjective: No complaints. Objective: Vital Signs Temp Pulse Resp BP Pulse Ox 36.8 C 98 12 105/67 95 07/16/17 11:17 07/16/17 11:17 07/16/17 11:17 07/16/17 11:17 07/16/17 11:17 Microbiology 07/13/17 22:47 Blood Culture - Final Blood Klebsiella Pneumoniae Esbl Blood Panel (PCR) - Final Klebsiella Pneumoniae Laboratory Results 07/16/17 03:51 07/16/17 03:51 07/15/17 07/16/17 07/17/17 05:59 05:59 05:59 Intake Total 6996 960 Output Total 1125 4000 625 Balance 5871 -3040 -625 PT 29.8 SEC (12.0-15.0) H 07/16/17 03:51 INR 2.85 (0.83-1.16) H 07/16/17 03:51 d/w Dr. Guzmán - ESBL - abx change to invanz HIDA - EF 6% gallbladder - Physical Exam Constitutional: no apparent distress, appears nourished, not in pain Cardiovascular: regular rate and rhythym, no murmur, rub, or gallop Respiratory: no respiratory distress, no rales or rhonchi, clear to auscultation Gastrointestinal: normoactive bowel sounds, soft, non-tender abdomen, no palpable masses Skin: no rashes or abrasions, no fluctuance, no induration Neurologic: AAOx3, sensation intact bilaterally Psychiatric: interacting appropriately, not anxious, not encephalopathic, thought process linear ICD10 Worksheet Patient Problems: Problems Problem Status Onset Ascites Acute Back pain Acute Generalized weakness Acute Hepatitis C Acute Liver failure Acute Suicidal ideation Acute Upper GI bleeding Acute
[2017-07-16] MEDS: WARFARIN SODIUM 5 MG TAB PO SCH (16:20)
[2017-07-17] MEDS: IPRATROPIUM/ALBUTEROL 3 ML DEYVIAL IH SCH ×3 (01:49→11:49)
[2017-07-17] MEDS: traMADol 50 MG TAB PO PRN ×3 (03:35→18:28)
[2017-07-17 04:15] LABS: INR 2.96 (0.83-1.16); PROTIME(PATIENT) 30.7 SEC (12.0-15.0)
[2017-07-17 04:33] LABS: PLATELET COUNT 338 10^3/uL (150-400)
[2017-07-17] MEDS: DILTIAZEM CD 120 MG CAP PO SCH (08:07)
[2017-07-17] MEDS: PANTOPRAZOLE SODIUM 40 MG TAB PO SCH ×2 (08:07→21:29)
[2017-07-17] MEDS: TAMSULOSIN HCL 0.4 MG CAP PO SCH (08:07)
[2017-07-17] MEDS: ACETAMINOPHEN 325 MG TAB PO PRN ×2 (08:07→16:02)
[2017-07-17] MEDS: GABAPENTIN 400 MG CAP PO SCH ×3 (08:07→21:29)
[2017-07-17] MEDS: ERTAPENEM 1 GM VIAL IV SCH (08:08)
--- NOTE | 2017-07-17 13:15 | PCMIDPN ---
Assessment/Plan: Assessment/Plan: * ESBL Klebsiella pneumoniae bacteremia of unclear etiology: Abdominal imaging including CT, ultrasound, and HIDA scan unrevealing for etiology. Patient denies any urinary symptomatology. Bowel etiology still seems likely given recent intra-abdominal surgery although no evidence of abscess or drainable focus. Continue ertapenem. Isolate is also levofloxacin susceptible but with concomitant warfarin and recent bleeding ulcer, favor continued ertapenem to complete 2 weeks of therapy. 07/17/17 13:12 Subjective: Patient complains of cough. No abdominal pain, nausea, vomiting or diarrhea. Objective: Vital Signs Temp Pulse Resp BP Pulse Ox 37.1 C 92 16 111/71 90 L 07/17/17 08:00 07/17/17 11:50 07/17/17 11:50 07/17/17 08:00 07/17/17 11:50 Microbiology 07/13/17 22:47 Blood Culture - Final Blood Klebsiella Pneumoniae Esbl Blood Panel (PCR) - Final Klebsiella Pneumoniae Laboratory Results 07/17/17 03:16 07/17/17 03:16 07/16/17 07/17/17 07/18/17 05:59 05:59 05:59 Intake Total 960 1290 Output Total 4000 2400 500 Balance -3040 -1110 -500 Ertapenem # 2 Blood cultures 2/2 ESBL producing Klebsiella pneumoniae Blood cultures 07/14/2017 no growth - Physical Exam General Appearance: alert, no apparent distress EENT: No thrush, No conjunctival petechiae Respiratory: crackles (Bibasilar), other (Weak cough present) Cardiac/Chest: regular rate, rhythm Abdomen: non-tender, No distended Skin: No embolic lesions ICD10 Worksheet Patient Problems: Problems Problem Status Onset Ascites Acute Back pain Acute Generalized weakness Acute Hepatitis C Acute Liver failure Acute Suicidal ideation Acute Upper GI bleeding Acute
--- NOTE | 2017-07-17 15:37 | HOSPPROG ---
Hospitalist Progress Note Assessment/Plan: * Klebsiella septic shock -BP eventually responded to IVF -IV Invanz - ESBL - consider PO levaquin due to dispo difficulties with IV Invanz -source - ? PNA - HIDA negative for GB as source * Acute respiratory failure - pulm edema due to massive volume resuscitation -s/p IV Lasix -recheck CXR in am -still a little hypoxic * Acute recurrent PE -therapeutic warfarin * Acute on chronic CHF due to DD -s/p IV Lasix * PAF -PO diltiazem * DU with hemorrhage, s/p tx H pylori -Protonix BID * Cirrhosis due to HepC + Etoh (sober x 4 months) -PO lasix/aldactone * BPH with retention -Flomax * Chronic pain with continuous narcotic dependency * Left fem neck fx - non-operative -TD WB * Schizoaffective disorder * Subacute T11 compression fracture * Dispo - await SNF placement Subjective: No new complaints. Objective: Vital Signs Temp Pulse Resp BP Pulse Ox 36.9 C 94 20 89/62 L 89 L 07/17/17 13:20 07/17/17 13:20 07/17/17 13:20 07/17/17 13:20 07/17/17 13:20 Laboratory Results 07/17/17 03:16 07/17/17 03:16 07/16/17 07/17/17 07/18/17 05:59 05:59 05:59 Intake Total 960 1290 Output Total 4000 2400 500 Balance -3040 -1110 -500 PT 30.7 SEC (12.0-15.0) H 07/17/17 03:16 INR 2.96 (0.83-1.16) H 07/17/17 03:16 ICD10 Worksheet Patient Problems: Problems Problem Status Onset Ascites Acute Back pain Acute Generalized weakness Acute Hepatitis C Acute Liver failure Acute Suicidal ideation Acute Upper GI bleeding Acute
[2017-07-17] MEDS ORDERED: WARFARIN SODIUM 2.5 MG TAB PO ONE (16:00)
[2017-07-17] MEDS: SPIRONOLACTONE 25 MG TAB PO SCH (16:02)
[2017-07-17] MEDS: FUROSEMIDE 20 MG TAB PO SCH (16:03)
[2017-07-17] MEDS: HYDROCODONE/APAP 5/325 TAB PO PRN (21:28)
[2017-07-18] MEDS: traMADol 50 MG TAB PO PRN ×2 (05:25→11:39)
[2017-07-18 05:48] LABS: INR 2.9 (0.83-1.16); PROTIME(PATIENT) 30.2 SEC (12.0-15.0)
[2017-07-18] MEDS: GABAPENTIN 400 MG CAP PO SCH ×3 (08:44→21:20)
[2017-07-18] MEDS: ERTAPENEM 1 GM VIAL IV SCH (08:44)
[2017-07-18] MEDS: TAMSULOSIN HCL 0.4 MG CAP PO SCH (08:45)
[2017-07-18] MEDS: DILTIAZEM CD 120 MG CAP PO SCH (08:45)
[2017-07-18] MEDS: FUROSEMIDE 20 MG TAB PO SCH (08:45)
[2017-07-18] MEDS: PANTOPRAZOLE SODIUM 40 MG TAB PO SCH ×2 (08:45→21:19)
[2017-07-18] MEDS: SPIRONOLACTONE 25 MG TAB PO SCH (08:45)
[2017-07-18] MEDS: ACETAMINOPHEN 325 MG TAB PO PRN (08:54)
--- NOTE | 2017-07-18 09:35 | HOSPPROG ---
Hospitalist Progress Note Assessment/Plan: 57 yo M w sepsis, klebsiella bacteremia Klebsiella septic shock -BP eventually responded to IVF -IV Invanz - ESBL - consider PO levaquin due to dispo difficulties with IV Invanz -source - ? 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) -PO lasix/aldactone BPH with retention -Flomax Chronic pain with continuous narcotic dependency Left fem neck fx - non-operative -TD WB Schizoaffective disorder Subacute T11 compression fracture Dispo - await SNF placement Subjective: cxr w persistent interstitial disease (interp by me). flat affect Objective: Vital Signs Temp Pulse Resp BP Pulse Ox 36.7 C 83 12 100/70 92 07/18/17 08:00 07/18/17 08:00 07/18/17 08:00 07/18/17 08:00 07/18/17 08:00 Laboratory Results 07/17/17 03:16 07/17/17 03:16 07/17/17 07/18/17 07/19/17 05:59 05:59 05:59 Intake Total 1290 1360 Output Total 2400 2925 Balance -1110 -1565 PT 30.2 SEC (12.0-15.0) H 07/18/17 05:15 INR 2.90 (0.83-1.16) H 07/18/17 05:15 - Physical Exam Constitutional: no apparent distress, chronically ill appearing Eyes: PERRL Ears, Nose, Mouth, Throat: moist mucous membranes, hearing normal Cardiovascular: regular rate and rhythym, no murmur, rub, or gallop, No systolic murmur Respiratory: no respiratory distress, no rales or rhonchi Gastrointestinal: normoactive bowel sounds, soft, non-tender abdomen, No guarding, No rebound Genitourinary: no bladder fullness, No fuentes in urethra Skin: warm, normal color Musculoskeletal: full muscle strength Neurologic: No AAOx3 Psychiatric: interacting appropriately Lymph, Heme, Immunologic: no cervical LAD ICD10 Worksheet Patient Problems: Problems Problem Status Onset Ascites Acute Back pain Acute Generalized weakness Acute Hepatitis C Acute Liver failure Acute Suicidal ideation Acute Upper GI bleeding Acute
[2017-07-18] MEDS ORDERED: FUROSEMIDE 20 MG/2 ML VIAL IVP ONE (09:38)
--- NOTE | 2017-07-18 13:09 | PCMIDPN ---
Assessment/Plan: Assessment/Plan: 1. ESBL Klebsiella bacteremia/sepsis: - Unclear source. Multiple studies working up abdominal source unrevealing. -f/u blood cx from 07/14/17 ngtd. interestingly cleared blood cx despite being on cefepime. -lab from yesterday noted, stable. - Currently on invanz. - plan for 14 days therapy. - care coordinated with case management. Dispo is difficult given patient's previous behavioral background. Discussed with her regarding interaction between levaquin and coumadin and given patient homeless this would add additional risks of INR monitoring etc. 2. Pneumonia: - CXR noted. consolidation on left - on invanz Meds invanz 1g daily - 07/16/17 s/p -cefepime 07/14-07/16 Subjective: afebrile. sitting in chair. states he doesn't feel as good today comparatively. coughing. has chronic back pain. denies diarrhea. denies abd pain. Objective: Vital Signs Temp Pulse Resp BP Pulse Ox 36.7 C 88 12 91/71 L 89 L 07/18/17 12:00 07/18/17 12:00 07/18/17 12:00 07/18/17 12:00 07/18/17 12:00 Laboratory Results 07/17/17 03:16 07/17/17 03:16 07/17/17 07/18/17 07/19/17 05:59 05:59 05:59 Intake Total 1290 1360 Output Total 2400 2925 1225 Balance -1110 -9072 -1857 - Physical Exam General Appearance: alert, no apparent distress Respiratory: coarse breath sounds Cardiac/Chest: regular rate, rhythm Extremities: No swelling Abdomen: normal bowel sounds, non-tender, soft Male Genitalia: other (condom catheter) Skin: No erythema ICD10 Worksheet Patient Problems: Problems Problem Status Onset Ascites Acute Back pain Acute Generalized weakness Acute Hepatitis C Acute Liver failure Acute Suicidal ideation Acute Upper GI bleeding Acute
--- NOTE | 2017-07-18 15:58 | ASMTCMCOM ---
CM Note CM Note Notes: Met with [facility] PRORATE CLERK, Salinas Tyler #[phone], along with director of Case Management, Santa Carrera. Discussed this patient's case and the difficult placement - [facility] facility, Elio Reyna, stated they would accept last week, now unable to d/t Level II PASRR. Salinas to discuss this case with his facilities and follow-up with Case Management. Per 2W CM, two [facility] facilities will come to [facility] on Monday. This patient continues to be a placement issue for Case Management d/t Mental Health hx, substance abuse and homelessness. He is an open member at the [facility] program. Entry Level Project Coordinator, Dickson, on site today to visit patient. If we have no success with placement, may need to work on discharge plan with community resources. Case Management will continue to follow. Current D/C Plan: SNF ([facility]) vs d/c to community with [facility] resources. Date Signed: 07/18/2017 03:58 PM Electronically Signed By:Sia Isidro RN
[2017-07-18] MEDS ORDERED: WARFARIN SODIUM 2.5 MG TAB PO ONE (16:00)
[2017-07-18] MEDS: HYDROCODONE/APAP 5/325 TAB PO PRN ×2 (17:27→21:20)
--- NOTE | 2017-07-18 18:23 | ASMTCMCOM ---
CM Note CM Note Notes: 07/18/2017 Case Management Note Attended assessment by [facility] rep and associate. [facility] will call tomorrow morning around 10 am after discussing with Yesenia and the DON. Offerred to have Dr. Hunt discuss case with them. Faxed Cynthia Rubio assessment to [facility]. Case Management d/c poc: To be determined. Date Signed: 07/18/2017 06:22 PM Electronically Signed By:Brenda Bello RN
[2017-07-19 04:57] LABS: INR 2.55 (0.83-1.16); PROTIME(PATIENT) 27.4 SEC (12.0-15.0)
--- NOTE | 2017-07-19 09:00 | PCMIDPN ---
Assessment/Plan: ESBL E coli bacteremia, unclear source. Blood cx cleared 07/14/17. Afebrile. White count normal with labs 2 days ago. Creatinine was also normal. --continue ertapenem, planning 14 days, stop 07/28/17 --contact precautions --ID to see every couple days, please notify us if impending discharge meds coumadin ertapenem 1gm IV dialy Microbiology 07/13 blood cultures (2 sets) ESBL E coli 07/14 blood cultures (2 sets) no growth to date Subjective: Patient without complaints, denies diarrhea. Feeling better today. Objective: Vital Signs Temp Pulse Resp BP Pulse Ox 37.0 C 72 14 95/70 L 92 07/19/17 08:07 07/19/17 08:07 07/19/17 08:07 07/19/17 08:07 07/19/17 08:07 Microbiology 07/13/17 23:00 Blood Culture - Final Blood Klebsiella Pneumoniae Esbl Laboratory Results 07/17/17 03:16 07/17/17 03:16 07/18/17 07/19/17 07/20/17 05:59 05:59 05:59 Intake Total 1360 1200 Output Total 6775 0707 Balance -5103 -9982 - Physical Exam General Appearance: alert, no apparent distress Respiratory: No accessory muscle use Cardiac/Chest: regular rate, rhythm Extremities: other (Excoriation left anterior ortiz without erythema), No pedal edema Abdomen: non-tender, soft, other (Multiple easily reducible hernia) Male Genitalia: other (Condom cath in place) Skin: No diaphoresis, No jaundice, No rash Neuro/Psych: alert, normal mood/affect, oriented x 3 ICD10 Worksheet Patient Problems: Problems Problem Status Onset Ascites Acute Back pain Acute Generalized weakness Acute Hepatitis C Acute Liver failure Acute Suicidal ideation Acute Upper GI bleeding Acute
[2017-07-19] MEDS: FUROSEMIDE 20 MG TAB PO SCH (09:58)
[2017-07-19] MEDS: SPIRONOLACTONE 25 MG TAB PO SCH (09:58)
[2017-07-19] MEDS: GABAPENTIN 400 MG CAP PO SCH ×3 (09:58→21:13)
[2017-07-19] MEDS: DILTIAZEM CD 120 MG CAP PO SCH (09:58)
[2017-07-19] MEDS: ERTAPENEM 1 GM VIAL IV SCH (09:59)
[2017-07-19] MEDS: PANTOPRAZOLE SODIUM 40 MG TAB PO SCH ×2 (10:01→21:14)
[2017-07-19] MEDS: TAMSULOSIN HCL 0.4 MG CAP PO SCH (10:01)
[2017-07-19] MEDS: HYDROCODONE/APAP 5/325 TAB PO PRN ×2 (10:11→21:13)
--- NOTE | 2017-07-19 15:28 | HOSPPROG ---
Hospitalist Progress Note Assessment/Plan: 57 yo M w sepsis, klebsiella bacteremia ? SI: he expresses feelings of passive suicidality such as "i dont know if i want to go on" but denies active suicidality. this has been a theme of his hospitalizations no eval today fuentes: remove Klebsiella septic shock -BP eventually responded to IVF -IV Invanz - ESBL - consider PO levaquin due to dispo difficulties with IV Invanz -source - ? 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) -PO lasix/aldactone BPH with retention -Flomax Chronic pain with continuous narcotic dependency Left fem neck fx - non-operative -TD WB Schizoaffective disorder Subacute T11 compression fracture Dispo - await SNF placement Subjective: case d/w dr mckeon Objective: Vital Signs Temp Pulse Resp BP Pulse Ox 37.3 C 90 22 H 95/65 L 93 07/19/17 15:18 07/19/17 15:18 07/19/17 15:18 07/19/17 15:18 07/19/17 15:18 Microbiology 07/13/17 23:00 Blood Culture - Final Blood Klebsiella Pneumoniae Esbl Laboratory Results 07/17/17 03:16 07/17/17 03:16 07/18/17 07/19/17 07/20/17 05:59 05:59 05:59 Intake Total 1360 1200 120 Output Total 2925 3975 1625 Balance -1245 -2001 -1505 PT 27.4 SEC (12.0-15.0) H 07/19/17 03:28 INR 2.55 (0.83-1.16) H 07/19/17 03:28 - Physical Exam Constitutional: no apparent distress, appears nourished Eyes: PERRL, anicteric sclera Ears, Nose, Mouth, Throat: moist mucous membranes, hearing normal Cardiovascular: regular rate and rhythym, no murmur, rub, or gallop Respiratory: no respiratory distress, no rales or rhonchi Gastrointestinal: normoactive bowel sounds Genitourinary: no bladder fullness, fuentes in urethra Skin: warm, normal color Musculoskeletal: full muscle strength Neurologic: AAOx3 ICD10 Worksheet Patient Problems: Problems Problem Status Onset Ascites Acute Back pain Acute Generalized weakness Acute Hepatitis C Acute Liver failure Acute Suicidal ideation Acute Upper GI bleeding Acute
[2017-07-19] MEDS ORDERED: WARFARIN SODIUM 5 MG TAB PO ONE (16:00)
[2017-07-19] MEDS: traMADol 50 MG TAB PO PRN (16:23)
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
[2017-07-20 04:27] LABS: INR 2.26 (0.83-1.16)
[2017-07-20] MEDS: ERTAPENEM 1 GM VIAL IV SCH (08:30)
[2017-07-20] MEDS: traMADol 50 MG TAB PO PRN ×2 (08:34→16:57)
[2017-07-20] MEDS: PANTOPRAZOLE SODIUM 40 MG TAB PO SCH ×2 (08:34→20:51)
[2017-07-20] MEDS: SPIRONOLACTONE 25 MG TAB PO SCH (08:35)
[2017-07-20] MEDS: TAMSULOSIN HCL 0.4 MG CAP PO SCH (08:37)
[2017-07-20] MEDS: FUROSEMIDE 20 MG TAB PO SCH (08:37)
[2017-07-20] MEDS: GABAPENTIN 400 MG CAP PO SCH ×3 (08:37→20:51)
--- NOTE | 2017-07-20 09:06 | HOSPPROG ---
Hospitalist Progress Note Assessment/Plan: 57 yo M w sepsis, klebsiella bacteremia ? SI: he expresses feelings of passive suicidality such as "i dont know if i want to go on" but denies active suicidality. this has been a theme of his hospitalizations no eval today plan of care: i think his passively suicidal statements are an expression of exasperation with his current level of illness and repeat hospitalizations, functional decline. I framed hospice care as an opportunity to focus on comfort and dignity rather than living as long as possible. He expressed interest in learning more about this. He had the insight to ask if he could continue diuretic therapy as he doesn't like being edematous. I acknowledged that diuretic therapy could reasonably be considered comfort care. We discussed the role of heroic interventions such as CPR or intubation and how they would prolong his life, be source of discomfort. He elected to be dnr 1. hospice eval today 2. DNR Klebsiella septic shock -BP eventually responded to IVF -IV Invanz - ESBL - consider PO levaquin due to dispo difficulties with IV Invanz -source - ? 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) -PO lasix/aldactone BPH with retention -Flomax Chronic pain with continuous narcotic dependency Left fem neck fx - non-operative -TD WB Schizoaffective disorder Subacute T11 compression fracture Dispo - await SNF placement Subjective: discussed plan of care, role of aggressive resuscitation, hospice care Objective: Vital Signs Temp Pulse Resp BP Pulse Ox 36.8 C 93 14 98/69 L 90 L 07/20/17 07:09 07/20/17 08:00 07/20/17 08:00 07/20/17 08:00 07/20/17 07:09 Microbiology 07/14/17 21:33 Blood Culture - Final Blood 07/14/17 21:20 Blood Culture - Final Blood 07/13/17 23:00 Blood Culture - Final Blood Klebsiella Pneumoniae Esbl Laboratory Results 07/17/17 03:16 07/17/17 03:16 07/19/17 07/20/17 07/21/17 05:59 05:59 05:59 Intake Total 1200 820 250 Output Total 3977 9458 Balance -2775 -1905 250 PT 25.0 SEC (12.0-15.0) H 07/20/17 03:02 INR 2.26 (0.83-1.16) H 07/20/17 03:02 - Physical Exam Constitutional: no apparent distress, chronically ill appearing Eyes: PERRL, anicteric sclera Ears, Nose, Mouth, Throat: moist mucous membranes, hearing normal Cardiovascular: regular rate and rhythym, no murmur, rub, or gallop Respiratory: no respiratory distress, no rales or rhonchi Gastrointestinal: normoactive bowel sounds, soft, non-tender abdomen Genitourinary: no bladder fullness, No fuentes in urethra Skin: warm, normal color Musculoskeletal: full muscle strength Neurologic: AAOx3 ICD10 Worksheet Patient Problems: Problems Problem Status Onset Ascites Acute Back pain Acute Generalized weakness Acute Hepatitis C Acute Liver failure Acute Suicidal ideation Acute Upper GI bleeding Acute
[2017-07-20] MEDS: DILTIAZEM CD 120 MG CAP PO SCH (09:36)
[2017-07-20] MEDS: HYDROCODONE/APAP 5/325 TAB PO PRN ×2 (09:36→19:54)
--- NOTE | 2017-07-20 15:11 | ASMTCMCOM ---
CM Note CM Note Notes: Pts case discussed in tx rounds. Dr. Shah spoke to pt about his code status. Dr. Shah has changed pt to a DNR. Pt is agreeable to having hospice ordered. CM made a referral to [facility]. Narcisa from [facility] came out and evaluated pt. Pt is not eligible for the care center at this time. [facility] reports that they can follow up on an outpatient basis. CM spoke w/ Sia, manager of loss prevention operations about this case. Sia has been speaking w/ Santa, director of case management. Pt may d/c to a hotel respite early next week. CM spoke w/ pts PT/OT to try to get him as good as possible before d/c. CM spoke w/ Antonia, canvassing manager at [facility] and they are able to follow up outpatient. JARETH spoke w/ Coby at [facility] and asked if they would be able to accept pt if he had hospice. Coby cannot accept pt at this time. Santa will reach out to [facility]. JARETH received pts charge summary from [facility]. A copy has been put in pts chart. CM provided pt w/ a copy. JARETH submitted the request for his CAF note from [place]. CM to follow. Plan: Hotel Respite w/ [facility] outpatient f/u Date Signed: 07/20/2017 03:10 PM Electronically Signed By:DIGNA Espinosa
[2017-07-20] MEDS ORDERED: WARFARIN SODIUM 5 MG TAB PO ONE (16:00)
[2017-07-21 04:22] LABS: INR 2.19 (0.83-1.16); PROTIME(PATIENT) 24.4 SEC (12.0-15.0)
[2017-07-21] MEDS: HYDROCODONE/APAP 5/325 TAB PO PRN ×2 (08:16→21:23)
[2017-07-21] MEDS: TAMSULOSIN HCL 0.4 MG CAP PO SCH (08:16)
[2017-07-21] MEDS: PANTOPRAZOLE SODIUM 40 MG TAB PO SCH ×2 (08:16→21:23)
[2017-07-21] MEDS: ERTAPENEM 1 GM VIAL IV SCH (08:17)
[2017-07-21] MEDS: SPIRONOLACTONE 25 MG TAB PO SCH (08:17)
[2017-07-21] MEDS: FUROSEMIDE 20 MG TAB PO SCH (08:17)
[2017-07-21] MEDS: GABAPENTIN 400 MG CAP PO SCH ×3 (08:17→21:22)
--- NOTE | 2017-07-21 09:20 | HOSPPROG ---
Hospitalist Progress Note Assessment/Plan: 57 yo M w sepsis, klebsiella bacteremia ? SI: he expresses feelings of passive suicidality such as "i dont know if i want to go on" but denies active suicidality. this has been a theme of his hospitalizations no eval plan of care: i think his passively suicidal statements are an expression of exasperation with his current level of illness and repeat hospitalizations, functional decline. I framed hospice care as an opportunity to focus on comfort and dignity rather than living as long as possible. He expressed interest in learning more about this. He had the insight to ask if he could continue diuretic therapy as he doesn't like being edematous. I acknowledged that diuretic therapy could reasonably be considered comfort care. We discussed the role of heroic interventions such as CPR or intubation and how they would prolong his life, be source of discomfort. He elected to be dnr 1. hospice eval today 2. DNR 3. 07/21- doscussed what hospice means- ie discontinuing non comfort based meds. he wasn't sure. My experience w Mr. Orantes is that he gets VERY anxious when asked to make any decisions. i said we would discuss again tomorrow and he should think about it Klebsiella septic shock -BP eventually responded to IVF -IV Invanz - ESBL - consider PO levaquin due to dispo difficulties with IV Invanz -source - ? 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) -PO lasix/aldactone BPH with retention -Flomax Chronic pain with continuous narcotic dependency Left fem neck fx - non-operative -TD WB Schizoaffective disorder Subacute T11 compression fracture Dispo - await SNF placement Subjective: discussed specifics of hospice care- ie discontinuing non comfort based medicines Objective: Vital Signs Temp Pulse Resp BP Pulse Ox 36.7 C 95 16 98/66 L 89 L 07/21/17 07:44 07/21/17 07:44 07/21/17 07:44 07/21/17 07:44 07/21/17 07:44 Microbiology 07/14/17 21:33 Blood Culture - Final Blood 07/14/17 21:20 Blood Culture - Final Blood Laboratory Results 07/17/17 03:16 07/17/17 03:16 07/20/17 07/21/17 07/22/17 05:59 05:59 05:59 Intake Total 820 2270 260 Output Total 2725 2250 Balance -1905 20 260 PT 24.4 SEC (12.0-15.0) H 07/21/17 03:06 INR 2.19 (0.83-1.16) H 07/21/17 03:06 - Physical Exam Constitutional: no apparent distress, chronically ill appearing Eyes: PERRL, anicteric sclera Ears, Nose, Mouth, Throat: moist mucous membranes, hearing normal Cardiovascular: regular rate and rhythym, no murmur, rub, or gallop, No tachycardia Respiratory: no respiratory distress, no rales or rhonchi Gastrointestinal: normoactive bowel sounds, soft, non-tender abdomen Genitourinary: no bladder fullness, No fuentes in urethra Skin: warm, normal color Musculoskeletal: full muscle strength Neurologic: AAOx3 ICD10 Worksheet Patient Problems: Problems Problem Status Onset Ascites Acute Back pain Acute Generalized weakness Acute Hepatitis C Acute Liver failure Acute Suicidal ideation Acute Upper GI bleeding Acute
[2017-07-21] MEDS: DILTIAZEM CD 120 MG CAP PO SCH (09:59)
--- NOTE | 2017-07-21 13:03 | ASMTCMCOM ---
CM Note CM Note Notes: Pts case discussed in tx rounds. CM provided pt w/ a copy of his CAD paperwork from [employer] for him to submit to the Social Security office for his SSDI checks to resume. CM made a copy and put it in pts chart. CM informed pt that Santa Carrera, director of case management will stop by and speak w/ pt. CM informed pt that he will most likely d/c to a hotel respite and followed by [facility] outpatient [facility]. Pt would like to hear more about the logistics of the plan. CM to follow. Plan: Hotel respite w/ outpatient [facility] Date Signed: 07/21/2017 01:02 PM Electronically Signed By:DIGNA Espinosa
[2017-07-21] MEDS ORDERED: WARFARIN SODIUM 5 MG TAB PO ONE (14:45)
[2017-07-21] MEDS: traMADol 50 MG TAB PO PRN (15:33)
[2017-07-22 04:38] LABS: INR 2.42 (0.83-1.16); PROTIME(PATIENT) 26.3 SEC (12.0-15.0)
[2017-07-22] MEDS: ERTAPENEM 1 GM VIAL IV SCH (09:16)
[2017-07-22] MEDS: FUROSEMIDE 20 MG TAB PO SCH (09:16)
[2017-07-22] MEDS: GABAPENTIN 400 MG CAP PO SCH ×3 (09:16→20:56)
[2017-07-22] MEDS: SPIRONOLACTONE 25 MG TAB PO SCH (09:17)
[2017-07-22] MEDS: DILTIAZEM CD 120 MG CAP PO SCH (09:17)
[2017-07-22] MEDS: TAMSULOSIN HCL 0.4 MG CAP PO SCH (09:17)
[2017-07-22] MEDS: PANTOPRAZOLE SODIUM 40 MG TAB PO SCH ×2 (09:17→20:56)
[2017-07-22] MEDS: HYDROCODONE/APAP 5/325 TAB PO PRN ×2 (09:17→17:59)
--- NOTE | 2017-07-22 13:41 | HOSPPROG ---
Hospitalist Progress Note Assessment/Plan: 57 yo M w sepsis, klebsiella bacteremia ? SI: he expresses feelings of passive suicidality such as "i dont know if i want to go on" but denies active suicidality. this has been a theme of his hospitalizations no eval plan of care: i think his passively suicidal statements are an expression of exasperation with his current level of illness and repeat hospitalizations, functional decline. I framed hospice care as an opportunity to focus on comfort and dignity rather than living as long as possible. He expressed interest in learning more about this. He had the insight to ask if he could continue diuretic therapy as he doesn't like being edematous. I acknowledged that diuretic therapy could reasonably be considered comfort care. We discussed the role of heroic interventions such as CPR or intubation and how they would prolong his life, be source of discomfort. He elected to be dnr 1. hospice eval today 2. DNR 3. 07/21- doscussed what hospice means- ie discontinuing non comfort based meds. he wasn't sure. My experience w Mr. Orantes is that he gets VERY anxious when asked to make any decisions. i said we would discuss again tomorrow and he should think about it . 07/22- he today states he wishes to continue abx, stop coumadin and diuretics Klebsiella septic shock -BP eventually responded to IVF -IV Invanz - ESBL - consider PO levaquin due to dispo difficulties with IV Invanz -source - ? 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) -PO lasix/aldactone BPH with retention -Flomax Chronic pain with continuous narcotic dependency Left fem neck fx - non-operative -TD WB Schizoaffective disorder Subacute T11 compression fracture Dispo - await SNF placement Subjective: meaningful dispositionplans remain elusive Objective: Vital Signs Temp Pulse Resp BP Pulse Ox 36.7 C 94 18 94/70 L 90 L 07/22/17 13:19 07/22/17 13:19 07/22/17 13:19 07/22/17 13:19 07/22/17 13:19 Laboratory Results 07/17/17 03:16 07/17/17 03:16 07/21/17 07/22/17 07/23/17 05:59 05:59 05:59 Intake Total 2270 2110 760 Output Total 2250 2000 775 Balance 20 110 -15 PT 26.3 SEC (12.0-15.0) H 07/22/17 03:04 INR 2.42 (0.83-1.16) H 07/22/17 03:04 - Physical Exam Constitutional: no apparent distress, appears nourished Eyes: PERRL, anicteric sclera Ears, Nose, Mouth, Throat: moist mucous membranes, hearing normal Cardiovascular: regular rate and rhythym, no murmur, rub, or gallop Respiratory: no respiratory distress, no rales or rhonchi Gastrointestinal: normoactive bowel sounds, soft, non-tender abdomen Genitourinary: no bladder fullness Skin: warm, normal color Musculoskeletal: full muscle strength Neurologic: AAOx3 ICD10 Worksheet Patient Problems: Problems Problem Status Onset Ascites Acute Back pain Acute Generalized weakness Acute Hepatitis C Acute Liver failure Acute Suicidal ideation Acute Upper GI bleeding Acute
[2017-07-22] MEDS ORDERED: WARFARIN SODIUM 5 MG TAB PO ONE (16:00)
[2017-07-22] MEDS: traMADol 50 MG TAB PO PRN (16:43)
[2017-07-23 05:19] LABS: INR 2.35 (0.83-1.16); PROTIME(PATIENT) 25.7 SEC (12.0-15.0)
[2017-07-23] MEDS: HYDROCODONE/APAP 5/325 TAB PO PRN ×2 (09:12→18:41)
[2017-07-23] MEDS: PANTOPRAZOLE SODIUM 40 MG TAB PO SCH ×2 (09:12→21:33)
[2017-07-23] MEDS: GABAPENTIN 400 MG CAP PO SCH ×3 (09:12→21:33)
[2017-07-23] MEDS: ERTAPENEM 1 GM VIAL IV SCH (09:12)
[2017-07-23] MEDS: TAMSULOSIN HCL 0.4 MG CAP PO SCH (09:12)
[2017-07-23] MEDS: FUROSEMIDE 20 MG TAB PO SCH (09:13)
[2017-07-23] MEDS: SPIRONOLACTONE 25 MG TAB PO SCH (09:13)
[2017-07-23] MEDS: DILTIAZEM CD 120 MG CAP PO SCH (09:20)
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
[2017-07-23] MEDS: traMADol 50 MG TAB PO PRN (16:19)
[2017-07-23] MEDS: WARFARIN SODIUM 5 MG TAB PO SCH (16:19)
[2017-07-24 04:15] LABS: PLATELET COUNT 522 10^3/uL (150-400)
[2017-07-24 04:34] LABS: INR 2.41 (0.83-1.16); PROTIME(PATIENT) 26.2 SEC (12.0-15.0)
[2017-07-24] MEDS: GABAPENTIN 400 MG CAP PO SCH ×3 (09:07→21:33)
[2017-07-24] MEDS: SPIRONOLACTONE 25 MG TAB PO SCH (09:07)
[2017-07-24] MEDS: TAMSULOSIN HCL 0.4 MG CAP PO SCH (09:07)
[2017-07-24] MEDS: DILTIAZEM CD 120 MG CAP PO SCH (09:08)
[2017-07-24] MEDS: FUROSEMIDE 20 MG TAB PO SCH (09:08)
[2017-07-24] MEDS: PANTOPRAZOLE SODIUM 40 MG TAB PO SCH ×2 (09:08→21:33)
[2017-07-24] MEDS: ERTAPENEM 1 GM VIAL IV SCH (09:08)
[2017-07-24] MEDS: HYDROCODONE/APAP 5/325 TAB PO PRN ×2 (09:23→21:32)
--- NOTE | 2017-07-24 12:32 | HOSPPROG ---
Hospitalist Progress Note Assessment/Plan: 57-year-old homeless man was initially admitted with 3 days of nausea vomiting and found to be in rapid AFib. During his hospitalization he was also diagnosed with a pulmonary embolus and Klebsiella bacteremia of unclear source. # Klebsiella, ESBL bacteremia associated with septic shock which has resolved * Finish 2 weeks of IV Invanz from 07/14/2017 * Appreciate ID note * Workup has included HIDA scan, ultrasound and CT scan of the abdomen and pelvis # acute respiratory failure and pulmonary edema likely secondary to volume resuscitation, responded well to IV Lasix * Continue to monitor pulmonary symptoms and IV Lasix as needed # acute pulmonary embolism in the setting of history of DVT, patient poor long- term anticoagulation candidate given history of homelessness and recent GI bleed * Continue Coumadin for now with therapeutic INR close monitoring * Difficult DC given homelessness and will need to follow up with [facility] or [facility]CP within a week of dc. Will only give 1 week of coumadin to assure he follows up. 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 The patient has been sober for 4 months * Continue Lasix and spironolactone # history of GI bleed secondary to duodenal ulcer and gastritis and esophagitis. * Continue twice daily Protonix * Status post treatment for H pylori # BPH with retention currently on Flomax # chronic pain with continuous narcotic dependency # subacute left femoral neck fracture, non operative per Orthopedics * Touch down weight-bearing with crutches * Skilled rehab # schizoaffective disorder currently not on medication # subacute T11 compression fracture Dispo - All Snf in [place] have refused to place him due to felony assault charge. He will either be discarged to street with or without hospice once he is done with antibiotics. Subjective: pt lethargic, won't talk with me, refuses PT. says hip only hurts when he walks. Objective: Vital Signs Temp Pulse Resp BP Pulse Ox 36.3 C 78 14 97/66 L 90 L 07/24/17 07:11 07/24/17 07:11 07/24/17 07:11 07/24/17 07:11 07/24/17 07:11 Laboratory Results 07/24/17 03:08 07/24/17 03:08 07/23/17 07/24/17 07/25/17 05:59 05:59 05:59 Intake Total 8346 688 Output Total 1924 1600 Balance 35 -912 PT 26.2 SEC (12.0-15.0) H 07/24/17 03:08 INR 2.41 (0.83-1.16) H 07/24/17 03:08 - Physical Exam Constitutional: no apparent distress, chronically ill appearing Cardiovascular: regular rate and rhythym Respiratory: no respiratory distress ICD10 Worksheet Patient Problems: Problems Problem Status Onset Generalized weakness Acute Hepatitis C Acute Ascites Acute Liver failure Acute Suicidal ideation Acute Back pain Acute Upper GI bleeding Acute
--- NOTE | 2017-07-24 14:20 | ASMTCMCOM ---
CM Note CM Note Notes: 07/24/2017 Case Management Note Phone Call from Tamia from the [facility] requesting Level 2 PASRR be sent to facility. Tamia phone is [phone] Fax is [phone]. Notified Sima Gonzalez from [facility]. Case Management d/c poc: to be determined. Date Signed: 07/24/2017 02:20 PM Electronically Signed By:Brenda Bello RN
[2017-07-24] MEDS: WARFARIN SODIUM 5 MG TAB PO SCH (15:07)
[2017-07-25 06:00] LABS: INR 2.29 (0.83-1.16); PROTIME(PATIENT) 25.2 SEC (12.0-15.0)
[2017-07-25] MEDS: PANTOPRAZOLE SODIUM 40 MG TAB PO SCH ×2 (09:44→21:23)
[2017-07-25] MEDS: SPIRONOLACTONE 25 MG TAB PO SCH (09:44)
[2017-07-25] MEDS: TAMSULOSIN HCL 0.4 MG CAP PO SCH (09:45)
[2017-07-25] MEDS: DILTIAZEM CD 120 MG CAP PO SCH (09:45)
[2017-07-25] MEDS: GABAPENTIN 400 MG CAP PO SCH ×3 (09:45→21:23)
[2017-07-25] MEDS: FUROSEMIDE 20 MG TAB PO SCH (09:45)
[2017-07-25] MEDS: HYDROCODONE/APAP 5/325 TAB PO PRN ×3 (09:45→21:23)
[2017-07-25] MEDS: ERTAPENEM 1 GM VIAL IV SCH (09:46)
--- NOTE | 2017-07-25 13:04 | HOSPPROG ---
Hospitalist Progress Note Assessment/Plan: 57-year-old homeless man was initially admitted with 3 days of nausea vomiting and found to be in rapid AFib. During his hospitalization he was also diagnosed with a pulmonary embolus and Klebsiella bacteremia of unclear source. # Klebsiella, ESBL bacteremia associated with septic shock which has resolved * Finish 2 weeks of IV Invanz end 07/27/17 * Appreciate ID note * Workup has included HIDA scan, ultrasound and CT scan of the abdomen and pelvis # acute respiratory failure and pulmonary edema likely secondary to volume resuscitation, responded well to IV Lasix * Continue to monitor pulmonary symptoms and IV Lasix as needed # acute pulmonary embolism in the setting of history of DVT, patient poor long- term anticoagulation candidate given history of homelessness and recent GI bleed * Continue Coumadin for now with therapeutic INR close monitoring, * If manages to get accepted into a SNF then continue coumadin * If no SNF takes him the patient would rather not be on coumadin and have untreated PE # atrial fibrillation, has been in sinus rhythm throughout most of his stay post admission * On PO diltiazem for rate control should he go back in AFib # 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 The patient has been sober for 4 months * Continue Lasix and spironolactone # history of GI bleed secondary to duodenal ulcer and gastritis and esophagitis. * Continue twice daily Protonix * Status post treatment for H pylori # BPH with retention currently on Flomax # chronic pain with continuous narcotic dependency # subacute left femoral neck fracture, non operative per Orthopedics * Touch down weight-bearing with crutches * Skilled rehab # schizoaffective disorder currently not on medication # subacute T11 compression fracture Dispo - All Snf in [place] have refused to place him due to felony assault charge. There is one last facility looking at him and requested a PASAR, if they refuse him then dc to street after his last dose of INvanz. Subjective: pt lethargic, poor eye contact. refuses PT Objective: Vital Signs Temp Pulse Resp BP Pulse Ox 36.7 C 87 16 95/66 L 91 L 07/25/17 08:00 07/25/17 09:45 07/25/17 08:00 07/25/17 09:45 07/25/17 08:00 Laboratory Results 07/24/17 03:08 07/24/17 03:08 0507/25/17 07/26/17 05:59 05:59 05:59 Intake Total 688 900 Output Total 1600 1550 Balance -912 -650 PT 25.2 SEC (12.0-15.0) H 07/25/17 04:35 INR 2.29 (0.83-1.16) H 07/25/17 04:35 - Physical Exam Constitutional: chronically ill appearing Cardiovascular: regular rate and rhythym Respiratory: no respiratory distress ICD10 Worksheet Patient Problems: Problems Problem Status Onset Generalized weakness Acute Hepatitis C Acute Ascites Acute Liver failure Acute Suicidal ideation Acute Back pain Acute Upper GI bleeding Acute
[2017-07-25] MEDS: WARFARIN SODIUM 5 MG TAB PO SCH (15:48)
--- NOTE | 2017-07-25 17:34 | ASMTCMCOM ---
CM Note CM Note Notes: CM ran out of time today so these items need follow up tomorrow. Contact [employer] Alvarez to see what needs to be done to get patient's social security reinstated. It may involve faxing his police records to them. Cassia from [facility] called back and left a message she will still come to see patient for admission. She did not leave a number so call the main number for the facility. [facility] needs to send level of care patient qualifies for to the [facility]. Request this from Antonia. A current bank statement from patient needs to be given to Joanne. Patient is trying to get his bank to fax this to us here. Kari from [facility] at [phone] wants us to call her back on patient. CM will follow. Date Signed: 07/25/2017 05:34 PM Electronically Signed By:Yvonne Nelson LCSW
[2017-07-25] MEDS: LORazepam 1 MG TAB PO PRN (21:23)
[2017-07-26] MEDS: ERTAPENEM 1 GM VIAL IV SCH (09:52)
[2017-07-26] MEDS: FUROSEMIDE 20 MG TAB PO SCH (10:19)
[2017-07-26] MEDS: HYDROCODONE/APAP 5/325 TAB PO PRN ×2 (10:19→16:12)
[2017-07-26] MEDS: TAMSULOSIN HCL 0.4 MG CAP PO SCH (10:19)
[2017-07-26] MEDS: PANTOPRAZOLE SODIUM 40 MG TAB PO SCH ×2 (10:19→21:45)
[2017-07-26] MEDS: GABAPENTIN 400 MG CAP PO SCH ×3 (10:19→21:45)
[2017-07-26] MEDS: DILTIAZEM CD 120 MG CAP PO SCH (10:20)
[2017-07-26] MEDS: SPIRONOLACTONE 25 MG TAB PO SCH (10:20)
--- NOTE | 2017-07-26 16:33 | HOSPPROG ---
Hospitalist Progress Note Assessment/Plan: 57-year-old homeless man was initially admitted with 3 days of nausea vomiting and found to be in rapid AFib. During his hospitalization he was also diagnosed with a pulmonary embolus and Klebsiella bacteremia of unclear source. # Klebsiella, ESBL bacteremia associated with septic shock which has resolved * Finish 2 weeks of IV Invanz, end 07/27/17 * Workup has included HIDA scan, ultrasound and CT scan of the abdomen and pelvis * repeat bd cxs neg # acute respiratory failure and pulmonary edema likely secondary to volume resuscitation, responded well to IV Lasix * on po lasix now # acute pulmonary embolism in the setting of history of DVT, patient poor long- term anticoagulation candidate given history of homelessness and recent GI bleed * Continue Coumadin for now with therapeutic INR close monitoring, * If manages to get accepted into a SNF then continue coumadin * If no SNF takes him the patient would rather not be on coumadin and have untreated PE # atrial fibrillation, has been in sinus rhythm throughout most of his stay post admission * On PO diltiazem for rate control should he go back in AFib # 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 The patient has been sober for 4 months * Continue Lasix and spironolactone # history of GI bleed secondary to duodenal ulcer and gastritis and esophagitis. * Continue twice daily Protonix * Status post treatment for H pylori * hgb stable, check again prior to discharge # BPH with retention currently on Flomax # chronic pain with continuous narcotic dependency not using much pain meds # subacute left femoral neck fracture, non operative per Orthopedics * Touch down weight-bearing with crutches * Skilled rehab # schizoaffective disorder currently not on medication # subacute T11 compression fracture Dispo - All Snf in [place] have refused to place him due to felony assault charge. There is one last facility looking at him and requested a PASAR, if they refuse him then likely will have to dc to street after his last dose of Invanz. Appreciate CM assistance! Subjective: Denies CP/SOB/abd pain/n/v/d. Says ambulating OK. Says having BMS ( but not logged in EMR). Denies concerns. Objective: Vital Signs Temp Pulse Resp BP Pulse Ox 97.7 F 80 18 102/66 92 07/26/17 08:00 07/26/17 10:20 07/26/17 08:00 07/26/17 10:20 07/26/17 08:00 Laboratory Results 07/24/17 03:08 07/24/17 03:08 07/25/17 07/26/17 07/27/17 11:59 11:59 11:59 Intake Total 900 1680 Output Total 1550 1300 Balance -650 380 PT 25.2 SEC (12.0-15.0) H 07/25/17 04:35 INR 2.29 (0.83-1.16) H 07/25/17 04:35 - Physical Exam Constitutional: appears nourished, not in pain, chronically ill appearing, unkempt, cachectic Eyes: anicteric sclera Ears, Nose, Mouth, Throat: moist mucous membranes, hearing normal Cardiovascular: regular rate and rhythym, no murmur, rub, or gallop Respiratory: no respiratory distress, no rales or rhonchi, clear to auscultation Gastrointestinal: normoactive bowel sounds, soft, non-tender abdomen Skin: warm Psychiatric: not encephalopathic, flat affect ICD10 Worksheet Patient Problems: Problems Problem Status Onset Ascites Acute Back pain Acute Generalized weakness Acute Hepatitis C Acute Liver failure Acute Suicidal ideation Acute Upper GI bleeding Acute
--- NOTE | 2017-07-26 17:02 | ASMTCMCOM ---
CM Note CM Note Notes: Spoke with Moira at [facility], they will be on site tomorrow at noon to evaluate patient. I have met with this patient today to discuss d/c planning and to notify him of the [place] eval. [employer] assisted CM in obtaining bank statement to submit to [facility] for LTC Medicaid, this will hopefully help in the process of acceptance at [facility]. Will follow-up with Laura Stovall after eval on . CM will continue to follow Date Signed: 07/26/2017 05:01 PM Electronically Signed By:Sia Isidro RN
[2017-07-26] MEDS: WARFARIN SODIUM 5 MG TAB PO SCH (17:15)
[2017-07-27] MEDS: GABAPENTIN 400 MG CAP PO SCH ×3 (08:51→21:43)
[2017-07-27] MEDS: PANTOPRAZOLE SODIUM 40 MG TAB PO SCH ×2 (08:51→21:43)
[2017-07-27] MEDS: HYDROCODONE/APAP 5/325 TAB PO PRN ×2 (08:51→15:19)
[2017-07-27] MEDS: DILTIAZEM CD 120 MG CAP PO SCH (08:52)
[2017-07-27] MEDS: SPIRONOLACTONE 25 MG TAB PO SCH (08:52)
[2017-07-27] MEDS: TAMSULOSIN HCL 0.4 MG CAP PO SCH (08:52)
[2017-07-27] MEDS: FUROSEMIDE 20 MG TAB PO SCH (08:53)
[2017-07-27] MEDS: ERTAPENEM 1 GM VIAL IV SCH (11:31)
--- NOTE | 2017-07-27 14:18 | ASMTCMCOM ---
CM Note CM Note Notes: [facility] came to evaluate pt, they have accepted him and will wait for the state to send paperwork approval. DC Plan: SNF/[place] Date Signed: 07/27/2017 02:18 PM Electronically Signed By:Cynthia Samaniego RN
[2017-07-27] MEDS: WARFARIN SODIUM 5 MG TAB PO SCH (15:18)
--- NOTE | 2017-07-27 16:24 | ASMTCMCOM ---
CM Note CM Note Notes: Case Management has been able to solidify placement for this patient at a Intermediate Facility. Moira #[phone], along with her DON, were here on site today to evaluate - able to accept. I have spoken with Sima at [facility], all required paperwork has been sent to [facility] from the [facility] paperwork submitted by [employer]. [facility] unable to admit patients on Fridays and over the weekend, the date of transfer will happen on Monday, July 31. CM will arrange w/c transport with [facility] on Monday to ensure this transfer runs smoothly. Will speak with patient tomorrow to prepare for his move on Monday. Floor CM aware and will communicate with Hospitalist. Case Management will continue to follow this case. D/C Plan: [facility] in [place] on Monday Date Signed: 07/27/2017 04:23 PM Electronically Signed By:Sia Isidro RN
--- NOTE | 2017-07-27 16:44 | HOSPPROG ---
Hospitalist Progress Note Assessment/Plan: 57-year-old homeless man was initially admitted with 3 days of nausea vomiting and found to be in rapid AFib. During his hospitalization he was also diagnosed with a pulmonary embolus and Klebsiella bacteremia of unclear source. # Klebsiella, ESBL bacteremia associated with septic shock which has resolved * last dose of 2 week course of invanz today * Workup has included HIDA scan, ultrasound and CT scan of the abdomen and pelvis * repeat bd cxs neg # acute respiratory failure and pulmonary edema likely secondary to volume resuscitation, responded well to IV Lasix * on po lasix now # acute pulmonary embolism in the setting of history of DVT, patient poor long- term anticoagulation candidate given history of homelessness and recent GI bleed * Continue Coumadin for now with therapeutic INR close monitoring, # atrial fibrillation, has been in sinus rhythm throughout most of his stay post admission * On PO diltiazem for rate control should he go back in AFib # 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 The patient has been sober for 4 months * Continue Lasix and spironolactone # history of GI bleed secondary to duodenal ulcer and gastritis and esophagitis. * Continue twice daily Protonix * Status post treatment for H pylori * hgb stable, check again prior to discharge # BPH with retention currently on Flomax # chronic pain with continuous narcotic dependency not using much pain meds # subacute left femoral neck fracture, non operative per Orthopedics * Touch down weight-bearing with crutches * Skilled rehab # schizoaffective disorder currently not on medication # subacute T11 compression fracture Dispo - accepted at a SNF, hopeful dc/transfer tomorrow. Appreciate CM efforts! Subjective: Denies concerns, looks excited to go to SNF (accepted today). Denies CP/SOB/abd pain/n/v/d. Says ambulating OK and BM daily (but not recorded) . Objective: Vital Signs Temp Pulse Resp BP Pulse Ox 98.7 F 81 20 90/58 L 91 L 07/27/17 07:27 07/27/17 08:52 07/27/17 07:27 07/27/17 07:27 07/27/17 07:27 Laboratory Results 07/24/17 03:08 07/24/17 03:08 07/26/17 07/27/17 07/28/17 11:59 11:59 11:59 Intake Total 1680 1250 Output Total 1300 1975 Balance 380 -725 PT 25.2 SEC (12.0-15.0) H 07/25/17 04:35 INR 2.29 (0.83-1.16) H 07/25/17 04:35 - Physical Exam Constitutional: unkempt, cachectic Eyes: anicteric sclera Ears, Nose, Mouth, Throat: moist mucous membranes Cardiovascular: regular rate and rhythym, no murmur, rub, or gallop Respiratory: no respiratory distress, no rales or rhonchi, clear to auscultation Gastrointestinal: normoactive bowel sounds, soft, non-tender abdomen Skin: warm Psychiatric: interacting appropriately, not anxious, not encephalopathic ICD10 Worksheet Patient Problems: Problems Problem Status Onset Ascites Acute Back pain Acute Generalized weakness Acute Hepatitis C Acute Liver failure Acute Suicidal ideation Acute Upper GI bleeding Acute
[2017-07-27] MEDS: LORazepam 1 MG TAB PO PRN (21:43)
[2017-07-27] MEDS: traMADol 50 MG TAB PO PRN (21:43)
[2017-07-28 05:07] LABS: PLATELET COUNT 393 10^3/uL (150-400)
[2017-07-28 05:14] LABS: INR 2.71 (0.83-1.16); PROTIME(PATIENT) 28.7 SEC (12.0-15.0)
[2017-07-28] MEDS: traMADol 50 MG TAB PO PRN ×3 (09:04→22:29)
[2017-07-28] MEDS: FUROSEMIDE 20 MG TAB PO SCH (09:04)
[2017-07-28] MEDS: TAMSULOSIN HCL 0.4 MG CAP PO SCH (09:04)
[2017-07-28] MEDS: DILTIAZEM CD 120 MG CAP PO SCH (09:04)
[2017-07-28] MEDS: PANTOPRAZOLE SODIUM 40 MG TAB PO SCH ×2 (09:04→21:14)
[2017-07-28] MEDS: GABAPENTIN 400 MG CAP PO SCH ×3 (09:04→21:13)
[2017-07-28] MEDS: SPIRONOLACTONE 25 MG TAB PO SCH (09:05)
--- NOTE | 2017-07-28 10:20 | HOSPPROG ---
Hospitalist Progress Note Assessment/Plan: 57-year-old homeless man was initially admitted with 3 days of nausea vomiting and found to be in rapid AFib. During his hospitalization he was also diagnosed with a pulmonary embolus and Klebsiella bacteremia of unclear source. # Klebsiella, ESBL bacteremia associated with septic shock which has resolved * last dose of 2 week course of invanz today * Workup has included HIDA scan, ultrasound and CT scan of the abdomen and pelvis * repeat bd cxs neg # acute respiratory failure and pulmonary edema likely secondary to volume resuscitation, responded well to IV Lasix * on po lasix now # acute pulmonary embolism in the setting of history of DVT, patient poor long- term anticoagulation candidate given history of homelessness and recent GI bleed * Continue Coumadin for now with therapeutic INR close monitoring, # atrial fibrillation, has been in sinus rhythm throughout most of his stay post admission * On PO diltiazem for rate control should he go back in AFib # 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 The patient has been sober for 4 months * Continue Lasix and spironolactone # history of GI bleed secondary to duodenal ulcer and gastritis and esophagitis. * Continue twice daily Protonix * Status post treatment for H pylori * hgb stable, check again prior to discharge # BPH with retention currently on Flomax # chronic pain with continuous narcotic dependency not using much pain meds # subacute left femoral neck fracture, non operative per Orthopedics * Touch down weight-bearing with crutches * Skilled rehab # schizoaffective disorder currently not on medication # subacute T11 compression fracture Subjective: no complaints Objective: Vital Signs Temp Pulse Resp BP Pulse Ox 35.8 C L 87 16 100/61 92 07/28/17 07:34 07/28/17 07:34 07/28/17 07:34 07/28/17 07:34 07/28/17 07:34 Laboratory Results 07/28/17 04:33 07/28/17 04:33 07/27/17 07/28/17 07/29/17 05:59 05:59 05:59 Intake Total 1250 600 Output Total 1650 425 250 Balance -400 175 -250 PT 28.7 SEC (12.0-15.0) H 07/28/17 04:33 INR 2.71 (0.83-1.16) H 07/28/17 04:33 - Physical Exam Constitutional: no apparent distress, appears nourished Eyes: PERRL, anicteric sclera Ears, Nose, Mouth, Throat: moist mucous membranes, hearing normal Cardiovascular: regular rate and rhythym, no murmur, rub, or gallop Respiratory: no respiratory distress, no rales or rhonchi Gastrointestinal: normoactive bowel sounds, soft, non-tender abdomen Genitourinary: no bladder fullness, No fuentes in urethra Skin: warm, normal color Musculoskeletal: no muscle tenderness, No full muscle strength Neurologic: AAOx3 ICD10 Worksheet Patient Problems: Problems Problem Status Onset Ascites Acute Back pain Acute Generalized weakness Acute Hepatitis C Acute Liver failure Acute Suicidal ideation Acute Upper GI bleeding Acute
--- NOTE | 2017-07-28 11:05 | ASMTCMCOM ---
CM Note CM Note Notes: 07/28/2017 Case Management Note Transport arranged for 10 am Monday with [facility] for wheelchair transport. Notified MD. Met w/pt and discussed Palliative Care benefits. Pt in agreement and chose [facility]. Faxed referral through all scripts and notified [facility]. Called the [facility] in [place] [phone]. janitorial maintenance worker Monty to visit pt today to call the [place] [employer] together for information. Case Management d/c poc: 10 AM transport on Monday 07/31 to [facility] in [place]. Case Management to follow. Date Signed: 07/28/2017 11:04 AM Electronically Signed By:Brenda Bello RN
[2017-07-28] MEDS: WARFARIN SODIUM 5 MG TAB PO SCH (15:58)
[2017-07-29] MEDS: GABAPENTIN 400 MG CAP PO SCH ×3 (07:58→21:10)
[2017-07-29] MEDS: traMADol 50 MG TAB PO PRN ×3 (07:58→21:10)
[2017-07-29] MEDS: FUROSEMIDE 20 MG TAB PO SCH (07:59)
[2017-07-29] MEDS: SPIRONOLACTONE 25 MG TAB PO SCH (07:59)
[2017-07-29] MEDS: TAMSULOSIN HCL 0.4 MG CAP PO SCH (07:59)
[2017-07-29] MEDS: DILTIAZEM CD 120 MG CAP PO SCH (07:59)
[2017-07-29] MEDS: PANTOPRAZOLE SODIUM 40 MG TAB PO SCH ×2 (07:59→21:10)
--- NOTE | 2017-07-29 09:04 | HOSPPROG ---
Hospitalist Progress Note Assessment/Plan: 57-year-old homeless man was initially admitted with 3 days of nausea vomiting and found to be in rapid AFib. During his hospitalization he was also diagnosed with a pulmonary embolus and Klebsiella bacteremia of unclear source. # Klebsiella, ESBL bacteremia associated with septic shock which has resolved * completed 2 weeks ertapenem * Workup has included HIDA scan, ultrasound and CT scan of the abdomen and pelvis * repeat bd cxs neg # acute respiratory failure and pulmonary edema likely secondary to volume resuscitation, responded well to IV Lasix * on po lasix now # acute pulmonary embolism in the setting of history of DVT, patient poor long- term anticoagulation candidate given history of homelessness and recent GI bleed * Continue Coumadin for now with therapeutic INR close monitoring * reasonable to continue anticoag if at SNF, which is current plan # atrial fibrillation, has been in sinus rhythm throughout most of his stay post admission * On PO diltiazem for rate control should he go back in AFib # 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 The patient has been sober for 4 months * Continue Lasix and spironolactone # history of GI bleed secondary to duodenal ulcer and gastritis and esophagitis. * Continue twice daily Protonix * Status post treatment for H pylori * hgb stable, check again prior to discharge # BPH with retention currently on Flomax # chronic pain with continuous narcotic dependency not using much pain meds # subacute left femoral neck fracture, non operative per Orthopedics * Touch down weight-bearing with crutches * Skilled rehab # schizoaffective disorder currently not on medication # subacute T11 compression fracture Subjective: no complaints. moving bowels Objective: Vital Signs Temp Pulse Resp BP Pulse Ox 37.1 C 78 18 108/75 94 07/29/17 07:16 07/29/17 07:16 07/29/17 07:16 07/29/17 07:16 07/29/17 07:16 Laboratory Results 07/28/17 04:33 07/28/17 04:33 07/28/17 07/29/17 07/30/17 05:59 05:59 05:59 Intake Total 600 500 Output Total 425 1725 700 Balance 175 -1225 -700 PT 28.7 SEC (12.0-15.0) H 07/28/17 04:33 INR 2.71 (0.83-1.16) H 07/28/17 04:33 - Physical Exam Constitutional: no apparent distress, appears nourished Eyes: PERRL, anicteric sclera Ears, Nose, Mouth, Throat: moist mucous membranes, hearing normal Cardiovascular: regular rate and rhythym, no murmur, rub, or gallop Respiratory: no respiratory distress, no rales or rhonchi Gastrointestinal: normoactive bowel sounds, soft, non-tender abdomen Genitourinary: no bladder fullness, No fuentes in urethra Skin: warm, normal color Musculoskeletal: full muscle strength Neurologic: AAOx3 ICD10 Worksheet Patient Problems: Problems Problem Status Onset Ascites Acute Back pain Acute Generalized weakness Acute Hepatitis C Acute Liver failure Acute Suicidal ideation Acute Upper GI bleeding Acute
[2017-07-29] MEDS: WARFARIN SODIUM 5 MG TAB PO SCH (15:04)
[2017-07-29] MEDS: LORazepam 1 MG TAB PO PRN (21:10)
[2017-07-30] MEDS: TAMSULOSIN HCL 0.4 MG CAP PO SCH (08:04)
[2017-07-30] MEDS: GABAPENTIN 400 MG CAP PO SCH ×3 (08:04→21:55)
[2017-07-30] MEDS: SPIRONOLACTONE 25 MG TAB PO SCH (08:04)
[2017-07-30] MEDS: DILTIAZEM CD 120 MG CAP PO SCH (08:05)
[2017-07-30] MEDS: FUROSEMIDE 20 MG TAB PO SCH (08:05)
[2017-07-30] MEDS: PANTOPRAZOLE SODIUM 40 MG TAB PO SCH ×2 (08:05→21:55)
[2017-07-30] MEDS: traMADol 50 MG TAB PO PRN ×3 (08:10→21:55)
--- NOTE | 2017-07-30 09:08 | HOSPPROG ---
Hospitalist Progress Note Assessment/Plan: 57-year-old homeless man was initially admitted with 3 days of nausea vomiting and found to be in rapid AFib. During his hospitalization he was also diagnosed with a pulmonary embolus and Klebsiella bacteremia of unclear source. # Klebsiella, ESBL bacteremia associated with septic shock which has resolved * completed 2 weeks ertapenem * Workup has included HIDA scan, ultrasound and CT scan of the abdomen and pelvis * repeat bd cxs neg # acute respiratory failure and pulmonary edema likely secondary to volume resuscitation, responded well to IV Lasix * on po lasix now # acute pulmonary embolism in the setting of history of DVT, patient poor long- term anticoagulation candidate given history of homelessness and recent GI bleed * Continue Coumadin for now with therapeutic INR close monitoring * reasonable to continue anticoag if at SNF, which is current plan # atrial fibrillation, has been in sinus rhythm throughout most of his stay post admission * On PO diltiazem for rate control should he go back in AFib # 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 The patient has been sober for 4 months * Continue Lasix and spironolactone # history of GI bleed secondary to duodenal ulcer and gastritis and esophagitis. * Continue twice daily Protonix * Status post treatment for H pylori * hgb stable, check again prior to discharge # BPH with retention currently on Flomax # chronic pain with continuous narcotic dependency not using much pain meds # subacute left femoral neck fracture, non operative per Orthopedics * Touch down weight-bearing with crutches * Skilled rehab # schizoaffective disorder currently not on medication # subacute T11 compression fracture Subjective: no complaints Objective: Vital Signs Temp Pulse Resp BP Pulse Ox 36.6 C 86 16 107/66 91 L 07/30/17 08:07 07/30/17 08:07 07/30/17 08:07 07/30/17 08:07 07/30/17 08:07 Laboratory Results 07/28/17 04:33 07/28/17 04:33 07/29/17 07/30/17 07/31/17 05:59 05:59 05:59 Intake Total 500 800 Output Total 1724 6425 Balance -1225 -1875 PT 28.7 SEC (12.0-15.0) H 07/28/17 04:33 INR 2.71 (0.83-1.16) H 07/28/17 04:33 - Physical Exam Constitutional: no apparent distress, appears nourished Eyes: PERRL, anicteric sclera Ears, Nose, Mouth, Throat: moist mucous membranes, hearing normal Cardiovascular: regular rate and rhythym, no murmur, rub, or gallop Respiratory: no respiratory distress, no rales or rhonchi Gastrointestinal: normoactive bowel sounds, soft, non-tender abdomen Genitourinary: no bladder fullness, No fuentes in urethra Skin: warm, normal color Musculoskeletal: full muscle strength Neurologic: AAOx3 ICD10 Worksheet Patient Problems: Problems Problem Status Onset Ascites Acute Back pain Acute Generalized weakness Acute Hepatitis C Acute Liver failure Acute Suicidal ideation Acute Upper GI bleeding Acute
[2017-07-30] MEDS: WARFARIN SODIUM 5 MG TAB PO SCH (15:59)
[2017-07-30] MEDS: LORazepam 1 MG TAB PO PRN (21:55)
[2017-07-31 06:02] LABS: INR 3.03 (0.83-1.16); PROTIME(PATIENT) 31.2 SEC (12.0-15.0)
[2017-07-31 08:24] VITALS: BP 95/66
--- NOTE | 2017-07-31 09:01 | HOSPPROG ---
Hospitalist Progress Note Assessment/Plan: 57-year-old homeless man was initially admitted with 3 days of nausea vomiting and found to be in rapid AFib. During his hospitalization he was also diagnosed with a pulmonary embolus and Klebsiella bacteremia of unclear source. # Klebsiella, ESBL bacteremia associated with septic shock which has resolved * completed 2 weeks ertapenem * Workup has included HIDA scan, ultrasound and CT scan of the abdomen and pelvis * repeat bd cxs neg # acute respiratory failure and pulmonary edema likely secondary to volume resuscitation, responded well to IV Lasix * on po lasix now # acute pulmonary embolism in the setting of history of DVT, patient poor long- term anticoagulation candidate given history of homelessness and recent GI bleed * Continue Coumadin for now with therapeutic INR close monitoring * reasonable to continue anticoag if at SNF, which is current plan # atrial fibrillation, has been in sinus rhythm throughout most of his stay post admission * On PO diltiazem for rate control should he go back in AFib # 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 The patient has been sober for 4 months * Continue Lasix and spironolactone # history of GI bleed secondary to duodenal ulcer and gastritis and esophagitis. * Continue twice daily Protonix * Status post treatment for H pylori * hgb stable, check again prior to discharge # BPH with retention currently on Flomax # chronic pain with continuous narcotic dependency not using much pain meds # subacute left femoral neck fracture, non operative per Orthopedics * Touch down weight-bearing with crutches * Skilled rehab # schizoaffective disorder currently not on medication # subacute T11 compression fracture TO SNF TODAY > 30 MINUTES ON DC Subjective: has bed at [facility] Objective: Vital Signs Temp Pulse Resp BP Pulse Ox 36.8 C 96 16 95/66 L 89 L 07/31/17 08:24 07/31/17 08:24 07/31/17 08:24 07/31/17 08:24 07/31/17 08:24 Laboratory Results 07/28/17 04:33 07/28/17 04:33 07/30/17 07/31/17 08/01/17 05:59 05:59 05:59 Intake Total 800 Output Total 5365 1475 Balance -1875 -1475 PT 31.2 SEC (12.0-15.0) H 07/31/17 04:40 INR 3.03 (0.83-1.16) H 07/31/17 04:40 - Physical Exam Constitutional: no apparent distress, appears nourished Eyes: PERRL, anicteric sclera Ears, Nose, Mouth, Throat: moist mucous membranes, hearing normal Cardiovascular: regular rate and rhythym, no murmur, rub, or gallop Respiratory: no respiratory distress, no rales or rhonchi Gastrointestinal: normoactive bowel sounds, soft, non-tender abdomen Genitourinary: no bladder fullness Skin: warm, normal color Musculoskeletal: full muscle strength, no muscle tenderness Neurologic: AAOx3 ICD10 Worksheet Patient Problems: Problems Problem Status Onset Ascites Acute Back pain Acute Generalized weakness Acute Hepatitis C Acute Liver failure Acute Suicidal ideation Acute Upper GI bleeding Acute
--- NOTE | 2017-07-31 09:05 | PDIAF ---
- Diagnosis Diagnosis: GIB and AFIB Code Status: Do Not Resuscitate - Medication Management Discharge Medications: Medications to Continue on Transfer Acetaminophen [Tylenol 325mg (*)] 650 mg PO Q6 PRN 07/03/17 [Last Taken Unknown] Gabapentin [Neurontin 400 MG (*)] 1,200 mg PO BID 07/04/17 [Last Taken Unknown] Diltiazem Cd [Cardizem ER 120 MG (*)] 120 mg PO DAILY cap 07/12/17 [Last Taken Unknown] Pantoprazole Sodium [Protonix 40mg (*)] 40 mg PO BID tab 07/12/17 [Last Taken Unknown] Furosemide [Lasix 20 MG (*)] 20 mg PO DAILY tab 07/31/17 [Last Taken Unknown] LORazepam [Ativan (*)] 1 mg PO Q6HRS PRN tab 07/31/17 [Last Taken Unknown] Spironolactone [Aldactone 25 MG (*)] 25 mg PO DAILY tab 07/31/17 [Last Taken Unknown] Warfarin Sodium [Coumadin 5MG (*)] 5 mg PO DAILY16 tab 07/31/17 [Last Taken Unknown] Discharge Medications: Refer to the Discharge Home Medication list for PRN reason. - Orders Services needed: Registered Nurse, Physical Therapy, Occupational Therapy Isolation Type: Contact Isolation Diet Recommendation: no restrictions on diet Diet Texture: Regular Texture Diet Additional Instructions: please follow with PCP in the next 3-4 weeks for lab check and med titration for diuretics - Labs/Radiology BMP Date: 08/07/17 (EVERY OTHER WEEK) PT/INR Date: 08/04/17 (WEEKLY. goal 2-3) - Follow Up Care Current Providers and Referrals: NONE *PRIMARY CARE P,. [Primary Care Provider] - As per Instructions
[2017-07-31] MEDS: FUROSEMIDE 20 MG TAB PO SCH (09:26)
[2017-07-31] MEDS: GABAPENTIN 400 MG CAP PO SCH (09:26)
[2017-07-31] MEDS: TAMSULOSIN HCL 0.4 MG CAP PO SCH (09:27)
[2017-07-31] MEDS: SPIRONOLACTONE 25 MG TAB PO SCH (09:27)
[2017-07-31] MEDS: PANTOPRAZOLE SODIUM 40 MG TAB PO SCH (09:27)
[2017-07-31] MEDS: traMADol 50 MG TAB PO PRN (09:27)
[2017-07-31] MEDS: DILTIAZEM CD 120 MG CAP PO SCH (09:27)
--- NOTE | 2017-07-31 09:27 | GDS ---
[f rep st] DISCHARGE SUMMARY DISCHARGE DIAGNOSES: 1. Cirrhosis. 2. Recent upper gastrointestinal bleed. 3. Atrial fibrillation. 4. Klebsiella bacteremia with extended spectrum beta-lactamase. 5. History of alcohol abuse, now sober times a number of months. 6. Hepatitis C. 7. History of pulmonary embolism and deep venous thrombosis with new pulmonary embolism and deep prosper ous thrombosis diagnosed on this admission. 8. Schizoaffective disorder. HOSPITAL COURSE: Please see admission history and physical by Dr. Anabella Jones. The patient prese nted with intractable nausea, vomiting, diarrhea, found to have positive blood cultures. Hospital co [facility] [place] was notable for recurrent pulmonary embolism diagnosed after sinus tachycardia, as well as episo angel of atrial fibrillation, rate controlled with diltiazem. He is largely in sinus rhythm. Regarding venous thromboembolism, this is a second episode. Given his cirrhosis, he is a poor antico agulation candidate, but it is reasonable to keep him anticoagulated as long as he is in a controlled setting. I think he is not reliable for anticoagulation as an outpatient. Regarding his cirrhosis, the patient has been relatively well controlled on oral diuretic therapy wit hout significant ascites or lower extremity edema. The patient has completed 2 weeks of ertapenem. He is discharged to [facility] in [place]. /[id number]/MODL
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
== END 2017-07-31 10:19 | DRG 249 ==
LOC: EDUNIT# → OBSVTOIN 12:52 → F2W 14:25 → F3E 07-24 18:22
PROVIDERS: ADMIT Internal Medicine; ATTEND Internal Medicine
DX: K52.9 Noninfective gastroenteritis and colitis, unspecified (principal); E86.0 Dehydration; A41.50 Gram-negative sepsis, unspecified; R65.21 Severe sepsis with septic shock; I26.99 Other pulmonary embolism without acute cor pulmonale; J96.01 Acute respiratory failure with hypoxia; I95.9 Hypotension, unspecified; E87.1 Hypo-osmolality and hyponatremia; J90 Pleural effusion, not elsewhere classified; B96.1 Klebsiella pneumoniae [K. pneumoniae] as the cause of diseases classified elsewhere; I48.0 Paroxysmal atrial fibrillation; K74.60 Unspecified cirrhosis of liver; N17.9 Acute kidney failure, unspecified; I50.33 Acute on chronic diastolic (congestive) heart failure; E87.6 Hypokalemia; S22.088A Other fracture of T11-T12 vertebra, initial encounter for closed fracture; I82.513 Chronic embolism and thrombosis of femoral vein, bilateral; F25.9 Schizoaffective disorder, unspecified; B19.20 Unspecified viral hepatitis C without hepatic coma; R00.0 Tachycardia, unspecified; N40.1 Benign prostatic hyperplasia with lower urinary tract symptoms; R33.9 Retention of urine, unspecified; Z16.12 Extended spectrum beta lactamase (ESBL) resistance; F17.200 Nicotine dependence, unspecified, uncomplicated; G89.29 Other chronic pain; K43.9 Ventral hernia without obstruction or gangrene; S72.002D Fracture of unspecified part of neck of left femur, subsequent encounter for closed fracture with routine healing; K21.9 Gastro-esophageal reflux disease without esophagitis; F10.21 Alcohol dependence, in remission; D63.8 Anemia in other chronic diseases classified elsewhere; Z79.891 Long term (current) use of opiate analgesic; Z86.711 Personal history of pulmonary embolism; Z86.718 Personal history of other venous thrombosis and embolism; Z87.19 Personal history of other diseases of the digestive system; Z87.11 Personal history of peptic ulcer disease; Z90.5 Acquired absence of kidney; Z59.0 Homelessness; Z66 Do not resuscitate
CPT/HCPCS: 85520-90; 87338-90; 92523-GN; 96365; 97116-GP; 97163-GP; 97166-GO; 97530-GO; 97530-GP; 97535-GO; A9537; J0282; J0692; J1335; J1644; J1650; J1940; J2060; J2405; P9041; P9047; Q9967